=== PATIENT | male | born 1965 | race Caucasian/White ===

== ENCOUNTER 2017-07-03 14:00 | Outpatient (RCR) | payer BC, SELFPAY | END 2017-07-03 14:01 | disposition home or self-care (01) | LOC: OT 14:00 | PROVIDERS: Family Provider Family Medicine; PCP Family Medicine; Visit Provider Family Medicine | DX: M25.512 Pain in left shoulder (principal) | CPT/HCPCS: 97014; 97033; 97110; 97163; 97165; G0283 ==

== ENCOUNTER → 2020-07-09 14:13 | Outpatient (POV) | payer BC, SELFPAY | PROVIDERS: Visit Provider Nurse Practitioner Family | DX: Z00.00 Encounter for general adult medical examination without abnormal findings (principal) ==

== ENCOUNTER → 2020-08-11 12:00 | Outpatient (CLI) | payer BC, SELFPAY ==
[2020-08-11 14:03] LABS: Coronavirus 19 IgG Antibody Negative (Negative); Coronavirus 19 IgM Antibody Negative (Negative)
== END ==
PROVIDERS: Visit Provider Internal Medicine Gastroenterology
DX: Z01.818 Encounter for other preprocedural examination (principal); Z20.822 Contact with and (suspected) exposure to COVID-19; Z12.11 Encounter for screening for malignant neoplasm of colon
CPT/HCPCS: 36415; 86328

== ENCOUNTER 2020-08-13 11:56 | Day surgery (SDC) | payer BC, SELFPAY ==
[2020-08-07 10:08] VITALS: BMI 26.5
[2020-08-13] VITALS (9 sets, daily range): BP systolic 89–162; BP diastolic 64–99; PULSE 66–87; RESP 18; TEMP 36.2–36.8; O2SAT 92–99
--- NOTE | 2020-08-13 12:51 | P.PCN_ITS ---
[facility] Procedure Note Procedure Note:: Colonoscopy Procedure Report: Colonoscopy with cold snare polypectomy Endoscopist: Abundio Starr II, MD Referring physician: Donte Sheets MD Date of Procedure: August 13, 2020 Equipment: Olympus 190 variable stiffness pediatric colonoscope Sedation: MAC sedation Indication: Mr. Hicks is a 55-year-old gentleman who has had bright red rectal bleeding that occurs with every bowel movement. This began a couple of months ago. He also has had the feeling of incomplete bowel evacuation at times. He r eports smaller caliber stools with occasional urgency and small stools. He reports no abdominal pain, weight loss or family history of colon cancer. This is his first colonoscopy which is performed for diagnostic purposes. Procedure: Prior to the procedure, a history and physical exam was performed, and patient's medications and allergies were reviewed. The risks, benefits and alternatives of the sedation and procedure were discussed with the patient. All questions were answered and informed consent was obtained. The patient was brought to the procedure room. Patient identification and proposed procedure were verified by the physician and the nurse. The patient was placed in a left lateral decubitus position and the scope was passed under direct vision. Throughout the procedure, the patient's blood pressure, pulse, and oxygen saturations were monitored continuously. The colonoscopy was accomplished without difficulty. The patient tolerated the procedure well. Findings: On digital rectal examination there was normal rectal tone. There were no external hemorrhoids. There was a palpable mass approximately 7-8 cm from the anal verge that was along the posterior right margin of the rectum/rectosigmoid. The colonoscope was introduced through the anal canal to the rectum and advanced to the cecum. The ileocecal valve and appendiceal orifice were identified. The scope was advanced a short distance into the ileum which appeared grossly normal. The scope was then withdrawn into the colon. The cecum, ascending and transverse colon and mucosa were grossly normal. There were a few scattered diverticuli throughout the descending and sigmoid colon (LEFT colon). Within the rectum was a friable fungating mass lesion that extended from 13-14 cm down to about 8 to 9 cm from the anal verge and was on the posterior right lateral margin of the rectum. This mass did encompass one half to two thirds of the circumference of the rectum. The tissue had poor cohesiveness and larger amount of tissue was obtained by using the snare to remove a couple of small sections via cold snare technique. Upon retroflexion within the rectum there were grade 1 internal hemorrhoids. The preparation was excellent throughout with Teaneck Preparation Score of 9. The cecal time was 14 minutes. Impression: 1. Rectal cancer (1/2-2/3 circumference of rectum) along right posterior latera l wall Plan: This is approximately 4 to 5 cm in length and is approximately 8 cm above the pectinate line. I will follow-up the biopsies and I am going to obtain CT scan of the chest, abdomen and pelvis today. I would also like to obtain CBC, CMP, iron studies and CEA level. I will call [facility] colorectal surgeon (Dr. Stu Barrett) and discuss the findings with patient and family.
--- NOTE | 2020-08-13 13:27 | SUR.PHASEII ---
LAB AT BEDSIDE FOR BLOOD DRAW
--- NOTE | 2020-08-13 13:49 | CT_ITS ---
PROCEDURE: CT ABDOMEN PELVIS W CON CLINICAL INDICATION: Rectal cancer with bright red rectal bleeding COMPARISON: No exams were available for comparison TECHNIQUE: IV Contrast: 75ML Isovue 370 Oral Contrast 10ml Gastroview Axial images obtained with sagittal and coronal reformats. All CT scans at the facility use one or more dose reduction, viz: automated exposure control, ma/kV adjustment per patient size (including targeted exams where dose is matched to indication, i.e. head), or iterative reconstruction technique. FINDINGS: LOWER THORAX: No acute finding ABDOMEN & PELVIS: The liver, spleen, adrenal glands, pancreas, and kidneys have an unremarkable appearance. No renal or ureteral calculi. No liver lesions apparent. Prior cholecystectomy. No biliary dilatation. Incidental note made of 2 splenules the largest measuring 15 mm. Unremarkable appendix. No intestinal obstruction or free air. There is a small umbilical hernia containing fat. There are few small mesenteric lymph nodes. There is eccentric somewhat irregular thickening of the rectum on the right, anteriorly, and posteriorly consistent with patient's known rectal mass. The mass measures at least 4 cm in length and is approximately 7 cm proximal to the anus. There is some minimal haziness of the perirectal fat on the right the. No enlarged pelvic lymph nodes are evident. No evidence of perforation. No abscess apparent No lytic or blastic bony lesions. IMPRESSION: 1. Rectal mass as described above consistent with carcinoma. There is minimal haziness of the perirectal fat on the right. This could be related to partial volume averaging artifact versus serosal involvement. No adenopathy. 2. No evidence of abdominal or pelvic metastasis. Dictated by: Rickie Pepper MD 08/14/2020 05:58 Rickie Pepper MD in [place] 08/14/2020 05:58
--- NOTE | 2020-08-13 13:49 | CT_ITS ---
PROCEDURE: CT CHEST W CON CLINCAL INDICATION: RECAL CANCER Rectal cancer, evaluate for metastasis COMPARISON: No exams were available for comparison TECHNIQUE: IV Contrast: 75ml Isovue 370 Axial images obtained with sagittal and coronal reformats. All CT scans at the facility use one or more dose reduction, viz: automated exposure control, ma/kV adjustment per patient size (including targeted exams where dose is matched to indication, i.e. head), or iterative reconstruction technique. FINDINGS: HEART AND MEDIASTINAL STRUCTURES: No mediastinal or hilar mass. There are few scattered small lymph nodes but no adenopathy apparent. LUNGS AND PLEURAL SPACES: 5 mm noncalcified nodules present in the right minor fissure region. Mild atelectatic or fibrotic changes are present in the left lung base. 4 mm and 2 mm noncalcified nodules present along the left major fissure. No suspicious pulmonary nodules evident. BONY STRUCTURES: No acute bony abnormalities apparent. UPPER ABDOMEN: Unremarkable. ADDITIONAL FINDINGS: No other significant abnormalities. IMPRESSION: There are 3 small fissural nodules which have a benign appearance. Stability may be confirmed with follow-up No convincing evidence of pulmonary metastasis. Dictated by: Rickie Pepper MD 08/14/2020 06:05 Rickie Pepper MD in [place] 08/14/2020 06:05
[2020-08-13 13:50] LABS: Basophils # 0.1 K/mm3 (0-0.2); Basophils % 1.2 % (0.1-2.0); Eosinophils # 0.5 K/mm3 (0.0-0.4); Eosinophils % 9.8 % (0.1-12.0); Hematocrit 48.5 % (42.0-52.0); Hemoglobin 15.9 g/dL (14.1-18.0); Lymphocytes # 1.3 K/mm3 (0.7-4.5); Lymphocytes % 25.3 % (10-50); Mean Corpuscular HGB Conc 32.8 g/dL (31.8-35.4); Mean Corpuscular Hemoglobin 29.2 pg (27.0-31.2); Mean Corpuscular Volume 89.2 fl (80-94); Mean Platelet Volume 8.7 fl (7.4-10.4); Monocytes # 0.4 K/mm3 (0.1-1.0); Monocytes % 6.8 % (1.7-9.3); Platelet Count 213 K/mm3 (142-424); Red Blood Count 5.44 M/mm3 (4.60-6.20); Red Cell Distribution Width 12.9 % (11.5-17.5); White Blood Count 5.3 K/mm3 (4.8-10.8)
--- NOTE | 2020-08-13 13:52 | SUR.PHASEII ---
DR RICHMOND AT BEDSIDE EXPLAINING RESULTS OF COLONOSCOPY- RECTAL CA AND POC. RADIOLOGY DELIVERED CONTRAST TO DRINK.
[2020-08-13 13:53] LABS: Chloride 108 mmol/L (98-107); Sodium 139 mmol/L (136-145)
[2020-08-13 13:54] LABS: Potassium 4.9 mmoL/L (3.5-5.1)
[2020-08-13 13:56] LABS: Alanine Aminotransferase 29 U/L (12-78); Alkaline Phosphatase 71 U/L (38-126); Anion Gap 8.9 mEq/L (5-15); Aspartate Amino Transferase 31 U/L (17-59); Bilirubin,Total 0.9 mg/dl (0.2-1.3); Blood Urea Nitrogen 12 mg/dl (9-20); Carbon Dioxide 27 mmol/L (22.0-30.0); Creatinine Clearance Estimated 83 mL/min (50-200); Estimated Glomerular Filt Rate 63 ml/min (>60); GFR (African American) 76 ML/MIN (>60); Iron 156 ug/dL (49-181)
[2020-08-13 13:57] LABS: Albumin Level 4.1 g/dl (3.5-5.0); Albumin/Globulin Ratio 1.4 (1.1-1.8); Calcium 9.3 mg/dl (8.4-10.2); Globulin 2.9 g/dL (1.3-3.2); Glucose 113 mg/dl (74-100)
[2020-08-13 14:06] LABS: Total Iron Binding Capacity 357 ug/dL (261-462)
[2020-08-13 14:32] LABS: Ferritin 25.2 ng/ml (17.9-464)
--- NOTE | 2020-08-13 15:16 | P.PN_ITS ---
[facility] Anesthesia Checklist - Patient Identification Patient Identification: Arm Band - Structural Data Admitted From: Home Planned Operative Procedure/s: colonoscopy Consent for Planned Operative Procedure(s) Verified: Yes Verified Documents: Surgical Consent, History and Physical - NPO Status Verified Time NPO: 00:00 - Additional verifications Anesthesia Reactions: No - Airway Assessment C-Spine Mobility Assessed: Yes (mp2) TMJ Mobility Assessed: Yes Dentition: Good Dentition - Neurological Assessment Level of Consciousness: Awake, Alert - Anesthesia Plan Anesthesia Risk discussed: Yes Anesthesia Plan: Verified ASA Class: II Anesthesia Type: MAC [facility] History I have reviewed the patient's past medical history: Yes Medical History: Denies:: Cancer, Diabetes Mellitus Type 1, Diabetes Mellitus Type 2, MRSA, Seizures *Have you ever received a pneumonia vaccine?: No *Have you received a flu vaccine this season?: Yes Anesthesia experience/problems:: nac Amputation: No Fractures: No - *Social History Last grade of school completed: High school graduate Alcohol Intake: current Alcohol Intake Frequency:: a few times a week Substance Use Type: denies use *Occupational Status:: employed *Travel in the last 8 weeks: None Family Hx:: No significant family history
[2020-08-15 11:21] LABS: CEA 2.1 ng/mL (0.0-4.7)
== END 2020-08-13 14:30 | disposition home or self-care (01) ==
LOC: OUTP 11:58
PROVIDERS: PCP Family Medicine; Visit Provider Internal Medicine Gastroenterology
PROC: 0DJD8ZZ Inspection of Lower Intestinal Tract, Via Natural or Artificial Opening Endoscopic (ICD-10-PCS; CPT 45378; principal; 2020-08-13 13:00)
DX: C18.7 Malignant neoplasm of sigmoid colon (principal); K57.30 Diverticulosis of large intestine without perforation or abscess without bleeding; K64.0 First degree hemorrhoids
CPT/HCPCS: 45385; 36415; 71260; 74177; 80053; 82378; 82728; 83540; 83550; 85025; Q9967

== ENCOUNTER → 2020-09-17 14:37 | Outpatient (CLI) | payer BC, SELFPAY ==
[2020-09-17 15:13] LABS: Basophils # 0.1 K/mm3 (0-0.2); Eosinophils # 0.4 K/mm3 (0.0-0.4); Eosinophils % 5.6 % (0.1-12.0); Hematocrit 47.9 % (42.0-52.0); Hemoglobin 16.1 g/dL (14.1-18.0); Lymphocytes # 1.7 K/mm3 (0.7-4.5); Lymphocytes % 25.2 % (10-50); Mean Corpuscular HGB Conc 33.5 g/dL (31.8-35.4); Mean Corpuscular Hemoglobin 29.2 pg (27.0-31.2); Mean Corpuscular Volume 87.1 fl (80-94); Mean Platelet Volume 8.5 fl (7.4-10.4); Monocytes # 0.5 K/mm3 (0.1-1.0); Monocytes % 6.7 % (1.7-9.3); Neutrophils # 4.2 K/mm3 (1.8-7.8); Neutrophils % 61.6 % (37.0-80.0); Platelet Count 234 K/mm3 (142-424); Red Cell Distribution Width 12.7 % (11.5-17.5); White Blood Count 6.8 K/mm3 (4.8-10.8)
[2020-09-17 15:32] LABS: Chloride 104 mmol/L (98-107); Potassium 4.6 mmoL/L (3.5-5.1); Sodium 135 mmol/L (136-145)
[2020-09-17 15:35] LABS: Anion Gap 13.6 mEq/L (5-15); Blood Urea Nitrogen 18 mg/dl (9-20); Calcium 9.8 mg/dl (8.4-10.2); Carbon Dioxide 22 mmol/L (22.0-30.0); Estimated Glomerular Filt Rate 69 ml/min (>60); GFR (African American) 84 ML/MIN (>60); Glucose 113 mg/dl (74-100)
[2020-09-17 15:46] LABS: Coronavirus 19 IgG Antibody Positive (Negative); Coronavirus 19 IgM Antibody Negative (Negative)
== END ==
PROVIDERS: Visit Provider Surgery
DX: Z01.812 Encounter for preprocedural laboratory examination (principal); Z20.822 Contact with and (suspected) exposure to COVID-19; C20 Malignant neoplasm of rectum
CPT/HCPCS: 36415; 80048; 85025; 86328

== ENCOUNTER 2020-09-18 08:53 | Day surgery (SDC) | payer BC, SELFPAY ==
[2020-09-17 12:17] VITALS: BMI 30.7
[2020-09-18] VITALS (10 sets, daily range): BP systolic 91–162; BP diastolic 60–100; PULSE 71–82; RESP 14–16; TEMP 36.2–36.7; O2SAT 93–100
--- NOTE | 2020-09-18 09:33 | HMH.ANESCL ---
[facility] Anesthesia Checklist - Patient Identification Patient Identification: Arm Band - Structural Data Admitted From: Home Planned Operative Procedure/s: Port - a - cath placement Consent for Planned Operative Procedure(s) Verified: Yes - NPO Status Verified Time NPO: 00:00 - Additional verifications Anesthesia Reactions: No Hx Blood Transfusions: No Blood Transfusion Reaction: No - Airway Assessment C-Spine Mobility Assessed: Yes TMJ Mobility Assessed: Yes Dentition: Good Dentition - Neurological Assessment Level of Consciousness: Awake Hx Seizures: No Numbness or tingling in extremities: No - Anesthesia Plan Anesthesia Risk discussed: Yes Anesthesia Plan: Verified ASA Class: II Anesthesia Type: General [facility] History I have reviewed the patient's past medical history: Yes Medical History: Reports:: Cancer (Colorectal cancer), Cardiomyopathy Denies:: Diabetes Mellitus Type 1, Diabetes Mellitus Type 2, Internal Pacemaker, MRSA, Seizures *Have you ever received a pneumonia vaccine?: Yes (2009) *Have you received a flu vaccine this season?: Yes Other Medical History: Denies: Blood Transfusion Reaction Anesthesia experience/problems:: None Laterality Cases: Left: Arthroscopy Knee Other Surgeries: Yes: Cholecystectomy, Colonoscopy, Other. No: Pacemaker Amputation: No Fractures: No - *Social History Last grade of school completed: Advanced degree Smoking Status: Never smoker Alcohol Intake: current Alcohol Intake Frequency:: a few times a week Substance Use Type: denies use *Occupational Status:: employed Housing: house Household Members: spouse *Travel in the last 8 weeks: None Family Hx:: No significant family history
--- NOTE | 2020-09-18 11:52 | HMH.OPNOTE ---
Date of procedure: 09/18/20 Pre-op Diagnosis:: Rectal cancer Post-op Diagnosis:: Same Procedure performed:: Placement of single-lumen tunneled venous access port with subcutaneous reservoir (PowerPort) Surgeon:: Gopi Leslie MD FURNITURE SALESPERSON:: Other Anesthesia: GETA Estimated blood loss (mL): 10 Clinical Note:: Patient is a very pleasant 55-year-old male with newly diagnosed rectal cancer. He has been having some rectal bleeding and underwent colonoscopy by Dr. Abundio Starr at which point he was found to have mid rectal cancer approximately 8 cm from the dentate line. He has seen Dr. Butch Barrett and seen Dr. Barahona for oncology. Plan is for neoadjuvant chemoradiation. He has been referred for surgical consultation for port placement. Operative findings:: No unusual anatomy Operative note:: Patient was taken to the operating room. He was positioned in the supine position. General anesthesia was induced via endotracheal tube. Neck and upper chest was prepped and draped in the standard surgical fashion bilaterally. He was positioned in Trendelenburg position. Local anesthetic was infiltrated inferior to the left clavicle near the deltopectoral groove. 18-gauge needle was inserted. Several passes were made of the needle and ultimately the left subclavian vein was cannulated. Guidewire was inserted. Fluoroscopy was used to confirm appropriate position of the guidewire. Small incision was made at the guidewire insertion site. Subcutaneous tissues were dilated with the dilator and breakaway sheath. Guidewire and dilator were removed. Single-lumen open-ended catheter was inserted through the breakaway sheath which was then removed. Fluoroscopy was used to confirm appropriate positioning of the catheter tip near the atriocaval junction. Skin was marked the skin marker for planned subcutaneous tunnel and pocket. Local anesthetic was infiltrated. Incision was made for subcutaneous pocket. Inferior subcutaneous pocket was created using electrocautery. Catheter was tunneled subcutaneously to the pocket. Fluoroscopy was once again used to confirm appropriate position of the catheter and tip. Catheter was cut to the appropriate length. It was secured to the reservoir port. [place] port was secured in the subcutaneous pocket with 2-0 Vicryl sutures. Port aspirated was flushed with saline without difficulty. Subcutaneous tissues were closed with a running 2-0 Vicryl suture. Both incisions were closed with 4-0 Monocryl in a subcuticular fashion. Dressing was applied. At the completion of the procedure the portals once again accessed percutaneously with the Hardy needle infusion tubing. It flushed and aspirated without difficulty with saline. It was then flushed with heparinized saline. Port was left accessed for planned chemotherapy tomorrow. There were no immediate complications. Condition: stable Disposition: PACU Specimens:: None Complications:: None immediately apparent
--- NOTE | 2020-09-18 11:56 | HMH.ANESI ---
[facility] Anesthesia Record Part I Intake, IV Amount: 500 Estimated blood loss (mL): 0 Urine output (mL): 0 Blood Pressure: 108/63 SaO2: 93 Pulse Rate: 79 Respiratory Rate: 14 Temperature: 97.2 F Patient is:: Drowsy Stable to PACU at:: 11:54
--- NOTE | 2020-09-18 12:03 | XR_ITS ---
PROCEDURE: XR CHEST PORTABLE CLINICAL HISTORY: port a cath COMPARISON: CT CT CHEST W CON from 08/13/2020 FINDINGS: Left subclavian Port-A-Cath has been placed. The tip is in the region of the distal SVC/caval atrial region. No evidence of pneumothorax. Bibasilar atelectatic changes with low lung volumes. No acute bony abnormalities. IMPRESSION: Port-A-Cath present from left subclavian approach with the tip in the region of the distal SVC/proximal atrial region without evidence of pneumothorax Dictated by: Rickie Pepper MD 09/18/2020 12:54 Rickie Pepper MD in [place] 09/18/2020 12:54
--- NOTE | 2020-09-18 12:38 | XR_ITS ---
PROCEDURE: XR CHEST AP CLINICAL HISTORY: PORT A CATH COMPARISON: CT CT CHEST W CON from 08/13/2020 CR XR CHEST PORTABLE from 09/18/2020 FINDINGS: Fluoroscopy time: 20 seconds. Single images submitted with C-arm demonstrating Port-A-Cath tip in the region of the distal SVC from the left subclavian approach. IMPRESSION: Status post Port-A-Cath placement with C-arm assistance Dictated by: Rickie Pepper MD 09/18/2020 14:42 Rickie Pepper MD in [place] 09/18/2020 14:42
[2020-09-19 09:25] VITALS: BP 144/94; PULSE 76; TEMP 36.5
--- NOTE | 2020-09-19 09:25 | P.PN_ITS ---
[facility] Anesthesia Record Part II Discharge Time: 12:34 Destination: [facility] PACU nurse assessment reviewed?: Yes Patient Condition:: Good Anesthesia Complications:: None Swallowing reflex intact?: Yes Cyanosis?: No Blood Pressure: 144/94 Pulse Rate: 76 Temperature: 97.7 F Mental Status: Alert & Oriented Pain level:: 0 Nausea and/or vomitting:: None Intake, IV Amount: 500
== END 2020-09-18 13:25 | disposition home or self-care (01) ==
LOC: OR 08:54
PROVIDERS: Visit Provider Surgery
PROC: (CPT 36561; principal; 2020-09-18 10:15)
DX: C20 Malignant neoplasm of rectum (principal); I42.9 Cardiomyopathy, unspecified; Z87.39 Personal history of other diseases of the musculoskeletal system and connective tissue; Z90.49 Acquired absence of other specified parts of digestive tract
CPT/HCPCS: 36561; 71045; 76000; 96374; C1788; J1642

== ENCOUNTER 2020-09-19 08:25 | Outpatient (CLI) | payer BC, SELFPAY ==
[2020-09-19] VITALS (27 sets, daily range): BP systolic 105–166; BP diastolic 58–102; PULSE 58–90; RESP 16–18; TEMP 36.2; O2SAT 95–99
--- NOTE | 2020-09-21 11:50 | DIET.NUTRFU ---
Pt contacted through phone for nutritional consultation for first dose chemotherapy. Pt reported no nutritional issues or side effects at this time and eating normally. Encouraged pt to reach out with any nutritional questions/concerns at any time.
== END 2020-09-19 16:10 | disposition home or self-care (01) ==
LOC: INF 08:33
PROVIDERS: Visit Provider Internal Medicine Medical Oncology
DX: C18.9 Malignant neoplasm of colon, unspecified (principal)
CPT/HCPCS: 96411; 96413; 96415; 96417; J0640; J9190; J9263; Q0166

== ENCOUNTER 2020-10-04 08:00 | Outpatient (CLI) | payer BC, SELFPAY ==
[2020-10-04] VITALS (23 sets, daily range): BP systolic 115–159; BP diastolic 68–94; PULSE 63–94; RESP 16–18; TEMP 35.8–35.9; O2SAT 98; BMI 30.7
[2020-10-04 08:34] LABS: Basophils % 0.8 % (0.1-2.0); Eosinophils # 0.2 K/mm3 (0.0-0.4); Hematocrit 43.8 % (42.0-52.0); Hemoglobin 14.5 g/dL (14.1-18.0); Lymphocytes # 2.3 K/mm3 (0.7-4.5); Lymphocytes % 53.3 % (10-50); Mean Corpuscular HGB Conc 33.1 g/dL (31.8-35.4); Mean Corpuscular Hemoglobin 29.2 pg (27.0-31.2); Mean Corpuscular Volume 88.2 fl (80-94); Mean Platelet Volume 7.8 fl (7.4-10.4); Monocytes # 0.7 K/mm3 (0.1-1.0); Monocytes % 15.7 % (1.7-9.3); Neutrophils # 1.1 K/mm3 (1.8-7.8); Neutrophils % 26.2 % (37.0-80.0); Platelet Count 189 K/mm3 (142-424); Red Blood Count 4.97 M/mm3 (4.60-6.20); Red Cell Distribution Width 13.1 % (11.5-17.5); White Blood Count 4.2 K/mm3 (4.8-10.8)
[2020-10-04 08:45] LABS: MANUAL DIFFERENTIAL MANUAL DIFFERENTIAL (MANUAL DIFF)
[2020-10-04 08:49] LABS: Chloride 102 mmol/L (98-107); Potassium 4.1 mmoL/L (3.5-5.1); Sodium 134 mmol/L (136-145)
[2020-10-04 08:52] LABS: Alanine Aminotransferase 25 U/L (12-78); Albumin/Globulin Ratio 1.4 (1.1-1.8); Alkaline Phosphatase 93 U/L (38-126); Anion Gap 11.1 mEq/L (5-15); Aspartate Amino Transferase 24 U/L (17-59); Bilirubin,Total 0.5 mg/dl (0.2-1.3); Blood Urea Nitrogen 16 mg/dl (9-20); Calcium 9.4 mg/dl (8.4-10.2); Carbon Dioxide 25 mmol/L (22.0-30.0); Creatinine Clearance Estimated 95 mL/min (50-200); Estimated Glomerular Filt Rate 69 ml/min (>60); GFR (African American) 84 ML/MIN (>60); Globulin 2.8 g/dL (1.3-3.2); Glucose 128 mg/dl (74-100); Total Protein,Serum 6.8 g/dl (6.3-8.2)
[2020-10-04 09:52] LABS: Eosinophils % 6 % (0-3); Lymphocytes % 49 % (10-50); Monocytes % 16 % (2-9); Neutrophils % 28 % (42-76); Total Cells Counted 100
[2020-10-04 09:53] LABS: Platelet Estimate Normal; RBC Morphology Normal
--- NOTE | 2020-10-04 16:24 | PC.NURSE ---
[id number] 4800MG CONTINUOUS IV DOSE VERIFIED WITH MAGAN GONZALEZ AND HOOKED UP TO PORT AT THIS TIME FOR 46 HR INFUSION.
== END 2020-10-04 16:15 | disposition home or self-care (01) ==
LOC: INF 08:08
PROVIDERS: Visit Provider Internal Medicine Medical Oncology
DX: Z51.11 Encounter for antineoplastic chemotherapy (principal); C20 Malignant neoplasm of rectum
CPT/HCPCS: 80053; 85007; 85025; 96411; 96413; 96415; 96417; J0640; J8501; J9190; J9263; Q0166

== ENCOUNTER 2020-10-04 20:03 | Emergency (ER) | payer BC, SELFPAY ==
[2020-10-04 20:30] VITALS: BMI 25.8
--- NOTE | 2020-10-04 21:05 | HMH.EDUTC ---
[facility] [place] Referrals: Kya Barahona MD [Primary Care Provider] - [facility] HPI - General Stated complaint: chemo port came loose - Related Data Home Medications Medication Instructions Recorded Confirmed No Known Home Medications 08/07/20 10/04/20 Allergies Allergy/AdvReac Type Severity Reaction Status Date / Time No Known Allergies Allergy Verified 10/04/20 08:41 [facility] [place] History - Hepatitis A Screen Attestation statement:: This patient has been screened for Hepatitis A risk factors. Medical History: Reports:: Cancer, Cardiomyopathy Denies:: Diabetes Mellitus Type 1, Diabetes Mellitus Type 2, Internal Pacemaker, MRSA, Seizures Other Medical History: Reports: Chemotherapy. Denies: Blood Transfusion Reaction Laterality Cases: Left: Arthroscopy Knee Other Surgeries: Yes: Cholecystectomy, Colonoscopy, Other. No: Pacemaker Amputation: No Fractures: No Comment: Lt knee sx - Social History Smoking Status: Never smoker Alcohol Intake: current Alcohol Intake Frequency:: a few times a week Substance Use Type: denies use Occupational Status: employed Housing: house Household Members: spouse Family Hx:: No significant family history
--- NOTE | 2020-10-04 21:45 | PC.NURSE ---
JAMES GORDILLO APRN SPEAKING WITH DR. PULIDO AT THIS TIME D/T STAFF NOT BEING ABLE TO ACCESS POWER PORT. DR. PULIDO STATED FOR STERILE DRESSING TO BE APPLIED TO SITE AND FOR PATIENT TO FOLLOW UP WITH EITHER DR. SANCHEZ OR ROSALIA IN AM.
[2020-10-04 21:48] VITALS: BP 00/00; PULSE 0; RESP 0; TEMP -17.7; TEMP 0
== END 2020-10-04 21:52 | disposition home or self-care (01) ==
PROVIDERS: Emergency Provider Nurse Practitioner Family; PCP Internal Medicine Medical Oncology
DX: Z95.828 Presence of other vascular implants and grafts (principal)

== ENCOUNTER 2020-10-05 11:02 | Outpatient (CLI) | payer BC, SELFPAY | END 2020-10-05 13:00 | disposition home or self-care (01) | LOC: INF 11:39 | PROVIDERS: Visit Provider Internal Medicine Medical Oncology | DX: Z45.2 Encounter for adjustment and management of vascular access device (principal); C20 Malignant neoplasm of rectum | CPT/HCPCS: 96374 ==

== ENCOUNTER 2020-10-06 17:22 | Emergency (ER) | payer BC, SELFPAY ==
--- NOTE | 2020-10-06 17:25 | PC.NURSE ---
Pt alert and oriented x4. Calm and cooperative. Port accessed. No apparent head injuries noted. Pt denies any neck pain or discomfort. Bilateral scapular bruising. Heart sounds w/ RRR. Bilateral lung sounds clear throughout. Abdomen with abrasion noted at midline, also has 2 lacerations on left side of abdominal wall. Bilateral upper extremities with no known injury noted. No injuries noted to spinal area. Pt denies any back pain or discomfort. Right lower extremity with approx 2 deep laceration on back of upper leg. Left lower extremity with no apparent injury.
--- NOTE | 2020-10-06 17:27 | PC.NURSE ---
Trauma alert called to primo
--- NOTE | 2020-10-06 17:29 | XR_ITS ---
PROCEDURE INFORMATION: Exam: XR Pelvis Exam date and time: 10/06/2020 5:29 PM Age: 55 years old Clinical indication: Injury or trauma; Fall; Blunt trauma (contusions or hematomas); Does not apply; Abdomen, lower; Additional info: Trauma alert TECHNIQUE: Imaging protocol: XR pelvis. Views: 1 or 2 view. COMPARISON: CT ABDOMEN PELVIS W CON 08/13/2020 4:27 PM FINDINGS: Bones/joints: Normal anatomic alignment. There is no evidence of acutely displaced fractures. There is no evidence of dislocation. No aggressive osseous lesions. Soft tissues: There is no significant soft tissue swelling. There is no evidence of a radio-opaque foreign body. IMPRESSION: Negative for acute skeletal pathology.
--- NOTE | 2020-10-06 17:29 | XR_ITS ---
PROCEDURE INFORMATION: Exam: XR Chest Exam date and time: 10/06/2020 5:29 PM Age: 55 years old Clinical indication: Injury or trauma; Fall; Blunt trauma (contusions or hematomas); Additional info: Trauma alert TECHNIQUE: Imaging protocol: XR of the chest. Views: 4 or more views. COMPARISON: SD XR CHEST AP 09/18/2020 12:30 PM FINDINGS: Tubes, catheters and devices: A left infusion port is present. Airway: The airways are patent. Lungs: No acute interstitial or airspace disease. Pleural spaces: There are no pleural effusions present. There is no evidence of pneumothorax. Heart/Mediastinum: Heart is of normal size and morphology. Bones/joints: No acute skeletal abnormality or aggressive osseous lesion. IMPRESSION: Negative for acute thoracic pathology.
[2020-10-06 17:33] VITALS: BP 122/72; PULSE 68; RESP 20; TEMP 36.9; O2SAT 100
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
--- NOTE | 2020-10-06 17:33 | XR_ITS ---
PROCEDURE INFORMATION: Exam: XR Right Femur Exam date and time: 10/06/2020 5:33 PM Age: 55 years old Clinical indication: Other: Laceration TECHNIQUE: Imaging protocol: XR Right femur. Views: 2 views. COMPARISON: No relevant prior studies available. FINDINGS: Bones/joints: Normal anatomic alignment. There is no evidence of acutely displaced fractures. There is no evidence of dislocation. No aggressive osseous lesions. Soft tissues: Soft tissue swelling and soft tissue emphysema at the level of the popliteal fossa/knee. There is no evidence of a radio-opaque foreign body. IMPRESSION: 1. Soft tissue swelling and soft tissue emphysema at the level of the popliteal fossa/knee, most in favor with a posttraumatic laceration. 2. Negative for acute skeletal pathology.
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
--- NOTE | 2020-10-06 17:48 | HMH.EDGENADL ---
ED Disposition Clinical Impression: Abdominal trauma Qualifiers: Encounter type: initial encounter Qualified Code(s): S39.91XA - Unspecified injury of abdomen, initial encounter Chest trauma Qualifiers: Encounter type: initial encounter Qualified Code(s): S29.9XXA - Unspecified injury of thorax, initial encounter Disposition: Home, Self-Care Condition on Discharge: Good Referrals: Provider,Referral, MD [Primary Care Provider] - - Critical Care Critical Care Time: No Attestation: On 10/06/20, the high probability of a clinically significant, sudden or life threatening deterioration of the following system(s) required my full and direct attention, intervention and personal management. The time I documented below is in addition to time spent performing reported procedures but includes the following listed in this critical care notation. Medical Decision Making - Medical Records Medical records reviewed: Yes: I reviewed the patient's medical records. - Russell Inquiry Pt receiving controlled substance: No Vital Signs: 10/06/20 17:33 Temperature 98.5 F Temperature Source Oral Pulse Rate [Left Radial] 68 Respiratory Rate 20 Blood Pressure [Right Arm] 122/72 Blood Pressure Mean [Right Arm] 88 Blood Pressure Source [Right Arm] Manual Cuff/ Auscultation Blood Pressure Position [Right Arm] Supine 02 Sat by Pulse Oximetry 100 Oxygen Delivery Method Room Air Orders (Tests/Meds): ED MEDICATIONS Discontinued Medications Generic Name Dose Route Start Last Admin Trade Name Freq PRN Reason Stop Dose Admin Iopamidol 100 ml 10/06/20 18:20 10/06/20 18:21 Iopamidol-370 (76%);100ml Bottle IV 10/06/20 18:21 100 ml ONCE ONE Administration Sodium Chloride 50 ml 10/06/20 18:20 10/06/20 18:21 0.9 % Sodium Chloride 50 Ml Vial IV 10/06/20 18:21 50 ml ONCE ONE Administration Sodium Chloride 10 ml 10/06/20 18:20 10/06/20 18:21 Sodium Chloride 0.9% 10ml Syr (Rad Only) IV 10/06/20 18:21 10 ml ONCE ONE Administration Medical Decision Narrative: In summary this is a 55-year-old male history of colon cancer on chemotherapy with a port, will had chemotherapy today. Patient was attacked by a ball, has trauma to his chest and abdomen, patient made a trauma alert. Vital signs were stable, not tachycardic or hypoxemic. Patient bedside E fast was negative for pneumothorax or fluid collection in abdomen. Bedside chest and pelvis x-ray demonstrated no large pneumothorax radiographically on chest x-ray or pelvic fracture. Patient trauma alert was canceled, was taken to CT scanner for CTA chest and CT abdomen pelvis. It meets [place] head CT criteria Nexus criteria does not require any imaging at this time of head or C-spine. Patient did have laceration of his right lower extremity proximal posterior medial thigh this was repaired with sutures please see note for further details, on further assessment patient CTA chest and CT abdomen pelvis demonstrated no pathology or traumatic injuries, patient was amenable for discharge for follow-up for suture removal in 10 to 14 days. General Adult HPI - General Stated complaint: AO 10/06 1700 attach by bull Time Seen by Provider: 10/06/20 17:25 - History of Present Illness HPI narrative: 55-year-old male history of colorectal cancer on chemotherapy with port in place presenting after trauma. Patient was at work as a [employer] when he had a bowel, in his abdomen. Patient states that the ball caused a laceration of his right lower extremity, patient denies any chest pain or abdominal pain at this time, patient has laceration to his right lower extremity. Not on blood thinners, no other medical problems or surgical history. Patient not hit his head or pass out, patient made a trauma alert on arrival. - Related Data Home Medications Medication Instructions Recorded Confirmed No Known Home Medications 08/07/20 10/04/20 Allergies Allergy/Ad
--- NOTE | 2020-10-06 18:16 | PC.NURSE ---
Pt returned from rad.
--- NOTE | 2020-10-06 18:36 | PC.NURSE ---
at bedside suturing.
[2020-10-06 18:55] VITALS: BMI 30.2
[2020-10-06 19:06] VITALS: BP 122/72; PULSE 68; RESP 20; TEMP 36.9; O2SAT 100
== END 2020-10-06 19:10 | disposition home or self-care (01) ==
PROVIDERS: Emergency Provider Emergency Medicine
DX: S81.811A Laceration without foreign body, right lower leg, initial encounter (principal); S39.91XA Unspecified injury of abdomen, initial encounter; S29.9XXA Unspecified injury of thorax, initial encounter; W55.22XA Struck by cow, initial encounter; Y92.73 Farm field as the place of occurrence of the external cause; C20 Malignant neoplasm of rectum
CPT/HCPCS: 12001; 71045; 71275; 72170; 73552; 74174; 99281; J1642; Q9967

== ENCOUNTER 2020-10-06 20:37 | Emergency (ER) | payer BC, SELFPAY ==
[2020-10-06 21:00] VITALS: BP 114/79; PULSE 65; RESP 18; TEMP 36.9; O2SAT 98; BMI 30.2
[2020-10-06 21:30] VITALS: BP 146/89; PULSE 68; RESP 16; O2SAT 99
[2020-10-06 21:30] LABS: Basophils % 0.7 % (0.1-2.0); Eosinophils # 0.1 K/mm3 (0.0-0.4); Eosinophils % 1.5 % (0.1-12.0); Hematocrit 43.5 % (42.0-52.0); Hemoglobin 13.9 g/dL (14.1-18.0); Lymphocytes # 1.2 K/mm3 (0.7-4.5); Lymphocytes % 34.4 % (10-50); Mean Corpuscular Hemoglobin 28.5 pg (27.0-31.2); Mean Corpuscular Volume 88.8 fl (80-94); Monocytes # 0.2 K/mm3 (0.1-1.0); Monocytes % 5.5 % (1.7-9.3); Neutrophils # 1.9 K/mm3 (1.8-7.8); Neutrophils % 57.9 % (37.0-80.0); Platelet Count 200 K/mm3 (142-424); Red Cell Distribution Width 12.8 % (11.5-17.5); White Blood Count 3.3 K/mm3 (4.8-10.8)
--- NOTE | 2020-10-06 21:37 | HMH.EDRECH ---
ED Disposition Clinical Impression: Rectal cancer Pulmonary emboli Qualifiers: Pulmonary embolism type: multiple subsegmental (without acute cor pulmonale) Qualified Code(s): I26.94 - Multiple subsegmental pulmonary emboli without acute cor pulmonale Disposition: Home, Self-Care Condition on Discharge: Good Instructions: DI for Pulmonary Embolism Additional Instructions: call dr jones and dr armas thursday and take eliquis 10 mg bid Referrals: Provider,MD Leia [Primary Care Provider] - Donte Jones MD [Staff Physician] - Kya Armas MD [Staff Physician] - - Critical Care Critical Care Time: No Attestation: On 10/06/20, the high probability of a clinically significant, sudden or life threatening deterioration of the following system(s) required my full and direct attention, intervention and personal management. The time I documented below is in addition to time spent performing reported procedures but includes the following listed in this critical care notation. Medical Decision Making - Medical Records Medical records reviewed: Yes: I reviewed the patient's medical records. - Russell Inquiry Pt receiving controlled substance: No Vital Signs: 10/06/20 21:00 10/06/20 21:30 Temperature 98.5 F Temperature Source Oral Pulse Rate 68 Pulse Rate [Right] 65 Respiratory Rate 18 16 Blood Pressure 146/89 H Blood Pressure [Right Arm] 114/79 Blood Pressure Mean 109 Blood Pressure Mean [Right Arm] 90 Blood Pressure Source [Right Arm] Automatic Cuff Blood Pressure Position [Right Arm] Supine 02 Sat by Pulse Oximetry 98 99 Oxygen Delivery Method Room Air - Lab Data Lab results reviewed: Yes: I reviewed the patient's lab results. Lab Results 10/06/20 21:15: WBC 3.3 L, RBC 4.90, Hgb 13.9 L, Hct 43.5, MCV 88.8, MCH 28.5, MCHC 32.0, RDW 12.8, Plt Count 200, MPV 8.0, Neut % (Auto) 57.9, Lymph % (Auto) 34.4, [place] % (Auto) 5.5, Eos % (Auto) 1.5, Baso % (Auto) 0.7, Neut # (Auto) 1.9, Lymph # (Auto) 1.2, [place] # (Auto) 0.2, Eos # (Auto) 0.1, Baso # (Auto) 0.0 05/15/21 21:15: ESR 14 10/06/20 21:15: PT 11.5, INR 0.97 10/06/20 21:15: Sodium 134 L, Potassium 3.6, Chloride 102, Carbon Dioxide 25, Anion Gap 10.6, BUN 19, Creatinine 1.00, Estimated Creat Clear 103, Estimated GFR 78, Est GFR ( Amer) 94, Glucose 118 H, Calcium 8.8, Total Bilirubin 1.0, AST 35 D, ALT 34 D, Alkaline Phosphatase 83, C-Reactive Protein 3.3, Total Protein 6.8, Albumin 4.0, Globulin 2.8, Albumin/Globulin Ratio 1.4, Procalcitonin 0.099 Result diagrams: 10/06/20 21:15 10/06/20 21:15 Orders (Tests/Meds): ORDERS Category Date Time Status Covid-19 Nasal PCR ([facility]) Routine Lab 10/06/20 21:37 Received PT/PTT Stat Lab 10/06/20 21:15 Results - Physician Consults Physician Consulted: tomas Reason -: Pt condition Medical Decision Narrative: has bilat pul emboli on ct and no active bleeding and prob related to his cancer - will start eliquis and have pt call hematology thursday - samples given Recheck HPI - General Chief Complaint: Recheck/Abnormal Lab/Rx Stated Complaint: pt return due to bloodwork Time Seen by Provider: 10/06/20 21:15 Mode of Arrival: Ambulatory Source of Information: Patient, Medical Record Limitations: No Limitations Description of Symptoms (Recalled from ER Triage Doc. by RN): Pt was here earlier for bull attack and CT showed PE's, pt was called back for PE workup - History of Present Illness HPI narrative: pt called back to ed as ct chest scan was reviewed and noted to have bilat pul emboli complaint: other (ct chest ) Initial visit (ago): hour(s) Initial visit for: other (trauma) Returns today for: called because of abnormal lab/test Symptoms since prior visit: no new symptoms Associated symptoms: none - Related Data Home Medications Medication Instructions Recorded Confirmed No Known Home Medications 08/07/20 10/06/20 Allergies Allergy/AdvReac Type Severity
[2020-10-06 21:53] LABS: Alanine Aminotransferase 34 U/L (12-78); Albumin/Globulin Ratio 1.4 (1.1-1.8); Alkaline Phosphatase 83 U/L (38-126); Anion Gap 10.6 mEq/L (5-15); Aspartate Amino Transferase 35 U/L (17-59); Blood Urea Nitrogen 19 mg/dl (9-20); Calcium 8.8 mg/dl (8.4-10.2); Carbon Dioxide 25 mmol/L (22.0-30.0); Chloride 102 mmol/L (98-107); Creatinine Clearance Estimated 103 mL/min (50-200); Estimated Glomerular Filt Rate 78 ml/min (>60); GFR (African American) 94 ML/MIN (>60); Globulin 2.8 g/dL (1.3-3.2); Glucose 118 mg/dl (74-100); Potassium 3.6 mmoL/L (3.5-5.1); Sodium 134 mmol/L (136-145); Total Protein,Serum 6.8 g/dl (6.3-8.2)
[2020-10-06 21:58] LABS: C-Reactive Protein 3.3 mg/L (0-4)
[2020-10-06 22:00] VITALS: BP 127/81; PULSE 62; RESP 16; O2SAT 96
[2020-10-06 22:07] LABS: Erythrocyte Sedimentation Rate 14 mm/hr (0-20)
[2020-10-06 22:10] LABS: INR 0.97 (0.9-1.1); Prothrombin Time 11.5 seconds (10.1-12.5)
[2020-10-06 22:11] LABS: Procalcitonin 0.099 ng/mL (0.0-2.0)
[2020-10-06 22:30] VITALS: BP 141/82; PULSE 64; RESP 16; O2SAT 97
--- NOTE | 2020-10-06 22:37 | PC.NURSE ---
talked to Krystian in pharmacy for medication confirmation. they advised that patient should take 10mg of eliquis twice a day for 7 days and then on the 8th day to take 5mg twice a day there after.
[2020-10-06 23:00] VITALS: BP 141/84; PULSE 64; RESP 17; O2SAT 99
--- NOTE | 2020-10-06 23:07 | PC.NURSE ---
Port flushed with 10 ml NS followed by 3ml of 100 unit/ml Heparin and wei needle pulled and band-aide placed.
[2020-10-06 23:09] VITALS: BP 141/84; PULSE 67; RESP 16; TEMP 36.9; O2SAT 100
== END 2020-10-06 23:12 | disposition home or self-care (01) ==
PROVIDERS: Emergency Provider Emergency Medicine
DX: I26.94 Multiple subsegmental thrombotic pulmonary emboli without acute cor pulmonale (principal); S39.91XD Unspecified injury of abdomen, subsequent encounter; S29.9XXD Unspecified injury of thorax, subsequent encounter; C20 Malignant neoplasm of rectum; Z11.52 Encounter for screening for COVID-19
CPT/HCPCS: 80053; 84145; 85025; 85610; 85651; 85730; 86140; 96374; 99282; J1642; U0003

== ENCOUNTER 2020-10-08 14:29 | Inpatient (IN) | payer BC, SELFPAY ==
[2020-10-08] VITALS (10 sets, daily range): BP systolic 127–167; BP diastolic 80–91; PULSE 71–103; RESP 13–25; TEMP 36.8–36.9; O2SAT 98–100; BMI 30.2; BMI 29.2
--- NOTE | 2020-10-08 14:30 | ECG_ITS ---
APPROVED REPORT Exam: Resting ECG HR:69 bpm ECG Measurements Heart Rate 69 AXES GA 142 P 58 QRSd 76 QRS 41 QT 374 T 50 QTc 400 Conclusion Sinus rhythm with occasional premature ventricular complexes Nonspecific T wave abnormality Abnormal ECG Electronically signed by : Donte Jones, 10/08/2020 17:43:17
--- NOTE | 2020-10-08 14:33 | XR_ITS ---
PROCEDURE: XR CHEST PORTABLE CLINICAL HISTORY: hypotension COMPARISON: CR XR CHEST PORTABLE from 09/18/2020 CR XR CHEST AP from 09/18/2020 CR XR CHEST AP from 10/06/[address] ANGIO CHEST from 10/06/2020 FINDINGS: The cardiomediastinal silhouette and pulmonary vascularity are within normal limits. The lungs are clear without infiltrates, suspicious nodules, or pleural effusions. MediPort catheter is present from left subclavian approach with the tip in the region the SVC. IMPRESSION: No change with no acute finding Dictated by: Rickie Pepper MD 10/08/2020 15:15 Rickie Pepper MD in [facility] 10/08/2020 15:15
--- NOTE | 2020-10-08 14:33 | HMH.EDGENADL ---
ED Disposition Clinical Impression: Suspected soft tissue infection Traumatic hematoma of right lower leg with infection Qualifiers: Encounter type: initial encounter Qualified Code(s): S80.11XA - Contusion of right lower leg, initial encounter Disposition: Xfer Critical [facility] Condition on Discharge: Serious Referrals: Donte Jones MD [Primary Care Provider] - Time of Disposition: 20:40 - Critical Care Critical Care Time: No Attestation: On , the high probability of a clinically significant, sudden or life threatening deterioration of the following system(s) required my full and direct attention, intervention and personal management. The time I documented below is in addition to time spent performing reported procedures but includes the following listed in this critical care notation. Medical Decision Making - Medical Records Medical records reviewed: Yes: I reviewed the patient's medical records. - Russell Inquiry Pt receiving controlled substance: No Vital Signs: 10/08/20 14:29 10/08/20 14:30 10/08/20 15:00 Temperature 98.5 F Temperature Source Oral Pulse Rate 71 74 Pulse Rate [Right] 76 Respiratory Rate 16 22 Blood Pressure 129/85 139/80 Blood Pressure [Right Arm] 129/85 Blood Pressure Mean [Right Arm] 99 Blood Pressure Source [Right Arm] Automatic Cuff Blood Pressure Position [Right Arm] Sitting 02 Sat by Pulse Oximetry 100 100 100 Oxygen Delivery Method Room Air 10/08/20 15:15 10/08/20 15:45 10/08/20 16:31 Temperature Temperature Source Pulse Rate 77 84 85 Pulse Rate [Right] Respiratory Rate 21 25 H 13 Blood Pressure 134/86 148/80 H 166/88 H Blood Pressure [Right Arm] Blood Pressure Mean [Right Arm] Blood Pressure Source [Right Arm] Blood Pressure Position [Right Arm] 02 Sat by Pulse Oximetry 99 98 100 Oxygen Delivery Method 10/08/20 17:00 10/08/20 17:30 Temperature Temperature Source Pulse Rate 79 Pulse Rate [Right] Respiratory Rate 16 21 Blood Pressure 166/90 H 162/89 H Blood Pressure [Right Arm] Blood Pressure Mean [Right Arm] Blood Pressure Source [Right Arm] Blood Pressure Position [Right Arm] 02 Sat by Pulse Oximetry 100 Oxygen Delivery Method - Lab Data Lab Results 10/08/20 14:40: WBC 5.0 D, RBC 5.45, Hgb 15.5, Hct 48.2, MCV 88.3, MCH 28.5, MCHC 32.2, RDW 12.4, Plt Count 190, MPV 7.9, Neut % (Auto) 88.7 H, Lymph % (Auto) 8.5 L, Hill % (Auto) 2.5, Eos % (Auto) 0.1, Baso % (Auto) 0.2, Neut # (Auto) 4.4, Lymph # (Auto) 0.4 L, Hill # (Auto) 0.1, Eos # (Auto) 0.0, Baso # (Auto) 0.0, Total Counted 100, Neutrophils % (Manual) 80 H, Band Neutrophils % 4.0, Lymphocytes % (Manual) 5 L, Monocytes % (Manual) 11 H, Platelet Estimate Normal, RBC Morphology Normal 10/08/20 14:40: Sodium 132 L, Potassium 3.9, Chloride 100, Carbon Dioxide 22, Anion Gap 13.9, BUN 18, Creatinine 1.20, Estimated Creat Clear 86, Estimated GFR 63, Est GFR ( Amer) 76, Glucose 174 H, Calcium 9.2, Total Bilirubin 2.4 H, AST 39, ALT 38, Alkaline Phosphatase 95, Troponin I < 0.01, Total Protein 7.7, Albumin 4.3, Globulin 3.4 H, Albumin/Globulin Ratio 1.3, Lipase 50 10/08/20 14:40: NT-Pro-B Natriuret Pep 419 H 10/08/20 14:40: Total Creatine Kinase 126 10/08/20 17:16: Lactate 3.3 H 10/08/20 17:59: Chlamy pneumoniae PCR Not detected, Adenovirus (PCR) Not detected, B. pertussis DNA (PCR) Not detected, Coronavirus OC43 (PCR) Not detected, Coronavirus HKU1 (PCR) Not detected, Coronavirus 229E (PCR) Not detected, SARS-CoV-2 (PCR) Not detected, Coronavirus NL63 (PCR) Not detected, Human Metapneumovir PCR Not detected, Influenza A (H1) PCR Not detected, Influ A (H1N1/09) PCR Not detected, Influenza A (H3) PCR Not detected, Influenza Type A (PCR) Not detected, Influenza Type B (PCR) Not detected, M. pneumoniae (PCR) Not detected, Parainfluenza 1 (PCR) Not detected, Parainfluenza 2 (PCR) Not detected, Parainfluenza 3 (PCR) Not detected, Parainfluenza 4 (PCR) Not
[2020-10-08 15:04] LABS: Basophils % 0.2 % (0.1-2.0); Eosinophils % 0.1 % (0.1-12.0); Hematocrit 48.2 % (42.0-52.0); Hemoglobin 15.5 g/dL (14.1-18.0); Lymphocytes # 0.4 K/mm3 (0.7-4.5); Lymphocytes % 8.5 % (10-50); Mean Corpuscular HGB Conc 32.2 g/dL (31.8-35.4); Mean Corpuscular Hemoglobin 28.5 pg (27.0-31.2); Mean Corpuscular Volume 88.3 fl (80-94); Mean Platelet Volume 7.9 fl (7.4-10.4); Monocytes # 0.1 K/mm3 (0.1-1.0); Monocytes % 2.5 % (1.7-9.3); Neutrophils # 4.4 K/mm3 (1.8-7.8); Neutrophils % 88.7 % (37.0-80.0); Platelet Count 190 K/mm3 (142-424); Red Blood Count 5.45 M/mm3 (4.60-6.20); Red Cell Distribution Width 12.4 % (11.5-17.5)
[2020-10-08 15:06] LABS: Alanine Aminotransferase 38 U/L (12-78); Albumin Level 4.3 g/dl (3.5-5.0); Albumin/Globulin Ratio 1.3 (1.1-1.8); Alkaline Phosphatase 95 U/L (38-126); Anion Gap 13.9 mEq/L (5-15); Aspartate Amino Transferase 39 U/L (17-59); Bilirubin,Total 2.4 mg/dl (0.2-1.3); Blood Urea Nitrogen 18 mg/dl (9-20); Calcium 9.2 mg/dl (8.4-10.2); Carbon Dioxide 22 mmol/L (22.0-30.0); Chloride 100 mmol/L (98-107); Creatinine Clearance Estimated 86 mL/min (50-200); Estimated Glomerular Filt Rate 63 ml/min (>60); GFR (African American) 76 ML/MIN (>60); Globulin 3.4 g/dL (1.3-3.2); Glucose 174 mg/dl (74-100); Lipase 50 U/L (23-300); Potassium 3.9 mmoL/L (3.5-5.1); Sodium 132 mmol/L (136-145); Total Protein,Serum 7.7 g/dl (6.3-8.2)
[2020-10-08 15:09] LABS: MANUAL DIFFERENTIAL MANUAL DIFFERENTIAL (MANUAL DIFF)
[2020-10-08 15:15] LABS: NT Pro Brain Natriuretic Pep. 419 pg/mL (0-125)
[2020-10-08 15:20] LABS: Troponin I < 0.01 ng/ml (0.00-0.034)
--- NOTE | 2020-10-08 15:59 | PC.NURSE ---
Pt resting at this time no needs at this time
[2020-10-08 16:15] LABS: Lymphocytes % 5 % (10-50); Monocytes % 11 % (2-9); Neutrophils % 80 % (42-76); Total Cells Counted 100
[2020-10-08 16:16] LABS: Platelet Estimate Normal; RBC Morphology Normal
--- NOTE | 2020-10-08 16:45 | CT_ITS ---
PROCEDURE INFORMATION: Exam: CT Right Lower Extremity With Contrast; Lower Leg Exam date and time: 10/08/2020 4:45 PM Age: 55 years old Clinical indication: Injury or trauma; Laceration; Patella or knee; Right; Foreign body involvement not specified; Patient HX: Bull attack, hematoma/seroma on posterior knee; Additional info: Hematoma/ seroma on posterior knee TECHNIQUE: Imaging protocol: CT of the Right lower extremity with intravenous contrast was performed. Exam focused on the lower leg. Total images: 393 Radiation optimization: All CT scans at this facility use at least one of these dose optimization techniques: automated exposure control; mA and/or kV adjustment per patient size (includes targeted exams where dose is matched to clinical indication); or iterative reconstruction. Contrast material: ISOVUE; Contrast volume: 120 ml; Contrast route: IV; COMPARISON: CR XR FEMUR RT 2V 10/06/2020 5:37 PM FINDINGS: Bones/joints: No fractures. Normal alignment. No joint effusion. There is no intra-articular air to suggest articular penetration. Soft tissues: Soft tissue laceration in the posteromedial popliteal fossa with local subcutaneous soft tissue air, situated primarily over the distal semimembranosus musculature and semitendinosis tendon, with small amounts of soft tissue air extending or deeply around the semimembranosus musculature. There is a small superficial collection of fluid and air in the posterior midline subcutaneous fat at this level measuring 2.9 x 1.0 by 5.0 cm, measuring 5-10 Hounsfield units on average density, consistent with soft tissue edema/phlegmon, without jean paul hematoma formation. If the injury is not acute, then consider the possibility of abscess development. No foreign bodies are identified. IMPRESSION: 1. Soft tissue laceration and swelling in the posterior knee as detailed above. No hyperdense fluid collections suggestive of hematoma are identified. No vascular injuries or retained foreign bodies. 2. A 5 x 2.9 x 1.0 cm superficial collection of fluid and air in the subcutaneous fat likely represents traumatic seroma and air in the setting of acute injury. Developing abscess could also produce this appearance if the injury is not acute.
[2020-10-08 16:55] LABS: Creatine Kinase 126 U/L (55-170)
--- NOTE | 2020-10-08 18:04 | PC.NURSE ---
Paging dictaphone transcriber surgery
--- NOTE | 2020-10-08 18:05 | PC.NURSE ---
pt returned from CT
--- NOTE | 2020-10-08 18:07 | PC.NURSE ---
Dr Evans speaking with Dr Leslie
[2020-10-08 18:08] LABS: Lactic Acid 3.3 mmol/L (0.7-2.1)
--- NOTE | 2020-10-08 18:11 | PC.NURSE ---
JOY OBRIEN speaking with Dr. Frazier.
[2020-10-08 18:12] LABS: Adenovirus,PCR Not Detected (NotDetected); Coronavirus 229E Not Detected (NotDetected); Coronavirus NL63 Not Detected (NotDetected); Coronavirus OC43 Not Detected (NotDetected); Coronovirus HKU1,PCR Not Detected (NotDetected); Human Metapneumovirus Not Detected (NotDetected); Influenza A, PCR Not Detected (NotDetected); Influenza AH1, 2009 Not Detected (NotDetected); Influenza AH1, PCR Not Detected (NotDetected); Influenza AH3,PCR Not Detected (NotDetected); Influenza B, PCR Not Detected (NotDetected); Rhinovirus/Enterovirus Not Detected (NotDetected)
[2020-10-08 18:13] LABS: Bordetella Pertussis Not Detected (NotDetected); Chlamydophila Pneumoniae, PCR Not Detected (NotDetected); Coronavirus 19, PCR Not Detected (NotDetected); Mycoplasma Pneumoniae, PCR Not Detected (NotDetected); Parainfluenza 1, PCR Not Detected (NotDetected); Parainfluenza 2, PCR Not Detected (NotDetected); Parainfluenza 3, PCR Not Detected (NotDetected); Parainfluenza 4, PCR Not Detected (NotDetected); Respiratory Syncytial Virus Not Detected (NotDetected)
--- NOTE | 2020-10-08 18:21 | CT_ITS ---
PROCEDURE INFORMATION: Exam: CT Right Lower Extremity Without Contrast; Thigh Exam date and time: 10/08/2020 6:21 PM Age: 55 years old Clinical indication: Injury or trauma; Other: Laseration from bull; Bleeding/hemorrhage; Thigh or upper leg; Right; Injury date: 09/06/20 TECHNIQUE: Imaging protocol: CT of the Right lower extremity without contrast was performed. Exam focused on the thigh. Total images: 1247 Radiation optimization: All CT scans at this facility use at least one of these dose optimization techniques: automated exposure control; mA and/or kV adjustment per patient size (includes targeted exams where dose is matched to clinical indication); or iterative reconstruction. COMPARISON: CR XR FEMUR RT 2V 10/06/2020 5:37 PM FINDINGS: Bones/joints: No fractures. The visualized right SI joint is unremarkable. Right hip joint space demonstrates mild osteoarthritic joint space narrowing with minimal subarticular cystic change. No joint effusion. Soft tissues: The superficial 5 x 2.9 x 1.0 cm collection of fluid and air overlying the superior aspect of the popliteal fossa is again noted on series 4, images 177-201. Further discussion with the ordering provider reveals that the provided clinical history that the date of injury was 09/06/2020 is incorrect and the date of injury is actually 10/06/2020. This would tend to favor that the collection of air and fluid relates to soft tissue edema/seroma/phlegmon rather than abscess at this point, although early developing abscess is not excluded. There is moderate subcutaneous soft tissue edema extending proximally in the posterior thigh with additional medial and lateral swelling, greater laterally where it extends up to the proximal thigh. In the acute setting, this is likely traumatic edema/swelling although developing cellulitis is not excluded. There are small foci of air tracking into the deep soft tissue planes around the semimembranosus musculature about 5 cm above the knee as well with local mild soft tissue stranding in the superior popliteal fossa near the popliteal artery/vein. In the acute setting, this is likely local tracking of posttraumatic air. Developing necrotizing fasciitis considered less likely although not excluded. Within the short head of biceps femoris laterally on series 4, images 164-199 there is a moderate amount of intramuscular soft tissue air with surrounding river muscular swelling/edema, involving a segment measuring 2.3 x 1.2 by 4.7 cm. In the acute setting, this is probably traumatic intramuscular air although cannot exclude developing necrotizing myofasciitis. The proximal most extension of soft tissue air is within the lateral aspect of the vastus intermedius musculature on series 4, image 144, about 17 cm above the knee joint line. Bowel: The visualized small bowel loops were unremarkable. The visualized colon/rectum are unremarkable. Appendix: The visualized appendix is normal. Urinary bladder: The urinary bladder is partially distended with contrast but otherwise unremarkable. IMPRESSION: 1. Soft tissue injury at the level of the popliteal fossa with soft tissue swelling and scattered components of soft tissue air as detailed above. In the acute setting, this is most likely related to traumatic edema and traumatic soft tissue air. Correlate clinically for evidence of infection, as developing necrotizing fasciitis cannot be excluded. 2. Posterior subcutaneous collection of fluid and air at the level of the upper popliteal fossa again noted measuring 5 x 2.9 x 1.0 cm, most likely seroma/phlegmon without hyperdense elements to suggest hematoma or active hemo
--- NOTE | 2020-10-08 18:24 | PC.NURSE ---
spoke with Dr. Leslie and ortho who decline pt at this time. Jewel BUENO MD's
[2020-10-08 18:30] LABS: Troponin I < 0.01 ng/ml (0.00-0.034)
--- NOTE | 2020-10-08 18:33 | PC.NURSE ---
Calling Dr Leslie again at this time.
--- NOTE | 2020-10-08 18:36 | PC.NURSE ---
Dr Evans speaking with Dr Leslie.
--- NOTE | 2020-10-08 19:01 | PC.NURSE ---
JOY OBRIEN speaking with Conor
--- NOTE | 2020-10-08 19:09 | PC.NURSE ---
spoke with [facility] at this time for vancomycin consult. Pharmacist stated to do Vancomycin 1500 mg IV q12h
--- NOTE | 2020-10-08 19:20 | PC.NURSE ---
Dr Gould at bedside and removed 2 sutures from the right hamstring area and drained clear foul odor fluid. Pt tolerated well.
--- NOTE | 2020-10-08 19:41 | PC.NURSE ---
calling [facility] back per dr. zhang request. she wants to speak to the ED about transfer.
--- NOTE | 2020-10-08 19:44 | PC.NURSE ---
speaking to [facility] at this time.
--- NOTE | 2020-10-08 19:49 | PC.NURSE ---
calling [facility] at this time/.
--- NOTE | 2020-10-08 19:53 | PC.NURSE ---
awaiting for [facility] surgeon associate professor of communication to call back at this time.
--- NOTE | 2020-10-08 19:55 | PC.NURSE ---
Dr Gould speaking with [facility] Surgery
--- NOTE | 2020-10-08 20:00 | PC.NURSE ---
[facility] called back and denied acceptance due to patient needing trauma services not available at there facility. call out to dr. boyle which is production intern for dr marin.
--- NOTE | 2020-10-08 20:09 | PC.NURSE ---
dr. chavez speaking to dr. boyle at this time.
--- NOTE | 2020-10-08 20:10 | PC.NURSE ---
[facility] called back and patient is placed on a waiting list at this time. they advised even if they get an er bed available they would call us.
--- NOTE | 2020-10-08 20:33 | PC.NURSE ---
Dr Gould packed wound to right hamstring with N.S. gauze and wrapped with Kurlex. Pt tolerated well.
[2020-10-08 20:52] LABS: Reflex Lactic Add Lactic Reflex
[2020-10-08 21:17] LABS: Lactic Acid Follow Up (RFLX 1) 2.8 mmol/L (0.7-2.1)
--- NOTE | 2020-10-08 21:29 | PC.NURSE ---
PT ARRIVED TO FLOOR VIA STRETCHER FROM ED W/STAFF AT [id number]
[2020-10-08 22:55] LABS: Basophils % 0.5 % (0.1-2.0); Eosinophils % 0.3 % (0.1-12.0); Hematocrit 49.7 % (42.0-52.0); Lymphocytes # 0.4 K/mm3 (0.7-4.5); Lymphocytes % 16.7 % (10-50); Mean Corpuscular HGB Conc 34.6 g/dL (31.8-35.4); Mean Corpuscular Hemoglobin 29.2 pg (27.0-31.2); Mean Corpuscular Volume 84.4 fl (80-94); Mean Platelet Volume 8.1 fl (7.4-10.4); Monocytes # 0.1 K/mm3 (0.1-1.0); Monocytes % 3.4 % (1.7-9.3); Neutrophils # 1.9 K/mm3 (1.8-7.8); Neutrophils % 79.1 % (37.0-80.0); Platelet Count 246 K/mm3 (142-424); Red Blood Count 5.89 M/mm3 (4.60-6.20); Red Cell Distribution Width 12.9 % (11.5-17.5); White Blood Count 2.4 K/mm3 (4.8-10.8)
[2020-10-08 23:02] LABS: Hemoglobin 17.3 g/dL (14.1-18.0)
[2020-10-08 23:05] LABS: Chloride 100 mmol/L (98-107); Potassium 4.7 mmoL/L (3.5-5.1); Sodium 127 mmol/L (136-145)
[2020-10-08 23:08] LABS: Alanine Aminotransferase 59 U/L (12-78); Albumin Level 3.5 g/dl (3.5-5.0); Albumin/Globulin Ratio 1.2 (1.1-1.8); Alkaline Phosphatase 89 U/L (38-126); Anion Gap 12.7 mEq/L (5-15); Aspartate Amino Transferase 58 U/L (17-59); Blood Urea Nitrogen 18 mg/dl (9-20); Calcium 8.6 mg/dl (8.4-10.2); Carbon Dioxide 19 mmol/L (22.0-30.0); Creatinine Clearance Estimated 83 mL/min (50-200); Estimated Glomerular Filt Rate 63 ml/min (>60); GFR (African American) 76 ML/MIN (>60); Glucose 161 mg/dl (74-100); Total Protein,Serum 6.5 g/dl (6.3-8.2)
[2020-10-08 23:10] LABS: Lactic Acid 2.2 mmol/L (0.7-2.1)
--- NOTE | 2020-10-09 00:01 | PC.WOUNDNOTE ---
HEMATOMA, ABRASION, AND BRUISING TO POSTERIOR R KNEE. DX CDI.
--- NOTE | 2020-10-09 00:03 | PC.WOUNDNOTE ---
APRX 5 INCH ABRASION TO PT R SIDE
--- NOTE | 2020-10-09 00:04 | PC.WOUNDNOTE ---
MULTIPLE ABRASIONS TO PT ABD/CHEST.
--- NOTE | 2020-10-09 00:05 | PC.WOUNDNOTE ---
ABRASION TO PT L SHOULDER.
--- NOTE | 2020-10-09 00:05 | PC.WOUNDNOTE ---
SMALL ABRASIONS TO TOP OF PT L ARM
[2020-10-09 02:06] LABS: Basophils % 0.6 % (0.1-2.0); Eosinophils % 0.4 % (0.1-12.0); Hematocrit 51.2 % (42.0-52.0); Hemoglobin 17.8 g/dL (14.1-18.0); Lymphocytes # 0.6 K/mm3 (0.7-4.5); Lymphocytes % 16.6 % (10-50); Mean Corpuscular HGB Conc 34.8 g/dL (31.8-35.4); Mean Corpuscular Hemoglobin 29.5 pg (27.0-31.2); Mean Corpuscular Volume 84.5 fl (80-94); Mean Platelet Volume 8.3 fl (7.4-10.4); Monocytes # 0.1 K/mm3 (0.1-1.0); Monocytes % 4.2 % (1.7-9.3); Neutrophils # 2.6 K/mm3 (1.8-7.8); Neutrophils % 78.2 % (37.0-80.0); Platelet Count 241 K/mm3 (142-424); Red Blood Count 6.06 M/mm3 (4.60-6.20); White Blood Count 3.4 K/mm3 (4.8-10.8)
[2020-10-09 02:11] LABS: Chloride 101 mmol/L (98-107); Potassium 5.5 mmoL/L (3.5-5.1); Sodium 127 mmol/L (136-145)
[2020-10-09 02:14] LABS: Alanine Aminotransferase 52 U/L (12-78); Albumin Level 3.3 g/dl (3.5-5.0); Albumin/Globulin Ratio 1.1 (1.1-1.8); Alkaline Phosphatase 84 U/L (38-126); Anion Gap 15.5 mEq/L (5-15); Aspartate Amino Transferase 49 U/L (17-59); Bilirubin,Total 1.7 mg/dl (0.2-1.3); Blood Urea Nitrogen 20 mg/dl (9-20); Calcium 8.3 mg/dl (8.4-10.2); Carbon Dioxide 16 mmol/L (22.0-30.0); Creatinine Clearance Estimated 77 mL/min (50-200); Estimated Glomerular Filt Rate 57 ml/min (>60); GFR (African American) 69 ML/MIN (>60); Globulin 2.9 g/dL (1.3-3.2); Glucose 156 mg/dl (74-100); Lactic Acid 1.8 mmol/L (0.7-2.1); Total Protein,Serum 6.2 g/dl (6.3-8.2)
--- NOTE | 2020-10-09 02:58 | PC.NURSE ---
A&OX4. PT TOLERATING RA WELL. PT ABLE TO STAND FROM STRETCHER TO BED, BUT LIMPS. STANDBY ASSIST. HEMATOMA, ABRASIONS AND BRUISING PRESENT TO R KNEE. DX CDI. PT HAS C/O PAIN X1 THUS FAR. TX WITH PRN IV PAIN MED. ON REASSESSMENT, PT RESTING IN BED. PT ALSO HAS MULTIPLE ABRASIONS PRESENT TO HIS UPPER BODY. PT HAS SLEPT MAJORITY OF SHIFT. PT HAS RECEIVED FLUIDS AND ABX. PT HAS NOT C/O SOA. AWAITING BED AT . VSS WILL CONTINUE TO MONITOR.
[2020-10-09 04:00] VITALS: BP 113/75; PULSE 103; RESP 16; TEMP 36.6; O2SAT 96
[2020-10-09 04:58] VITALS: BMI 29.2
[2020-10-09 07:02] LABS: Basophils % 0.1 % (0.1-2.0); Eosinophils % 0.1 % (0.1-12.0); Hematocrit 52.6 % (42.0-52.0); Lymphocytes # 0.6 K/mm3 (0.7-4.5); Lymphocytes % 17.8 % (10-50); Mean Corpuscular HGB Conc 34.5 g/dL (31.8-35.4); Mean Corpuscular Hemoglobin 29.6 pg (27.0-31.2); Mean Corpuscular Volume 85.7 fl (80-94); Monocytes # 0.2 K/mm3 (0.1-1.0); Monocytes % 5.2 % (1.7-9.3); Neutrophils # 2.8 K/mm3 (1.8-7.8); Neutrophils % 76.8 % (37.0-80.0); Platelet Count 239 K/mm3 (142-424); Red Blood Count 6.14 M/mm3 (4.60-6.20); Red Cell Distribution Width 13.1 % (11.5-17.5); White Blood Count 3.6 K/mm3 (4.8-10.8)
[2020-10-09 07:11] LABS: Alanine Aminotransferase 51 U/L (12-78); Albumin Level 3.2 g/dl (3.5-5.0); Albumin/Globulin Ratio 1.1 (1.1-1.8); Alkaline Phosphatase 75 U/L (38-126); Anion Gap 13.8 mEq/L (5-15); Aspartate Amino Transferase 48 U/L (17-59); Bilirubin,Total 1.3 mg/dl (0.2-1.3); Blood Urea Nitrogen 25 mg/dl (9-20); Calcium 8.4 mg/dl (8.4-10.2); Carbon Dioxide 16 mmol/L (22.0-30.0); Chloride 104 mmol/L (98-107); Creatinine Clearance Estimated 63 mL/min (50-200); Estimated Glomerular Filt Rate 45 ml/min (>60); GFR (African American) 55 ML/MIN (>60); Globulin 2.9 g/dL (1.3-3.2); Glucose 137 mg/dl (74-100); Potassium 5.8 mmoL/L (3.5-5.1); Sodium 128 mmol/L (136-145); Total Protein,Serum 6.1 g/dl (6.3-8.2)
[2020-10-09 07:27] VITALS: BP 119/74; PULSE 114; RESP 18; TEMP 36.5; O2SAT 95
--- NOTE | 2020-10-09 07:32 | HMH.PHAVTE ---
[facility] Pharmacy VTE Monitoring - Patient Demographics Admission date: 10/08/20 Report Date: 10/09/20 Time: 07:32 Allergies/Adverse Reactions: Patient Allergies No Known Allergies Allergy (Verified 10/08/20 14:12) Height: 1.7 m Weight: 84.731 kg Patient Problems: Current Active Problems Suspected soft tissue infection (Acute) Traumatic hematoma of right lower leg with infection (Acute) - VTE Risk Labs: VTE Related Lab Results Hgb 17.8 g/dL (14.1-18.0) 10/09/20 01:55 Hct 52.6 % (42.0-52.0) H 10/09/20 06:42 Plt Count 239 K/mm3 (142-424) 10/09/20 06:42 BUN 25 mg/dl (9-20) H 10/09/20 06:42 Creatinine 1.60 mg/dl (0.66-1.25) H D 10/09/20 06:42 Estimated Creat Clear 63 mL/min (50-200) 10/09/20 06:42 - Prophylaxis VTE Prophylaxis Ordered?: Yes Types of VTE Prophylaxis: TEDS Knee High Location of Applied Device: Left Leg
--- NOTE | 2020-10-09 07:35 | PC.NURSE ---
ASSISTED WITH DRESSING REINFORCEMENT AT THIS TIME. PT TOLERATED WELL. FIRST BANDAGE REMOVED AND RELEASED LARGE AMOUNTS OF SEROSANG FLUID FROM BACK OF R KNEE/THIGH.
--- NOTE | 2020-10-09 07:42 | HMH.HP ---
*Admission Date: 10/08/20 *Chief complaint: Right leg pain *History of present illness: 55-year-old male presented to the emergency department yesterday after developing acute onset of malaise with low blood pressure while he was attending a local physicians appointment for a port the patient has had place for treatment for his rectal cancer. Patient had a known wound of the posterior right medial thigh after being gored by a bull on October 06. Patient had actually been seen in the emergency department on October 06 when the injury occurred. Patient was gored by the bull in addition to being struck in the abdomen and chest. Patient came to the emergency department initially on the and underwent evaluation which also included repair of the wound in the right posterior medial thigh. Patient was called back to the ER later that day when CT scan of the chest was interpreted as having small subsegmental bilateral pulmonary emboli. It was at that point the patient was started on Eliquis with loading dose of 10 mg twice daily. Yesterday patient developed malaise and hypotension and was seen in the emergency department. Patient was noted to have a large seroma that appeared subcutaneous. Concern was raised over developing deep space infection. CT scan of the leg was performed with results as follows: IMPRESSION: 1. Soft tissue injury at the level of the popliteal fossa with soft tissue swelling and scattered components of soft tissue air as detailed above. In the acute setting, this is most likely related to traumatic edema and traumatic soft tissue air. Correlate clinically for evidence of infection, as developing necrotizing fasciitis cannot be excluded. 2. Posterior subcutaneous collection of fluid and air at the level of the upper popliteal fossa again noted measuring 5 x 2.9 x 1.0 cm, most likely seroma/phlegmon without hyperdense elements to suggest hematoma or active hemorrhage. Early developing abscess not excluded. 3. No evidence of osteomyelitis or septic joint. No retained foreign bodies. ER work diligently to transfer the patient to the [facility] as our local surgeons felt like patient would better be served there. However [facility] had no availability of beds. Other hospitals declined transfer. Patient was admitted on IV antibiotics. Surgery has been consulted. This morning patient denies any significant pain. He does believe the right knee is more swollen today than it was yesterday. In the ER yesterday the seroma was drained by removing some sutures. Patient is had recurrence of the seroma which drained at bedside once his dressing is removed. Seroma was subcutaneous. Patient denies numbness and tingling in the right foot and has active range of motion in the foot and ankle [facility] History I have reviewed the patient's past medical history: Yes Medical History: Reports:: Cancer (Rectal cancer), Cardiomyopathy Denies:: Diabetes Mellitus Type 1, Diabetes Mellitus Type 2, Internal Pacemaker, MRSA, Seizures *Have you ever received a pneumonia vaccine?: Yes *Have you received a flu vaccine this season?: Yes Other Medical History: Reports: Chemotherapy. Denies: Blood Transfusion Reaction Laterality Cases: Left: Arthroscopy Knee Other Surgeries: Yes: Cholecystectomy, Colonoscopy, Other. No: Pacemaker Amputation: No Fractures: No - *Social History Smoking Status: Former smoker Tobacco Type: cigarettes Alcohol Intake: never Alcohol Intake Frequency:: a few times a week Substance Use Type: denies use *Occupational Status:: employed Housing: house Household Members: spouse *Travel in the last 8 weeks: None Family Hx:: No significant family history Review of Systems - Constitutional Reports malaise, Denies anorexia, Denies body ache(s), Denies chills, Denies fever(s) - Eyes Denies change in vision - ENT Denies abnormal hearing - *Cardiovascular Denies chest pain, Denies chest pain at
--- NOTE | 2020-10-09 07:54 | CA_ITS ---
APPROVED REPORT Right Lower Extremity Venous Study for DVT. Otolaryngology Teacher: Edie Stovall RVT Indications Lower Extremity Pain: Right Lower Extremity Edema: Right Pulmonary Embolism trauma, puncture wound of right thigh/popliteal fossa on Sat. bull gorged pt,pt has rectal ca receiving chemo,pt has bandage around distal thigh/rt knee unable to assess prox popliteal fossa because of dressing and wound Risk Factors Trauma Malignancy Past History Pulmonary Embolism Medications PT STARTED ON ELIQUS 10/06/20 CHANGED TO LOVENOX THIS ADMISSION Vein Imaging CFV (R): compressive, spontaneous, phasic, augmentation FEM (R): compressive, spontaneous, phasic, augmentation POP (R): compressive, spontaneous, phasic, augmentation PTV (R): Compressible GSV (R): Compressible Peroneals (R):Compressible GAS (R): Compressible Findings Study suggests no evidence of DVT of the right lower extremity. Study suggests no evidence of SVT of the right lower extremity. Conclusion Study suggests no evidence of DVT of the right lower extremity. Study suggests no evidence of SVT of the right lower extremity. Electronically signed by : Rickie Pepper MD 10/09/2020 16:19:04
--- NOTE | 2020-10-09 07:54 | CA_ITS ---
APPROVED REPORT Loom Setter: Edie Stovall RVT Laterality: Right Study Quality: Good Indications: trauma, puncture wound of right thigh/popliteal fossa 10/06/20,pt has edema/pain/drainage from site, distal thigh and popliteal fossa covered with bandage,pt has rectal ca VELOCITY AND DOPPLER WAVEFORM ANALYSIS RIGHT cm/sec Waveform Severity [employer] 87.4/ Biphasic Normal PFA 49.7/ Prox SFA 102.8/ Biphasic Normal Mid SFA 105.4/ Biphasic Normal Dis SFA 84.0/ Biphasic Normal POP 36.0/ Monophasic Normal Post Tibial 66.8/ Biphasic Normal Ant Tib/Dors Ped 55.9/ Biphasic Normal Peroneal 34.7/ Monophasic Normal LEFT cm/sec Waveform Severity Findings Study suggests no evidence of stenosis of the right lower extremity arteries. Conclusion Study suggests no evidence of stenosis of the right lower extremity arteries. Electronically signed by : Rickie Pepper MD 10/09/2020 16:20:12
[2020-10-09 08:00] VITALS: O2SAT 95
--- NOTE | 2020-10-09 08:13 | HMH.PHACONS ---
- Pharmacy Consult Date: 10/09/20 Time: 08:13 Referring provider: DR. ANDRADE Reason for Consult:: VANCOMYCIN DOSING Allergies and ADEs:: Allergies Allergy/AdvReac Type Severity Reaction Status Date / Time No Known Allergies Allergy Verified 10/08/20 14:12 Home Medications:: Home Medications Medication Instructions Recorded Confirmed Type Apixaban [Eliquis 5mg tab] 5 mg PO BID 10/08/20 10/08/20 History Height: 1.7 m Weight: 84.731 kg Laboratory Results:: Laboratory Results - last 24 hr 10/08/20 14:40: WBC 5.0 D, RBC 5.45, Hgb 15.5, Hct 48.2, MCV 88.3, MCH 28.5, MCHC 32.2, RDW 12.4, Plt Count 190, MPV 7.9, Neut % (Auto) 88.7 H, Lymph % (Auto) 8.5 L, [place] % (Auto) 2.5, Eos % (Auto) 0.1, Baso % (Auto) 0.2, Neut # (Auto) 4.4, Lymph # (Auto) 0.4 L, [place] # (Auto) 0.1, Eos # (Auto) 0.0, Baso # (Auto) 0.0, Total Counted 100, Neutrophils % (Manual) 80 H, Band Neutrophils % 4.0, Lymphocytes % (Manual) 5 L, Monocytes % (Manual) 11 H, Platelet Estimate Normal, RBC Morphology Normal 10/08/20 14:40: Sodium 132 L, Potassium 3.9, Chloride 100, Carbon Dioxide 22, Anion Gap 13.9, BUN 18, Creatinine 1.20, Estimated Creat Clear 86, Estimated GFR 63, Est GFR ( Amer) 76, Glucose 174 H, Calcium 9.2, Total Bilirubin 2.4 H, AST 39, ALT 38, Alkaline Phosphatase 95, Troponin I < 0.01, Total Protein 7.7, Albumin 4.3, Globulin 3.4 H, Albumin/Globulin Ratio 1.3, Lipase 50 10/08/20 14:40: NT-Pro-B Natriuret Pep 419 H 10/08/20 14:40: Total Creatine Kinase 126 10/08/20 17:16: Lactate 3.3 H 10/08/20 17:59: Chlamy pneumoniae PCR Not detected, Adenovirus (PCR) Not detected, B. pertussis DNA (PCR) Not detected, Coronavirus OC43 (PCR) Not detected, Coronavirus HKU1 (PCR) Not detected, Coronavirus 229E (PCR) Not detected, SARS-CoV-2 (PCR) Not detected, Coronavirus NL63 (PCR) Not detected, Human Metapneumovir PCR Not detected, Influenza A (H1) PCR Not detected, Influ A (H1N1/09) PCR Not detected, Influenza A (H3) PCR Not detected, Influenza Type A (PCR) Not detected, Influenza Type B (PCR) Not detected, M. pneumoniae (PCR) Not detected, Parainfluenza 1 (PCR) Not detected, Parainfluenza 2 (PCR) Not detected, Parainfluenza 3 (PCR) Not detected, Parainfluenza 4 (PCR) Not detected, RSV (PCR) Not detected, Entero/Rhino (PCR) Not detected 10/08/20 18:02: Troponin I < 0.01 10/08/20 21:01: Lactate 2.8 H 10/08/20 22:40: Lactate 2.2 H 10/08/20 22:40: WBC 2.4 L D, RBC 5.89, Hgb 17.3 D, Hct 49.7, MCV 84.4, MCH 29.2, MCHC 34.6, RDW 12.9, Plt Count 246 D, MPV 8.1, Neut % (Auto) 79.1, Lymph % (Auto) 16.7, [place] % (Auto) 3.4, Eos % (Auto) 0.3, Baso % (Auto) 0.5, Neut # (Auto) 1.9, Lymph # (Auto) 0.4 L, [place] # (Auto) 0.1, Eos # (Auto) 0.0, Baso # (Auto) 0.0 10/08/20 22:40: Sodium 127 L, Potassium 4.7 D, Chloride 100, Carbon Dioxide 19 L, Anion Gap 12.7, BUN 18, Creatinine 1.20, Estimated Creat Clear 83, Estimated GFR 63, Est GFR ( Amer) 76, Glucose 161 H, Calcium 8.6, Total Bilirubin 2.0 H, AST 58 D, ALT 59 D, Alkaline Phosphatase 89, Total Protein 6.5, Albumin 3.5 D, Globulin 3.0, Albumin/Globulin Ratio 1.2 10/09/20 01:55: WBC 3.4 L D, RBC 6.06, Hgb 17.8, Hct 51.2, MCV 84.5, MCH 29.5, MCHC 34.8, RDW 13.0, Plt Count 241, MPV 8.3, Neut % (Auto) 78.2, Lymph % (Auto) 16.6, [place] % (Auto) 4.2, Eos % (Auto) 0.4, Baso % (Auto) 0.6, Neut # (Auto) 2.6, Lymph # (Auto) 0.6 L, [place] # (Auto) 0.1, Eos # (Auto) 0.0, Baso # (Auto) 0.0 10/09/20 01:55: Sodium 127 L, Potassium 5.5 H, Chloride 101, Carbon Dioxide 16 L, Anion Gap 15.5 H, BUN 20, Creatinine 1.30 H, Estimated Creat Clear 77, Estimated GFR 57 L, Est GFR ( Amer) 69, Glucose 156 H, Calcium 8.3 L, Total Bilirubin 1.7 H, AST 49, ALT 52, Alkaline Phosphatase 84, Total Protein 6.2 L, Albumin 3.3 L, Globulin 2.9, Albumin/Globulin Ratio 1.1 10/09/20 01:55: Lactate 1.8 10/09/20 06:42: WBC 3.6 L, RBC 6.14, Hct 52.6 H, MCV 85.7, MCH 29.6, MCHC 34.5, RDW 13.1, Plt Count 239, MPV 9.0, Neut % (Auto) 76.8, Lymph % (Auto) 17.8, [place] % (Auto) 5.2,
--- NOTE | 2020-10-09 08:26 | PC.NURSE ---
Dr. Gill and Dr. Leslie both notified of consults.
[2020-10-09 08:39] LABS: C-Reactive Protein 341.8 mg/L (0-4)
--- NOTE | 2020-10-09 09:33 | HMH.PHAINT ---
MEDICATION RECONCILIATION COMPLETED ON PATIENT USING EXTERNAL FILL HISTORY FROM PHARMACY AND DISCHARGE MEDICATIONS FROM ER VISIT ON 10/06/20. -[facility]YS [facility]
--- NOTE | 2020-10-09 09:44 | HMH.GSCON ---
*Admission Date: 10/08/20 *Reason for consult:: Lower extremity trauma *History of present illness: 55-year-old male. Patient was being seen in the office for surgical follow-up after PowerPort placement for his rectal cancer. Patient had reportedly sustained injury from a bull on 10/06/2020 where he was struck multiple sites on the body but most notable had a puncture wound where he was gored in the right popliteal region. He underwent thorough evaluation and imaging. Patient was called back to the ER later that day when CT scan of the chest was interpreted as having small subsegmental bilateral pulmonary emboli. It was at that point the patient was started on Eliquis with loading dose of 10 mg twice daily. When he presented to the office for his port follow-up he was noted to have some hypotension and significant malaise with some diaphoresis. He therefore was taken to the emergency department for evaluation. He was seen and evaluated. Concern was raised over developing deep space infection. CT scan of the leg was performed with results as follows: IMPRESSION: 1. Soft tissue injury at the level of the popliteal fossa with soft tissue swelling and scattered components of soft tissue air as detailed above. In the acute setting, this is most likely related to traumatic edema and traumatic soft tissue air. Correlate clinically for evidence of infection, as developing necrotizing fasciitis cannot be excluded. 2. Posterior subcutaneous collection of fluid and air at the level of the upper popliteal fossa again noted measuring 5 x 2.9 x 1.0 cm, most likely seroma/phlegmon without hyperdense elements to suggest hematoma or active hemorrhage. Early developing abscess not excluded. 3. No evidence of osteomyelitis or septic joint. No retained foreign bodies. Initially in the emergency department surgery was consulted by telephone. Given the nature of his injury it was felt that the patient may require transfer to tertiary facility. It was recommended the case be discussed with orthopedic surgery on-call as well given this was an extremity trauma. Orthopedic surgery advocated transfer as well. However [facility] had no availability of beds. Other hospitals declined transfer. Patient was admitted on IV antibiotics. Surgery has been consulted. This morning patient denies any significant pain. He does believe the right knee is more swollen today than it was yesterday. In the ER yesterday the seroma was drained by removing some sutures. Patient is had recurrence of the seroma which drained at bedside once his dressing is removed. Seroma was subcutaneous. Patient denies numbness and tingling in the right foot and has active range of motion in the foot and ankle Review of Systems - *Neurologic Denies abnormal walking, Denies abnormal hearing, Denies headache(s), Denies loss of vision, Denies numbness, Denies tingling, Denies dizziness [facility] History Medical History: Reports:: Cancer (Rectal cancer), Cardiomyopathy Denies:: Diabetes Mellitus Type 1, Diabetes Mellitus Type 2, Internal Pacemaker, MRSA, Seizures *Have you ever received a pneumonia vaccine?: Yes *Have you received a flu vaccine this season?: Yes Other Medical History: Reports: Chemotherapy. Denies: Blood Transfusion Reaction Laterality Cases: Left: Arthroscopy Knee Other Surgeries: Yes: Cholecystectomy, Colonoscopy, Other. No: Pacemaker Amputation: No Fractures: No - *Social History Smoking Status: Former smoker Tobacco Type: cigarettes Alcohol Intake: never Alcohol Intake Frequency:: a few times a week Substance Use Type: denies use *Occupational Status:: employed Housing: house Household Members: spouse *Travel in the last 8 weeks: None Family Hx:: No significant family history Meds Home Medications Medication Instructions Recorded Confirmed Type Apixaban [Eliquis 5mg tab] 10 mg PO BID 10/08/20 10/09/20 History Acetaminophen with Codei
--- NOTE | 2020-10-09 10:41 | HMH.ORTHOCON ---
*Admission Date: 10/08/20 *Reason for consult:: R thigh laceration/hematoma *History of present illness: 55yo M admitted overnight through the ED for a wound over posterior/distal R thigh just above popliteal fossa, with large posterior thigh hemoatoma. He sustained an injury from a bull on 10/06/20, where the bull punctured the back of his thigh/knee with its horns. This was irrigated and sutured in the ED. Additionally, it was discovered on CT chest that bilateral pulmonary emboli were present. He was started on Eliquis at that time. Recent PowerPort placement for rectal cancer; undergoing biweekly chemotherapy infusions with plan for later radiation and surgery. The patient was following-up with his surgeon after port placement and malaise/diaphoresis noted; taken to ED for evaluation, concern arose for deep space infection in thigh. CT scan in the ED revealed posterior subcutaneous collection of fluid and air in upper popliteal fossa, no foreign bodies, with soft tissue injury at level of popliteal fossa. Both surgery and myself were consulted in the ED via telephone, and given the nature of the injury he may require transfer to tertiary center, but no beds were available at the [facility]; other hospitals declined transfer. He was admitted and started on IV antibiotics. This morning he does not report significant pain. Some of the previously placed sutures were removed in the ED to allow drainage, which appears to have helped; serous fluid has drained onto dressings. Patient denies numbness and tingling in the right foot and has active range of motion in the knee, foot and ankle. No fevers or chills. [facility] History I have reviewed the patient's past medical history: Yes Medical History: Reports:: Cancer (Rectal cancer), Cardiomyopathy Denies:: Diabetes Mellitus Type 1, Diabetes Mellitus Type 2, Internal Pacemaker, MRSA, Seizures *Have you ever received a pneumonia vaccine?: Yes *Have you received a flu vaccine this season?: Yes Other Medical History: Reports: Chemotherapy. Denies: Blood Transfusion Reaction Laterality Cases: Left: Arthroscopy Knee Other Surgeries: Yes: Cholecystectomy, Colonoscopy, Other. No: Pacemaker Amputation: No Fractures: No - *Social History Smoking Status: Former smoker Tobacco Type: cigarettes Alcohol Intake: never Alcohol Intake Frequency:: a few times a week Substance Use Type: denies use *Occupational Status:: employed Housing: house Household Members: spouse *Travel in the last 8 weeks: None Family Hx:: No significant family history Review of Systems - Review of Systems Review of systems:: pertinent systems reviewed and negative unless documented below - *Neurologic Denies abnormal walking, Denies abnormal hearing, Denies headache(s), Denies loss of vision, Denies numbness, Denies tingling, Denies dizziness Meds Home Medications Medication Instructions Recorded Confirmed Type Apixaban [Eliquis 5mg tab] 10 mg PO BID 10/08/20 10/09/20 History Acetaminophen with Codeine 1 tab PO TIDP PRN 10/09/20 10/09/20 History [Acetaminophen w/Codeine #3 Tablet] Allergies Allergy/AdvReac Type Severity Reaction Status Date / Time No Known Allergies Allergy Verified 10/08/20 14:12 Exam Vital signs and Labs for Last 24 Hours: Temp Pulse Resp BP Pulse Ox 97.7 F 114 H 18 119/74 95 10/09/20 07:27 10/09/20 07:27 10/09/20 07:27 10/09/20 07:27 10/09/20 08:00 Laboratory Results - last 24 hr 10/08/20 14:40: WBC 5.0 D, RBC 5.45, Hgb 15.5, Hct 48.2, MCV 88.3, MCH 28.5, MCHC 32.2, RDW 12.4, Plt Count 190, MPV 7.9, Neut % (Auto) 88.7 H, Lymph % (Auto) 8.5 L, [place] % (Auto) 2.5, Eos % (Auto) 0.1, Baso % (Auto) 0.2, Neut # (Auto) 4.4, Lymph # (Auto) 0.4 L, [place] # (Auto) 0.1, Eos # (Auto) 0.0, Baso # (Auto) 0.0, Total Counted 100, Neutrophils % (Manual) 80 H, Band Neutrophils % 4.0, Lymphocytes % (Manual) 5 L, Monocytes % (Manual) 11 H, Platelet Estimate Normal, RBC Morphology Normal 10/08
[2020-10-09 11:34] LABS: Hemoglobin 18.2 g/dL (14.1-18.0)
--- NOTE | 2020-10-09 12:02 | HMH.PTWOUND ---
Rehab Inpt Wound Evaluation Rehab IP Wound Evaluation Start: 10/09/20 10:40 Freq: ONCE Status: Active Protocol: Document 10/09/20 11:52 SOCORROAMBER (Rec: 10/09/20 12:01 PWAMBER [id number]) Rehab PT Wound Assessment Patient Status Premedicated Prior to Dressing Change No Subjective Subjective Pt rpeorts he was gored by bull - pt does report c/o pain w/ movement Wound Right Posterior Knee Wound Type Puncture Wound Length (cm) 4 Wound Width (cm) 1 Wound Depth (cm) 2 Number of Sutures 4 Wound Bed Appearance Dusky Red Percentage Granulated (%) 100 Wound Margins Description Well Defined Undermining Position 1-4 Undermining Length (cm) 2 Undermining Depth (cm) 2 Surrounding Tissue Appearance Dark Red,Purple Surrounding Tissue Temperature Warm Wound Drainage Description Serous Drainage Amount Large Drainage Odor No Odor Dressing Status Soiled Packing Type Gauze Packing Strips Comment iodophore Primary Dressing Absorbant Pad Comment ABD pads Wound Secondary Dressing Type Gauze Roll/Wrap Dressing Change Patient Tolerance Tolerated Well Plan/Recommendation Comment Pt rhett rx well - PT will continue to follow for wound care w/ dressing change PRN for drainage and daily from PT Eval Complexity Eval Charge Codes 43486 - Low Complexity PHYSICIAN CERTIFICATION: I certify the specified therapy services for Bradyen Hicks are required, authorized, and reviewed every 30 days.
[2020-10-09 13:37] LABS: POC Glucose,Bedside 115 (70-110)
[2020-10-09 16:00] VITALS: BP 141/86; PULSE 113; RESP 20; TEMP 36.7; O2SAT 97
--- NOTE | 2020-10-09 16:27 | PC.NURSE ---
Pt has rested majority of this shift. Pt has ambulated w/ a walker this shift to and from bathroom to help w/ unsteady balance d/t RLE wounds. Dressing change performed by PT this shift. Current dressing: iodine soaked packing stips, 4x4's and wrapped in kerlix. Pt has c/o pain in RLE x1 this shift, pt medicated per JUL w/ favorable results. Pt has been tachy this shift. Other VSS. No other acute changes or complaints at this time.
[2020-10-09 20:00] VITALS: BP 124/86; PULSE 118; RESP 20; TEMP 36.8; O2SAT 97
--- NOTE | 2020-10-10 03:28 | PC.NURSE ---
Pt currently resting in bed. Has c/o nausea this shift that did not improve with zofran. 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 Phenergan 25 mg IV ordered and administered. DSG changed this shift. Serosanguineous drainage noted. Pt tolerated well. Has ambulated to BR with assist x1 and walker. VSS. Pt remains on RA. BS active. Last BM was this AM. No other concerns at this time. Will continue to monitor.
[2020-10-10 04:00] VITALS: BP 158/91; PULSE 91; RESP 26; TEMP 36.8; O2SAT 97
--- NOTE | 2020-10-10 06:05 | PC.NURSE ---
DSG to RLE changed this AM due to drainage.
[2020-10-10 06:44] VITALS: BMI 31.2
[2020-10-10 06:57] LABS: Basophils % 0.2 % (0.1-2.0); Eosinophils % 0.1 % (0.1-12.0); Hematocrit 46.7 % (42.0-52.0); Lymphocytes # 0.9 K/mm3 (0.7-4.5); Lymphocytes % 15.6 % (10-50); Mean Corpuscular HGB Conc 34.2 g/dL (31.8-35.4); Mean Corpuscular Hemoglobin 29.6 pg (27.0-31.2); Mean Corpuscular Volume 86.5 fl (80-94); Mean Platelet Volume 9.8 fl (7.4-10.4); Monocytes # 0.3 K/mm3 (0.1-1.0); Monocytes % 5.1 % (1.7-9.3); Neutrophils # 4.7 K/mm3 (1.8-7.8); Neutrophils % 78.9 % (37.0-80.0); Platelet Count 198 K/mm3 (142-424); Red Cell Distribution Width 13.2 % (11.5-17.5)
[2020-10-10 07:12] LABS: Anion Gap 15.9 mEq/L (5-15); Blood Urea Nitrogen 27 mg/dl (9-20); Calcium 8.2 mg/dl (8.4-10.2); Carbon Dioxide 21 mmol/L (22.0-30.0); Chloride 95 mmol/L (98-107); Creatinine Clearance Estimated 67 mL/min (50-200); Estimated Glomerular Filt Rate 45 ml/min (>60); GFR (African American) 55 ML/MIN (>60); Glucose 128 mg/dl (74-100); Potassium 3.9 mmoL/L (3.5-5.1); Sodium 128 mmol/L (136-145)
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
[2020-10-10 07:34] LABS: C-Reactive Protein 453.6 mg/L (0-4); Hemoglobin 16.1 g/dL (14.1-18.0)
[2020-10-10 07:42] VITALS: BP 138/79; PULSE 110; RESP 18; TEMP 37.2; O2SAT 98
[2020-10-10 08:00] VITALS: PULSE 110; O2SAT 98
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
--- NOTE | 2020-10-10 11:47 | HMH.PHACONS ---
- Pharmacy Consult Date: 10/10/20 Time: 11:47 Referring provider: DR. ANDRADE Reason for Consult:: VANCOMYCIN TROUGH LEVEL Allergies and ADEs:: Allergies Allergy/AdvReac Type Severity Reaction Status Date / Time No Known Allergies Allergy Verified 10/08/20 14:12 Home Medications:: Home Medications Medication Instructions Recorded Confirmed Type Apixaban [Eliquis 5mg tab] 10 mg PO BID 10/08/20 10/09/20 History Acetaminophen with Codeine 1 tab PO TIDP PRN 10/09/20 10/09/20 History [Acetaminophen w/Codeine #3 Tablet] Height: 1.7 m Weight: 90.407 kg Laboratory Results:: Laboratory Results - last 24 hr 10/09/20 11:07: POC Glucose 115 H 10/10/20 06:05: C-Reactive Protein 453.6 H 10/10/20 06:05: WBC 6.0 D, RBC 5.40, Hgb 16.1 D, Hct 46.7, MCV 86.5, MCH 29.6, MCHC 34.2, RDW 13.2, Plt Count 198, MPV 9.8, Neut % (Auto) 78.9, Lymph % (Auto) 15.6, [place] % (Auto) 5.1, Eos % (Auto) 0.1, Baso % (Auto) 0.2, Neut # (Auto) 4.7, Lymph # (Auto) 0.9, [place] # (Auto) 0.3, Eos # (Auto) 0.0, Baso # (Auto) 0.0 10/10/20 06:05: Sodium 128 L, Potassium 3.9 D, Chloride 95 L, Carbon Dioxide 21 L D, Anion Gap 15.9 H, BUN 27 H, Creatinine 1.60 H, Estimated Creat Clear 67, Estimated GFR 45 L, Est GFR ( Amer) 55 L, Glucose 128 H, Calcium 8.2 L 10/10/20 08:34: Vancomycin Trough 8.0 Medical History: Reports:: Cancer (Rectal cancer), Cardiomyopathy Denies:: Diabetes Mellitus Type 1, Diabetes Mellitus Type 2, Internal Pacemaker, MRSA, Seizures Assessment and Plan (1) Puncture wound of right thigh with complication Status: Acute Category: Medical Code(s): S71.131A - Puncture wound without foreign body, right thigh, initial encounter (2) Cellulitis of right thigh Status: Acute Category: Medical Code(s): L03.115 - Cellulitis of right lower limb (3) Effusion, right knee Status: Acute Category: Medical Code(s): M25.461 - Effusion, right knee (4) Suspected soft tissue infection Status: Acute Category: Medical Code(s): R68.89 - Other general symptoms and signs (5) Traumatic hematoma of right lower leg with infection Status: Acute Qualifiers: Encounter type: initial encounter Qualified Code(s): S80.11XA - Contusion of right lower leg, initial encounter; L08.9 - Local infection of the skin and subcutaneous tissue, unspecified Category: Medical Code(s): S80.11XA - Contusion of right lower leg, initial encounter; L08.9 - Local infection of the skin and subcutaneous tissue, unspecified (6) Pulmonary emboli Status: Acute Qualifiers: Pulmonary embolism type: multiple subsegmental (without acute cor pulmonale) Qualified Code(s): I26.94 - Multiple subsegmental pulmonary emboli without acute cor pulmonale Category: Medical Code(s): I26.99 - Other pulmonary embolism without acute cor pulmonale (7) Rectal cancer Status: Acute Category: Medical Code(s): C20 - Malignant neoplasm of rectum (8) Acute kidney injury Status: Acute Category: Medical Code(s): N17.9 - Acute kidney failure, unspecified (9) Hyperkalemia Status: Acute Category: Medical Code(s): E87.5 - Hyperkalemia (10) Hyponatremia Status: Acute Category: Medical Code(s): E87.1 - Hypo-osmolality and hyponatremia - Assessment and plan all Dx Assessment and Plan for all problems:: BASED ON PATIENT FACTORS AND VANCOMYCIN TROUGH LEVEL, RECOMMEND CHANGING DOSE AND INTERVAL TO VANCOMYCIN 1250 MG IV Q12H. PHARMACY WILL CONTINUE TO MONITOR DAILY AND ADJUST APPROPRIATE.
[2020-10-10 15:11] VITALS: BP 124/77; PULSE 94; RESP 16; TEMP 36.9; O2SAT 98
--- NOTE | 2020-10-10 15:53 | PC.WOUNDNOTE ---
RLE wound on 10/09/20- dressing change provided after by JESSICA Courtney
--- NOTE | 2020-10-10 16:08 | PC.WOUNDNOTE ---
ISHA on 10/10/20- Dressing placed after by JESSICA Courtney
--- NOTE | 2020-10-10 18:27 | PC.NURSE ---
Pt has been pleasant this shift. Pt has had no c/o N/V or pain this shift. Pitting edema continues on RLE. Pt has been ambulating to the bathroom w/ walker this shift. Pt continues to be able to wiggle toes, rotate ankle on RLE. Cap refill <3 on RLE. Pt continues on RA, lung sounds CTA. Bowel sounds active in all 4 quads, pt has reported x1 XL BM this shift. No other acute changes or complaints at this time.
[2020-10-10 20:00] VITALS: BP 141/81; PULSE 94; RESP 15; TEMP 37.5; O2SAT 96
--- NOTE | 2020-10-11 03:27 | PC.NURSE ---
No acute changes. Pt has rested better tonight. Pt has had decreased nausea, but continues to have some discomfort. Pt states that it feels like his food is stuck in his chest. Pt also noted to belch frequently. Pt was asked if he has gerd. He stated no. DSG was changed this AM. Serosanguineous drainage noted. Pt tolerated well. VSS. Lungs are CTA. BS active. Pt states he has had more frequent stools. No other concerns. Will continue to monitor.
[2020-10-11 04:00] VITALS: BP 124/73; PULSE 88; RESP 17; TEMP 36.7; O2SAT 94
[2020-10-11 05:01] VITALS: BMI 31.1
[2020-10-11 06:26] LABS: Basophils % 0.1 % (0.1-2.0); Eosinophils % 0.3 % (0.1-12.0); Hematocrit 32.6 % (42.0-52.0); Hemoglobin 11.5 g/dL (14.1-18.0); Lymphocytes # 0.9 K/mm3 (0.7-4.5); Lymphocytes % 18.5 % (10-50); Mean Corpuscular HGB Conc 35.3 g/dL (31.8-35.4); Mean Corpuscular Hemoglobin 29.6 pg (27.0-31.2); Mean Platelet Volume 9.9 fl (7.4-10.4); Monocytes # 0.5 K/mm3 (0.1-1.0); Monocytes % 10.4 % (1.7-9.3); Neutrophils # 3.3 K/mm3 (1.8-7.8); Neutrophils % 70.7 % (37.0-80.0); Platelet Count 114 K/mm3 (142-424); Red Blood Count 3.88 M/mm3 (4.60-6.20); Red Cell Distribution Width 13.1 % (11.5-17.5); White Blood Count 4.7 K/mm3 (4.8-10.8)
[2020-10-11 06:28] LABS: Anion Gap 5.4 mEq/L (5-15); Blood Urea Nitrogen 22 mg/dl (9-20); Calcium 7.4 mg/dl (8.4-10.2); Carbon Dioxide 26 mmol/L (22.0-30.0); Chloride 100 mmol/L (98-107); Creatinine Clearance Estimated 82 mL/min (50-200); Estimated Glomerular Filt Rate 57 ml/min (>60); GFR (African American) 69 ML/MIN (>60); Glucose 102 mg/dl (74-100); Potassium 3.4 mmoL/L (3.5-5.1); Sodium 128 mmol/L (136-145)
--- NOTE | 2020-10-11 06:56 | HMH.GSPN ---
Subjective Patient reports: no new complaints Narrative: The dressing was changed this morning around 230 . Per nursing staff, the wound looks about the same . The patient states that his swelling below the knee is a bit better today . Progress Note: A&P (1) Puncture wound of right thigh with complication Status: Acute Assessment and plan: Continue antibiotics and wound management. More thorough reevaluation of wound and surrounding area with next dressing change. (2) Cellulitis of right thigh Status: Acute (3) Effusion, right knee Status: Acute (4) Suspected soft tissue infection Status: Acute (5) Traumatic hematoma of right lower leg with infection Status: Acute (6) Pulmonary emboli Status: Acute (7) Rectal cancer Status: Acute (8) Acute kidney injury Status: Acute (9) Hyperkalemia Status: Acute (10) Hyponatremia Status: Acute Exam Vital signs and Labs for Last 24 Hours: Temp Pulse Resp BP Pulse Ox 98.0 F 88 17 124/73 94 L 10/11/20 04:00 10/11/20 04:00 10/11/20 04:00 10/11/20 04:00 10/11/20 04:00 Laboratory Results - last 24 hr 10/10/20 06:05: C-Reactive Protein 453.6 H 10/10/20 06:05: WBC 6.0 D, RBC 5.40, Hgb 16.1 D, Hct 46.7, MCV 86.5, MCH 29.6, MCHC 34.2, RDW 13.2, Plt Count 198, MPV 9.8, Neut % (Auto) 78.9, Lymph % (Auto) 15.6, [place] % (Auto) 5.1, Eos % (Auto) 0.1, Baso % (Auto) 0.2, Neut # (Auto) 4.7, Lymph # (Auto) 0.9, [place] # (Auto) 0.3, Eos # (Auto) 0.0, Baso # (Auto) 0.0 10/10/20 06:05: Sodium 128 L, Potassium 3.9 D, Chloride 95 L, Carbon Dioxide 21 L D, Anion Gap 15.9 H, BUN 27 H, Creatinine 1.60 H, Estimated Creat Clear 67, Estimated GFR 45 L, Est GFR ( Amer) 55 L, Glucose 128 H, Calcium 8.2 L 10/10/20 08:34: Vancomycin Trough 8.0 10/11/20 06:09: WBC 4.7 L, RBC 3.88 L D, Hgb 11.5 L, Hct 32.6 L, MCV 84.0, MCH 29.6, MCHC 35.3, RDW 13.1, Plt Count 114 L D, MPV 9.9, Neut % (Auto) 70.7, Lymph % (Auto) 18.5, [place] % (Auto) 10.4 H, Eos % (Auto) 0.3, Baso % (Auto) 0.1, Neut # (Auto) 3.3, Lymph # (Auto) 0.9, [place] # (Auto) 0.5, Eos # (Auto) 0.0, Baso # (Auto) 0.0 10/11/20 06:09: Sodium 128 L, Potassium 3.4 L, Chloride 100, Carbon Dioxide 26 D, Anion Gap 5.4, BUN 22 H, Creatinine 1.30 H, Estimated Creat Clear 82, Estimated GFR 57 L, Est GFR ( Amer) 69 D, Glucose 102 H, Calcium 7.4 L I & O for Last 24 hours: Intake & Output 10/08/20 10/09/20 10/10/20 10/11/20 11:59 11:59 11:59 11:59 Intake Total 2538 / 2538 4058 / 4058 2770 / 2770 Output Total 0 / 0 0 / 0 1999 Balance 2538 / 2538 4058 / 4058 770 / 770 Weight 186 lb 12.798 oz 199 lb 5 oz 198 lb 4 oz Microbiology Reports for the Last 24 Hours: Microbiology 10/08/20 17:16 Blood Blood Culture - Preliminary NO GROWTH AFTER 48 HOURS 10/08/20 17:16 Blood Blood Culture - Preliminary NO GROWTH AFTER 48 HOURS - Constitutional no acute distress - *Routine Respiratory Exam Absent: respiratory distress - *Routine Cardiovascular Exam Present: RRR - *Routine Extremities Exam Comments: Dressing in place. No spreading cellulitis proximally or distally. Some pitting edema that the patient states is better a little bit .
--- NOTE | 2020-10-11 07:24 | HMH.ACPN2 ---
Internal Medicine - PN: Subj *Date: 10/11/20 *Time: 07:24 Interval history: No acute events. Patient reports the right leg feels better and he feels like he is able to move it easier. Pain is about the same. Patient did have some indigestion yesterday. Exam Vital signs and Labs for Last 24 Hours: Temp Pulse Resp BP Pulse Ox 98.0 F 88 17 124/73 94 L 10/11/20 04:00 10/11/20 04:00 10/11/20 04:00 10/11/20 04:00 10/11/20 04:00 Laboratory Results - last 24 hr 10/10/20 06:05: C-Reactive Protein 453.6 H 10/10/20 06:05: Hgb 16.1 D 10/10/20 08:34: Vancomycin Trough 8.0 10/11/20 06:09: WBC 4.7 L, RBC 3.88 L D, Hgb 11.5 L, Hct 32.6 L, MCV 84.0, MCH 29.6, MCHC 35.3, RDW 13.1, Plt Count 114 L D, MPV 9.9, Neut % (Auto) 70.7, Lymph % (Auto) 18.5, [place] % (Auto) 10.4 H, Eos % (Auto) 0.3, Baso % (Auto) 0.1, Neut # (Auto) 3.3, Lymph # (Auto) 0.9, [place] # (Auto) 0.5, Eos # (Auto) 0.0, Baso # (Auto) 0.0 10/11/20 06:09: Sodium 128 L, Potassium 3.4 L, Chloride 100, Carbon Dioxide 26 D, Anion Gap 5.4, BUN 22 H, Creatinine 1.30 H, Estimated Creat Clear 82, Estimated GFR 57 L, Est GFR ( Amer) 69 D, Glucose 102 H, Calcium 7.4 L I & O for Last 24 hours: Intake & Output 10/08/20 10/09/20 10/10/20 10/11/20 11:59 11:59 11:59 11:59 Intake Total 2538 / 2538 4058 / 4058 2770 / 2770 Output Total 0 / 0 0 / 0 1999 Balance 2538 / 2538 4058 / 4058 770 / 770 Weight 186 lb 12.798 oz 199 lb 5 oz 198 lb 4 oz Microbiology Reports for the Last 24 Hours: Microbiology 10/08/20 17:16 Blood Blood Culture - Preliminary NO GROWTH AFTER 48 HOURS 10/08/20 17:16 Blood Blood Culture - Preliminary NO GROWTH AFTER 48 HOURS Narrative: Patient looks comfortable sitting up in bed. Lungs remain clear. Heart has a regular rate and rhythm. Abdomen is soft without epigastric tenderness. Right lower extremity is examined. Dressing was left intact. Edema both in the thigh and calf seems to be improving. Movement of the right lower leg at both the hip and knee seems easier to the patient. Erythema is improving Assessment and Plan (1) Puncture wound of right thigh with complication Status: Acute Category: Medical Code(s): S71.131A - Puncture wound without foreign body, right thigh, initial encounter (2) Cellulitis of right thigh Status: Acute Category: Medical Code(s): L03.115 - Cellulitis of right lower limb (3) Suspected soft tissue infection Status: Acute Category: Medical Code(s): R68.89 - Other general symptoms and signs (4) Traumatic hematoma of right lower leg with infection Status: Acute Qualifiers: Encounter type: initial encounter Qualified Code(s): S80.11XA - Contusion of right lower leg, initial encounter; L08.9 - Local infection of the skin and subcutaneous tissue, unspecified Category: Medical Code(s): S80.11XA - Contusion of right lower leg, initial encounter; L08.9 - Local infection of the skin and subcutaneous tissue, unspecified (5) Pulmonary emboli Status: Acute Qualifiers: Pulmonary embolism type: multiple subsegmental (without acute cor pulmonale) Qualified Code(s): I26.94 - Multiple subsegmental pulmonary emboli without acute cor pulmonale Category: Medical Code(s): I26.99 - Other pulmonary embolism without acute cor pulmonale (6) Rectal cancer Status: Acute Category: Medical Code(s): C20 - Malignant neoplasm of rectum (7) Acute kidney injury Status: Acute Category: Medical Code(s): N17.9 - Acute kidney failure, unspecified (8) Hyperkalemia Status: Resolved Category: Medical Code(s): E87.5 - Hyperkalemia (9) Hyponatremia Status: Chronic Category: Medical Code(s): E87.1 - Hypo-osmolality and hyponatremia (10) Effusion, right knee Status: Resolved Category: Medical Code(s): M25.461 - Effusion, right knee - Assessment and plan all Dx Assessment and
[2020-10-11 07:39] VITALS: BP 143/80; PULSE 101; RESP 17; TEMP 36.8; O2SAT 99
--- NOTE | 2020-10-11 07:45 | SW/DCPLANNER ---
MADE ROUNDS WITH DR ANDRADE THIS MORNING, HE STATED HE IS STARTING THE PROCESS OF GETTING PATIENT READY TO GO HOME POSSIBLY [facility] OR OVER THE WEEKEND... WE DISCUSSED HOME HEALTH WITH THEM PROVING SUPPLIES AND DOING THE DSG CHANGES.. STAFF PROVING EDUCATION ON HOW TO DO IT.. PATIENT STATED HE DOES FEEL BETTER AND DR ANDRADE STATED HE IS TO GET UP AND MOVE AROUND IN THE ROOM.. WILL FOLLOW UP WITH WHO HE WISHES TO USE AND SET UP PRIOR TO HIM DISCHARGING HOME...
[2020-10-11 08:00] VITALS: PULSE 101; O2SAT 99
--- NOTE | 2020-10-11 08:29 | HMH.ORTHPN ---
Subjective Date: 10/11/20 Time: 08:30 Principal diagnosis: R thigh puncture, hematoma, cellulitis Interval history: The patient is doing well this morning. Still having some drainage from the thigh but swelling and erythema appear improved. No complaints. PN: Obj Ex Vital signs: Temp Pulse Resp BP Pulse Ox 98.3 F 101 H 17 143/80 H 99 10/11/20 07:39 10/11/20 07:39 10/11/20 07:39 10/11/20 07:39 10/11/20 07:39 - Constitutional no acute distress - Routine HEENT Exam Head: Present: normocephalic Eye: Present: EOMI ENT: Present: mucous membranes moist - Routine Neck Exam Present: trachea midline - Routine Respiratory Exam Absent: respiratory distress, wheezes - Routine Cardiovascular Exam Present: RRR - Routine Abdominal Exam Present: soft. Absent: distended - Routine Extremities Exam Comments: R posterior thigh with extensive ecchymosis extending from mid-thigh to popliteal fossa mild-moderate erythema from proximal/lateral/posterior thigh to popliteal region, extending into proximal calf mild soft tissue swelling R knee, no effusion; no warmth/redness to knee. FROM present w/o pain. laceration posterior knee in superior popliteal fossa, partially closed with nylon suture; opened medially ~1cm with packing no active bleeding or drainage from wound R thigh soft, compressible, non-tender hemorrhagic blistering posterior/laterally R thigh SILT distally RLE in all distributions palpable pedal pulses RLE, foot pink/warm with BCR\ +DF/PF/EHL RLE R calf soft, compressible; negative homans erythema and swelling improved today - Routine Skin Exam Present: warm - Routine Neurological Exam Present: alert, oriented X3, moving all extremities, normal tone, vision grossly intact, hearing grossly intact, normal speech. Absent: sensory deficit, motor deficit, altered mental status - Routine Psychiatric Exam Present: normal affect Progress Note: A&P (1) Puncture wound of right thigh with complication Status: Acute (2) Cellulitis of right thigh Status: Acute (3) Suspected soft tissue infection Status: Acute (4) Traumatic hematoma of right lower leg with infection Status: Acute (5) Pulmonary emboli Status: Acute (6) Rectal cancer Status: Acute (7) Acute kidney injury Status: Acute (8) Hyperkalemia Status: Resolved (9) Hyponatremia Status: Chronic (10) Effusion, right knee Status: Resolved Assessment and Plan for All Diagnoses:: 55yo M with puncture R posterior thigh/popliteal fossa 10/06/20 by juan umaña, irrigated and closed in ED but subsequently developed large hematoma/swelling of thigh with blistering and drainage -- continue local wound care; will continue in outpatient wound care center after discharge, has an appointment schedule Thursday10/15/20 -- continue WBAT RLE, up ad melony; elevate RLE when in bed -- ice R thigh as needed -- continue IV antibiotics -- dispo per Dr. Sheets; will continue to follow while in house. Do not recommend surgical intervention at this time, recommend continued wound care. Follow-up with me in the office Thursday10/15/20 at 1:30 pm.
[2020-10-11 12:36] LABS: Vancomycin,Trough 10.9 ug/mL (5.0-10.0)
--- NOTE | 2020-10-11 12:49 | HMH.PHACONS ---
- Pharmacy Consult Date: 10/11/20 Time: 12:49 Referring provider: DR. ANDRADE Reason for Consult:: VANCOMYCIN TROUGH LEVEL AND DOSE CHANGE Allergies and ADEs:: Allergies Allergy/AdvReac Type Severity Reaction Status Date / Time No Known Allergies Allergy Verified 10/08/20 14:12 Home Medications:: Home Medications Medication Instructions Recorded Confirmed Type Apixaban [Eliquis 5mg tab] 10 mg PO BID 10/08/20 10/09/20 History Acetaminophen with Codeine 1 tab PO TIDP PRN 10/09/20 10/09/20 History [Acetaminophen w/Codeine #3 Tablet] Height: 1.7 m Weight: 89.925 kg Laboratory Results:: Laboratory Results - last 24 hr 10/11/20 06:09: WBC 4.7 L, RBC 3.88 L D, Hgb 11.5 L, Hct 32.6 L, MCV 84.0, MCH 29.6, MCHC 35.3, RDW 13.1, Plt Count 114 L D, MPV 9.9, Neut % (Auto) 70.7, Lymph % (Auto) 18.5, [place] % (Auto) 10.4 H, Eos % (Auto) 0.3, Baso % (Auto) 0.1, Neut # (Auto) 3.3, Lymph # (Auto) 0.9, [place] # (Auto) 0.5, Eos # (Auto) 0.0, Baso # (Auto) 0.0 10/11/20 06:09: Sodium 128 L, Potassium 3.4 L, Chloride 100, Carbon Dioxide 26 D, Anion Gap 5.4, BUN 22 H, Creatinine 1.30 H, Estimated Creat Clear 82, Estimated GFR 57 L, Est GFR ( Amer) 69 D, Glucose 102 H, Calcium 7.4 L 10/11/20 11:22: Vancomycin Trough 10.9 H Medical History: Reports:: Cancer (Rectal cancer), Cardiomyopathy Denies:: Diabetes Mellitus Type 1, Diabetes Mellitus Type 2, Internal Pacemaker, MRSA, Seizures Assessment and Plan (1) Puncture wound of right thigh with complication Status: Acute Category: Medical Code(s): S71.131A - Puncture wound without foreign body, right thigh, initial encounter (2) Cellulitis of right thigh Status: Acute Category: Medical Code(s): L03.115 - Cellulitis of right lower limb (3) Suspected soft tissue infection Status: Acute Category: Medical Code(s): R68.89 - Other general symptoms and signs (4) Traumatic hematoma of right lower leg with infection Status: Acute Qualifiers: Encounter type: initial encounter Qualified Code(s): S80.11XA - Contusion of right lower leg, initial encounter; L08.9 - Local infection of the skin and subcutaneous tissue, unspecified Category: Medical Code(s): S80.11XA - Contusion of right lower leg, initial encounter; L08.9 - Local infection of the skin and subcutaneous tissue, unspecified (5) Pulmonary emboli Status: Acute Qualifiers: Pulmonary embolism type: multiple subsegmental (without acute cor pulmonale) Qualified Code(s): I26.94 - Multiple subsegmental pulmonary emboli without acute cor pulmonale Category: Medical Code(s): I26.99 - Other pulmonary embolism without acute cor pulmonale (6) Rectal cancer Status: Acute Category: Medical Code(s): C20 - Malignant neoplasm of rectum (7) Acute kidney injury Status: Acute Category: Medical Code(s): N17.9 - Acute kidney failure, unspecified (8) Hyperkalemia Status: Resolved Category: Medical Code(s): E87.5 - Hyperkalemia (9) Hyponatremia Status: Chronic Category: Medical Code(s): E87.1 - Hypo-osmolality and hyponatremia (10) Effusion, right knee Status: Resolved Category: Medical Code(s): M25.461 - Effusion, right knee - Assessment and plan all Dx Assessment and Plan for all problems:: BASED ON VANCOMYCIN TROUGH LEVEL OF 10.9 AND PATIENT FACTORS, WILL SLIGHTLY INCREASE DOSE OF VANCOMYCIN TO 1,500MG EVERY 12 HOURS. WILL OBTAIN TROUGH LEVEL PRIOR TO FOURTH DOSE AND ADJUST DOSE APPROPRIATE AT THAT POINT. -RHYS RIVERAD
[2020-10-11 14:38] VITALS: BP 136/77; PULSE 93; RESP 18; TEMP 36.9; O2SAT 100
--- NOTE | 2020-10-11 15:00 | PC.NURSE ---
dressing changed by Dr Gill and halle at this time.
--- NOTE | 2020-10-11 18:54 | PC.NURSE ---
pt has rested well this shift, he has been in bed most of the shift. he did get up and do laps in the room . denies any pain. pt is to have dressing changes with PT. first appt is already made. lungs are clear, bowels are active. nad noted.
[2020-10-11 20:00] VITALS: BP 146/77; PULSE 84; RESP 17; TEMP 37.1; O2SAT 97
[2020-10-12 04:00] VITALS: BP 131/76; PULSE 70; RESP 16; TEMP 37.1; O2SAT 98; BMI 32.3
--- NOTE | 2020-10-12 04:37 | PC.NURSE ---
shift summary pt has clear lung sounds, and has rested well in bed most of the shift. he did get up and walk around the room in the room . denies any pain. pt is to have dressing changes with PT. pts bowels are active. pt is alert and orientd X4. dressing is cdi at this time.
[2020-10-12 06:48] LABS: Basophils % 0.1 % (0.1-2.0); Eosinophils % 0.4 % (0.1-12.0); Hematocrit 30.3 % (42.0-52.0); Hemoglobin 10.5 g/dL (14.1-18.0); Lymphocytes # 0.9 K/mm3 (0.7-4.5); Lymphocytes % 23.8 % (10-50); Mean Corpuscular HGB Conc 34.7 g/dL (31.8-35.4); Mean Corpuscular Hemoglobin 29.3 pg (27.0-31.2); Mean Corpuscular Volume 84.4 fl (80-94); Mean Platelet Volume 9.7 fl (7.4-10.4); Monocytes # 0.4 K/mm3 (0.1-1.0); Monocytes % 9.5 % (1.7-9.3); Neutrophils # 2.5 K/mm3 (1.8-7.8); Neutrophils % 66.1 % (37.0-80.0); Platelet Count 114 K/mm3 (142-424); Red Blood Count 3.59 M/mm3 (4.60-6.20); Red Cell Distribution Width 13.3 % (11.5-17.5); White Blood Count 3.8 K/mm3 (4.8-10.8)
[2020-10-12 06:57] LABS: Anion Gap 3.9 mEq/L (5-15); Blood Urea Nitrogen 18 mg/dl (9-20); Calcium 7.1 mg/dl (8.4-10.2); Carbon Dioxide 25 mmol/L (22.0-30.0); Chloride 102 mmol/L (98-107); Creatinine Clearance Estimated 100 mL/min (50-200); Estimated Glomerular Filt Rate 69 ml/min (>60); GFR (African American) 84 ML/MIN (>60); Glucose 86 mg/dl (74-100); Sodium 128 mmol/L (136-145)
--- NOTE | 2020-10-12 07:11 | HMH.ACPN2 ---
Internal Medicine - PN: Subj *Date: 10/12/20 *Time: 07:11 Interval history: Patient with no complaints this morning. He has less pain today than yesterday. Patient's dressing was changed yesterday and plan will be for the patient to have repeat dressing change on Thursday through outpatient wound care. Exam Vital signs and Labs for Last 24 Hours: Temp Pulse Resp BP Pulse Ox 98.7 F 70 16 131/76 98 10/12/20 04:00 10/12/20 04:00 10/12/20 04:00 10/12/20 04:00 10/12/20 04:00 Laboratory Results - last 24 hr 10/11/20 11:22: Vancomycin Trough 10.9 H 10/12/20 06:24: WBC 3.8 L, RBC 3.59 L, Hgb 10.5 L, Hct 30.3 L, MCV 84.4, MCH 29.3, MCHC 34.7, RDW 13.3, Plt Count 114 L, MPV 9.7, Neut % (Auto) 66.1, Lymph % (Auto) 23.8, [place] % (Auto) 9.5 H, Eos % (Auto) 0.4, Baso % (Auto) 0.1, Neut # (Auto) 2.5, Lymph # (Auto) 0.9, [place] # (Auto) 0.4, Eos # (Auto) 0.0, Baso # (Auto) 0.0 I & O for Last 24 hours: Intake & Output 10/09/20 10/10/20 10/11/20 10/12/20 11:59 11:59 11:59 11:59 Intake Total 2538 / 2538 4058 / 4058 5193 / 5193 840 / 840 Output Total 0 / 0 0 / 0 1999 2150 / 2150 Balance 2538 / 2538 4058 / 4058 3193 / 3193 -1310 / -1310 Weight 186 lb 12.798 oz 199 lb 5 oz 198 lb 4 oz 205 lb 12.8 oz Narrative: Patient looks comfortable. Right leg is heavily bandaged and bandages not removed this morning. Patient still has subcutaneous edema next most concentrated around the hip but present down to the level of the lower calf. Assessment and Plan (1) Puncture wound of right thigh with complication Status: Acute Category: Medical Code(s): S71.131A - Puncture wound without foreign body, right thigh, initial encounter (2) Cellulitis of right thigh Status: Acute Category: Medical Code(s): L03.115 - Cellulitis of right lower limb (3) Traumatic hematoma of right lower leg with infection Status: Acute Qualifiers: Encounter type: initial encounter Qualified Code(s): S80.11XA - Contusion of right lower leg, initial encounter; L08.9 - Local infection of the skin and subcutaneous tissue, unspecified Category: Medical Code(s): S80.11XA - Contusion of right lower leg, initial encounter; L08.9 - Local infection of the skin and subcutaneous tissue, unspecified (4) Pulmonary emboli Status: Acute Qualifiers: Pulmonary embolism type: multiple subsegmental (without acute cor pulmonale) Qualified Code(s): I26.94 - Multiple subsegmental pulmonary emboli without acute cor pulmonale Category: Medical Code(s): I26.99 - Other pulmonary embolism without acute cor pulmonale (5) Rectal cancer Status: Acute Category: Medical Code(s): C20 - Malignant neoplasm of rectum (6) Acute kidney injury Status: Acute Category: Medical Code(s): N17.9 - Acute kidney failure, unspecified (7) Hyperkalemia Status: Resolved Category: Medical Code(s): E87.5 - Hyperkalemia (8) Hyponatremia Status: Chronic Category: Medical Code(s): E87.1 - Hypo-osmolality and hyponatremia (9) Effusion, right knee Status: Resolved Category: Medical Code(s): M25.461 - Effusion, right knee - Assessment and plan all Dx Assessment and Plan for all problems:: 1. Patient will be discharged home this afternoon. Return for outpatient wound care on Thursday. 2. Patient will be discharged home on Augmentin 3. Patient will restart Eliquis with his first dose being given here in the hospital this morning. Patient will follow up with me on Thursday afternoon as well
--- NOTE | 2020-10-12 07:13 | SW/DCPLANNER ---
PATIENT IS DISCHARGING HOME TODAY AND IS COMING BACK TO OUR WOUND CARE CLINIC FOR DSG CHANGES... HE IS TO FOLLOW UP WITH DR ANDRADE ON THURSDAY AT 3:30 IN HIS OFFICE... WILL BE HERE LATER TODAY TO PICK HIM UP.. NO ADDITIONAL DISCHARGE PLANNING NEEDED AT THIS TIME...
--- NOTE | 2020-10-12 07:13 | HMH.DCSUM ---
General - General Admission date:: 10/08/20 Discharge date: 10/12/20 HPI HPI: 55-year-old male presented to the emergency department yesterday after developing acute onset of malaise with low blood pressure while he was attending a local physicians appointment for a port the patient has had place for treatment for his rectal cancer. Patient had a known wound of the posterior right medial thigh after being gored by a bull on October 06. Patient had actually been seen in the emergency department on October 06 when the injury occurred. Patient was gored by the bull in addition to being struck in the abdomen and chest. Patient came to the emergency department initially on the and underwent evaluation which also included repair of the wound in the right posterior medial thigh. Patient was called back to the ER later that day when CT scan of the chest was interpreted as having small subsegmental bilateral pulmonary emboli. It was at that point the patient was started on Eliquis with loading dose of 10 mg twice daily. Yesterday patient developed malaise and hypotension and was seen in the emergency department. Patient was noted to have a large seroma that appeared subcutaneous. Concern was raised over developing deep space infection. CT scan of the leg was performed with results as follows: IMPRESSION: 1. Soft tissue injury at the level of the popliteal fossa with soft tissue swelling and scattered components of soft tissue air as detailed above. In the acute setting, this is most likely related to traumatic edema and traumatic soft tissue air. Correlate clinically for evidence of infection, as developing necrotizing fasciitis cannot be excluded. 2. Posterior subcutaneous collection of fluid and air at the level of the upper popliteal fossa again noted measuring 5 x 2.9 x 1.0 cm, most likely seroma/phlegmon without hyperdense elements to suggest hematoma or active hemorrhage. Early developing abscess not excluded. 3. No evidence of osteomyelitis or septic joint. No retained foreign bodies. ER work diligently to transfer the patient to the [facility] as our local surgeons felt like patient would better be served there. However [facility] had no availability of beds. Other hospitals declined transfer. Patient was admitted on IV antibiotics. Surgery has been consulted. This morning patient denies any significant pain. He does believe the right knee is more swollen today than it was yesterday. In the ER yesterday the seroma was drained by removing some sutures. Patient is had recurrence of the seroma which drained at bedside once his dressing is removed. Seroma was subcutaneous. Patient denies numbness and tingling in the right foot and has active range of motion in the foot and ankle Hospital Course Hospital Course: Patient was admitted and placed on broad-spectrum antibiotics with Zosyn and vancomycin as antibiotics of choice. Both general surgical service (Dr. Leslie) and orthopedic service (Dr. Gill) were consulted as the ER physician had spoken with them prior to admission and they had reviewed pictures of the wound. Cellulitis gradually improved during hospitalization with improvement in pain and swelling in the right leg. The puncture wound was inspected daily and wound care service was also consulted and worked in tandem with Dr. Gill. Puncture wound showed signs of healing with no signs of necrotizing fasciitis. On October 12 patient was discharged home. Patient will follow up with Dr. Gill in wound clinic next week. Patient was diagnosed as having pulmonary embolisms on the ER visit prior to his admission. He was started on Eliquis as an outpatient but during hospitalization was transitioned to Lovenox in the event he may need surgery. At discharge patient was transitioned back to Eliquis. Patient has rectal cancer and will follow up with his oncologist. Patient was hypot
[2020-10-12 07:29] LABS: Potassium 2.9 mmoL/L (3.5-5.1)
[2020-10-12 07:55] VITALS: BP 140/76; PULSE 91; RESP 18; TEMP 36.8; O2SAT 100
== END 2020-10-12 14:59 | disposition home or self-care (01) | DRG 604 ==
LOC: ER 18:29 → 2ND 20:40
PROVIDERS: Admitting Provider Family Medicine; Emergency Provider Emergency Medicine; PCP Internal Medicine Adolescent Medicine; Visit Provider Family Medicine
DX: S80.01XA Contusion of right knee, initial encounter (principal); I26.99 Other pulmonary embolism without acute cor pulmonale; C20 Malignant neoplasm of rectum; I42.9 Cardiomyopathy, unspecified; N17.9 Acute kidney failure, unspecified; L03.115 Cellulitis of right lower limb; E87.1 Hypo-osmolality and hyponatremia; S71.131A Puncture wound without foreign body, right thigh, initial encounter; M25.461 Effusion, right knee; W55.22XA Struck by cow, initial encounter; Y92.73 Farm field as the place of occurrence of the external cause; Z87.891 Personal history of nicotine dependence; Z20.822 Contact with and (suspected) exposure to COVID-19; E87.5 Hyperkalemia; Z79.01 Long term (current) use of anticoagulants; R11.0 Nausea; I95.9 Hypotension, unspecified
CPT/HCPCS: 27310; 36415; 71045; 73700; 73701; 80048; 80053; 80202; 82550; 82962; 83605; 83690; 83880; 84484; 85007; 85025; 86140; 87040; 87581; 87633; 87798; 93005; 93926; 93971; 96365; 96366; 96367; 96375; 99284; J2405; J2543; J3370; Q9967

== ENCOUNTER 2020-10-14 13:27 | Emergency (ER) | payer BC, SELFPAY ==
--- NOTE | 2020-10-14 13:57 | CT_ITS ---
PROCEDURE INFORMATION: Exam: CT Right Lower Extremity With Contrast; Lower Leg Exam date and time: 10/14/2020 1:57 PM Age: 55 years old Clinical indication: Swelling, leg or foot; Additional info: Redness and swelling, abscess vs dvt TECHNIQUE: Imaging protocol: CT of the Right lower extremity with intravenous contrast was performed. Exam focused on the lower leg. Radiation optimization: All CT scans at this facility use at least one of these dose optimization techniques: automated exposure control; mA and/or kV adjustment per patient size (includes targeted exams where dose is matched to clinical indication); or iterative reconstruction. Contrast material: ISOVUE; Contrast volume: 120 ml; Contrast route: IV; COMPARISON: CT LOWER LEG RT W CON 10/08/2020 5:40 PM FINDINGS: Bones/joints: Unremarkable. No fractures or dislocations. Soft tissues: Extensive swelling and stranding in the subcutaneous tissues. This finding extends from the level of the knee to around the ankle. There is gas in the soft tissues of the lateral distal thigh. The full extent of this finding is not included in the field of view. Similar findings were present on the previous study. No focal collections. Vasculature: Subcutaneous venous varicosities. IMPRESSION: Swelling and stranding in the subcutaneous tissues may represent simple edema or cellulitis. No focal collections. Gas in the subcutaneous tissues is consistent with infection.
[2020-10-14 14:30] VITALS: BP 143/77; PULSE 84; RESP 18; O2SAT 100
[2020-10-14 14:32] VITALS: BP 135/83; PULSE 92; RESP 16; TEMP 36.7; O2SAT 99; BMI 31.0
--- NOTE | 2020-10-14 14:44 | HMH.EDGENADL ---
ED Disposition Clinical Impression: Hypokalemia Cellulitis Qualifiers: Site of cellulitis: extremity Site of cellulitis of extremity: lower extremity Laterality: right Qualified Code(s): L03.115 - Cellulitis of right lower limb Disposition: Home, Self-Care Condition on Discharge: Good Instructions: Cellulitis, DI for Skin Abscess Additional Instructions: Please follow-up with your PCP, PT, wound care clinic tomorrow as previously scheduled Referrals: Donte Sheets MD [Primary Care Provider] - - Critical Care Critical Care Time: No Attestation: On 10/14/20, the high probability of a clinically significant, sudden or life threatening deterioration of the following system(s) required my full and direct attention, intervention and personal management. The time I documented below is in addition to time spent performing reported procedures but includes the following listed in this critical care notation. Medical Decision Making - Medical Records Medical records reviewed: Yes: I reviewed the patient's medical records. - Russell Inquiry Pt receiving controlled substance: No Vital Signs: 10/14/20 14:30 10/14/20 14:32 10/14/20 16:55 Temperature 98.0 F Temperature Source Oral Pulse Rate 84 81 Pulse Rate [Right] 92 H Respiratory Rate 18 16 18 Blood Pressure 143/77 H 148/89 H Blood Pressure [Left Arm] 135/83 Blood Pressure Mean [Left Arm] 100 Blood Pressure Source [Left Arm] Automatic Cuff Blood Pressure Position [Left Arm] Sitting 02 Sat by Pulse Oximetry 100 99 100 Oxygen Delivery Method Room Air 10/14/20 17:52 Temperature Temperature Source Pulse Rate 80 Pulse Rate [Right] Respiratory Rate 18 Blood Pressure 151/84 H Blood Pressure [Left Arm] Blood Pressure Mean [Left Arm] Blood Pressure Source [Left Arm] Blood Pressure Position [Left Arm] 02 Sat by Pulse Oximetry 100 Oxygen Delivery Method - Lab Data Lab Results 10/14/20 15:00: WBC 6.1 D, RBC 4.25 L, Hgb 12.2 L, Hct 35.8 L, MCV 84.2, MCH 28.8, MCHC 34.2, RDW 13.8, Plt Count 192 D, MPV 8.7, Neut % (Auto) 60.8, Lymph % (Auto) 27.9, [place] % (Auto) 9.7 H, Eos % (Auto) 0.7, Baso % (Auto) 0.9, Neut # (Auto) 3.7, Lymph # (Auto) 1.7, [place] # (Auto) 0.6, Eos # (Auto) 0.0, Baso # (Auto) 0.1, ESR 105 H 10/14/20 15:00: Sodium 133 L, Potassium 2.7 L*, Chloride 100, Carbon Dioxide 29, Anion Gap 6.7, BUN 13 D, Creatinine 1.10, Estimated Creat Clear 96, Estimated GFR 69, Est GFR ( Amer) 84, Glucose 103 H, Calcium 7.6 L, Total Bilirubin 0.8, AST 77 H, ALT 50, Alkaline Phosphatase 94, C-Reactive Protein 94.8 H, Total Protein 5.7 L, Albumin 2.8 L, Globulin 2.9, Albumin/Globulin Ratio 1.0 L Result diagrams: 10/14/20 15:00 10/14/20 15:00 Orders (Tests/Meds): ED MEDICATIONS Generic Name Dose Route Start Last Admin Trade Name Freq PRN Reason Stop Dose Admin Potassium Chloride/Water 100 mls @ 100 mls/hr 10/14/20 15:45 Potassium Chloride 10meq/100ml Ivpb IV 10/14/20 18:44 Q1H LEONOR Potassium Chloride/Water 100 mls @ 50 mls/hr 10/14/20 15:42 10/14/20 17:35 Potassium Chloride 20meq/100ml Ivpb IV 10/14/20 19:41 50 mls/hr Q2H LEONOR Administration Discontinued Medications Generic Name Dose Route Start Last Admin Trade Name Freq PRN Reason Stop Dose Admin Sodium Chloride 1,000 mls @ 999 mls/hr 10/14/20 14:00 10/14/20 15:06 Sod Chlor 0.9% 1000ml Bag IV 10/14/20 15:00 999 mls/hr .Q1H1M LEONOR Administration Iopamidol 120 ml 10/14/20 15:39 10/14/20 15:39 Iopamidol-370 (76%);100ml Bottle IV 10/14/20 15:40 120 ml ONCE ONE Administration Potassium Chloride 10 meq 10/14/20 15:44 Potassium Chloride 10meq Tablet.Er PO 10/14/20 15:45 ONCE ONE Potassium Chloride 10 meq 10/14/20 15:48 10/14/20 15:49 Potassium Chloride 10meq Capsule.Er PO 10/14/20 15:49 10 meq ONCE ONE Administration Sodium Chloride 10 ml 10/14/20 15:39 10/14/20 15:39 Sodium Chloride 0.9% 10ml Syr (Rad O
--- NOTE | 2020-10-14 15:02 | PC.NURSE ---
pt to CT
[2020-10-14 15:13] LABS: Basophils # 0.1 K/mm3 (0-0.2); Basophils % 0.9 % (0.1-2.0); Eosinophils % 0.7 % (0.1-12.0); Hematocrit 35.8 % (42.0-52.0); Hemoglobin 12.2 g/dL (14.1-18.0); Lymphocytes # 1.7 K/mm3 (0.7-4.5); Lymphocytes % 27.9 % (10-50); Mean Corpuscular HGB Conc 34.2 g/dL (31.8-35.4); Mean Corpuscular Hemoglobin 28.8 pg (27.0-31.2); Mean Corpuscular Volume 84.2 fl (80-94); Mean Platelet Volume 8.7 fl (7.4-10.4); Monocytes # 0.6 K/mm3 (0.1-1.0); Monocytes % 9.7 % (1.7-9.3); Neutrophils # 3.7 K/mm3 (1.8-7.8); Neutrophils % 60.8 % (37.0-80.0); Platelet Count 192 K/mm3 (142-424); Red Blood Count 4.25 M/mm3 (4.60-6.20); Red Cell Distribution Width 13.8 % (11.5-17.5); White Blood Count 6.1 K/mm3 (4.8-10.8)
[2020-10-14 15:17] LABS: Chloride 100 mmol/L (98-107); Sodium 133 mmol/L (136-145)
[2020-10-14 15:19] LABS: Alanine Aminotransferase 50 U/L (12-78); Aspartate Amino Transferase 77 U/L (17-59); Blood Urea Nitrogen 13 mg/dl (9-20); Creatinine Clearance Estimated 96 mL/min (50-200); Estimated Glomerular Filt Rate 69 ml/min (>60); GFR (African American) 84 ML/MIN (>60)
[2020-10-14 15:20] LABS: Albumin Level 2.8 g/dl (3.5-5.0); Alkaline Phosphatase 94 U/L (38-126); Anion Gap 6.7 mEq/L (5-15); Bilirubin,Total 0.8 mg/dl (0.2-1.3); Calcium 7.6 mg/dl (8.4-10.2); Carbon Dioxide 29 mmol/L (22.0-30.0); Globulin 2.9 g/dL (1.3-3.2); Glucose 103 mg/dl (74-100); Total Protein,Serum 5.7 g/dl (6.3-8.2)
[2020-10-14 15:23] LABS: Potassium 2.7 mmoL/L (3.5-5.1)
--- NOTE | 2020-10-14 15:23 | PC.NURSE ---
critical potassium of 2.7 called from lab aware
[2020-10-14 15:26] LABS: C-Reactive Protein 94.8 mg/L (0-4)
[2020-10-14 15:37] LABS: Erythrocyte Sedimentation Rate 105 mm/hr (0-20)
[2020-10-14 16:55] VITALS: BP 148/89; PULSE 81; RESP 18; O2SAT 100
[2020-10-14 17:52] VITALS: BP 151/84; PULSE 80; RESP 18; O2SAT 100
[2020-10-14 18:45] VITALS: BP 138/80; PULSE 85; RESP 14; TEMP 37.1; O2SAT 100
== END 2020-10-14 19:06 | disposition home or self-care (01) ==
PROVIDERS: Emergency Provider Emergency Medicine; PCP Family Medicine
DX: E87.6 Hypokalemia (principal); L03.115 Cellulitis of right lower limb; C20 Malignant neoplasm of rectum; I42.8 Other cardiomyopathies; Z87.891 Personal history of nicotine dependence; Z79.899 Other long term (current) drug therapy
CPT/HCPCS: 73701; 80053; 85025; 85651; 86140; 96365; 96367; 99282; Q9967; U0003

== ENCOUNTER 2020-10-26 13:00 | Outpatient (RCR) | payer BC, SELFPAY ==
--- NOTE | 2020-10-15 15:34 | HMH.PTOPWND ---
Rehab Outpt Wound Evaluation Rehab OP Wound Evaluation Start: 10/15/20 14:32 Freq: Status: Active Protocol: Document 10/15/20 14:32 [email or web address] (Rec: 10/15/20 15:34 [email or web address] [id number]) Electronically Signed By Alejandro Marrero, JESSICA 10/15/20 14:32 Subjective/History History History This is the initial Physical THerapy wound clinic evaluation for Brayden Hicks. Pt is a 55 y/o male referred to PT wound clinic for wound on post R leg. Pt rpeorts the original wound was from being gored by a bull on 10/06/20. Pt went to ER and was admitted to [facility] for post surgical debridement care. Pt reports he went to ER over weekend due to redness and swelling Subjective Subjective Pt reports his will be changing dressing daily Wound Eval Wound Right Lower Posterior Medial Thigh Wound Type Puncture Wound Length (cm) 2.0 Wound Width (cm) 3.0 Wound Depth (cm) 1.5 Wound Bed Appearance Dusky Red Percentage Granulated (%) 80 Percentage of Slough (%) 20 Percentage of Eschar (Yellow) (%) 20 Wound Margins Description Well Defined Undermining Position 12-4 Undermining Width (cm) 2.0 Surrounding Tissue Appearance Dark Red,Purple Drainage Description Serosanguineous Drainage Amount Large Drainage Odor No Odor Dressing Status Soiled Wound Topical Solution/Irrigant Antibiotic Irrigant Packing Type Impregnated Gauze Pads Comment betadyne gauze Primary Dressing Medicated Gauze Pad Comment vaseline gauze Wound Secondary Dressing Type Absorbant Pad Comment optilock Wound Debridement Method Sharps,Forceps Wound Debridement Amount of Tissue Minimal Removed Wound Debridement Result Yellow Sloughing Remains Dressing Change Date 10/15/20 Wound Problems/Impairments Impairments Problems/Impairmments Wound Care Needs Prognosis Rehab Potential Fair Clinical Impression Consistent with Diagnosis Yes Short Term Goals Number of Weeks 4 Decrease Wound Area Yes: 25% Increase Red Granulation Tissue % Yes: 100 Decrease Drainage Yes: mod Patient to be
== END 2020-10-26 13:05 | disposition home or self-care (01) ==
LOC: PT 13:00
PROVIDERS: PCP Internal Medicine Adolescent Medicine; Visit Provider Orthopaedic Surgery
DX: L03.115 Cellulitis of right lower limb (principal)
CPT/HCPCS: 97161; 97597; 97598

== ENCOUNTER 2021-03-07 09:17 | Outpatient (CLI) | payer BC, SELFPAY ==
--- NOTE | 2021-03-07 09:20 | CA_ITS ---
APPROVED REPORT EXAM: Comprehensive 2D, Doppler, and color-flow Echocardiogram [employer] Technical Director: Tashia Wells RCS, RVS Ht: 5 ft 7 in Wt: 194lbs BSA: 2.00 BP: 142/87 mmHg Rhythm: PVC's Indications: Presyncope, fatigue, ex-smoker, Colorectal CA with past chemotherapy, 2D Dimensions IVSd 0.76 cm LVEF (Visual) 66.60 % PWd 0.71 cm LA Volume 54.20 mL LVDd 4.70 cm LA Volume Index 27.10 mL/m2 (M/F) 16-34 LVDs 2.97 cm Aortic Root 3.05 cm Left Atrium 3.61 cm LVOT 1.70 cm (M/F) 1.5-2.5 M-Mode Dimensions RVDd 3.70 cm (0.9-2.6) LA Diam 3.37 cm (1.9-4.0) LVDd 4.70 cm (3.5-5.7) Ao Diam 3.37 cm (2.0-3.7) LVDs 3.00 cm (3.5-5.7) IVSd 0.70 cm (0.6-1.1) PWd 0.70 cm (0.6-1.1) EF (Teich) 66.00% EPSs 0.25 cm FS 37.00% TAPSE 2.10 (<1.7) LV Diastology E Decel Time 207.00 (160-240 msec) E/A Ratio 1.05 MED E' 7.00 (< 7 cm/sec) MED A' 10.50 cm/s E'/MED E' Ratio 12.39 (>14) LAT E' 11.50 (<10 cm/sec) LAT A' 13.20 cm/s E/LAT E' Ratio 7.54 (>14) Pulm Vein s 38.00 cm/sec Pulm Vein d 34.00 cm/sec Ar-A Duration 103.00 msec Aortic Valve LVOT Max 122.00 (70-110 cm/s) LVOT VTI 24.64 cm AoV Peak Emigdio. 153.00 (50-130 cm/s) AO Peak GR. 9.30 mmHg AO Mean GR. 4.70 (<5 mmHg) AO VTI 28.09 (18-25 cm) MARISOL (VTI) 1.99 (2.5-4.5 cm2) Mitral Valve MV A Velocity 82.00 (40-130 cm/s) E/A Ratio 1.05 MV Decel. Time 207.00 (160-240 ms) MV Mean Gr. 3.00 (<2mmHg) Pulmonary Valve PV Peak Velocity 84.00 (50-150 cm/s) ID End VMAX 192.00 cm/s Tricuspid Valve TR P. Velocity 251.00 cm/s RAP Estimate 10.00 mmHg RVSP 35.20 mmHg Left Ventricle Left atrium is qualitatively mildly enlarged, left ventricle is normal size, left ventricle wall thickness is upper limit of the normal, there is preserved left ventricular systolic function, visually estimated ejection fraction 55% with no regional wall motion abnormality, diastolic parameters are inconclusive in the study. Right Ventricle Right atrium and right ventricle are mildly enlarged with normal contractility. Aortic Valve Aortic valve is minimally thickened and fibrosed, there is no aortic stenosis or aortic insufficiency. Mitral Valve Mitral valve is grossly normal, there is trace mitral regurgitation. Tricuspid Valve Tricuspid valve grossly normal, there is trace tricuspid regurgitation, tricuspid regurgitation jet velocity is inadequate for calculation of the right ventricular systolic pressure. Pulmonic Valve Pulmonic valve is poorly visualized. Great Vessels Aortic root is normal size. Inferior vena cava is normal size with normal inspiratory collapse. Pericardium No significant pericardial effusion noted. Conclusion 1. Mild biatrial enlargement, normal left ventricular size, visually estimated ejection fraction 55% with no regional wall motion abnormality, diastolic parameters are inconclusive in the study. 2. Mildly enlarged right ventricle with normal contractility. 3. Trace mitral and tricuspid regurgitation. 4. No significant pericardial effusion noted 5. Inferior vena cava is normal size with normal inspiratory collapse. Electronically signed by : Amadou Cleveland MD 03/07/2021 13:51:19
[2021-03-07 14:41] VITALS: BMI 27.3
[2021-03-07 15:13] LABS: Basophils % 0.6 % (0.1-2.0); Eosinophils # 0.3 K/mm3 (0.0-0.4); Eosinophils % 3.6 % (0.1-12.0); Hematocrit 30.6 % (42.0-52.0); Lymphocytes # 1.9 K/mm3 (0.7-4.5); Lymphocytes % 27.1 % (10-50); Mean Corpuscular HGB Conc 29.5 g/dL (31.8-35.4); Mean Corpuscular Hemoglobin 21.7 pg (27.0-31.2); Mean Corpuscular Volume 73.4 fl (80-94); Mean Platelet Volume 8.2 fl (7.4-10.4); Monocytes # 0.6 K/mm3 (0.1-1.0); Monocytes % 8.7 % (1.7-9.3); Neutrophils # 4.2 K/mm3 (1.8-7.8); Platelet Count 343 K/mm3 (142-424); Red Blood Count 4.17 M/mm3 (4.60-6.20); Red Cell Distribution Width 15.6 % (11.5-17.5)
[2021-03-07 15:24] LABS: Chloride 106 mmol/L (98-107); Potassium 4.1 mmoL/L (3.5-5.1); Sodium 137 mmol/L (136-145)
[2021-03-07 15:26] LABS: Alanine Aminotransferase 16 U/L (12-78); Aspartate Amino Transferase 20 U/L (17-59); Blood Urea Nitrogen 15 mg/dl (9-20); Creatinine Clearance Estimated 93 mL/min (50-200); Estimated Glomerular Filt Rate 77 ml/min (>60); GFR (African American) 94 ML/MIN (>60)
[2021-03-07 15:27] LABS: Albumin Level 3.8 g/dl (3.5-5.0); Albumin/Globulin Ratio 1.3 (1.1-1.8); Alkaline Phosphatase 84 U/L (38-126); Anion Gap 14.1 mEq/L (5-15); Bilirubin,Total 0.3 mg/dl (0.2-1.3); Carbon Dioxide 21 mmol/L (22.0-30.0); Globulin 2.9 g/dL (1.3-3.2); Glucose 132 mg/dl (74-100); Iron 19 ug/dL (49-181); Total Protein,Serum 6.7 g/dl (6.3-8.2)
[2021-03-07 15:36] LABS: Total Iron Binding Capacity 433 ug/dL (261-462)
[2021-03-07 16:09] LABS: Ferritin 9.67 ng/ml (17.9-464)
== END 2021-03-07 15:10 | disposition home or self-care (01) ==
LOC: RT 14:30 → LAB 14:41
PROVIDERS: Internal Medicine Medical Oncology; PCP Family Medicine; Visit Provider Family Medicine
DX: R55 Syncope and collapse (principal); I26.99 Other pulmonary embolism without acute cor pulmonale; I51.7 Cardiomegaly; C18.9 Malignant neoplasm of colon, unspecified
CPT/HCPCS: 80053; 82378; 82728; 83540; 83550; 85025; 93306; J1642

== ENCOUNTER 2021-03-12 10:37 | Outpatient (CLI) | payer BC, SELFPAY ==
--- NOTE | 2021-03-12 10:43 | CT_ITS ---
PROCEDURE: CT ABDOMEN PELVIS WO/W CON CLINICAL INDICATION: COLON CA: COMPARISON: CT CT ANGIO ABDOMEN PELVIS from 10/06/2020 TECHNIQUE: IV Contrast: 75ML Isovue 370 Oral Contrast 450ml Redicat Axial images obtained with sagittal and coronal reformats. All CT scans at the facility use one or more dose reduction, viz: automated exposure control, ma/kV adjustment per patient size (including targeted exams where dose is matched to indication, i.e. head), or iterative reconstruction technique. FINDINGS: The liver, spleen, pancreas, and adrenal glands have an unremarkable appearance. There has been a prior cholecystectomy. No renal or ureteral calculi. No renal mass or hydronephrosis. There are a few retroperitoneal lymph nodes which are small. These do not appear significantly changed. Unremarkable appendix. There is a moderate amount of retained colonic feces. Concentric thickening is present involving the rectum beginning at the rectosigmoid region nearly 14 cm proximal to the anal verge. There is some minimal haziness of the perirectal fat and a few small perirectal lymph nodes. Cannot exclude adventitial spread. The mass begins at the rectosigmoid junction and extends distally by approximately 6.6 cm. The anus does not appear involved. The mass does appear to end just above the levator ani muscle. No fluid collections are evident. No mesenteric adenopathy or masses. No acute bony anomalies. Subcortical cyst is present involving the left femoral head. IMPRESSION: Rectal mass as described above consistent with neoplasm. There is some minimal haziness of the perirectal fat which may indicate adventitial spread and a few small perirectal lymph nodes. These nodes are less than 1 cm in short axis. No convincing evidence of metastatic disease. Dictated by: Rickie Pepper MD 03/13/2021 14:12 Rickie Pepper MD in [facility] 03/13/2021 14:12
--- NOTE | 2021-03-12 10:43 | CT_ITS ---
PROCEDURE: CT CHEST WO/W CON CLINCAL INDICATION: COLON CA COMPARISON: CT CT ANGIO CHEST from 10/06/2020 TECHNIQUE: IV Contrast: 75ml Isovue 370 Axial images obtained with sagittal and coronal reformats. All CT scans at the facility use one or more dose reduction, viz: automated exposure control, ma/kV adjustment per patient size (including targeted exams where dose is matched to indication, i.e. head), or iterative reconstruction technique. FINDINGS: HEART AND MEDIASTINAL STRUCTURES: There are few scattered small mediastinal lymph nodes and small hilar nodes not significantly changed. Coronary artery calcifications. MediPort catheter is present from the left subclavian approach with the tip in the SVC. No mediastinal or hilar mass. No evidence of central pulmonary embolus. LUNGS AND PLEURAL SPACES: No suspicious pulmonary nodules. There are small fissural nodules bilaterally which are unchanged. No effusions or infiltrates. BONY STRUCTURES: No acute bony abnormalities apparent. UPPER ABDOMEN: See abdomen report ADDITIONAL FINDINGS: There are small axillary nodes unchanged. Mild gynecomastia. IMPRESSION: Stable CT appearance of the chest. No convincing evidence of pulmonary metastasis. Dictated by: Rickie Pepper MD 03/13/2021 12:30 Rickie Pepper MD in [facility] 03/13/2021 12:30
== END 2021-03-12 11:33 | disposition home or self-care (01) ==
PROVIDERS: PCP Family Medicine; Visit Provider Internal Medicine Medical Oncology
DX: C20 Malignant neoplasm of rectum (principal)
CPT/HCPCS: 71270; 74178; 96523; J1642; Q9967

== ENCOUNTER 2021-03-18 14:42 | Outpatient (CLI) | payer BC, SELFPAY ==
[2021-03-18 15:06] VITALS: BP 124/72; PULSE 91; RESP 16; TEMP 36.6; O2SAT 99
[2021-03-18 15:52] VITALS: BP 126/69; PULSE 88; RESP 18; TEMP 36.6; O2SAT 100
== END 2021-03-18 16:00 | disposition home or self-care (01) ==
LOC: INF 14:43
PROVIDERS: PCP Family Medicine; Visit Provider Internal Medicine Medical Oncology
DX: C20 Malignant neoplasm of rectum (principal); D50.9 Iron deficiency anemia, unspecified
CPT/HCPCS: 96365; J1439; J1642

== ENCOUNTER 2021-03-21 08:26 | Outpatient (CLI) | payer BC, SELFPAY ==
[2021-03-21] VITALS (22 sets, daily range): BP systolic 109–154; BP diastolic 68–92; PULSE 78–103; RESP 18; O2SAT 99
== END 2021-03-21 15:35 | disposition home or self-care (01) ==
LOC: INF 08:26
PROVIDERS: PCP Family Medicine; Visit Provider Internal Medicine Medical Oncology
DX: Z51.11 Encounter for antineoplastic chemotherapy (principal); C18.9 Malignant neoplasm of colon, unspecified
CPT/HCPCS: 96411; 96413; 96415; 96417; J0640; J2469; J9190; J9263; Q0166

== ENCOUNTER 2021-03-25 14:37 | Outpatient (CLI) | payer BC, SELFPAY ==
[2021-03-25 15:02] VITALS: BP 136/80; PULSE 73; RESP 18; TEMP 36.3; O2SAT 100
[2021-03-25 15:45] VITALS: BP 127/81; PULSE 72; RESP 18; O2SAT 99
== END 2021-03-25 15:45 | disposition home or self-care (01) ==
LOC: INF 14:38
PROVIDERS: PCP Family Medicine; Visit Provider Internal Medicine Medical Oncology
DX: C18.9 Malignant neoplasm of colon, unspecified (principal); D50.9 Iron deficiency anemia, unspecified
CPT/HCPCS: 96365; J1439; J1642

== ENCOUNTER → 2021-04-04 08:16 | Outpatient (CLI) | payer BC, SELFPAY ==
[2021-04-04] VITALS (16 sets, daily range): BP systolic 126–174; BP diastolic 72–94; PULSE 81–98; RESP 18; TEMP 36.6; O2SAT 100; BMI 27.3
[2021-04-04 08:42] LABS: Eosinophils # 0.2 K/mm3 (0.0-0.4); Eosinophils % 4.9 % (0.1-12.0); Hematocrit 34.4 % (42.0-52.0); Hemoglobin 10.5 g/dL (14.1-18.0); Lymphocytes # 1.5 K/mm3 (0.7-4.5); Lymphocytes % 43.9 % (10-50); Mean Corpuscular HGB Conc 30.6 g/dL (31.8-35.4); Mean Corpuscular Hemoglobin 25.2 pg (27.0-31.2); Mean Corpuscular Volume 82.4 fl (80-94); Mean Platelet Volume 7.8 fl (7.4-10.4); Monocytes # 0.6 K/mm3 (0.1-1.0); Monocytes % 16.5 % (1.7-9.3); Neutrophils # 1.2 K/mm3 (1.8-7.8); Neutrophils % 33.7 % (37.0-80.0); Platelet Count 265 K/mm3 (142-424); Red Blood Count 4.18 M/mm3 (4.60-6.20); White Blood Count 3.5 K/mm3 (4.8-10.8)
[2021-04-04 08:48] LABS: Red Cell Distribution Width 29.2 % (11.5-17.5)
[2021-04-04 08:49] LABS: Alanine Aminotransferase 18 U/L (12-78); Albumin Level 3.8 g/dl (3.5-5.0); Albumin/Globulin Ratio 1.4 (1.1-1.8); Alkaline Phosphatase 88 U/L (38-126); Anion Gap 12.2 mEq/L (5-15); Aspartate Amino Transferase 24 U/L (17-59); Bilirubin,Total 0.3 mg/dl (0.2-1.3); Blood Urea Nitrogen 14 mg/dl (9-20); Calcium 8.7 mg/dl (8.4-10.2); Carbon Dioxide 23 mmol/L (22.0-30.0); Chloride 108 mmol/L (98-107); Creatinine Clearance Estimated 92 mL/min (50-200); Estimated Glomerular Filt Rate 77 ml/min (>60); GFR (African American) 94 ML/MIN (>60); Globulin 2.7 g/dL (1.3-3.2); Glucose 103 mg/dl (74-100); Potassium 4.2 mmoL/L (3.5-5.1); Sodium 139 mmol/L (136-145); Total Protein,Serum 6.5 g/dl (6.3-8.2)
== END ==
PROVIDERS: PCP Family Medicine; Visit Provider Internal Medicine Medical Oncology
DX: Z51.11 Encounter for antineoplastic chemotherapy (principal); C18.9 Malignant neoplasm of colon, unspecified
CPT/HCPCS: 80053; 85025; 96411; 96413; 96415; 96417; J0640; J2469; J9190; J9263; Q0166

== ENCOUNTER 2021-04-08 13:11 | Outpatient (CLI) | payer BC, SELFPAY ==
[2021-04-08 13:30] VITALS: BP 148/82; PULSE 68; RESP 20; TEMP 36.9; O2SAT 95
== END 2021-04-08 13:40 | disposition home or self-care (01) ==
LOC: INF 13:11
PROVIDERS: PCP Family Medicine; Visit Provider Internal Medicine Medical Oncology
DX: Z51.11 Encounter for antineoplastic chemotherapy (principal); C18.9 Malignant neoplasm of colon, unspecified
CPT/HCPCS: 96372; J2505

== ENCOUNTER 2021-04-15 10:05 | Outpatient (CLI) | payer BC, SELFPAY ==
[2021-04-15] VITALS (9 sets, daily range): BP systolic 123–150; BP diastolic 59–89; PULSE 74–82; RESP 18; TEMP 36.6; O2SAT 99–100; BMI 28.0
[2021-04-15 10:30] LABS: Basophils # 0.1 K/mm3 (0-0.2); Basophils % 1.3 % (0.1-2.0); Eosinophils # 0.2 K/mm3 (0.0-0.4); Hematocrit 38.7 % (42.0-52.0); Lymphocytes % 21.7 % (10-50); Mean Corpuscular HGB Conc 31.1 g/dL (31.8-35.4); Mean Corpuscular Hemoglobin 26.6 pg (27.0-31.2); Mean Corpuscular Volume 85.6 fl (80-94); Mean Platelet Volume 9.4 fl (7.4-10.4); Monocytes # 0.8 K/mm3 (0.1-1.0); Monocytes % 8.5 % (1.7-9.3); Neutrophils # 6.2 K/mm3 (1.8-7.8); Neutrophils % 66.4 % (37.0-80.0); Platelet Count 220 K/mm3 (142-424); Red Blood Count 4.52 M/mm3 (4.60-6.20); White Blood Count 9.4 K/mm3 (4.8-10.8)
[2021-04-15 10:31] LABS: Red Cell Distribution Width 30.1 % (11.5-17.5)
[2021-04-15 10:36] LABS: Chloride 107 mmol/L (98-107)
[2021-04-15 10:37] LABS: Potassium 4.1 mmoL/L (3.5-5.1); Sodium 137 mmol/L (136-145)
[2021-04-15 10:39] LABS: Alanine Aminotransferase 14 U/L (12-78); Albumin Level 3.9 g/dl (3.5-5.0); Albumin/Globulin Ratio 1.4 (1.1-1.8); Alkaline Phosphatase 113 U/L (38-126); Anion Gap 12.1 mEq/L (5-15); Aspartate Amino Transferase 28 U/L (17-59); Blood Urea Nitrogen 16 mg/dl (9-20); Carbon Dioxide 22 mmol/L (22.0-30.0); Creatinine Clearance Estimated 79 mL/min (50-200); Estimated Glomerular Filt Rate 63 ml/min (>60); GFR (African American) 76 ML/MIN (>60); Globulin 2.7 g/dL (1.3-3.2); Glucose 118 mg/dl (74-100); Total Protein,Serum 6.6 g/dl (6.3-8.2)
[2021-04-15 10:40] LABS: Calcium 9.2 mg/dl (8.4-10.2)
[2021-04-15 10:42] LABS: Bilirubin,Total 0.1 mg/dl (0.2-1.3)
== END 2021-04-15 15:25 | disposition home or self-care (01) ==
LOC: INF 10:05
PROVIDERS: PCP Family Medicine; Visit Provider Internal Medicine Medical Oncology
DX: Z51.11 Encounter for antineoplastic chemotherapy (principal); C18.9 Malignant neoplasm of colon, unspecified
CPT/HCPCS: 80053; 85025; 96411; 96413; 96415; 96417; J0640; J2469; J9190; J9263; Q0166

== ENCOUNTER 2021-04-19 09:45 | Outpatient (CLI) | payer BC, SELFPAY ==
[2021-04-19 10:06] VITALS: BP 148/94; PULSE 88; RESP 17; TEMP 36.7; O2SAT 100
== END 2021-04-19 10:07 | disposition home or self-care (01) ==
LOC: INF 09:45
PROVIDERS: PCP Family Medicine; Visit Provider Internal Medicine Medical Oncology
DX: Z51.11 Encounter for antineoplastic chemotherapy (principal); C18.9 Malignant neoplasm of colon, unspecified
CPT/HCPCS: 96372; J2505

== ENCOUNTER 2021-05-02 08:08 | Outpatient (CLI) | payer BC, SELFPAY ==
[2021-05-02] VITALS (11 sets, daily range): BP systolic 129–150; BP diastolic 72–92; PULSE 80–86; RESP 18; TEMP 35.6; O2SAT 100; BMI 28.1
[2021-05-02 08:30] LABS: Basophils # 0.2 K/mm3 (0-0.2); Basophils % 1.4 % (0.1-2.0); Eosinophils # 0.3 K/mm3 (0.0-0.4); Eosinophils % 2.6 % (0.1-12.0); Hematocrit 41.3 % (42.0-52.0); Hemoglobin 13.5 g/dL (14.1-18.0); Lymphocytes # 2.5 K/mm3 (0.7-4.5); Lymphocytes % 22.7 % (10-50); Mean Corpuscular HGB Conc 32.8 g/dL (31.8-35.4); Mean Corpuscular Hemoglobin 28.5 pg (27.0-31.2); Mean Corpuscular Volume 86.9 fl (80-94); Mean Platelet Volume 8.7 fl (7.4-10.4); Monocytes # 0.8 K/mm3 (0.1-1.0); Monocytes % 7.1 % (1.7-9.3); Neutrophils # 7.3 K/mm3 (1.8-7.8); Neutrophils % 66.2 % (37.0-80.0); Platelet Count 242 K/mm3 (142-424); Red Blood Count 4.75 M/mm3 (4.60-6.20); White Blood Count 11.1 K/mm3 (4.8-10.8)
[2021-05-02 08:31] LABS: Red Cell Distribution Width 28.3 % (11.5-17.5)
[2021-05-02 08:42] LABS: Alanine Aminotransferase 37 U/L (12-78); Albumin/Globulin Ratio 1.3 (1.1-1.8); Alkaline Phosphatase 137 U/L (38-126); Anion Gap 9.5 mEq/L (5-15); Aspartate Amino Transferase 42 U/L (17-59); Bilirubin,Total 0.3 mg/dl (0.2-1.3); Blood Urea Nitrogen 17 mg/dl (9-20); Calcium 9.5 mg/dl (8.4-10.2); Carbon Dioxide 26 mmol/L (22.0-30.0); Chloride 105 mmol/L (98-107); Creatinine Clearance Estimated 79 mL/min (50-200); Estimated Glomerular Filt Rate 63 ml/min (>60); GFR (African American) 76 ML/MIN (>60); Globulin 3.2 g/dL (1.3-3.2); Glucose 112 mg/dl (74-100); Potassium 4.5 mmoL/L (3.5-5.1); Sodium 136 mmol/L (136-145); Total Protein,Serum 7.2 g/dl (6.3-8.2)
== END 2021-05-02 13:40 | disposition home or self-care (01) ==
LOC: INF 08:09
PROVIDERS: PCP Family Medicine; Visit Provider Internal Medicine Medical Oncology
DX: Z51.11 Encounter for antineoplastic chemotherapy (principal); C18.9 Malignant neoplasm of colon, unspecified
CPT/HCPCS: 80053; 85025; 96411; 96413; 96415; 96417; J0640; J2469; J9190; J9263; Q0166

== ENCOUNTER 2021-05-06 12:50 | Outpatient (CLI) | payer BC, SELFPAY ==
[2021-05-06 13:03] VITALS: BP 144/95; PULSE 92; RESP 18; TEMP 36.2; O2SAT 98
== END 2021-05-06 13:16 | disposition home or self-care (01) ==
LOC: INF 12:50
PROVIDERS: PCP Family Medicine; Visit Provider Internal Medicine Medical Oncology
DX: Z51.11 Encounter for antineoplastic chemotherapy (principal); C18.9 Malignant neoplasm of colon, unspecified
CPT/HCPCS: 96372; J2505

== ENCOUNTER → 2021-05-16 13:52 | Outpatient (CLI) | payer BC, SELFPAY | PROVIDERS: Visit Provider Surgery | DX: Z01.812 Encounter for preprocedural laboratory examination (principal); Z11.52 Encounter for screening for COVID-19; C19 Malignant neoplasm of rectosigmoid junction | CPT/HCPCS: C9803; U0003; U0005 ==

== ENCOUNTER 2021-06-17 09:20 | Outpatient (CLI) | payer BC, SELFPAY ==
[2021-06-17 09:26] VITALS: BMI 28.6
[2021-06-17 09:43] LABS: Basophils # 0.1 K/mm3 (0-0.2); Basophils % 0.9 % (0.1-2.0); Eosinophils # 0.3 K/mm3 (0.0-0.4); Eosinophils % 4.6 % (0.1-12.0); Hematocrit 41.2 % (42.0-52.0); Hemoglobin 13.4 g/dL (14.1-18.0); Lymphocytes # 1.2 K/mm3 (0.7-4.5); Lymphocytes % 22.5 % (10-50); Mean Corpuscular HGB Conc 32.4 g/dL (31.8-35.4); Mean Corpuscular Hemoglobin 31.2 pg (27.0-31.2); Mean Corpuscular Volume 96.1 fl (80-94); Mean Platelet Volume 9.4 fl (7.4-10.4); Monocytes # 0.4 K/mm3 (0.1-1.0); Monocytes % 6.5 % (1.7-9.3); Neutrophils # 3.6 K/mm3 (1.8-7.8); Neutrophils % 65.5 % (37.0-80.0); Platelet Count 226 K/mm3 (142-424); Red Blood Count 4.29 M/mm3 (4.60-6.20); Red Cell Distribution Width 20.1 % (11.5-17.5); White Blood Count 5.5 K/mm3 (4.8-10.8)
[2021-06-17 09:51] LABS: Alanine Aminotransferase 23 U/L (12-78); Albumin Level 4.1 g/dl (3.5-5.0); Albumin/Globulin Ratio 1.5 (1.1-1.8); Alkaline Phosphatase 63 U/L (38-126); Anion Gap 11.9 mEq/L (5-15); Aspartate Amino Transferase 32 U/L (17-59); Bilirubin,Total 0.4 mg/dl (0.2-1.3); Blood Urea Nitrogen 12 mg/dl (9-20); Calcium 9.1 mg/dl (8.4-10.2); Carbon Dioxide 24 mmol/L (22.0-30.0); Chloride 104 mmol/L (98-107); Creatinine Clearance Estimated 108 mL/min (50-200); Estimated Glomerular Filt Rate 87 ml/min (>60); GFR (African American) 106 ML/MIN (>60); Globulin 2.8 g/dL (1.3-3.2); Glucose 123 mg/dl (74-100); Potassium 3.9 mmoL/L (3.5-5.1); Sodium 136 mmol/L (136-145); Total Protein,Serum 6.9 g/dl (6.3-8.2)
== END 2021-06-17 09:35 | disposition home or self-care (01) ==
LOC: INF 09:21
PROVIDERS: PCP Family Medicine; Visit Provider Internal Medicine Medical Oncology
DX: C18.9 Malignant neoplasm of colon, unspecified (principal); Z45.2 Encounter for adjustment and management of vascular access device
CPT/HCPCS: 80053; 85025; J1642

== ENCOUNTER → 2021-06-27 09:24 | Outpatient (CLI) | payer BC, SELFPAY ==
[2021-06-27 09:29] VITALS: BMI 30.4
[2021-06-27 09:48] LABS: Eosinophils # 0.3 K/mm3 (0.0-0.4); Eosinophils % 8.8 % (0.1-12.0); Hematocrit 42.4 % (42.0-52.0); Hemoglobin 13.8 g/dL (14.1-18.0); Lymphocytes # 0.8 K/mm3 (0.7-4.5); Lymphocytes % 23.3 % (10-50); Mean Corpuscular HGB Conc 32.4 g/dL (31.8-35.4); Mean Corpuscular Hemoglobin 31.6 pg (27.0-31.2); Mean Corpuscular Volume 97.5 fl (80-94); Mean Platelet Volume 8.5 fl (7.4-10.4); Monocytes # 0.6 K/mm3 (0.1-1.0); Monocytes % 15.9 % (1.7-9.3); Neutrophils # 1.8 K/mm3 (1.8-7.8); Platelet Count 168 K/mm3 (142-424); Red Blood Count 4.35 M/mm3 (4.60-6.20); Red Cell Distribution Width 19.4 % (11.5-17.5); White Blood Count 3.6 K/mm3 (4.8-10.8)
[2021-06-27 09:53] LABS: Chloride 104 mmol/L (98-107); Sodium 133 mmol/L (136-145)
[2021-06-27 09:56] LABS: Alanine Aminotransferase 25 U/L (12-78); Albumin Level 4.3 g/dl (3.5-5.0); Albumin/Globulin Ratio 1.4 (1.1-1.8); Alkaline Phosphatase 79 U/L (38-126); Aspartate Amino Transferase 35 U/L (17-59); Bilirubin,Total 0.6 mg/dl (0.2-1.3); Blood Urea Nitrogen 11 mg/dl (9-20); Carbon Dioxide 24 mmol/L (22.0-30.0); Creatinine Clearance Estimated 103 mL/min (50-200); Estimated Glomerular Filt Rate 77 ml/min (>60); GFR (African American) 94 ML/MIN (>60); Total Protein,Serum 7.3 g/dl (6.3-8.2)
[2021-06-27 09:57] LABS: Calcium 9.1 mg/dl (8.4-10.2); Glucose 120 mg/dl (74-100)
== END ==
PROVIDERS: PCP Family Medicine; Visit Provider Internal Medicine Medical Oncology
DX: C18.9 Malignant neoplasm of colon, unspecified (principal)
CPT/HCPCS: 80053; 85025; J1642

== ENCOUNTER 2021-07-12 09:41 | Outpatient (CLI) | payer BC, SELFPAY ==
[2021-07-12 09:44] VITALS: BMI 30.4
[2021-07-12 10:03] LABS: Basophils % 0.7 % (0.1-2.0); Eosinophils # 0.2 K/mm3 (0.0-0.4); Eosinophils % 4.7 % (0.1-12.0); Hematocrit 41.6 % (42.0-52.0); Hemoglobin 13.9 g/dL (14.1-18.0); Lymphocytes # 0.7 K/mm3 (0.7-4.5); Lymphocytes % 16.8 % (10-50); Mean Corpuscular HGB Conc 33.5 g/dL (31.8-35.4); Mean Corpuscular Hemoglobin 32.2 pg (27.0-31.2); Mean Corpuscular Volume 96.4 fl (80-94); Mean Platelet Volume 7.6 fl (7.4-10.4); Monocytes # 0.4 K/mm3 (0.1-1.0); Monocytes % 9.3 % (1.7-9.3); Neutrophils # 2.9 K/mm3 (1.8-7.8); Neutrophils % 68.5 % (37.0-80.0); Platelet Count 207 K/mm3 (142-424); Red Blood Count 4.32 M/mm3 (4.60-6.20); Red Cell Distribution Width 18.8 % (11.5-17.5); White Blood Count 4.2 K/mm3 (4.8-10.8)
[2021-07-12 10:06] LABS: Chloride 103 mmol/L (98-107); Sodium 133 mmol/L (136-145)
[2021-07-12 10:07] LABS: Potassium 3.9 mmoL/L (3.5-5.1)
[2021-07-12 10:09] LABS: Alanine Aminotransferase 24 U/L (12-78); Albumin Level 4.3 g/dl (3.5-5.0); Albumin/Globulin Ratio 1.4 (1.1-1.8); Alkaline Phosphatase 85 U/L (38-126); Anion Gap 8.9 mEq/L (5-15); Aspartate Amino Transferase 33 U/L (17-59); Bilirubin,Total 1.1 mg/dl (0.2-1.3); Blood Urea Nitrogen 12 mg/dl (9-20); Carbon Dioxide 25 mmol/L (22.0-30.0); Creatinine Clearance Estimated 103 mL/min (50-200); Estimated Glomerular Filt Rate 77 ml/min (>60); GFR (African American) 94 ML/MIN (>60); Globulin 3.1 g/dL (1.3-3.2); Total Protein,Serum 7.4 g/dl (6.3-8.2)
[2021-07-12 10:10] LABS: Calcium 8.6 mg/dl (8.4-10.2); Glucose 88 mg/dl (74-100)
== END 2021-07-12 09:55 | disposition home or self-care (01) ==
LOC: INF 09:42
PROVIDERS: PCP Family Medicine; Visit Provider Internal Medicine Medical Oncology
DX: C18.9 Malignant neoplasm of colon, unspecified (principal); Z45.2 Encounter for adjustment and management of vascular access device
CPT/HCPCS: 80053; 85025; J1642

== ENCOUNTER → 2021-09-11 13:11 | Outpatient (CLI) | payer BC, SELFPAY | PROVIDERS: PCP Nurse Practitioner Family; Visit Provider Surgery | DX: Z01.812 Encounter for preprocedural laboratory examination (principal); Z11.52 Encounter for screening for COVID-19; C19 Malignant neoplasm of rectosigmoid junction | CPT/HCPCS: C9803; U0003; U0005 ==

== ENCOUNTER 2021-11-14 12:06 | Outpatient (CLI) | payer BC, SELFPAY ==
[2021-11-14 12:11] VITALS: BMI 26.4
[2021-11-14 12:35] LABS: Basophils % 0.5 % (0.1-2.0); Chloride 107 mmol/L (98-107); Eosinophils # 0.3 K/mm3 (0.0-0.4); Hematocrit 43.3 % (42.0-52.0); Hemoglobin 15.4 g/dL (14.1-18.0); Lymphocytes # 0.9 K/mm3 (0.7-4.5); Lymphocytes % 13.5 % (10-50); Mean Corpuscular HGB Conc 35.5 g/dL (31.8-35.4); Mean Corpuscular Hemoglobin 29.7 pg (27.0-31.2); Mean Corpuscular Volume 83.9 fl (80-94); Mean Platelet Volume 7.8 fl (7.4-10.4); Monocytes # 0.5 K/mm3 (0.1-1.0); Monocytes % 7.1 % (1.7-9.3); Neutrophils # 4.9 K/mm3 (1.8-7.8); Neutrophils % 74.8 % (37.0-80.0); Platelet Count 257 K/mm3 (142-424); Red Blood Count 5.16 M/mm3 (4.60-6.20); Red Cell Distribution Width 13.6 % (11.5-17.5); Sodium 135 mmol/L (136-145); White Blood Count 6.5 K/mm3 (4.8-10.8)
[2021-11-14 12:36] LABS: Potassium 4.3 mmoL/L (3.5-5.1)
[2021-11-14 12:38] LABS: Alanine Aminotransferase 57 U/L (12-78); Albumin Level 4.2 g/dl (3.5-5.0); Albumin/Globulin Ratio 1.2 (1.1-1.8); Alkaline Phosphatase 145 U/L (38-126); Anion Gap 12.3 mEq/L (5-15); Aspartate Amino Transferase 46 U/L (17-59); Bilirubin,Total 0.5 mg/dl (0.2-1.3); Blood Urea Nitrogen 12 mg/dl (9-20); Carbon Dioxide 20 mmol/L (22.0-30.0); Creatinine Clearance Estimated 81 mL/min (50-200); Estimated Glomerular Filt Rate 69 ml/min (>60); GFR (African American) 84 ML/MIN (>60); Globulin 3.6 g/dL (1.3-3.2); Total Protein,Serum 7.8 g/dl (6.3-8.2)
[2021-11-14 12:39] LABS: Calcium 10.1 mg/dl (8.4-10.2); Glucose 121 mg/dl (74-100)
[2021-11-15 09:34] LABS: CEA 0.7 ng/mL (0.0-4.7)
== END 2021-11-14 12:27 | disposition home or self-care (01) ==
LOC: INF 12:07
PROVIDERS: Visit Provider Internal Medicine Medical Oncology
DX: C18.9 Malignant neoplasm of colon, unspecified (principal); Z45.2 Encounter for adjustment and management of vascular access device
CPT/HCPCS: 36591; 80053; 82378; 85025; J1642

== ENCOUNTER → 2021-12-31 12:01 | Outpatient (CLI) | payer BC, SELFPAY | PROVIDERS: Visit Provider Surgery | DX: Z01.812 Encounter for preprocedural laboratory examination (principal); Z20.822 Contact with and (suspected) exposure to COVID-19 | CPT/HCPCS: C9803; U0003; U0005 ==

== ENCOUNTER 2022-01-31 14:06 | Outpatient (CLI) | payer BC, SELFPAY | END 2022-01-31 14:15 | disposition home or self-care (01) | LOC: INF 14:07 | PROVIDERS: PCP Nurse Practitioner Family; Visit Provider Internal Medicine Medical Oncology | DX: Z45.2 Encounter for adjustment and management of vascular access device (principal) | CPT/HCPCS: 96523; J1642 ==

== ENCOUNTER 2022-03-28 14:20 | Outpatient (CLI) | payer BC, SELFPAY | END 2022-03-28 14:52 | disposition home or self-care (01) | LOC: INF 14:21 | PROVIDERS: PCP Nurse Practitioner Family; Visit Provider Internal Medicine Medical Oncology | DX: Z45.2 Encounter for adjustment and management of vascular access device (principal) | CPT/HCPCS: 96523; J1642 ==

== ENCOUNTER 2022-05-22 11:12 | Outpatient (CLI) | payer BC, SELFPAY ==
[2022-05-22 11:19] VITALS: BMI 26.4
[2022-05-22 11:54] LABS: Basophils # 0.1 K/mm3 (0-0.2); Basophils % 0.9 % (0.1-2.0); Eosinophils # 0.3 K/mm3 (0.0-0.4); Eosinophils % 4.9 % (0.1-12.0); Hematocrit 47.3 % (42.0-52.0); Hemoglobin 15.5 g/dL (14.1-18.0); Lymphocytes # 1.2 K/mm3 (0.7-4.5); Lymphocytes % 21.2 % (10-50); Mean Corpuscular HGB Conc 32.7 g/dL (31.8-35.4); Mean Corpuscular Volume 91.7 fl (80-94); Mean Platelet Volume 8.6 fl (7.4-10.4); Monocytes # 0.5 K/mm3 (0.1-1.0); Monocytes % 8.8 % (1.7-9.3); Neutrophils # 3.6 K/mm3 (1.8-7.8); Neutrophils % 64.1 % (37.0-80.0); Platelet Count 263 K/mm3 (142-424); Red Blood Count 5.16 M/mm3 (4.60-6.20); Red Cell Distribution Width 13.7 % (11.5-17.5); White Blood Count 5.6 K/mm3 (4.8-10.8)
[2022-05-22 12:01] LABS: Chloride 105 mmol/L (98-107); Potassium 4.3 mmoL/L (3.5-5.1); Sodium 139 mmol/L (136-145)
[2022-05-22 12:03] LABS: Alanine Aminotransferase 25 U/L (12-78); Aspartate Amino Transferase 26 U/L (17-59); Blood Urea Nitrogen 20 mg/dl (9-20); Creatinine Clearance Estimated 59 mL/min (50-200); Estimated Glomerular Filt Rate 48 ml/min (>60); GFR (African American) 58 ML/MIN (>60)
[2022-05-22 12:04] LABS: Albumin Level 4.3 g/dl (3.5-5.0); Albumin/Globulin Ratio 1.4 (1.1-1.8); Alkaline Phosphatase 79 U/L (38-126); Anion Gap 12.3 mEq/L (5-15); Bilirubin,Total 0.7 mg/dl (0.2-1.3); Carbon Dioxide 26 mmol/L (22.0-30.0); Glucose 116 mg/dl (74-100); Total Protein,Serum 7.3 g/dl (6.3-8.2)
[2022-05-23 08:13] LABS: CEA <0.6 ng/mL (0.0-4.7)
== END 2022-05-22 11:33 | disposition home or self-care (01) ==
LOC: INF 11:14
PROVIDERS: PCP Family Medicine; Visit Provider Internal Medicine Medical Oncology
DX: C18.9 Malignant neoplasm of colon, unspecified (principal)
CPT/HCPCS: 36591; 80053; 82378; 85025; J1642

== ENCOUNTER → 2022-06-06 09:32 | Outpatient (CLI) | payer BC, SELFPAY ==
--- NOTE | 2022-06-06 09:39 | CT_ITS ---
FINAL REPORT CLINICAL HISTORY: COLON CANCER COMPARISON: 10/06/2020 FINDINGS: CT CHEST WITH AND WITHOUT CONTRAST TECHNIQUE: After the administration of intravenous contrast, axial images through the chest were performed by computed tomography. Precontrast imaging was also obtained. This study was performed with techniques to keep radiation doses as low as reasonably achievable, (ALARA). Individualized dose reduction techniques using automated exposure control or adjustment of mA and/or kV according to the patient's size were employed. FINDINGS: There is a left subclavian port in place. There is no axillary adenopathy. There is no hilar or mediastinal adenopathy. The heart size is normal. There is no pericardial or pleural effusion. There is mild bibasilar atelectasis. No suspicious mass or nodule is seen. There is no acute osseous abnormality. IMPRESSION: No acute process. Reviewed, Interpreted and Dictated by Gopi Hensley III, MD Transcribed by Pilar Bronson Authenticated and [facility]
--- NOTE | 2022-06-06 09:39 | CT_ITS ---
FINAL REPORT TECHNIQUE: Axial CT images of the abdomen and pelvis were obtained before and after the administration of IV contrast. Oral contrast was administered.This study was performed with techniques to keep radiation doses as low as reasonably achievable (ALARA). Individualized dose reduction techniques using automated exposure control or adjustment of mA and/or kV according to the patient''s size were employed. CLINICAL HISTORY: COLON CANCER COMPARISON: 03/12/2021 FINDINGS: Abdomen: The heart is normal in size. The liver has an unremarkable appearance, without evidence of mass or biliary duct dilatation. No hepatic mass is seen.. The spleen is unremarkable. No adrenal masses present. The pancreas has an unremarkable appearance. The kidneys enhance normally. The aorta is normal in caliber. There is no free fluid or adenopathy. No mass or abnormal fluid collection is seen. There is no evidence of bowel obstruction. Precontrast images demonstrate no evidence of nephrolithiasis. Pelvis: The appendix is enlarged up to 7 mm without adjacent inflammatory change or convincing evidence of appendicitis. There is a small umbilical hernia containing fat. There are postoperative changes of resection. Presacral soft tissue stranding is seen likely related to postoperative change. Wall thickening of the urinary bladder is likely inflammatory. There is no evidence of mass or adenopathy. There is no evidence of bowel obstruction. IMPRESSION: Wall thickening of the urinary bladder, likely inflammatory. Otherwise, no acute process. Reviewed, Interpreted and Dictated by Gopi Hensley III, MD Transcribed by Pilar Bronson Authenticated and [facility]
== END ==
PROVIDERS: PCP Family Medicine; Visit Provider Internal Medicine Medical Oncology
DX: C18.9 Malignant neoplasm of colon, unspecified (principal)
CPT/HCPCS: 71270; 74178; Q9967

== ENCOUNTER 2022-07-14 13:15 | Outpatient (CLI) | payer BC, SELFPAY | END 2022-07-14 13:27 | disposition home or self-care (01) | LOC: INF 13:16 | PROVIDERS: PCP Family Medicine; Visit Provider Internal Medicine Medical Oncology | DX: Z45.2 Encounter for adjustment and management of vascular access device (principal); E87.1 Hypo-osmolality and hyponatremia | CPT/HCPCS: 96523; J1642 ==

== ENCOUNTER 2022-08-25 15:09 | Outpatient (CLI) | payer BC, SELFPAY | END 2022-08-25 15:35 | disposition home or self-care (01) | LOC: INF 15:09 | PROVIDERS: PCP Family Medicine; Visit Provider Internal Medicine Medical Oncology | DX: Z45.2 Encounter for adjustment and management of vascular access device (principal); C18.9 Malignant neoplasm of colon, unspecified | CPT/HCPCS: 96523; J1642 ==

== ENCOUNTER 2022-09-26 09:24 | Day surgery (SDC) | payer BC, SELFPAY ==
[2022-08-06 09:37] VITALS: BMI 29.7
[2022-09-24 10:44] VITALS: BMI 29.7
[2022-09-26] VITALS (7 sets, daily range): BP systolic 79–156; BP diastolic 53–91; PULSE 76–99; RESP 14–22; TEMP 36.1–36.6; O2SAT 95–100
--- NOTE | 2022-09-26 09:32 | EXP.ANES.CKL ---
[facility] Disclaimer: The information contained in this section may have been updated after the patient was seen, as this information can be updated by other users. Medical History Cardiomyopathy Cholecystectomy planned Colon cancer History of COVID-19 Surgical History History of arthroplasty of left knee History of colon resection History of colon surgery History of colonoscopy History of surgery History of surgery Family History Mother Breast cancer Pancreatic cancer Social History Smoking Status: Former smoker years smoked: 20 how long ago did patient quit smokin alcohol intake: current substance use type: denies use current occupational status: employed Travel in the last 8 weeks: None household members: spouse housing: house current occupation: [employer] current occupational exposures/hazards: No caffeine: Yes [facility] Anesthesia Checklist Patient Identification Patient Identification: Arm Band and Verbal (Name & ) Structural Data Admitted From: Home Planned Operative Procedure/s: Colonoscopy Consent for Planned Operative Procedure(s) Verified: Yes NPO Status Verified Time NPO: 00:00 Additional verifications Anesthesia Reactions: No Hx Blood Transfusions: No Blood Transfusion Reaction: No Airway Assessment C-Spine Mobility Assessed: Yes TMJ Mobility Assessed: Yes Dentition: Good Dentition Neurological Assessment Level of Consciousness: Awake Hx Seizures: No Numbness or tingling in extremities: No Anesthesia Plan Anesthesia Risk discussed: Yes Anesthesia Plan: Verified ASA Class: II Anesthesia Type: MAC
--- NOTE | 2022-09-26 10:32 | HMH.SCOPE ---
Procedure: Date: 09/26/22 Patient Date of :: 1965 Procedure Performed:: Total colonoscopy to terminal ileum Indications:: Patient is a 57-year-old male with history of mid rectal cancer diagnosed 08/13/[address] Abundio Starr. He underwent neoadjuvant therapy and ultimately a low anterior resection. He had his ostomy reversed December 2021. He has been undergoing chemotherapy. He was referred for colonoscopy. 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 Performing Provider:: Gopi Leslie MD Referring Provider:: Kya Barahona Sedation:: MAC sedation Procedure:: Patient history was obtained and appropriate physical examination was performed. Patient's medications and allergies were reviewed. Informed consent was obtained after explaining the benefits, alternatives, and risks of the procedure including, but not limited to, bleeding, perforation, missed lesions, and adverse reaction to anesthesia medications. Patient was transported to endoscopy procedure room. Patient was connected to monitoring devices. Throughout the procedure the patient's blood pressure, pulse, and oxygen saturations were monitored continuously. Patient identification and planned procedure were verified by the staff. Patient was positioned in lateral decubitus position. Digital anorectal exam was performed. Variable stiffness Olympus colonoscope was inserted and advanced under direct visualization to the cecum. Adequacy of the colonic preparation was noted. The colonoscope was advanced a short distance into the terminal ileum. The colonoscope was then slowly withdrawn while carefully examining the color, texture, anatomy, and integrity of the mucosoa circumferentially. Within the rectum retroflexion was performed. Colonoscope was then withdrawn. Findings:: He had a suboptimal prep with particulate opaque stool throughout the colon. High-volume irrigation and suctioning were performed which allowed for decent visualization. Anastomosis was identified several centimeters from the anal verge. There are no findings of minimal anorectal proctitis but otherwise unremarkable Recommendations:: Given suboptimal prep and history of Harris syndrome repeat colonoscopy 1 year with maximum prep Complications:: None immediate Estimated blood obtained (mL): 0
--- NOTE | 2022-09-26 10:44 | SUR.PHASEII ---
Kendell dai CRNA at bedside. aware of VS.
== END 2022-09-26 11:30 | disposition home or self-care (01) ==
PROVIDERS: PCP Family Medicine; Visit Provider Surgery
PROC: 0DJD8ZZ Inspection of Lower Intestinal Tract, Via Natural or Artificial Opening Endoscopic (ICD-10-PCS; CPT 45378; principal; 2022-09-26 10:30)
DX: Z12.11 Encounter for screening for malignant neoplasm of colon (principal); Z85.048 Personal history of other malignant neoplasm of rectum, rectosigmoid junction, and anus
CPT/HCPCS: 45378; J1642; J2704

== ENCOUNTER 2022-11-13 13:47 | Outpatient (CLI) | payer BC, SELFPAY | END 2022-11-13 14:15 | disposition home or self-care (01) | LOC: INF 13:50 | PROVIDERS: PCP Family Medicine; Visit Provider Internal Medicine Medical Oncology | DX: C18.9 Malignant neoplasm of colon, unspecified (principal); Z45.2 Encounter for adjustment and management of vascular access device | CPT/HCPCS: 96523; J1642 ==

== ENCOUNTER 2022-12-12 11:38 | Outpatient (CLI) | payer BC, SELFPAY ==
[2022-12-12 11:48] VITALS: BMI 30.4
[2022-12-12 12:13] LABS: Chloride 105 mmol/L (98-107)
[2022-12-12 12:14] LABS: Potassium 4.2 mmoL/L (3.5-5.1); Sodium 138 mmol/L (136-145)
[2022-12-12 12:16] LABS: Alanine Aminotransferase 30 U/L (12-78); Albumin Level 4.3 g/dl (3.5-5.0); Albumin/Globulin Ratio 1.3 (1.1-1.8); Alkaline Phosphatase 89 U/L (38-126); Anion Gap 12.2 mEq/L (5-15); Aspartate Amino Transferase 30 U/L (17-59); Bilirubin,Total 0.6 mg/dl (0.2-1.3); Blood Urea Nitrogen 17 mg/dl (9-20); Calcium 9.7 mg/dl (8.4-10.2); Carbon Dioxide 25 mmol/L (22.0-30.0); Creatinine Clearance Estimated 78 mL/min (50-200); Estimated Glomerular Filt Rate 57 ml/min (>60); GFR (African American) 69 ML/MIN (>60); Globulin 3.3 g/dL (1.3-3.2); Glucose 118 mg/dl (74-100); Total Protein,Serum 7.6 g/dl (6.3-8.2)
[2022-12-12 14:01] LABS: Hematocrit 44.7 % (42.0-52.0); Hemoglobin 15.6 g/dL (14.1-18.0); Mean Corpuscular HGB Conc 34.9 g/dL (31.8-35.4); Mean Corpuscular Volume 88.7 fl (80-94); Mean Platelet Volume 11.9 fl (7.4-10.4); Platelet Count 185 K/mm3 (142-424); Red Blood Count 5.04 M/mm3 (4.60-6.20); Red Cell Distribution Width 12.6 % (11.5-17.5); White Blood Count 5.3 K/mm3 (4.8-10.8)
[2022-12-12 14:03] LABS: Basophils % 0.6 % (0.1-2.0); Eosinophils # 0.2 K/mm3 (0.0-0.4); Eosinophils % 2.8 % (0.1-12.0); Lymphocytes # 1.1 K/mm3 (0.7-4.5); Lymphocytes % 20.2 % (10-50); Monocytes # 0.5 K/mm3 (0.1-1.0); Monocytes % 9.6 % (1.7-9.3); Neutrophils # 3.5 K/mm3 (1.8-7.8); Neutrophils % 66.6 % (37.0-80.0)
[2022-12-13 09:14] LABS: CEA <0.6 ng/mL (0.0-4.7)
== END 2022-12-12 12:00 | disposition home or self-care (01) ==
LOC: INF 11:39
PROVIDERS: PCP Family Medicine; Visit Provider Internal Medicine Medical Oncology
DX: C18.9 Malignant neoplasm of colon, unspecified (principal)
CPT/HCPCS: 36591; 80053; 82378; 85025; J1642

== ENCOUNTER 2022-12-22 09:47 | Outpatient (CLI) | payer BC, SELFPAY ==
--- NOTE | 2022-12-22 09:54 | CT_ITS ---
FINAL REPORT TECHNIQUE: Axial CT images of the abdomen and pelvis were obtained before and after the administration of IV contrast. Oral contrast was administered.This study was performed with techniques to keep radiation doses as low as reasonably achievable (ALARA). Individualized dose reduction techniques using automated exposure control or adjustment of mA and/or kV according to the patient''s size were employed. CLINICAL HISTORY: COLON CANCER COMPARISON: 06/06/2022 FINDINGS: Abdomen: The lung bases are clear. The heart is normal in size. The liver has an unremarkable appearance, without evidence of mass or biliary duct dilatation. The patient is status postcholecystectomy.. The spleen is unremarkable. No adrenal masses present. The pancreas has an unremarkable appearance. The kidneys enhance normally. The aorta is normal in caliber. There is no free fluid or adenopathy. No mass or abnormal fluid collection is seen. Precontrast images demonstrate no evidence of nephrolithiasis. Pelvis: The appendix is normal in appearance. There is bladder wall thickening, likely inflammatory, not significantly changed since the prior CT. There is presacral soft tissue thickening once again noted compatible with postoperative change. No inflammatory process is seen. There is no evidence of mass or adenopathy. There is no evidence of bowel obstruction. There is a right anterior wall abdominal hernia which contains some small bowel loops, slightly more prominent than noted on the prior CT of May 2022. IMPRESSION: No acute intra-abdominal process seen. Right anterior wall abdominal hernia slightly more prominent than noted on the prior CT of May. Reviewed, Interpreted and Dictated by Gopi Hensley III, MD Transcribed by Evelyn Gupta Authenticated and [facility]
--- NOTE | 2022-12-22 09:54 | CT_ITS ---
FINAL REPORT TECHNIQUE: Low-dose CT used to optimize technique while minimizing radiation exposure. CLINICAL HISTORY: COLON CANCER COMPARISON: 06/06/2022 FINDINGS: CT chest with and without contrast: A left subclavian port is once again noted. Mild bibasilar atelectasis is present. There is no significant hilar or mediastinal adenopathy, and there are several borderline in size axillary nodes seen bilaterally that are stable since the prior CT. No new infiltrates or effusions are identified. IMPRESSION: Mild bibasilar atelectasis. Several borderline in size axillary nodes are present bilaterally. No significant change is noted since the prior CT of May 2022. Reviewed, Interpreted and Dictated by Gopi Hensley III, MD Transcribed by Evelyn Gupta Authenticated and [facility]
== END 2022-12-22 10:15 | disposition home or self-care (01) ==
PROVIDERS: PCP Family Medicine; Visit Provider Internal Medicine Medical Oncology
DX: C18.9 Malignant neoplasm of colon, unspecified (principal)
CPT/HCPCS: 71270; 74178; J1642; Q9967

== ENCOUNTER 2023-02-24 16:29 | Outpatient (CLI) | payer BC, SELFPAY | END 2023-02-24 16:44 | disposition home or self-care (01) | LOC: INF 16:29 | PROVIDERS: PCP Family Medicine; Visit Provider Internal Medicine Medical Oncology | DX: C18.9 Malignant neoplasm of colon, unspecified (principal); Z45.2 Encounter for adjustment and management of vascular access device | CPT/HCPCS: 96523; J1642 ==

== ENCOUNTER 2023-05-04 13:23 | Outpatient (CLI) | payer MEDICARE, SELFPAY | END 2023-05-04 13:40 | disposition home or self-care (01) | LOC: INF 13:28 | PROVIDERS: Visit Provider Internal Medicine Medical Oncology | DX: Z45.2 Encounter for adjustment and management of vascular access device (principal); C18.9 Malignant neoplasm of colon, unspecified | CPT/HCPCS: 96523; J1642 ==

== ENCOUNTER 2023-06-11 10:23 | Outpatient (CLI) | payer MEDICARE, SELFPAY ==
[2023-06-11 10:25] VITALS: BMI 30.5
[2023-06-11] MEDS: SODIUM CHLORIDE 0.9% 10ML FLUSH SYRINGE 10 ML IV (10:40)
[2023-06-11 11:07] LABS: Alanine Aminotransferase 29 U/L (12-78); Albumin Level 4.1 g/dl (3.5-5.0); Albumin/Globulin Ratio 1.2 (1.1-1.8); Alkaline Phosphatase 72 U/L (38-126); Anion Gap 10.3 mEq/L (5-15); Aspartate Amino Transferase 26 U/L (17-59); Bilirubin,Total 0.7 mg/dl (0.2-1.3); Blood Urea Nitrogen 15 mg/dl (9-20); Calcium 8.6 mg/dl (8.4-10.2); Carbon Dioxide 27 mmol/L (22.0-30.0); Chloride 105 mmol/L (98-107); Creatinine Clearance Estimated 84 mL/min (50-200); Estimated Glomerular Filt Rate 62 ml/min (>60); GFR (African American) 75 ML/MIN (>60); Globulin 3.3 g/dL (1.3-3.2); Glucose 111 mg/dl (74-100); Potassium 4.3 mmoL/L (3.5-5.1); Sodium 138 mmol/L (136-145); Total Protein,Serum 7.4 g/dl (6.3-8.2)
[2023-06-12 08:38] LABS: CEA 0.7 ng/mL (0.0-4.7)
== END 2023-06-11 10:45 | disposition home or self-care (01) ==
PROVIDERS: Visit Provider Internal Medicine Medical Oncology
DX: C18.9 Malignant neoplasm of colon, unspecified (principal); Z45.2 Encounter for adjustment and management of vascular access device
CPT/HCPCS: 36591; 80053; 82378; J1642

== ENCOUNTER 2023-06-18 10:38 | Outpatient (CLI) | payer MEDICARE, SELFPAY ==
[2023-06-18] MEDS: SODIUM CHLORIDE 0.9% 10ML FLUSH SYRINGE 10 ML IV (10:48)
[2023-06-18 11:02] LABS: Basophils # 0.1 K/mm3 (0-0.2); Eosinophils # 0.3 K/mm3 (0.0-0.4); Eosinophils % 4.1 % (0.1-12.0); Hemoglobin 15.8 g/dL (14.1-18.0); Lymphocytes # 1.8 K/mm3 (0.7-4.5); Lymphocytes % 29.3 % (10-50); Mean Corpuscular HGB Conc 34.4 g/dL (31.8-35.4); Mean Corpuscular Hemoglobin 30.9 pg (27.0-31.2); Mean Corpuscular Volume 89.9 fl (80-94); Mean Platelet Volume 8.3 fl (7.4-10.4); Monocytes # 0.5 K/mm3 (0.1-1.0); Monocytes % 7.4 % (1.7-9.3); Neutrophils # 3.6 K/mm3 (1.8-7.8); Neutrophils % 58.2 % (37.0-80.0); Platelet Count 233 K/mm3 (142-424); Red Blood Count 5.12 M/mm3 (4.60-6.20); White Blood Count 6.1 K/mm3 (4.8-10.8)
[2023-06-18 11:08] LABS: Anion Gap 12.2 mEq/L (5-15); Blood Urea Nitrogen 16 mg/dl (9-20); Calcium 8.4 mg/dl (8.4-10.2); Carbon Dioxide 26 mmol/L (22.0-30.0); Chloride 105 mmol/L (98-107); Estimated Glomerular Filt Rate 62 ml/min (>60); GFR (African American) 75 ML/MIN (>60); Glucose 116 mg/dl (74-100); Potassium 4.2 mmoL/L (3.5-5.1); Sodium 139 mmol/L (136-145)
== END 2023-06-18 10:50 | disposition home or self-care (01) ==
LOC: INF 10:39
PROVIDERS: Surgery; Visit Provider Internal Medicine Medical Oncology
DX: C18.9 Malignant neoplasm of colon, unspecified (principal); C20 Malignant neoplasm of rectum; Z45.2 Encounter for adjustment and management of vascular access device
CPT/HCPCS: 36591; 80048; 85025; J1642

== ENCOUNTER 2023-07-13 09:11 | Day surgery (SDC) | payer MEDICARE, SELFPAY ==
[2023-07-09 14:19] VITALS: BMI 29.7
[2023-07-13] VITALS (8 sets, daily range): BP systolic 126–149; BP diastolic 75–92; PULSE 63–80; RESP 14–18; TEMP 36.2–36.6; O2SAT 95–99
[2023-07-13] MEDS: LACTATED RINGERS 1000ML 1,000 ML 25 ML IV (09:23)
--- NOTE | 2023-07-13 10:18 | EXP.ANES.CKL ---
[facility] Disclaimer: The information contained in this section may have been updated after the patient was seen, as this information can be updated by other users. Medical History Cardiomyopathy Cholecystectomy planned Colon cancer History of COVID-19 Surgical History History of arthroplasty of left knee History of colon resection History of colon surgery History of colonoscopy History of surgery RIGHT LEG History of surgery PORT Family History Mother Breast cancer Pancreatic cancer Social History Smoking Status: Former smoker tobacco type: cigarettes years smoked: 20 how long ago did patient quit smokin alcohol intake: current substance use type: denies use current occupational status: retired Travel in the last 8 weeks: None household members: spouse housing: house current occupation: [employer] current occupational exposures/hazards: No caffeine: Yes [facility] Anesthesia Checklist Patient Identification Patient Identification: Arm Band Structural Data Admitted From: Home Planned Operative Procedure/s: Removal of Venous Access Port Consent for Planned Operative Procedure(s) Verified: Yes Verified Documents: Surgical Consent and History and Physical NPO Status Verified Time NPO: 00:00 Additional verifications Anesthesia Reactions: No Hx Blood Transfusions: No Blood Transfusion Reaction: No Airway Assessment Mallampati Score:: Class II C-Spine Mobility Assessed: Yes TMJ Mobility Assessed: Yes Dentition: Good Dentition Neurological Assessment Level of Consciousness: Awake and Alert Anesthesia Plan Anesthesia Risk discussed: Yes Anesthesia Plan: Verified ASA Class: II Anesthesia Type: MAC
[2023-07-13] MEDS: CEFAZOLIN SODIUM 1 GM in 0.9 % SODIUM CHLORIDE 50 ML IV (11:15)
[2023-07-13] MEDS: LIDOCAINE 1% 20ML MDV 20 ML (11:21)
[2023-07-13] MEDS: ROPIVACAINE 0.5% 30ML VIAL 150 MG (11:21)
--- NOTE | 2023-07-13 11:45 | EXP.OP.NOTE ---
Date of procedure: 07/13/23 Pre-op Diagnosis:: Obsolete venous access port Post-op Diagnosis:: Same Procedure performed:: Removal of venous access port from left subclavian Surgeon:: Gopi Leslie MD Anesthesia: LMA Estimated blood loss (mL): 5 Clinical Note:: Patient is a 58-year-old male with history of rectal cancer in the setting of Harris syndrome whom I had placed a left subclavian PowerPort on 09/18/2020. He underwent neoadjuvant therapy and ultimately underwent low anterior resection with diverting loop ileostomy on 10/03/2021. His last colonoscopy was on 09/26/2022. He had some suboptimal prep. Given his suboptimal prep and history of Harris syndrome plan was for repeat colonoscopy 1 year with maximum prep. He is followed by Dr. Carlos Hidalgo. He was referred for removal of the Port-A-Cath. Operative findings:: He had a very well encapsulated venous access port. Operative note:: Patient was taken to the operating room. He was given preoperative intravenous antibiotic. In the operating room he was placed in a supine position. Anesthesia was induced via LMA. Left upper neck and chest were prepped and draped in the standard surgical fashion. Local anesthetic was infiltrated in his previous scar. A limited incision was made in previous scar. Careful dissection was carried down to the port. It was very well encapsulated and scarred in to the subcutaneous tissues. Prolonged dissection was carried out ultimately incising the capsule surrounding the port. The port was then able to be removed with the attached venous access tubing in its entirety. The cuff had remained adherent to the subcutaneous tissue. Cuff was then dissected free from subcutaneous tissue with Metzenbaum dissection and removed in its entirety. The fibrous capsule was then excised from the subcutaneous tissues using electrocautery. Hemostasis was achieved with electrocautery. Wound was irrigated. Subdermal tissues were closed with interrupted 3-0 Vicryl. Skin was closed with 4-0 Monocryl in a running subcuticular fashion. Clean dry sterile dressing was applied. Condition: stable Disposition: PACU Complications:: None immediately apparent
--- NOTE | 2023-07-13 11:55 | P.PNANES_ITS ---
[facility] Anesthesia Record Part I Anesthesia Record I Intake, IV Amount: 200 Hydration: Adequate Estimated blood loss (mL): 3 Urine output (mL): 0 Blood Products used (#): none Blood Pressure: 138/89 SaO2: 95 Pulse Rate: 80 Airway Patency: Patent Respiratory Rate: 18 Temperature: 97.2 F Patient is:: Stable Stable to PACU at:: 11:50
--- NOTE | 2023-07-14 07:12 | P.PNANES_ITS ---
[facility] Anesthesia Record Part II Anesthesia Record Part II Discharge Time: 12:20 Destination: Surgical Day Care (OP Surgery) PACU nurse assessment reviewed?: Yes Patient Condition:: Good Anesthesia Complications:: None Swallowing reflex intact?: Yes Airway Patency: Patent Cyanosis?: No Blood Pressure: 132/78 SaO2: 97 Respiratory Rate: 16 Pulse Rate: 63 Temperature: 97.8 F Mental Status: Alert & Oriented Pain level:: 0 Nausea and/or vomitting:: None Intake, IV Amount: 0 Hydration: Adequate
[2023-07-14 07:14] VITALS: BP 132/78; PULSE 63; RESP 16; TEMP 36.6; O2SAT 97
== END 2023-07-13 12:31 | disposition home or self-care (01) ==
PROVIDERS: Visit Provider Surgery
PROC: (CPT 36590; principal; 2023-07-13 10:45)
DX: Z45.2 Encounter for adjustment and management of vascular access device (principal)
CPT/HCPCS: 36590; 96374; J2405

== ENCOUNTER 2023-12-03 08:11 | Outpatient (CLI) | payer MEDICARE, SELFPAY ==
--- NOTE | 2023-12-03 08:18 | CT_ITS ---
FINAL REPORT CLINICAL HISTORY: COLON CA COMPARISON: 12/22/2022 FINDINGS: Axial CT images of the chest were obtained with contrast. Coronal and sagittal reformatted images were also obtained. This study was performed with techniques to keep radiation doses as low as reasonably achievable, (ALARA). Individualized dose reduction techniques using automated exposure control or adjustment of mA and/or KV according to the patient's size were employed. Small mediastinal nodes are identified, which are visually stable when compared to the prior CT of November 2022. No mediastinal mass is identified. There is a 13 mm left axillary lymph node, stable since the prior exam. There is also a 12 mm right axillary lymph node, also stable, favor reactive for both lymph nodes. On lung window images, no pulmonary mass or dominant pulmonary nodule is identified. No localized pulmonary inflammatory process is identified. Mild atelectasis versus scarring is present in the lung bases. Limited images of the upper abdomen reveal no mass or localized inflammatory process. IMPRESSION: Small mediastinal and axillary nodes as described above. No new masses, nodules, or adenopathy are present when compared to the prior CT of November 2022. Reviewed, Interpreted and Dictated by Gopi Hensley III, MD Transcribed by Evelyn Gupta Authenticated and [facility]
--- NOTE | 2023-12-03 08:19 | CT_ITS ---
FINAL REPORT CLINICAL HISTORY: COLON CA COMPARISON: 12/22/2022 FINDINGS: CT OF THE ABDOMEN AND PELVIS WITH CONTRAST Axial CT images of the abdomen and pelvis were obtained after the administration of oral and iv contrast. Coronal and sagittal reformatted images were also obtained and reviewed.This study was performed with techniques to keep radiation doses as low as reasonably achievable (ALARA). Individualized dose reduction techniques using automated exposure control or adjustment of mA and/or kV according to the patient's size were employed. Abdomen: Mild scarring versus atelectasis is present in the lung bases.. The heart is normal in size. The liver has an unremarkable appearance, without evidence of mass or biliary ductal dilatation. The gallbladder has been surgically resected. The spleen is unremarkable. No adrenal mass is present. The pancreas has an unremarkable appearance. The kidneys are normal, without evidence of mass or hydronephrosis. The aorta is normal in caliber. There is no free fluid or adenopathy. No mass or abnormal fluid collection is seen. Pelvis: The appendix is normal in appearance. The urinary bladder is remarkable for mild bladder wall thickening, likely inflammatory, stable since the prior CT. The right anterior pelvic wall hernia containing nonobstructed loops of bowel remains unchanged in appearance since the prior exam. Postoperative changes are once again seen in the rectum, with slight thickening of the presacral soft tissues likely consistent with posttreatment change, stable since the prior exam. No inflammatory process is seen. There is no evidence of mass or adenopathy. There is no evidence of bowel obstruction. IMPRESSION: No evidence of acute intra-abdominal process, and no significant change since the prior CT of November 2022. Reviewed, Interpreted and Dictated by Gopi Hensley III, MD Transcribed by Evelyn Gupta Authenticated and [facility]
[2023-12-03 08:40] LABS: Blood Urea Nitrogen 19 mg/dl (9-20); Estimated Glomerular Filt Rate 57 ml/min (>60); GFR (African American) 69 ML/MIN (>60)
== END 2023-12-03 23:59 | disposition home or self-care (01) ==
LOC: RAD 08:12
PROVIDERS: PCP Internal Medicine Medical Oncology; Visit Provider Internal Medicine Medical Oncology
DX: C18.9 Malignant neoplasm of colon, unspecified (principal)
CPT/HCPCS: 36415; 71260; 74177; 82565; 84520; Q9967

== ENCOUNTER 2023-12-10 10:15 | Outpatient (CLI) | payer MEDICARE, SELFPAY ==
[2023-12-10 10:22] VITALS: BMI 30.7
[2023-12-10 10:46] LABS: Basophils # 0.1 K/mm3 (0-0.2); Eosinophils # 0.2 K/mm3 (0.0-0.4); Hematocrit 48.1 % (42.0-52.0); Hemoglobin 16.4 g/dL (14.1-18.0); Lymphocytes # 1.6 K/mm3 (0.7-4.5); Lymphocytes % 28.2 % (10-50); Mean Corpuscular HGB Conc 34.2 g/dL (31.8-35.4); Mean Corpuscular Hemoglobin 31.4 pg (27.0-31.2); Mean Platelet Volume 8.4 fl (7.4-10.4); Monocytes # 0.4 K/mm3 (0.1-1.0); Monocytes % 7.4 % (1.7-9.3); Neutrophils # 3.4 K/mm3 (1.8-7.8); Neutrophils % 59.4 % (37.0-80.0); Platelet Count 194 K/mm3 (142-424); Red Blood Count 5.23 M/mm3 (4.60-6.20); Red Cell Distribution Width 14.3 % (11.5-17.5); White Blood Count 5.7 K/mm3 (4.8-10.8)
[2023-12-10 10:56] LABS: Chloride 108 mmol/L (98-107); Potassium 3.9 mmoL/L (3.5-5.1); Sodium 138 mmol/L (136-145)
[2023-12-10 10:59] LABS: Alanine Aminotransferase 29 U/L (12-78); Albumin Level 4.4 g/dl (3.5-5.0); Albumin/Globulin Ratio 1.3 (1.1-1.8); Alkaline Phosphatase 80 U/L (38-126); Anion Gap 9.9 mEq/L (5-15); Aspartate Amino Transferase 31 U/L (17-59); Bilirubin,Total 0.5 mg/dl (0.2-1.3); Blood Urea Nitrogen 20 mg/dl (9-20); Carbon Dioxide 24 mmol/L (22.0-30.0); Creatinine Clearance Estimated 68 mL/min (50-200); Estimated Glomerular Filt Rate 48 ml/min (>60); GFR (African American) 58 ML/MIN (>60); Globulin 3.3 g/dL (1.3-3.2); Total Protein,Serum 7.7 g/dl (6.3-8.2)
[2023-12-10 11:00] LABS: Calcium 9.4 mg/dl (8.4-10.2); Glucose 98 mg/dl (74-100)
--- NOTE | 2023-12-10 11:03 | PC.NURSE ---
1035-BLOOD DRAWN FROM LEFT AC AT THIS TIME FOR LABS ORDERED PER DR MARCUS.
[2023-12-11 12:53] LABS: CEA <0.6 ng/mL (0.0-4.7)
== END 2023-12-10 10:45 | disposition home or self-care (01) ==
LOC: INF 10:17
PROVIDERS: PCP Family Medicine; Visit Provider Internal Medicine Medical Oncology
DX: C18.9 Malignant neoplasm of colon, unspecified (principal)
CPT/HCPCS: 36415; 80053; 82378; 85025

== ENCOUNTER 2024-02-12 12:19 | Day surgery (SDC) | payer MEDICARE, SELFPAY ==
[2023-12-29 14:33] VITALS: BMI 30.5
[2024-02-10 13:53] VITALS: BMI 30.6
--- NOTE | 2024-02-12 12:36 | P.PCN_ITS ---
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 In July 2020 colonoscopy revealed a rectal mass. He underwent neoadjuvant therapy. He ultimately underwent low anterior resection with diverting loop ileostomy at [facility] on 10/03/2021. Last colonoscopy was performed on 09/26/2022 which revealed suboptimal prep but no polyps. . Performing Provider:: Gopi Leslie MD Referring Provider:: MD Carlos Tate MD . Sedation:: MAC sedation Procedure:: Patient history was obtained and appropriate physical examination was performed. Patient's medications and allergies were reviewed. Informed consent was obtained after explaining the benefits, alternatives, and risks of the procedure including, but not limited to, bleeding, perforation, missed lesions, and adverse reaction to anesthesia medications. Patient was transported to endoscopy procedure room. Patient was connected to monitoring devices. Throughout the procedure the patient's blood pressure, pulse, and oxygen saturations were monitored continuously. Patient identification and planned procedure were verified by the staff. Patient was positioned in lateral decubitus position. Digital anorectal exam was performed. Variable stiffness Olympus colonoscope was inserted and advanced under direct visualization to the cecum. Adequacy of the colonic preparation was noted. The colonoscope was advanced a short distance into the terminal ileum. The colonoscope was then slowly withdrawn while carefully examining the color, texture, anatomy, and integrity of the mucosoa circumferentially. Within the rectum retroflexion was performed. Colonoscope was then withdrawn. Impression: Colonoscope was advanced to the cecum. There was a large amount of opaque liquid stool throughout the colon. There was also some undigested vegetable matter. Very high volume trans colonoscopic irrigation and suctioning was performed to allow for decent visualization. There was some pasty stool coating the sesay of the colon which was able to be mostly cleared. There were no obvious notable polyps or masses. Anastomotic staple line scar was encountered at about 10 to 12 cm from the anal verge. 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 . Findings:: Suboptimal fair preparation Anastomosis at approximately 10 to 12 cm . Recommendations:: Given history of Harris syndrome repeat colonoscopy likely 1 or 2 years with multi day maximum prep and at least 5 days of low residue diet preceding procedure. Patient is to discuss with his oncologist potential need for surveillance upper endoscopy. Complications:: None immediately apparent Estimated blood obtained (mL): 1 Colonoscopy Component Colonoscopy Component Was a colonoscopy performed during today's procedure?: Yes Recommended follow up colonoscopy of at least 10 years?: No If no, follow up colonoscopy recommended in ___ years?: 1-2 Reason for not recommending >/= 10 yr follow-up interval?: See above
[2024-02-12 12:53] VITALS: BP 164/94; PULSE 84; RESP 18; TEMP 36.6; O2SAT 98
--- NOTE | 2024-02-12 12:55 | P.PNANES_ITS ---
[facility] Disclaimer: The information contained in this section may have been updated after the patient was seen, as this information can be updated by other users. Medical History Cholecystectomy planned History of COVID-19 Colon cancer Cardiomyopathy Surgical History History of surgery PORT History of colonoscopy History of surgery RIGHT LEG History of colon resection History of colon surgery History of arthroplasty of left knee Family History Mother Breast cancer Pancreatic cancer Social History Smoking Status: Former smoker tobacco type: cigarettes years smoked: 20 how long ago did patient quit smokin alcohol intake: current alcohol intake frequency: a few times a week substance use type: denies use current occupational status: retired Travel in the last 8 weeks: None household members: spouse housing: house current occupation: [employer] current occupational exposures/hazards: No caffeine: Yes [facility] Anesthesia Checklist Patient Identification Patient Identification: Arm Band and Verbal (Name & ) Structural Data Admitted From: Home Planned Operative Procedure/s: Colonoscopy Consent for Planned Operative Procedure(s) Verified: Yes Verified Documents: Surgical Consent and History and Physical NPO Status Verified Time NPO: 08:00 (Water) Chart Verification Results Verified: CBC, BMP, ECG and Chest Xray Additional verifications Patient : No Anesthesia Reactions: No Hx Blood Transfusions: No Blood Transfusion Reaction: No Previous Colonoscopy: Yes Cardiovascular Assessment Heart Sounds: S1 & S2 Pulse Rhythm: Irregular Peripheral Edema: No Airway Assessment Mallampati Score:: Class II C-Spine Mobility Assessed: Yes (FROM demonstrated) TMJ Mobility Assessed: Yes Dentition: Good Dentition (Nothing loose per pt.) Neurological Assessment Level of Consciousness: Awake, Alert, Appropriate and Follows Commands Hx Seizures: No Numbness or tingling in extremities: No Anesthesia Plan Anesthesia Risk discussed: Yes Anesthesia Plan: Verified ASA Class: III Anesthesia Type: MAC
[2024-02-12 13:01] VITALS: O2SAT 98
[2024-02-12 13:31] VITALS: BP 88/54; PULSE 87; RESP 18; TEMP 36.1; O2SAT 94
[2024-02-12 13:41] VITALS: BP 90/57; PULSE 70; RESP 15; O2SAT 92
[2024-02-12 13:51] VITALS: BP 111/73; PULSE 70; RESP 16; O2SAT 97
[2024-02-12 14:01] VITALS: BP 116/71; PULSE 74; RESP 16; O2SAT 96
== END 2024-02-12 14:13 | disposition home or self-care (01) ==
PROVIDERS: Visit Provider Surgery
PROC: 0DJD8ZZ Inspection of Lower Intestinal Tract, Via Natural or Artificial Opening Endoscopic (ICD-10-PCS; CPT 45378; principal; 2024-02-12 13:30)
DX: Z85.048 Personal history of other malignant neoplasm of rectum, rectosigmoid junction, and anus (principal); Z15.09 Genetic susceptibility to other malignant neoplasm
CPT/HCPCS: 45378; J2704

== ENCOUNTER 2024-06-09 09:13 | Outpatient (CLI) | payer OTHER, SELFPAY ==
[2024-06-09 09:23] VITALS: BMI 31.3
--- NOTE | 2024-06-09 09:30 | PC.NURSE ---
0930-collected labs via venipuncture stick in right ac with butterfly needle;pt to oncology appt.
[2024-06-09 09:37] LABS: Basophils # 0.1 K/mm3 (0-0.2); Eosinophils # 0.3 K/mm3 (0.0-0.4); Eosinophils % 4.3 % (0.1-12.0); Hematocrit 46.5 % (42.0-52.0); Hemoglobin 15.5 g/dL (14.1-18.0); Lymphocytes # 2.1 K/mm3 (0.7-4.5); Lymphocytes % 35.3 % (10-50); Mean Corpuscular HGB Conc 33.3 g/dL (31.8-35.4); Mean Corpuscular Hemoglobin 29.8 pg (27.0-31.2); Mean Corpuscular Volume 89.3 fl (80-94); Mean Platelet Volume 10.6 fl (7.4-10.4); Monocytes # 0.7 K/mm3 (0.1-1.0); Monocytes % 11.9 % (1.7-9.3); Neutrophils # 2.8 K/mm3 (1.8-7.8); Platelet Count 225 K/mm3 (142-424); Red Blood Count 5.21 M/mm3 (4.60-6.20); Red Cell Distribution Width 12.1 % (11.5-17.5)
[2024-06-09 09:45] LABS: Albumin Level 4.2 g/dl (3.5-5.0); Chloride 105 mmol/L (98-107); Potassium 4.3 mmoL/L (3.5-5.1); Sodium 135 mmol/L (136-145)
[2024-06-09 09:48] LABS: Alanine Aminotransferase 29 U/L (12-78); Albumin/Globulin Ratio 1.5 (1.1-1.8); Alkaline Phosphatase 69 U/L (38-126); Anion Gap 10.3 mEq/L (5-15); Aspartate Amino Transferase 32 U/L (17-59); Bilirubin,Total 0.7 mg/dl (0.2-1.3); Blood Urea Nitrogen 19 mg/dl (9-20); Carbon Dioxide 24 mmol/L (22.0-30.0); Creatinine Clearance Estimated 85 mL/min (50-200); Estimated Glomerular Filt Rate 62 ml/min (>60); GFR (African American) 75 ML/MIN (>60); Globulin 2.8 g/dL (1.3-3.2)
[2024-06-09 09:49] LABS: Calcium 9.2 mg/dl (8.4-10.2); Glucose 110 mg/dl (74-100)
[2024-06-10 11:24] LABS: CEA <0.6 ng/mL (0.0-4.7)
== END 2024-06-09 09:35 | disposition home or self-care (01) ==
LOC: INF 09:21
PROVIDERS: PCP Family Medicine; Visit Provider Internal Medicine Medical Oncology
DX: C18.9 Malignant neoplasm of colon, unspecified (principal)
CPT/HCPCS: 36415; 80053; 82378; 85025

== ENCOUNTER 2024-11-24 19:15 | Inpatient (IN) | payer MEDICARE, SELFPAY ==
[2024-11-24] VITALS (10 sets, daily range): BP systolic 79–137; BP diastolic 35–72; PULSE 50–65; RESP 14–20; TEMP 36.6–37.1; O2SAT 96–99; BMI 30.5
--- NOTE | 2024-11-24 19:16 | ECG_ITS ---
APPROVED REPORT Exam: Resting ECG HR:62 bpm ECG Measurements Heart Rate 62 AXES UT 156 P 61 QRSd 84 QRS 40 QT 376 T 64 QTc 382 Conclusion SINUS RHYTHM MODERATE ST DEPRESSION [0.05+ mV ST DEPRESSION] Concerning inferior leads, discussed with cardiology. Taken to skilled labor Electronically signed by : JASBIR HERNANDEZ, 11/24/2024 20:49:18
--- OUTSIDE RECORDS SUMMARY | 2024-11-24 19:22 | XMS_ITS | Clinical Summary ---
Author Organization [facility] Address [address] [place] [address] Care Team Providers Care Pre Sales Network Engineer Name Role Phone Dane Barrett MD Unavailable [phone] Brayden Zarco MD Unavailable [phone] Donte Sheets MD Primary Care Provider [phone] Allergies No known active allergies Medications acetaminophen (Tylenol) 500 MG tablet Take 2 tablets (1,000 mg total) by mouth every 6 (six) hours. 100 tablet 01/07/2022 Active methocarbamol (Robaxin) 500 MG tablet Take 1 tablet (500 mg total) by mouth every 6 (six) hours for 10 days. 40 tablet 01/07/2022 Active oxyCODONE (Roxicodone) 5 MG immediate release tablet Take 1 tablet (5 mg total) by mouth every 4 (four) hours if needed for moderate pain or severe pain. 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 Bacitracin to the intact graft twice a day Assessment & Plan (06/11/2021 10:05 AM EST): Wound continues to heal well Continue dressing changes with Xeroform, coverred with Kerlix and FELICE band. Bacitracin to the intact graft twice a day. RTC PRN Assessment & Plan (05/06/2021 12:20 PM EST): Graft in good shape with some granulation tissue in the dependent area. Pt instructed to keep doing dressing changes with Xeroform, coverred with Kerlix and then an FELICE band. Bacitracin to the intact graft twice a day. Overall I expect this to continue healing slowly given the pts recent chemotherapy. The drainage is fibrinous exudate, and not infectious. Assessment & Plan (03/05/2021 11:26 AM EDT): Today's Plan: Wound is healing appropriately. Continue xeroform dressings changes with kerlix gauze. Cleared for chemotherapy treatment for colorectal cancer. Follow up in 3 months. Assessment & Plan (12/13/2020 12:42 PM EDT): Indications, alternatives and possible complications of skin graft including, but not limited to bleeding, infection, failure to take discussed in detail with pt. Wound looks ready. Will schedule. All questions answered. Nonhealing surgical wound 11/05/2020 Overview (11/09/2020): S/p irrigation and debridement Wound vac Wound vac supplies Follow up one week Pulmonary embolism 11/05/2020 Overview (11/09/2020): Complicates care Resume anticoagulation when able Eliquis 5 mg twice a day Colorectal cancer 11/05/2020 Cancer Staging:Clinical:Stage IIIB(cT3, cN1b, cM0) - Unsigned Overview (11/06/2020): Complicates care Dyslipidemia 07/29/2016 PVC (premature ventricular contraction) 07/30/19 17 Pain in joint involving other specified sites Overview (01/29/2021): Resolved Problems Problem Noted Date Diagnosed Date Resolved Date Trauma 10/26/2020 10/29/2020 Immunizations Immunization Administration Dates Next Due Hep A, Adult 09/03/2018 Hep B, adult 12/14/2018,07/20/2018,06/22/2018 Influenza, injectable, quadr ivalent, preservative free 02/27/2020,02/22/2019,02/23/2018,2016,03/03/2016 Moderna COVID-19 Vaccine (Re d Cap) 12+ years 09/05/2020,08/08/2020 Tdap 11/06/2015 Family History Medical History Relation Name Comments Heart attack Maternal Grandfather Family history of myocardial infarction Breast cancer Mother FH: breast can cer Diabetes Mother Family history of diabetes mellitus Anesthesia problems Neg Hx Malig Hyperthermia Neg Hx Relation Name Status Comments Maternal Grandfather Mother Social History Tobacco Use Types Packs/Day Years Used Date Smoking Tobacco: Former Cigarettes 1 10 1 99 - 2003 Smokeless Tobacco: Never Tobacco Cessation:Counseling Given: Not Answered Alcohol Use Standard Drinks/Week Comments Yes 2 (1 standard drink = 0.6 oz pur e alcohol) socially PHQ-2 Answer Date Recorded Patient Health Questionnaire-2 Score 0 12/24/2021 Sex and Gender Information Value Date Recorded Sex Assigned at Male 05/28/2021 9:37 AM EST Legal Sex Male 8:11 PM EDT Gender Identity Male 05/28/2021 9:37 AM EST Sexual Orientation Straight 05/28/2021 9: 37 AM EST Last Filed Vital Signs Vital Sign Reading Time Taken Comments Blood Pressure 121/74 01/07/2022 11:32 AM EDT Pulse 76 01/07/2022 11:32 AM EDT Temperature 36.5 C (97.7 F) 01/07/2022 11:32 AM EDT Respiratory Rate 16 01/07/2022 11:32 AM EDT Oxygen Saturation 98% 01/07/2022 11:32 AM EDT Inhaled Oxygen Concentration - - Weight 79.2 kg (174 lb 9.7 oz) 01/03/2022 11:55 AM EDT Height 170.2 cm (5' 7 ) 01/03/2022 11:55 AM EDT Body Mass Index 27.35 01/03/2022 11:55 AM EDT Plan of Treatment Health Maintenance Due Date Last Done Comments [facility]-/Child/Adol SDOH Screenings 1965 [facility]-Obesity Intervention 1971 [facility]- SDOH Screenings 1983 [facility]-Adult SDOH Screenings 1983 [facility]-Pneumococcal Vaccine: 50+ Years (1 of 2 - PCV) 01/18/1984 [facility]-Zoster Vaccines (1 of 2) 01/18/[address] Colonography 2010 FIT-DNA 2010 FIT 2010 FOBT 2010 [facility]-Colorectal Cancer Screening 09/17/2021 [facility]-Depression Screening 12/24/2022 12/24/2021, 03/26 [id number] Vaccine (4 - season) 2024 06/25/2021, 09/05/2020, 08/08/2020 [facility]-Influenza Vaccine (#1) 01/23/202502/26, 02/22/2019, 02/23/2018, Additional history exists [facility]-DTaP,Tdap,and Td Vaccines (2 - Td or Tdap) 11/05/2025 11/06/2015 Sigmoidoscopy 09/16/2026 09/16/2021, 05/20/2021 [facility]-Hepatitis A Vaccines Aged Out 09/03/2018 No longer eligible based on patient's age to complete this topic [facility]-Hepatitis B Vaccines Completed 019, 07/20/2018, 06/22/2018 [facility]-HIV Screening Completed 11/05/2020, 10/18/2020 [facility]-Hepatitis C Screening Completed 11/05/2020, HPV Vaccines Aged Out No longer eligi ble based on patient's age to complete this topic [facility]-HIB Vaccines Aged Out No longer e ligible based on patient's age to complete this topic [facility]-IPV Vaccines Aged Out No longer e ligible based on patient's age to complete this topic [facility]-Rotavirus Vaccines Aged Out No lo nger eligible based on patient's age to complete this topic Medical Devices Implanted Type Area Tiller Man Device Identifier Shelf Expiration Date Model / Serial / Lot Implant Implant Left: Chest Description:Power port left chest for chemo Procedures Procedure Name Priority Date/Time Associated Diagnosis Comments FLEXIBLE SIGMOIDOSCOPY Routine 11:34 AM EDT Rectosigmoid cancer (CMS/HCC) HEPATITIS C ANTIBODY - ED W/REFLEX TO HCV QUANT PCR STAT 11/05/2020 6:30 PM EDT HIV 1/2 ANTIBODY/ANTIGEN SCREEN WITH REFLEX TO HIV I/II DIFFERENTIATION STAT 11/05/2020 6:30 PM EDT from Last 3 Months or Most Recently Relevant to Health Maintenance Results * Flexible Sigmoidoscopy (09/16/2021 11:34 AM EDT) Anatomical Region Laterality Modality Endoscopy Narrative 09/16/2021 11:36 AM EDT Impression Overall Impression: For flexible sigmoidoscopy with ulcerated mucosa just above the 1st rectal valve. Appears to be radiation effect. Multiple biopsies obtained. Await pathology results. Recommendation Await pathology results Indication Rectosigmoid cancer (CMS/HCC) Medications midazolam (Versed) injection 2 mg fentaNYL (Sublimaze) injection 50 mcg (Totals for administrations occurring from 1126 to 1134 on 09/16/21) Staff Staff Role Reginald Escudero RN Endo Nurse Fabian Houston Endo Nurse Butch Hernandez MD Fellow Dane Barrett MD Proceduralist Unknown Endo Nurse 1 Endo Nurse Preprocedure A history and physical has been performed, and patient medication allergies have been reviewed. The patient's tolerance of previous anesthesia has been reviewed. The risks and benefits of the procedure and the sedation options and risks were discussed with the patient. All questions were answered and informed consent obtained. Details of the Procedure The patient underwent moderate sedation, which was administered by the procedural nurse. The patient's blood pressure, heart rate, level of consciousness, oxygen and respirations were monitored throughout the procedure. A digital rectal exam was performed. A perianal exam was performed. The scope was introduced through the anus and advanced to the sigmoid colon. Retroflexion was performed in the rectum. The quality of bowel preparation was evaluated using the [place] Bowel Preparation Scale with scores of: left colon = 2. Bowel prep was adequate. The patient experienced no blood loss. The procedure was not difficult. The patient tolerated the procedure well. There were no apparent complications. Conscious sedation administered by myself, ARTHUR Barrett MD; monitored and without complication. Reginald Ecsudero RN was independent observer. See nursing notes for details. Attestation I personally performed the entire procedure Specimens ID Type Source Tests Collected by Time A : rectal bx Tissue Rectum SURGICAL PATHOLOGY EXAM Dane Barrett MD 09/16/2021 1134 Findings Moderate, localized ulcerated mucosa in the rectum with no bleeding; performed cold forceps biopsy Dane Barrett MD GI PROCEDURE ORDERABLES Final Result * HIV 1 & 2 Antibody/Antigen Screen (11/05/2020 6:30 PM EDT) Pathologist [facility] HIV 1 & 2 Antibody/Anti gen Screen Nonreactive Nonreactive 11/05/2020 8:02 PM EDT [facility] Blood Venous blood specimen / Unknown Venipuncture / Unknown 11/05/2020 6:30 PM EDT 11/05/2020 8:02 PM EDT Marcello Mckeon MD LAB BLOOD ORDERABLES Final Re sult Performing Organization Address [facility] Co de Phone Number [facility] [address] [place] [address] * [place] Hepatitis C Antibody (11/05/2020 6:30 PM EDT) Pathologist [facility] Hepatitis C Antibody Negative Negative 11/05/2020 8:02 PM EDT [facility]ALTHCARE [facility] Blood Venous blood specimen / Unknown Venipuncture / Unknown 11/05/2020 6:30 PM EDT 11/05/2020 8:02 PM EDT Marcello Mckeon MD LAB BLOOD ORDERABLES Final Re sult Performing Organization Address [facility] Co de Phone Number [facility] [address] [place] [address] from Last 3 Months or Most Recently Relevant to Health Maintenance Insurance [employer] Advance Directives * Full Code (Latest Code Status on File) Date Activated Date Inactivated Comments 01/03/2022 3:44 PM 01/07/2022 7:45 PM Question Answer Comments Patient has decision-making capacity? Yes * Full Code Date Activated Date Inactivated Comments 10/03/2021 4:05 PM 10/08/2021 4:09 PM Question Answer Comments Patient has decision-making capacity? Yes * Full Code Date Activated Date Inactivated Comments 10/26/2020 4:13 PM 10/29/2020 6:33 PM Care Teams Pre Sales Network Engineer Relationship Specialty Start Date End Date Donte Sheets MD [address] [place] [address] PCP - General 08/23/21 Dane Barrett MD [address] [facility] [address] [place] [address] Surgeon Colon and Rectal Surgery 04/16/21 Brayden Zarco MD [address] [facility] [address] [place] [address] Consulting Physician Radiation Oncology 05/30/21
--- OUTSIDE RECORDS SUMMARY | 2024-11-24 19:22 | XMS_ITS ---
Author Organization [facility] Address [address] [place] [address] Care Team Providers Care Associate Professor Of Geography Name Role Phone Dane Barrett MD Unavailable [phone] Brayden Zarco MD Unavailable [phone] Donte Sheets MD Primary Care Provider [phone] Active Problems Problem Noted Date Diagnosed Date [...] joint involving other specified sites Overview (01/29/2021): Current Treatment and Therapy Plans No current plan information found. Past Treatment and Therapy Plans No past plan information found. Past Radiation Episodes * VMAT: RectumOverview* First Treatment Date Last Treatment Date Treatment Site Technique Goal Episode Provider 06/12/2021 07/16/2021 Rectum VMAT Curative * Linked Problems Cancer of colon with rectum Treatment Courses* Course C1 06/12/2021 - 07/16/2021 Treatment Period Fraction Dose Fractions Total Dose Plans Planned Pelvis SIB 06/12/2021 - 07/16/2021 200 cGy 25 / 25 5 ,000 cGy Reference Points Delivered Pelvis with SIB 06/12/2021 - 07/16/2021 5,000 cGy Lifetime Dose Tracking * Chemical Lifetime Dose Automatic Entry Manual Entr y Fluoro Time 2.7 minutes 2.7 minutes 0 minutes Air Kerma 67.1 mGy 67.1 mGy 0 mGy Resolved Problems Problem Noted Date Diagnosed Date Resolved Date Trauma 10/26/2020 10/29/2020
--- OUTSIDE RECORDS SUMMARY | 2024-11-24 19:22 | XMS_ITS | Clinical Summary ---
Author Organization [facility] Address [address] [place] [id number] Phone [email or web address] Team Providers Care Water Pumper Name Role Phone Unavailable Primary Care Provider Unavailabl e Allergies No known active allergies Medications No known medications Active Problems Problem Noted Date Diagnosed Date Return to work evaluation 08/29/2020 Routine general medical exam ination at a health care facility 01/01/2011 Overview (10/21/2017): Laboratory exam ordered as p art of routine general medical examination 12/23/2010 Overview (10/21/2017): Pain in joint involving other specified sites Overview (10/21/2017): Other examination of ears and hearing 12/20/2007 Overview (10/21/2017): Immunizations Immunization Administration Dates Next Due Covid-19 (Moderna Cotton, 12yrs+) (CVX-207) 2020,08/08/2020 Hepatitis B (ENGERIX-B:GSK)(RECOMBIVAX-HB:MERCK) (CVX-43) 12/14/2018,07/20/2018,06/22/2018 Tdap (ADACEL BOOSTRIX) (CVX-115) 11/06/2015 Social History Tobacco Use Types Packs/Day Years Used Date Smoking Tobacco: Former Smokeless Tobacco: Never Intimate Partner Violence Answer Date R ecorded Insults You Not on file 09/04/2020 Threatens You Not on file 09/04/2020 Screams at You Not on file 09/04/2020 Physically Hurt Not on file 09/04/2020 Intimate Partner Violence Score Not on file 09/04/2020 Depression Answer Date Recorded PHQ Total Score Not on file 09/05/2021 Stress Answer Date Recorded Stress in your Life Not on file 03/28/2024 Dealing with Stress 3 03/28/2024 Sex and Gender Information Value Date Recorded Sex Assigned at Not on file Legal Sex Male 7:16 AM CDT Gender Identity Not on file Sexual Orientation Not on file Last Filed Vital Signs Vital Sign Reading Time Taken Comments Blood Pressure 140/82 08/29/2020 7:59 PM EDT Pulse 81 08/29/2020 7:59 PM EDT Temperature 36.3 C (97.4 F) 08/29/2020 7:59 PM EDT Respiratory Rate 18 08/29/2020 7:59 PM EDT Oxygen Saturation 99% 08/29/2020 7:59 PM EDT Inhaled Oxygen Concentration - - Weight 89 kg (196 lb 4.8 oz) 07/07/2018 9:02 AM EST Height 170.2 cm (5' 7 ) 07/07/2018 9:02 AM EST Body Mass Index 30.74 07/07/2018 9:02 AM EST Plan of Treatment Health Maintenance Due Date Last Done Comments Dental Cleaning/Exam 1965 Colorectal Cancer Screening 1995 Zoster Immunization (1 of 2) 2015 Covid-19 Immunization (3 - season) 2024 09/05/2020, 08/08/2020 Influenza Immunization (Season Ended) 2025 Tetanus Diphtheria and Pertussis Immunization (2 - Td or Tdap) 11/05/2025 11/06/2015 Hepatitis B Immunization Completed 019, 07/20/2018, 06/22/2018 HIB Immunization Aged Out No longer e ligible based on patient's age to complete this topic HPV Immunization Aged Out No longer e ligible based on patient's age to complete this topic Hepatitis A Immunization Aged Out No longer eligible based on patient's age to complete this topic Pneumococcal: Ped (0 to 5 Yrs) and At-Risk Member (6 to 64 Yrs) Aged Out No longer eligible b ased on patient's age to complete this topic Polio Immunization Aged Out No longer eligible based on patient's age to complete this topic Insurance [id number] [place] [address]
--- OUTSIDE RECORDS SUMMARY | 2024-11-24 19:23 | XMS_ITS | Data Portability ---
Author Organization [facility] SUSHIL Jeter ADMIN Address [address] [place] [id number] Care Team Providers Care Law Firm Consultant Name Role Phone NOE RICH Primary Care Provider Assessment No assessment recorded. Plan of Treatment Reminders Order Date Submit Date Provider Last Modified By Organization Details Last Modified Time Details Appointments Establish ed Visit 15 min 2024 01:30P M Noe Rich MD Not available Not available Not available Lab lipid panel, serum 2024 025 [email or web address] [facility], [address], [facility] [address], [address], 09/08/2024 14:12:42 HbA1c (hemoglob in A1c), blood 2024 025 [email or web address] [facility], [address] [facility] [address], [place], [address], 09/08/2024 15:45:53 lipid panel, serum 2024 025 [email or web address] [facility], [address], [address], [place], [address], 09/07/2024 06:45:35 HbA1c (hemoglob in A1c), blood 2023 024 [email or web address] [facility], [address] [facility] [address], [place], [address], 03/09/2024 22:05:56 lipid panel, serum 2023 024 [email or web address] [facility], [address], [address], [place], [address], 03/16/2024 08:08:30 PSA, total, serum or plasma 2023 024 [email or web address], [address], [address], [place], [address], 11/17/2023 13:04:58 lipid panel, serum 2023 024 [email or web address] [id number] [facility], [address], [address], [place], [address], 11/17/2023 13:04:58 CMP, serum or plasma 2023 024 [email or web address] [id number] [facility], [address], [address], [place], [address], 11/17/2023 13:04:58 CBC w/ auto diff 2023 024 [email or web address] [id number] [facility], [address], [address], [place], [address], 11/17/2023 13:04:58 TSH + free T4, serum 2023 024 [email or web address] [id number] [facility], [address], [address], [place], [address], 11/17/2023 13:04:58 HbA1c (hemoglob in A1c), blood 2023 024 [email or web address], [address], [address], [place], [address], 11/17/2023 13:04:58 Referral None recorded. Procedures None recorded. Surgeries None recorded. Imaging None recorded. Medication Orders atorvasta tin 20 mg tablet 2024 025 [facility], [address], [place], [address], 09/08/2024 14:12:15 Patient TargetsNo targets recorded. Patient InstructionsNo instructions recorded. Reason for Referral None Reported. Results Created Date Observation Date Name Description Value Unit Range Abnormal Flag Note LastModifiedBy Organization Detail LastModifiedTime 11/16/1911/17/2023 TSH+F REE T4 TSH 1.480 uIU/m L 0.450- 4.500 Not Available [facility] ([facility]) [address] [place], [address], 11/17/2023 07:38:12 11/16/19 24 11/17/2023 TSH+F REE T4 T4,free(dire ct) 1.18 NG/dL 0.82-1 .77 Not Available [facility] ([facility]) [address] [place], [address], 11/17/2023 07:38:12 11/16/19 24 11/17/2023 CBC WITH DIFFE RENTI AL/PL ATELE T WBC 6.3 x10e3 /uL 3.4-10 .8 Not Available [facility] ([facility]) [address] [place], [address], 11/17/2023 07:38:13 11/16/1911/17/2023 CBC WITH DIFFE RENTI AL/PL ATELE T RBC 5.37 x10e6 /uL 4.14-5 .80 Not Available [facility] ([facility]) [address] [place], [address], 11/17/2023 07:38:13 11/16/1911/17/2023 CBC WITH DIFFE RENTI AL/PL ATELE T hemoglobin 16.2 g/dL 13.0-1 7.7 Not Available [facility] ([facility]) [address] [place], [address], 11/17/2023 07:38:13 11/16/19 24 11/17/2023 CBC WITH DIFFE RENTI AL/PL ATELE T hematocrit 48.4 % 37.5-5 1.0 Not Available [facility] ([facility]) [address] [facility], [place], [address], 11/17/2023 07:38:13 11/16/19 24 11/17/2023 CBC WITH DIFFE RENTI AL/PL ATELE T MCV 90 fL 79-97 Not Available [facility] ([facility]) [address] [facility], [place], [address], 11/17/2023 07:38:13 11/16/1911/17/2023 CBC WITH DIFFE RENTI AL/PL ATELE T MCH 30.2 pg 26.6-3 3.0 Not Available [facility] ([facility]) [address] [facility], [place], [address], 11/17/2023 07:38:13 11/16/1911/17/2023 CBC WITH DIFFE RENTI AL/PL ATELE T MCHC 33.5 g/dL 31.5-3 5.7 Not Available [facility] ([facility]) [address] [facility], [place], [address], 11/17/2023 07:38:13 11/16/1911/17/2023 CBC WITH DIFFE RENTI AL/PL ATELE T RDW 13.5 % 11.6-1 5.4 Not Available [facility] ([facility]) [address] [facility], [place], [address], 11/17/2023 07:38:13 11/16/1911/17/2023 CBC WITH DIFFE RENTI AL/PL ATELE T platelets 280 x10e3 /uL 150-45 0 Not Available [facility] ([facility]) [address] [facility], [place], [address], 11/17/2023 07:38:13 11/16/19 24 11/17/2023 CBC WITH DIFFE RENTI AL/PL ATELE T neutrophils 61 % not estab. Not Available [facility] ([facility]) [address] [facility], [place], [address], 11/17/2023 07:38:13 11/16/19 24 11/17/2023 CBC WITH DIFFE RENTI AL/PL ATELE T lymphs 26 % not estab. Not Available [facility] ([facility]) [address] [facility], [place], [address], 11/17/2023 07:38:13 11/16/19 24 11/17/2023 CBC WITH DIFFE RENTI AL/PL ATELE T monocytes 10 % not estab. Not Available [facility] ([facility]) [address] [facility], [place], [address], 11/17/2023 07:38:13 11/16/19 24 11/17/2023 CBC WITH DIFFE RENTI AL/PL ATELE T eos 2 % not estab. Not Available [facility] ([facility]) [address] [facility], [place], [address], 11/17/2023 07:38:13 11/16/19 24 11/17/2023 CBC WITH DIFFE RENTI AL/PL ATELE T basos 1 % not estab. Not Available [facility] ([facility]) [address] [place], [address], 11/17/2023 07:38:13 11/16/1911/17/2023 CBC WITH DIFFE RENTI AL/PL ATELE T immature cells ANGIO TECHNOLOGIST Not Available [facility] ([facility]) [address] [place], [address], 11/17/2023 07:38:13 11/16/19 24 11/17/2023 CBC WITH DIFFE RENTI AL/PL ATELE T neutrophils (absolute) 3.8 x10e3 /uL 1.4-7. 0 Not Available [facility] ([facility]) [address] [facility], [place], [address], 11/17/2023 07:38:13 11/16/19 24 11/17/2023 CBC WITH DIFFE RENTI AL/PL ATELE T lymphs (absolute) 1.6 x10e3 /uL 0.7-3. 1 Not Available [facility] ([facility]) [address] [facility], [place], [address], 11/17/2023 07:38:13 11/16/19 24 11/17/2023 CBC WITH DIFFE RENTI AL/PL ATELE T monocytes(ab solute) 0.6 x10e3 /uL 0.1-0. 9 Not Available [facility] ([facility]) [address] [facility], [place], [address], 11/17/2023 07:38:13 11/16/19 24 11/17/2023 CBC WITH DIFFE RENTI AL/PL ATELE T eos (absolute) 0.1 x10e3 /uL 0.0-0. 4 Not Available [facility] ([facility]) [address] [place], [address], 11/17/2023 07:38:13 11/16/19 24 11/17/2023 CBC WITH DIFFE RENTI AL/PL ATELE T baso (absolute) 0.1 x10e3 /uL 0.0-0. 2 Not Available [facility] ([facility]) [address] [place], [address], 11/17/2023 07:38:13 11/16/19 24 11/17/2023 CBC WITH DIFFE RENTI AL/PL ATELE T immature granulocytes 0 % not estab. Not Available [facility] ([facility]) [address] [facility], [place], [address], 11/17/2023 07:38:13 11/16/19 24 11/17/2023 CBC WITH DIFFE RENTI AL/PL ATELE T immature grans (abs) 0.0 x10e3 /uL 0.0-0. 1 Not Available [facility] ([facility]) [address] [facility], [place], [address], 11/17/2023 07:38:13 11/16/19 24 11/17/2023 CBC WITH DIFFE RENTI AL/PL ATELE T NRBC ANGIO TECHNOLOGIST Not Available [facility] ([facility]) [address] [facility], [place], [address], 11/17/2023 07:38:13 11/16/19 24 11/17/2023 CBC WITH DIFFE RENTI AL/PL ATELE T hematology comments: ANGIO TECHNOLOGIST Not Available [facility] ([facility]) [address] [facility], [place], [address], 11/17/2023 07:38:13 11/16/19 24 11/17/2023 COMP. METAB OLIC PANEL (14) glucose 112 mg/dL 70-99 above high normal Not Available [facility] ([facility]) [address] [facility], [place], [address], 11/17/2023 07:38:13 11/16/19 24 11/17/2023 COMP. METAB OLIC PANEL (14) BUN 19 mg/dL 6-24 Not Available [facility] ([facility]) [address] [place], [address], 11/17/2023 07:38:13 11/16/19 24 11/17/2023 COMP. METAB OLIC PANEL (14) creatinine 1.31 mg/dL 0.76-1 .27 above high normal Not Available [facility] ([facility]) [address] [place], [address], 11/17/2023 07:38:13 11/16/19 24 11/17/2023 COMP. METAB OLIC PANEL (14) eGFR 63 mL/mi n/1.7 3 >59 Not Available [facility] ([facility]) [address] [facility] [place], [address], 11/17/2023 07:38:13 11/16/19 24 11/17/2023 COMP. METAB OLIC PANEL (14) BUN/creatini ne ratio 15 9-20 Not Available [facility] ([facility]) [address] [facility], [place], [address], 11/17/2023 07:38:13 11/16/19 24 11/17/2023 COMP. METAB OLIC PANEL (14) sodium 139 mmol/ L 134-14 4 Not Available [facility] ([facility]) [address] [place], [address], 11/17/2023 07:38:13 11/16/19 24 11/17/2023 COMP. METAB OLIC PANEL (14) potassium 4.4 mmol/ L 3.5-5. 2 Not Available [facility] ([facility]) [address] [facility], [place], [address], 11/17/2023 07:38:13 11/16/19 24 11/17/2023 COMP. METAB OLIC PANEL (14) chloride 104 mmol/ L 96-106 Not Available [facility] ([facility]) [address] [place], [address], 11/17/2023 07:38:13 11/16/19 24 11/17/2023 COMP. METAB OLIC PANEL (14) carbon dioxide, total 19 mmol/ L 20-29 below low normal Not Available [facility] ([facility]) [address] [place], [address], 11/17/2023 07:38:13 11/16/19 24 11/17/2023 COMP. METAB OLIC PANEL (14) calcium 9.5 mg/dL 8.7-10 .2 Not Available [facility] ([facility]) [address] [place], [address], 11/17/2023 07:38:13 11/16/19 24 11/17/2023 COMP. METAB OLIC PANEL (14) protein, total 7.1 g/dL 6.0-8. 5 Not Available [facility] ([facility]) [address] [facility], [place], [address], 11/17/2023 07:38:13 11/16/19 24 11/17/2023 COMP. METAB OLIC PANEL (14) albumin 4.4 g/dL 3.8-4. 9 Not Available [facility] ([facility]) [address] [facility], [place], [address], 11/17/2023 07:38:13 11/16/19 24 11/17/2023 COMP. METAB OLIC PANEL (14) globulin, total 2.7 g/dL 1.5-4. 5 Not Available [facility] ([facility]) [address] [place], [address], 11/17/2023 07:38:13 11/16/19 24 11/17/2023 COMP. METAB OLIC PANEL (14) bilirubin, total 0.5 mg/dL 0.0-1. 2 Not Available [facility] ([facility]) [address] [place], [address], 11/17/2023 07:38:13 11/16/19 24 11/17/2023 COMP. METAB OLIC PANEL (14) alkaline phosphatase 87 IU/L 44-121 Not Available [facility] ([facility]) [address] [facility], [place], [address], 11/17/2023 07:38:13 11/16/19 24 11/17/2023 COMP. METAB OLIC PANEL (14) AST (SGOT) 19 IU/L 0-40 Not Available [facility] ([facility]) [address] [place], [address], 11/17/2023 07:38:13 11/16/19 24 11/17/2023 COMP. METAB OLIC PANEL (14) ALT (SGPT) 24 IU/L 0-44 Not Available [facility] ([facility]) [address] [place], [address], 11/17/2023 07:38:13 11/16/19 24 11/17/2023 LIPID PANEL cholesterol, total 234 mg/dL 100-19 9 above high normal Not Available [facility] ([facility]) [address] [place], [address], 11/17/2023 07:38:14 11/16/19 24 11/17/2023 LIPID PANEL triglyceride s 110 mg/dL 0-149 Not Available [facility] ([facility]) [address] [place], [address], 11/17/2023 07:38:14 11/16/19 24 11/17/2023 LIPID PANEL HDL cholesterol 51 mg/dL >39 Not Available [facility] ([facility]) [address] [place], [address], 11/17/2023 07:38:14 11/16/19 24 11/17/2023 LIPID PANEL VLDL cholesterol kristian 20 mg/dL 5-40 Not Available [facility] ([facility]) [address] [place], [address], 11/17/2023 07:38:14 11/16/19 24 11/17/2023 LIPID PANEL LDL chol calc ([facility]) 163 mg/dL 0-99 above high normal Not Available [facility] ([facility]) [address] [place], [address], 11/17/2023 07:38:14 11/16/19 24 11/17/2023 LIPID PANEL LDL calc comment: ANGIO TECHNOLOGIST Not Available [facility] ([facility]) [address] [place], [address], 11/17/2023 07:38:14 11/16/19 24 11/17/2023 HEMOG LOBIN A1C hemoglobin A1C 6.0 % 4.8-5. 6 above high normal Predi abete s: 5.7 - 6.4 Diabe sania: >6.4 Glyce megan contr ol for adult s with diabe sania: <7.0 Not Available [facility] ([facility]) [address] [facility], [place], [address], 11/17/2023 07:38:14 11/16/19 24 11/17/2023 PROST ATE-S PECIF IC AG prostate specific Ag 0.4 NG/mL 0.0-4. 0 Trey ECLIA metho dolog y. Accor ding to the Ameri can [employer] g[employer] iatio n, Serum PSA shoul d decre ase and remai n at undet ectab le level s after radic al prost atect garo. The AUA defin es bioch emica l recur rence as an initi al PSA value 0.2 ng/mL or great er follo wed by a subse quent confi rmato ry PSA value 0.2 ng/mL or great er. Value s obtai mckay with diffe rent assay metho ds or kits canno t be used inter seferino alcala . Resul ts canno t be inter prete d as absol thierry evide nce of the prese nce or absen ce of laury harper se. Not Available [facility] ([facility]) [address] [facility], [place], [address], 11/17/2023 07:38:15 03/09/20 24 03/09/2024 HbA1c (hemo globi n A1c), blood HbA1c 5.7 Not Available [facility] [address], [place], [address], 03/09/2024 14:01:49 09/07/19 25 09/07/2024 LIPID PANEL cholesterol, total 216 mg/dL 100-19 9 above high normal Not Available [facility] ([facility]) [address] [facility], [place], [address], 09/07/2024 06:45:35 09/07/19 25 09/07/2024 LIPID PANEL triglyceride s 145 mg/dL 0-149 normal Not Available [facility] ([facility]) [address] [facility], [place], [address], 09/07/2024 06:45:35 09/07/19 25 09/07/2024 LIPID PANEL HDL cholesterol 46 mg/dL >39 normal Not Available [facility] ([facility]) [address] [facility], [place], [address], 09/07/2024 06:45:35 09/07/19 25 09/07/2024 LIPID PANEL VLDL cholesterol kristian 26 mg/dL 5-40 Not Available [facility] ([facility]) [address] [facility], [place], [address], 09/07/2024 06:45:35 09/07/19 25 09/07/2024 LIPID PANEL LDL chol calc ([facility]) 144 mg/dL 0-99 above high normal Not Available [facility] ([facility]) [address] [facility], [place], [address], 09/07/2024 06:45:35 09/07/19 25 09/07/2024 LIPID PANEL LDL calc comment: ANGIO TECHNOLOGIST Not Available [facility] ([facility]) [address] [facility], [place], [address], 09/07/2024 06:45:35 09/09/19 25 09/08/2024 HbA1c (hemo globi n A1c), blood HbA1c 5.7 Not Available [facility] [address], [place], [address], 09/08/2024 13:40:39 Result Notes None recorded. Problems Name Problem SNOMED Code Status Onset Date Resolution Date Notes Provider Name and Address Organization Details Recorded Time History of malignant neoplasm of colon and/or rectum Active 024 CHARLES Suarez - [facility] - [place] & [place] 14:56:04 Problem Notes None recorded. Procedures Surgical History Date Name Laterality Status Provider Name and Address Organization Details Recorded Time 02/12/20 24 Colonoscopy completed Anum Rothamer [place] - [facility] - [place] [facility] [place] 08/12/2024 15:30:30 09/23/19 23 Colonoscopy completed Anum [place]amer [place] - [facility] [place] [facility] [place] 08/12/2024 15:30:06 08/14/19 22 Flexible Sigmoidoscopy completed Anum [place] - [facility] - [place] [facility] [place] 10/27/2023 15:03:24 01/17/20 21 graft of skin to skin completed Anum [place]amer [place] - [facility] [place] [facility] [place] 10/27/2023 15:18:29 11/09/19 21 debridement of wound of skin completed Anum [place] - [facility] [place] [facility] [place] 10/27/2023 15:05:56 08/14/19 21 Colonoscopy completed Anum [place] - [facility] [place] [facility] [place] 08/12/2024 15:29:44 05/25/18 99 Cholecystectomy completed Anum [place] - [facility] [place] [facility] [place] 08/12/2024 15:28:24 05/25/18 96 Abdominal Surgery completed Marcela Barreto [place] - [facility] - [place] & [place] 12/07/2023 14:55:59 multi-agent systemic chemotherapy completed Anum [place] - [facility] [place] [facility] [place] 10/27/2023 15:03:40 combined chemotherapy and radiation therapy completed Anum [place]amer [place] - [facility] [place] [facility] [place] 10/27/2023 15:04:01 Total knee arthroplasty completed Anum [place] - [facility] - [place] [facility] [place] 10/27/2023 15:06:07 accessing of implantable venous access port completed Anum [place]amer [place] - [facility] [place] [facility] [place] 10/27/2023 15:07:31 removal of implantable venous access port completed Anum [place]amer [place] - [facility] [place] [facility] [place] 10/27/2023 15:07:39 Ileostomy/jejunost garo completed Anum Escobar [place] - [facility] & [place] 11/23/2023 08:14:28 Imaging Results None recorded. Procedure Notes None recorded. 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 Serial Number Lot Number Status Provider Name and Address Organization Details Recorded Time Port A Cath Placement FDA Y Anum Escobar [facility], [place] - [facility] & [place] 10/27/2023 15:24:40 Allergies No known drug allergies Medications Name Sig Start Date Stop Date Status Note LastModified by Organization Details LastModified Time atorvastatin 20 mg tablet TAKE 1 TABLET BY MOUTH ONCE DAILY IN THE MORNING FOR CHOLESTEROL active Not Available Not Available Not Available Vitals Date Recorded Body height Body mass index (BMI) Body weight Body temperature Oxygen saturation Oxygen saturation in Arterial blood by Pulse oximetry Heart rate Systolic And Diastolic Provider Name and Address Organization Details Last Updated DateTime 5 170.18 cm 30.7 kg/m2 93423.7 8 g 97.7 [degF] 96 % 96 % 72 /min 138/82 mm[Hg] Mya Andnio [facility] & [place] 5 13:31:06 Date Recorded Body height Body mass index (BMI) Body weight Body temperature Oxygen saturation Oxygen saturation in Arterial blood by Pulse oximetry Heart rate Systolic And Diastolic Provider Name and Address Organization Details Last Updated DateTime 4 170.18 cm 30.3 kg/m2 57977.1 3 g 98.1 [degF] 97 % 97 % 71 /min 135/76 mm[Hg] Marcela Barreto [facility] & [place] 4 15:07:55 Date Recorded Body height Body mass index (BMI) Body weight Body temperature Oxygen saturation Oxygen saturation in Arterial blood by Pulse oximetry Heart rate Systolic And Diastolic Provider Name and Address Organization Details Last Updated DateTime 4 170.18 cm 30.5 kg/m2 00418.5 1 g 97.8 [degF] 99 % 99 % 54 /min 112/74 mm[Hg] Gina Becerra [place] - [place] [facility] & [place] 4 13:15:29 Social History Question Answer Notes LastModified by Organizat ion Details LastModified Time Tobacco Smoking Status Former Smoker Marcela Barreto null, [place] - [facility] - [place] & [place] 11/03/2023 14:57:26 Do You Have An Advance Directive? No [email or web address] Information not available 12/07/2023 Are You Blind Or Do You Have Difficulty Seeing? No [email or web address] Information not available 12/07/2023 What Is Your Level Of Caffeine Consumption? Moderate [email or web address] Information not available 11/03/2023 When Did You Quit Smoking? 6-10yearssinc elastcigarett e [email or web address] Information not available 11/03/2023 What Was The Date Of Your Most Recent Tobacco Screening? 12/04/2023 [email or web address] Information not available 12/07/2023 What Is Your Current Pack Years? 20-29packyear s Information not available 11/03/2023 Are You Passively Exposed To Smoke? No [email or web address] Information not available 12/07/2023 How Much Tobacco Do You Smoke? 1 PPD [email or web address] Information not available 12/07/2023 How Many Years Have You Smoked Tobacco? 15 [email or web address] Information not available 12/07/2023 Sex: Unknown Functional Status Question Answer Note LastModified by Organizat ion Details LastModified Time Do you use any illicit or recreational drugs? No [email or web address] Information not available 11/03/2023 Do you or have you ever used any other forms of tobacco or nicotine? No [email or web address] Information not available 11/03/2023 What is your level of alcohol consumption? Moderate [email or web address] Information not available 11/03/2023 Do you or have you ever used smokeless tobacco? Never used smokeless tobacco [email or web address] Information not available 12/07/2023 What is your exercise level? Moderate [email or web address] Information not available 12/07/2023 Mental Status Question Answer Note LastModified by Organization D etails LastModified Time Do you feel stressed (tense, restless, nervous, or anxious, or unable to sleep at night)? [id number] [email or web address] Information not available 12/07/2023 Family History Relationship Description Onset Age of this Age Resolved Age Notes LastModified by Organization Details LastModified Time Maternal Grandfather Myocardial infarction [email or web address] Not available 10/26 13:34:10 Mother Malignant tumor of breast [email or web address] Not available 08/23 13:19:27 Mother Diabetes mellitus [email or web address] Not available 08/23 13:19:28 Mother Malignant tumor of pancreas [email or web address] Not available 08/23 13:19:28 Mother Hypercholest erolemia pt. added direct ly (12/03) [email or web address] Not available 12/04/2023 23:19:46 Mother Rheumatoid arthritis pt. added direct ly (12/03) [email or web address] Not available 12/04/2023 23:20:06 Mother Hearing loss pt. added direct ly (12/03) [email or web address] Not available 12/04/2023 23:21:04 Unspecified Relation Family history of hereditary nonpolyposis colon cancer Harris syndro me [email or web address] Not available 09/08/2024 13:19:28 Medical History Condition Response Heart Problems Y Obesity Y Pulmonary Embolism Y Cancer Y Reflux/GERD Y High Cholesterol Y Immunizations Vaccine Type Date Status Note Provider Nam e and Address Organization Details Recorded Time SARS-COV-2 (COVID-19) vaccine, UNSPECIFIED 9 completed Anum Rothamer null, [place] - [facility] - [place] & [place] 10/27/2023 15:10:23 Hep B, unspecified formulation 9 completed Anum Rothamer [place] [facility] [place] [facility] [place] 10/27/2023 15:15:58 Hep B, unspecified formulation 9 completed Anum Rothamer [place], [place] [facility] [place] [facility] [place] 10/27/2023 15:16:03 Hep B, unspecified formulation 9 completed Anum Rothamer [place] [facility] [place] 10/27/2023 15:16:10 Tdap 6 completed Anum Rothamer [place], [place] - [facility] [place] [facility] [place] 10/27/2023 15:16:58 zoster recombinant 3 completed Marcela Barreto null, [place] - [facility] [place] [facility] [place] 11/03/2023 15:42:56 zoster recombinant 3 completed Marcela Barreto null, [facility] & [place] 11/03/2023 15:42:56 COVID-19, mRNA, LNP-S, PF, 100 mcg/0.5mL dose or 50 mcg/0.25mL dose 2 completed Marcela Barreto null, [place] - [facility] & [place] 11/03/2023 15:42:56 COVID-19, mRNA, LNP-S, PF, 100 mcg/0.5mL dose or 50 mcg/0.25mL dose 1 completed Marcela Barreto null, [place] - [facility] & [place] 11/03/2023 15:42:56 COVID-19, mRNA, LNP-S, PF, 100 mcg/0.5mL dose or 50 mcg/0.25mL dose 1 completed Marcela Barreto null, [facility] & [place] 11/03/2023 15:42:57 Hep A, adult 9 completed Marcela Barreto null, [facility] & [place] 11/03/2023 15:42:57 Influenza, split virus, quadrivalent, PF 3 completed Marcela Barreto null, [facility] & [place] 11/03/2023 15:42:57 Influenza, split virus, quadrivalent, PF 7 completed Marcela Barreto null, [facility] & [place] 11/03/2023 15:42:57 Influenza, split virus, quadrivalent, PF 9 completed Marcela Barreto null, [facility] & [place] 11/03/2023 15:42:57 Influenza, split virus, quadrivalent, PF 8 completed Marcela Barreto null, [facility] & [place] 11/03/2023 15:42:57 Influenza, split virus, quadrivalent, PF 0 completed Marcela Barreto null, [facility] & [place] 11/03/2023 15:42:57 Influenza, split virus, quadrivalent, PF 6 completed Marcela Barreto null, [place] - [facility] & [place] 11/03/2023 15:42:57 Influenza, split virus, quadrivalent, PF 2 completed Marcela Barreto brian, [facility] - [place] & [place] 11/03/2023 15:42:57 Influenza, MDCK, trivalent, PF 4 completed Noe Rich MD [address] [facility], [place], [address], [facility] - [place] & [place] 03/10/2024 06:02:12 Past Encounters Encounter ID Performer Location Encounter Start Date Encounter Closed Date Diagnosis/Indication Diagnosis SNOMED-CT Code Diagnosis ICD10 Code Diagnosis Note [id number] Noe Rich MD [facility] [address] [place] [address] 11/03/2023 14:38:07 11/03/2023 15:36:04 Elevated blood-pressure reading without diagnosis of hypertension 444906603 R03.0 initial BP was 161/88 and repeat was not much different. I am asking him to purchase a blood pressure cuff and take his blood pressure at different times during the day and return to clinic in 4 weeks to review readings [id number] Noe Rich MD [facility] [address] [facility] [place] [address] 11/16/2023 14:40:12 11/16/2023 14:53:32 Diabetes mellitus screening 892368886 Z13.1 Hyperlipid emia screening 026153034 Z13.220 Screening for malignant neoplasm of prostate 709556533 Z12.5 Thyroid di sorder screening 549533391 Z13.29 Elevated blood-pressure reading without diagnosis of hypertension 329724411 R03.0 initial BP was 161/88 and repeat was not much different. I am asking him to purchase a blood pressure cuff and take his blood pressure at different times during the day and return to clinic in 4 weeks to review readings [id number] Noe Rich MD [facility] [address] [facility] [place] [address] 12/07/2023 14:37:56 12/07/2023 15:44:19 Prediabetes 817285454 R73.03 discussed need for dietary change. He is recommende d to review suggestion s online for a diabetic type diet, decrease his overall carbohydra te intake and consider a modest 13 lb weight loss. we will follow up in 3 months Elevated blood-pressure reading without diagnosis of hypertension 452585256 R03.0 this apparently represents a bit of white coat hypertensi on as all of his home blood pressure readings are normal Hyperlipidemia 33820812 E78.5 LDL was moderately elevated at 163. I would like to see if his attention to diet and modest weight loss results in any improvemen t before initiating a statin. [id number] Noe Rich MD [facility] [address] [facility] [address] [place] [address] 03/09/2024 13:07:30 03/09/2024 14:25:40 Prediabetes 865236708 R73.03 the patient did not lose any weight he is improved his control of his blood sugar as noted by an improved A1c of 5.7%. Continue to monitor diet, may changes where he can and try to lose A few lb. Elevated blood-pressure reading without diagnosis of hypertension 573938957 R03.0 Blood pressure is well controlled today and he has on no medication . Hyperlipidemia 24080488 E78.5 Last lipid profile at the beginning of the summer revealed his LDL to be moderately elevated at 163. He has been eating better but is not fasting today .RTC in 6 months with FLP Administra tion of influenza vaccine [id number] Z23 [id number] Noe Rich MD [facility] [address] [place] [address] 09/08/2024 13:19:15 09/08/2024 14:08:52 Prediabetes 153657025 R73.03 A1c is 5.7%. Doing well. Continue to check A1c every 6-12 months Pure hypercholesterolemia 393954890 E78.00 lipids are elevated with total cholestero l of 216 HDL 46 and LDL of 144.10 year ASCVD risk is elevated at 10.3%. Start atorvastat in. F/U in 6 months Pain in ri ght lower limb 093507537 M79.604 apparently when he is parked at [facility] and having to push a cart full of grain out to his vehicle, the extra weight in the uphill climb causes his right leg to ache. 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 Visits there about once a week. If this happens the pain often persist for the entire day. He is requesting a handicap parking placard so he can reduce the distance he has to travel to his vehicle and hopefully avoid the pain in his leg. I have told him if he promises to only use it in such circumstan robyn I will sign it. He is to pick [address] and bring it by. [id number] Noe Rich MD [facility] [address] [place] [address] 09/06/2024 13:34:25 09/06/2024 14:40:08 [facility] [id number] E78.5 Health Concerns Section Related Observation LastModified by Organization Detai ls LastModified Time None Recorded Concern Status LastModified by Organization Details LastModified Time None Recorded Advance Directives Directive N: Payers Insurance Date Sequence Insurance Name Policy Number Policy Barton Covered Member ID Barton Member ID Guarantor Name 09/06/2024 1 [employer] (MEDICARE REPLACEMENT/A DVANTAGE - PPO) Brayden Knox Kurt [id number] Brayden Hicks 09/06/2024 1 [employer] (MEDICARE REPLACEMENT/A DVANTAGE - PPO) Brayden Knox Kurt [id number] Brayden Hicks Notes Date Note Type Note Provider Name and Address Organization Details Recorded Time 12/07/2023 text/html patient presents for follow-up on hypertension. At his initial visit a month ago his blood pressure was elevated in the office. Since then he has purchased a cuff and has been checking his blood pressures at home. I have reviewed those with him today and they are all within normal limits. Additionally had blood work done at his last visit which we have reviewed together today. His creatinine was slightly elevated at 1.31, his LDL was moderately elevated at 163, in his A1c was 6.0 Noe Rich MD [address], [place], [address], [facility] & [place] 12/08/2023 06:51:37 03/09/2024 text/html Pt presents for 3 month f/u. Has tried to eat more salads. Would like flu shot. At last visit his A1c was 6.0 % placing him in the Prediabetes category. BP was also elevated. On no meds. today his A1c is down to 5.7% BP is 112/74 Noe Rich MD [address], [place], [address], [facility] - [facility] 03/10/2024 06:09:59 09/08/2024 text/html Pt presents for 6 month F/U. Just had lipid profile redrawn. Noe Rich MD [address], [place], [address], [facility] 09/08/2024 18:19:39
--- NOTE | 2024-11-24 19:24 | XR_ITS ---
PROCEDURE INFORMATION: Exam: XR Chest Exam date and time: 11/24/2024 7:30 PM Age: 59 years old Clinical indication: Shortness of breath and other: Chest pain TECHNIQUE: Imaging protocol: Radiologic exam of the chest. Views: 1 view. COMPARISON: CT CHEST W CON 12/03/2023 8:56 AM FINDINGS: Lungs: Unremarkable. No consolidation. Pleural spaces: Unremarkable. No pleural effusion. No pneumothorax. Heart/Mediastinum: Unremarkable. No cardiomegaly. Bones/joints: Unremarkable. IMPRESSION: No acute findings.
[2024-11-24] MEDS: NITROGLYCERIN 0.4MG SL TABLET 0.4 MG SL (19:29)
[2024-11-24 19:30] LABS: Hematocrit 47.1 % (42.0-52.0); Hemoglobin 15.3 g/dL (14.1-18.0); Immature Granulocytes % 0.4 %; Mean Corpuscular HGB Conc 32.5 g/dL (31.8-35.4); Mean Corpuscular Hemoglobin 29.4 pg (27.0-31.2); Mean Corpuscular Volume 90.6 fl (80-94); Nucleated Red Blood Cells % 0 %; Platelet Count 214 K/mm3 (142-424); Red Blood Count 5.20 M/mm3 (4.60-6.20); Red Cell Distribution Width-SD 41.3 fL; White Blood Count 10.6 K/mm3 (4.8-10.8)
--- NOTE | 2024-11-24 19:30 | ED_ITS ---
Discharge Plan Disposition Patient Disposition: Admitted Condition: Fair Clinical Impressions Clinical Impression: Unstable angina Discharge ED Provider: Carisa Miranda General Chief Complaint: Chest Pain Stated Complaint: chest pain Time Seen by Provider: 11/24/24 19:20 Mode of Arrival: Ambulatory Source of Information: Patient Description of Symptoms (Recalled from ER Triage Doc. by RN): Pt presents to ED for chest pressure that started at approx 2200 last night. (11/23/24) Pt states it felt like an elephant on his chest. Pt states that pressure has continued since last night. Pt states no cardiac hx. Pt rates pain 3/10 at this time and spouse is bedside. Pt is A&O*4. History of Present Illness HPI narrative: This patient is a 59-year-old female with a history of prior colorectal cancer status post resection and chemo/radiation 4 years ago and hyperlipidemia presenting to the emergency department for evaluation with concern for chest pressure. Patient notes that it started around 2200 last night and felt like a pressure/significant indigestion. He notes he was very sweaty and felt short of breath at that time. He states that it kept him from sleeping until around 7:00 this morning because the pain was so significant. He notes this pain waxing and waning but has been pretty constant today. Nothing seems to bring it on, nothing makes it better or worse. He denies ever experienced anything like this in the past. He also denies any known cardiac history. Related Data Home Medications ?Medication ?Instructions ?Recorded ?Confirmed No Known Home Medications 12/12/2205/25 Allergies Allergy/AdvReac Type Severity Reaction Status Date / Time No Known Allergies Allergy Verified 06/09/24 09:44 [facility] Disclaimer: The information contained in this section may have been updated after the patient was seen, as this information can be updated by other users. Medical History Cholecystectomy planned History of COVID-19 Colon cancer Cardiomyopathy Surgical History History of surgery History of colonoscopy History of surgery History of colon resection History of colon surgery History of arthroplasty of left knee Family History Mother Breast cancer Pancreatic cancer Social History Smoking Status: Former smoker tobacco type: cigarettes years smoked: 20 how long ago did patient quit smokin alcohol intake: current alcohol intake frequency: a few times a week substance use type: denies use current occupational status: retired Travel in the last 8 weeks?: None household members: spouse housing: house current occupation: [employer] current occupational exposures/hazards: No caffeine: Yes Have you lived/traveled outside US in past 30 days?: No Contact w/someone who lives/traveled outside US past 30 days?: No Exposure to someone with infectious disease in past 14 days?: No Do you have a fever (greater than 100.4 F or 38 C)?: No Have you tested positive for COVID-19?: No Exposed to someone with COVID-19 in past 14 days?: No Do you have a sore throat?: No Do you have a cough?: No Do you have any weakness?: No Do you have any diarrhea?: No Are you experiencing any unusual bleeding?: No Do you have any muscle aches/pain?: No Do you have any abdominal pain?: No Are you experiencing loss of taste or smell?: No Other Medical History Have you received the Flu Vaccine for this season: Yes Have you received the Pneumonia Vaccine: Yes ROS Obtained: Yes All systems reviewed & no additional complaints except as documented Physical Exam General General appearance: alert and in no apparent distress Head Head exam: atraumatic and normocephalic Eye Eye exam: Present normal appearance, PERRL and EOMI ENT ENT exam: Present normal exam, normal oropharynx, mucous membranes moist and normal external ear exam Neck Neck exam: Present normal inspection, full ROM and trachea midline; Absent tenderness Chest Chest inspection: Present normal inspection and symmetric chest wall rise; Absent tenderness Respiratory Respiratory exam: Present normal lung sounds bilaterally; Absent respiratory distress, wheezes, stridor or accessory muscle use Cardiovascular Cardiovascular exam: Present regular rate and normal rhythm Abdominal Exam Abdominal exam: Present soft; Absent distention, tenderness or guarding Extremities Exam Extremities exam: Present normal inspection, full ROM and normal capillary refill; Absent tenderness or edema Back Exam Back exam: Present normal inspection and full ROM; Absent tenderness Neurological Exam Neurological exam: Present alert, oriented X3, CN II-XII intact and normal gait; Absent motor sensory deficit Psychiatric Psychiatric exam: Present normal affect and normal mood Skin Skin exam: Present warm and dry HEART Score HEART Score HEART Score assessment performed?: Yes History (anamnesis): Highly suspicious ECG: Non-specific disturbance Age: 45-65 years Risk factors: 1-2 risk factors Troponin: > 3x normal limit HEART Score: 7 Critical Care Critical Care Time Critical Care Time: Yes Attestation: On 11/24/24, the high probability of a clinically significant, sudden or life threatening deterioration of the following system(s) required my full and direct attention, intervention and personal management. The time I documented below is in addition to time spent performing reported procedures but includes the following listed in this critical care notation. Total Time Total Critical Care Time: 35 Medical Decision Making Russell Inquiry Pt receiving controlled substance: No Vital Signs Vital Signs: 11/24/24 19:19 11/24/24 19:32 11/24/24 19:40 Temperature 98.4 F Temperature Source Oral Pulse Rate 64 Pulse Rate [Left] 65 Respiratory Rate 16 15 Blood Pressure 135/69 79/38 L Blood Pressure [Right Arm] 137/72 Blood Pressure Mean 46 Blood Pressure Mean [Right Arm] 93 Blood Pressure Source Blood Pressure Position 02 Sat by Pulse Oximetry 96 98 Oxygen Delivery Method Room Air 11/24/24 19:40 11/24/24 19:42 11/24/24 19:51 Temperature Temperature Source Pulse Rate 65 Pulse Rate [Left] Respiratory Rate 14 Blood Pressure 85/35 L 92/56 L Blood Pressure [Right Arm] Blood Pressure Mean 51 Blood Pressure Mean [Right Arm] Blood Pressure Source Blood Pressure Position 02 Sat by Pulse Oximetry 99 Oxygen Delivery Method 11/24/24 20:19 Temperature 98.7 F Temperature Source Oral Pulse Rate 55 L Pulse Rate [Left] Respiratory Rate 18 Blood Pressure 116/68 Blood Pressure [Right Arm] Blood Pressure Mean Blood Pressure Mean [Right Arm] Blood Pressure Source Automatic Cuff Blood Pressure Position Sitting 02 Sat by Pulse Oximetry Oxygen Delivery Method Room Air Lab Data Labs: Lab Results 11/24/24 19:20: WBC 10.6, RBC 5.20, Hgb 15.3, Hct 47.1, MCV 90.6, MCH 29.4, MCHC 32.5, RDW 12.6, Plt Count 214, MPV 11.0 H, Neut % (Auto) 75.1, Lymph % (Auto) 13.8, [place] % (Auto) 8.9, Eos % (Auto) 1.5, Baso % (Auto) 0.3, Neut # (Auto) 8.0 H, Lymph # (Auto) 1.5, [place] # (Auto) 0.9, Eos # (Auto) 0.2, Baso # (Auto) 0.0, D -Dimer 0.53 H, Sodium 136, Potassium 3.9, Chloride 100, Carbon Dioxide 28, Anion Gap 11.9, BUN 13, Creatinine 1.20, Estimated Creat Clear 83, Estimated GFR 62, Est GFR ( Amer) 75, Glucose 108 H, Calcium 9.8, Total Bilirubin 1.3, AST 143 H, ALT 37, Alkaline Phosphatase 71, Troponin I 11.30 H, Total Protein 8.1, Albumin 4.8, Globulin 3.3 H, Albumin/Globulin Ratio 1.5, Lipase 93 11/24/24 19:20 11/24/24 19:20 Response Orders (Tests/Meds): ED MEDICATIONS Generic Name Dose Route Start Last Admin Trade Name Freq PRN Reason Stop Dose Admin Diazepam 5 mg 11/24/24 20:06 Diazepam 5mg Tablet PO 11/25/24 08:06 ONCE PRN Anxiety Diphenhydramine HCl 50 mg 11/24/24 20:06 11/24/24 20:35 Diphenhydramine 50mg/Ml Vial IV 11/24/24 20:07 50 mg ONCE ONE Administration Fentanyl Citrate 50 mcg 11/24/24 20:06 11/24/24 20:36 Fentanyl 100mcg/2ml Vial IV 11/25/24 08:06 100 mcg Q3MINP PRN Administration Sedation Fentanyl Citrate 25 mcg 11/24/24 20:06 Fentanyl 100mcg/2ml Vial IV 11/25/24 08:06 Q3MINP PRN Sedation Flumazenil 0.2 mg 11/24/24 20:06 Flumazenil 0.1mg/Ml 5ml Vial IV 11/25/24 08:06 NEEDED PRN Sedation Heparin Sodium (Porcine) 5,000 unit 11/24/24 20:06 11/24/24 20:35 Heparin 1,000 Units/Ml 10ml Vial ([facility] [facility]) IV 11/25/24 00:06 10,000 unit NEEDED PRN Administration [facility] [employer] Heparin Sodium/Sodium Chloride 3,000 unit 11/24/24 20:06 11/24/24 20:35 Heparin 1,000 Units/500ml Ns ([employer]) IV 11/24/24 20:07 3,000 unit ONCE ONE Administration Hydralazine HCl 20 mg 11/24/24 20:06 Hydralazine 20mg/Ml Vial IV 11/25/24 00:06 ONCE PRN sbp>160 Lactated Ringer's 1,000 mls @ 999 mls/hr 11/24/24 19:46 11/24/24 19:57 Lactated Ringer's 1000 Ml Bag IV 11/24/24 20:46 999 mls/hr .Q1H1M ONE Administration Adenosine 180 mg/ Sodium 90 mls @ 477.635 mls/hr 11/24/24 20:06 Chloride IV 11/25/24 00:06 ONCE PRN fractional flow reserve 180 MCG/KG/MIN Adenosine 90 mg/ Sodium 90 mls @ 955.271 mls/hr 11/24/24 20:06 Chloride IV 11/25/24 00:06 ONCE PRN fractional flow reserve 180 MCG/KG/MIN Sodium Chloride 1,000 mls @ 25 mls/hr 11/24/24 20:15 11/24/24 20:35 Sod Chloride 0.9% 500ml Bag IV 11/25/24 20:06 25 mls/hr .Q25H LEONOR Administration Labetalol HCl 20 mg 11/24/24 20:06 Labetalol 20mg/4ml Syringe IV 11/25/24 00:06 ONCE PRN sbp>160 Lidocaine HCl 10 ml 11/24/24 20:06 11/24/24 20:35 Lidocaine 1% 10ml Mdv IJ 11/24/24 20:07 10 ml ONCE ONE Administration Lidocaine HCl 10 ml 11/24/24 20:06 Lidocaine 1% 5ml Pf Vial IJ 11/24/24 20:07 ONCE ONE Lorazepam 1 mg 11/24/24 20:06 Lorazepam 2mg/Ml Vial IV 11/25/24 08:06 ONCE PRN Anxiety Midazolam HCl 1 mg 11/24/24 20:06 Midazolam 2mg/2ml Vial IV 11/25/24 08:06 Q3MINP PRN Sedation Midazolam HCl 1 mg 11/24/24 20:06 11/24/24 20:36 Midazolam Hcl 1mg/Ml 5ml Vial IV 11/25/24 08:06 5 mg Q3MINP PRN Administration Sedation Morphine Sulfate 4 mg 11/24/24 20:06 Morphine 4mg/Ml Syringe IV 11/24/24 20:07 ONCE ONE Naloxone HCl 0.4 mg 11/24/24 20:06 Naloxone 0.4mg/Ml Vial IV 11/25/24 08:06 Q5MINP PRN Decreased Respirations Nitroglycerin 800 mcg 11/24/24 20:06 11/24/24 20:35 Nitroglycerin 800mcg/8ml Syr ([employer]) IA 11/25/24 00:06 800 mcg NEEDED PRN Administration [employer] Ondansetron HCl 4 mg 11/24/24 20:06 Ondansetron 4mg/2ml Vial IV 11/25/24 08:06 NEEDED PRN Nausea Promethazine HCl 25 mg 11/24/24 20:06 Promethazine Hcl 25mg/Ml 1ml Vial IV 11/25/24 08:06 NEEDED PRN Nausea And Vomiting Protamine Sulfate 50 mg 11/24/24 20:06 Protamine Sulfate 50mg/5ml Vial ([employer]) IV 11/25/24 00:06 ONCE PRN act>200 Sodium Chloride 10 ml 11/24/24 20:06 Sodium Chloride 0.9% 10ml Vial IV 12/24/24 20:05 NEEDED PRN to Dilute Lorazepam inj Sodium Chloride 25 ml 11/24/24 20:06 Sodium Chloride 0.9% 25ml Bag IV 11/24/24 20:07 ONCE ONE Verapamil HCl 2.5 mg 11/24/24 20:06 11/24/24 20:35 Verapamil 2.5mg/Ml 2ml Vial IV 11/24/24 20:07 2.5 mg ONCE ONE Administration Discontinued Medications Generic Name Dose Route Start Last Admin Trade Name Freq PRN Reason Stop Dose Admin Aspirin 324 mg 11/24/24 19:24 11/24/24 19:52 Aspirin 81mg Chewable Tablet PO 11/24/24 19:25 Not Given ONCE ONE Heparin Sodium (Porcine) 5,000 unit 11/24/24 19:45 11/24/24 19:49 Heparin Sodium 5,000 Unit/Ml Vial IV 11/24/24 19:46 5,000 unit ONCE ONE Administration Nitroglycerin 0.4 mg 11/24/24 19:26 11/24/24 19:29 Nitroglycerin 0.4mg Sl Tablet SL 11/24/24 19:27 0.4 mg ONCE ONE Administration ORDERS Category Date Time Status Consult to Cardiology [CONS] Routine Cons 11/24/24 19:45 Active CXR --portable [XR chest portable] Stat Exams 11/24/24 19:24 Taken Basic Metabolic Panel Stat Lab 11/24/24 20:06 Ordered Complete Blood Count Auto Diff Stat Lab 11/24/24 19:20 Completed Complete Blood Count Auto Diff Stat Lab 11/24/24 20:06 Ordered Comprehensive Metabolic Panel Stat Lab 11/24/24 19:20 Completed D-Dimer Stat Lab 11/24/24 19:20 Completed HIV Combo Stat Lab 11/24/24 19:20 Received Hepatitis C Ab Qual. W/ RFX Stat Lab 11/24/24 19:20 Received Lipase Stat Lab 11/24/24 19:20 Completed PT INR [Prothrombin Time INR] Stat Lab 11/24/24 19:20 Received PTT [Activated Partial Thrombo Time] Stat Lab 11/24/24 19:20 Received Trop I [Troponin I] Stat Lab 11/24/24 19:20 Completed Troponin I Q3H Lab 11/24/24 22:30 Ordered Troponin I Q3H Lab 11/25/24 01:30 Ordered ECG Data Tracing #1: Attestation: I reviewed this ECG and interpreted as documented below: ECG Narrative: Normal sinus rhythm with a ventricular to [address] depressions in the lead aVL and aVR, ST elevation in lead III and possibly lead aVF. Not a true STEMI but is concerning. I spoke with Dr. Olivarez at 1920 after obtaining the EKG and he agrees no STEMI, but it is definitely abnormal and is concerning. He recommended trying nitroglycerin and reassessing ECG initial impression date: 11/24/24 ECG initial impression time: 19:20 Tracing #2: Attestation: I reviewed this ECG and interpreted as documented below: ECG Narrative: Sinus bradycardia with a ventricular rate of [address] changes without acute STEMI ECG initial impression date: 11/24/24 ECG initial impression time: 19:45 MDM Narrative Medical Decision Narrative: In summary, this patient is a 59-year-old male presenting to the Emergency Department for evaluation of chest pressure that started last night. Differential diagnoses considered include but are not limited to ACS, dysrhythmia, GERD, unstable angina, PE. Ruling out the most morbid conditions drove assessment. It should be noted patient's history includes prior history of colorectal cancer as well as hyperlipidemia which reportedly are at goal therapy. This complicates all aspects of care by increasing patient's risk for morbidity. I reviewed patient's past medical records and noted prior evaluations in the past by oncology for colorectal cancer, now in remission. I also noted prior history of provoked PE. Patient is not currently on anticoagulation. On exam, the patient is lying in bed in no acute distress with normal vitals on cardiac telemetry. Heart rate is in the 60s, O2 saturation 97% on room air, blood pressure 130s over 60s. Cardiopulmonary exam is reassuring. EKG obtained is concerning with ST elevations and depressions, but does not meet true STEMI criteria. Given that it was abnormal, I shared with Dr. Olivarez with allergy who recommended trying nitroglycerin and letting him know in 5 minutes how the patient is doing. Will also repeat EKG given the initial 1 is concerning. I initially had ordered aspirin, but the patient took 2 full strength aspirin prior to arrival. Workup included CBC, CMP, lipase, PT, PTT, D-dimer, troponin, chest x-ray in addition to the EKG. I independently interpreted chest x-ray prior to the radiologist read and noted no large focal consolidation concerning for pneumonia, no pneumothorax. Please see their read for final interpretation. After administration of nitroglycerin, patient's blood pressure tanked to 70s over 30s. He also got very pale, diaphoretic, and lightheaded. His heart rate remained in the 50s to 60s. His chest pain did go away with nitroglycerin, however. CBC had resulted at this point and was reassuring with no significant leukocytosis or anemia. Chemistries demonstrate significantly weighted troponin at 11.3. Chemistry is otherwise reassuring. Repeat EKG shows persistent subtle changes without acute STEMI. Given the symptoms with nitroglycerin administration, EKG changes, and concerns for unstable angina, Dr. Olivarez plans to take the patient to the [facility] emergently after further discussion. Patient was transported to [facility] in stable condition. He was given heparin bolus prior to transport. I did update family and patient to plan of care. I also called and notified the hospitalist.
--- NOTE | 2024-11-24 19:43 | ECG_ITS ---
APPROVED REPORT Exam: Resting ECG HR:53 bpm ECG Measurements Heart Rate 53 AXES QRSd 81 QRS 38 QT 402 T 49 QTc 385 Conclusion SUPRAVENTRICULAR BRADYCARDIA ABNORMAL RHYTHM ECG Electronically signed by : VICTOR MANUEL OREILLY, 11/29/2024 08:10:21
[2024-11-24 19:47] LABS: Alanine Aminotransferase 37 U/L (12-78); Albumin Level 4.8 g/dl (3.5-5.0); Albumin/Globulin Ratio 1.5 (1.1-1.8); Alkaline Phosphatase 71 U/L (38-126); Anion Gap 11.9 mEq/L (5-15); Aspartate Amino Transferase 143 U/L (17-59); Bilirubin,Total 1.3 mg/dl (0.2-1.3); Blood Urea Nitrogen 13 mg/dl (9-20); Calcium 9.8 mg/dl (8.4-10.2); Carbon Dioxide 28 mmol/L (22.0-30.0); Chloride 100 mmol/L (98-107); Creatinine Clearance Estimated 83 mL/min (50-200); Creatinine,Serum 1.20 mg/dl (0.66-1.25); Estimated Glomerular Filt Rate 62 ml/min (>60); GFR (African American) 75 ML/MIN (>60); Globulin 3.3 g/dL (1.3-3.2); Glucose 108 mg/dl (74-100); Lipase 93 U/L (23-300); Potassium 3.9 mmoL/L (3.5-5.1); Sodium 136 mmol/L (136-145); Total Protein,Serum 8.1 g/dl (6.3-8.2)
[2024-11-24] MEDS: HEPARIN SODIUM 5,000 UNIT/ML VIAL 5000 UNIT IV (19:49)
--- NOTE | 2024-11-24 19:52 | PC.NURSE ---
patient took aspirin prior to arrival
[2024-11-24 19:56] LABS: D-Dimer 0.53 ug/mL (0.0-0.5)
[2024-11-24] MEDS: LACTATED RINGERS 1000ML 1,000 ML 999 ML IV (19:57)
--- NOTE | 2024-11-24 20:04 | IR_ITS ---
APPROVED REPORT Patient Location: Emergent PROCEDURES Coronary angiography Intravascular ultrasound of the circumflex Intravascular ultrasound of the LAD Balloon angioplasty and stenting of the circumflex Direct stenting of the LAD. INDICATION Non-STEMI SCAI INDICATION Non-STEMI Informed consent was obtained prior to the procedure. COMPLICATIONS none Estimated Blood Loss: less than 10ml TECHNIQUE One percent lidocaine used to anesthetize the right anterior aspect of the wrist. The right radial artery was accessed via the Seldinger technique. A 6 Welsh sheath was placed in the right radial artery. 2.5 mg of Verapamil, 800 mcg of nitroglycerin, 1mg Lidocaine and 5000 U Heparin were given through the arterial sheath. The JL3 catheter was also used to perform left heart catheterization, left ventriculogram and selective coronary angiogram. At the end of the procedure the sheath was removed good hemostasis was achieved using Traclet band, patient was transferred to the postop holding area in stable condition. ANGIOGRAPHIC RESULTS The left main artery Left main was a large vessel which divided circumflex and LAD. There is no severe disease in left main. The left anterior descending artery gave rise to moderate-sized first diagonal and a large second diagonal. In the proximal LAD just distal to the first septal there was a 70% stenosis which was interrogated by intravascular ultrasound. Just distal to the large second diagonal there is a 40 to 50% stenosis The circumflex artery Was a dominant vessel. Supplied 2 large obtuse marginals and the left-sided PDA. The left-sided PDA was occluded at the beginning of the case and was open as described below. The right coronary artery Nondominant vessel without significant disease The left ventricular end-diastolic pressure Not obtained After doing films decision was made to try and intervene on the distal circumflex. This corresponded with his ST changes. Using a run-through wire we attempted to cross the lesion but this was unsuccessful. With balloon support from a 2 oh noncompliant balloon we were able to cross the lesion. The 2.0 noncompliant balloon was then inflated at 12 valentin. Intravascular ultrasound was then performed which showed that the distal reference vessel is approximately 2.75 mm in diameter with the proximal vessel being slightly larger at about 3.0. Therefore 275 x 15 stent was taken and deployed at 14 valentin. Attention was then turned to the LAD. The wire was directed down the LAD and intravascular ultrasound performed. It showed that the minimum diameter was 1.6 x19 mm with an area of 3.6 mm???. The proximal reference diameter was 3.8 mm in the distal reference diameter was approximately 3.5 mm. This corresponded to a 65% area of stenosis and a 80% diameter stenosis. Therefore the decision was made to intervene on the LAD. This was directly stented with a three 5 x 18 stent. This was then postdilated with a 3.75 noncompliant balloon at 16 valentin. Repeat angiography showed excellent result procedure was terminated. Heparin was used for anticoagulation Stenosis in the circumflex 100% Post stenosis in the circumflex was 0%. Preintervention stenosis in the LAD was 70% Po stenosis was 0% IMPRESSION Two-vessel disease treated with stents as above. Electronically signed by : Mehdi Olivarez, 11/24/2024 22:13:51
[2024-11-24 20:07] LABS: Troponin I 11.30 ng/ml (0.00-0.034)
--- NOTE | 2024-11-24 20:18 | PC.NURSE ---
Spoke with Katie RN in pit laborer. Asim TREVINO, tank house supervisor. and eeg technologist transporting patient by stretcher to pit laborer.
[2024-11-24] MEDS: NITROGLYCERIN 800MCG/8ML SYR (CATH LAB) 800 MCG IA (20:35)
[2024-11-24] MEDS: 0.9 % SODIUM CHLORIDE 500 ML 25 ML IV (20:35)
[2024-11-24] MEDS: HEPARIN 1,000 UNITS/500ML NS (CATH LAB) 3000 UNIT IV (20:35)
[2024-11-24] MEDS: HEPARIN 1,000 UNITS/ML 10ML VIAL (CATH LAB) 5000 UNIT IV (20:35)
[2024-11-24] MEDS: LIDOCAINE 1% 10ML MDV 10 ML IJ (20:35)
[2024-11-24] MEDS: VERAPAMIL 2.5MG/ML 2ML VIAL 2.5 MG IV (20:35)
[2024-11-24] MEDS: MIDAZOLAM HCL 1MG/ML 5ML VIAL 1 MG IV (20:36)
[2024-11-24] MEDS: FENTANYL 100MCG/2ML VIAL 50 MCG IV (20:36)
[2024-11-24 20:53] LABS: Activated Partial Thrombo Time 23.6 seconds (22.8-30.6); INR 1.00 (0.9-1.1); Prothrombin Time 11.1 seconds (10.1-12.5)
[2024-11-24 21:21] LABS: Hepatitis C Ab Qual. W/ RFX NEGATIVE (Negative)
[2024-11-24] MEDS: IOPAMIDOL-370 (76%);100ML BOTTLE 250 ML IV (22:12)
[2024-11-24 22:13] LABS: CATHL Activated Clotting Time > 400 SEC (74-125)
--- NOTE | 2024-11-24 22:29 | PC.NURSE ---
PT ARRIVED TO FLOOR FROM [facility]SO[facility] MACHINE AT THIS TIME
[2024-11-24] MEDS: ONDANSETRON 4MG/2ML VIAL 4 MG IV (23:01)
[2024-11-24 23:43] LABS: Hematocrit 42.6 % (42.0-52.0); Hemoglobin 14.0 g/dL (14.1-18.0); Immature Granulocytes % 0.4 %; Mean Corpuscular HGB Conc 32.9 g/dL (31.8-35.4); Mean Corpuscular Hemoglobin 30.4 pg (27.0-31.2); Mean Corpuscular Volume 92.4 fl (80-94); Nucleated Red Blood Cells % 0 %; Platelet Count 147 K/mm3 (142-424); Red Blood Count 4.61 M/mm3 (4.60-6.20); Red Cell Distribution Width-SD 42.6 fL; White Blood Count 9.8 K/mm3 (4.8-10.8)
[2024-11-24 23:48] LABS: Chloride 102 mmol/L (98-107); Sodium 136 mmol/L (136-145)
[2024-11-24 23:49] LABS: Potassium 4.0 mmoL/L (3.5-5.1)
[2024-11-24 23:51] LABS: Blood Urea Nitrogen 12 mg/dl (9-20); Creatinine Clearance Estimated 100 mL/min (50-200); Creatinine,Serum 1.00 mg/dl (0.66-1.25); Estimated Glomerular Filt Rate 76 ml/min (>60); GFR (African American) 93 ML/MIN (>60)
[2024-11-24 23:52] LABS: Anion Gap 17.0 mEq/L (5-15); Calcium 8.9 mg/dl (8.4-10.2); Carbon Dioxide 21 mmol/L (22.0-30.0); Glucose 111 mg/dl (74-100)
[2024-11-25] VITALS: PULSE 55
[2024-11-25 04:00] VITALS: PULSE 60; BMI 30.6
--- NOTE | 2024-11-25 04:16 | PC.NURSE ---
Pt is post cath, interventions initiated. V/s, ox4, at bedside. Pt denies chest pain. Pt's right radial entry monitored for drainage. site is pink, warm, pulses +2, pt denies any numbness, tingling, or loss of sensation. Plan of care ongoing.
--- NOTE | 2024-11-25 04:35 | P.HP_ITS ---
History of Present Illness *Admission Date: 11/25/24 *Reason for visit:: Chest pain *History of present illness: Patient is a 59-year-old male with past medical history of colon cancer, PE who presents to the hospital due to concern for chest pain, patient was found to have ST segment abnormalities on EKG associated with chest pressure which prompted to activate cardiology consultation, patient was taken to [facility] and had 2 stents placed per cardiology. Patient at time of my evaluation denies chest pain shortness of breath nausea vomiting diarrhea constipation dysuria fevers and chills. Patient mentions he tolerated procedure well. [facility] Disclaimer: The information contained in this section may have been updated after the patient was seen, as this information can be updated by other users. Medical History Cholecystectomy planned History of COVID-19 Colon cancer Cardiomyopathy Surgical History History of surgery History of colonoscopy History of surgery History of colon resection History of colon surgery History of arthroplasty of left knee Family History Mother Breast cancer Pancreatic cancer Social History Smoking Status: Former smoker tobacco type: cigarettes years smoked: 20 how long ago did patient quit smokin alcohol intake: current alcohol intake frequency: a few times a week substance use type: denies use current occupational status: retired Travel in the last 8 weeks?: None household members: spouse housing: house current occupation: [employer] current occupational exposures/hazards: No caffeine: Yes Have you lived/traveled outside US in past 30 days?: No Contact w/someone who lives/traveled outside US past 30 days?: No Exposure to someone with infectious disease in past 14 days?: No Do you have a fever (greater than 100.4 F or 38 C)?: No Have you tested positive for COVID-19?: No Exposed to someone with COVID-19 in past 14 days?: No Do you have a sore throat?: No Do you have a cough?: No Do you have any weakness?: No Do you have any diarrhea?: No Are you experiencing any unusual bleeding?: No Do you have any muscle aches/pain?: No Do you have any abdominal pain?: No Are you experiencing loss of taste or smell?: No Other Medical History Have you received the Flu Vaccine for this season: No Have you received the Pneumonia Vaccine: No Review of Systems Review of Systems Review of systems:: pertinent systems reviewed and negative unless documented below Meds Home Medications and Allergies Home Medications ?Medication ?Instructions ?Recorded ?Confirmed ?Type No Known Home Medications 12/12/22 07/09/16 History New Prescriptions to Start Prescriptions: Allergies Allergy/AdvReac Type Severity Reaction Status Date / Time No Known Allergies Allergy Verified 06/09/24 09:44 Exam Data for Last 24 hours Vital signs and Labs for Last 24 Hours: Temp Pulse Resp BP Pulse Ox O2 Del Method 97.9 F 62 16 116/62 98 Room Air 11/24/24 22:10 11/24/24 22:15 11/24/24 22:10 11/24/24 22:15 11/24/24 22:10 11/25/24 03:00 Laboratory Results - last 24 hr 11/24/24 19:20: WBC 10.6, RBC 5.20, Hgb 15.3, Hct 47.1, MCV 90.6, MCH 29.4, MCHC 32.5, RDW 12.6, Plt Count 214, MPV 11.0 H, Neut % (Auto) 75.1, Lymph % (Auto) 13.8, [place] % (Auto) 8.9, Eos % (Auto) 1.5, Baso % (Auto) 0.3, Neut # (Auto) 8.0 H, Lymph # (Auto) 1.5, [place] # (Auto) 0.9, Eos # (Auto) 0.2, Baso # (Auto) 0.0, PT 11.1, INR 1.00, APTT 23.6, D-Dimer 0.53 H, Sodium 136, Potassium 3.9, Chloride 100, Carbon Dioxide 28, Anion Gap 11.9, BUN 13, Creatinine 1.20, Estimated Creat Clear 83, Estimated GFR 62, Est GFR ( Amer) 75, Glucose 108 H, Calcium 9.8, Total Bilirubin 1.3, AST 143 H, ALT 37, Alkaline Phosphatase 71, Troponin I 11.30 H, Total Protein 8.1, Albumin 4.8, Globulin 3.3 H, Albumin/Globulin Ratio 1.5, Lipase 93, HCV Ab YEHUDA w/Rflx PCR Qn Negative, HIV Ag/Ab Combo Qual Negative 11/24/24 20:44: Activated Clotting Time > 400 H* 11/24/24 23:35: WBC 9.8, RBC 4.61, Hgb 14.0 L, Hct 42.6, MCV 92.4, MCH 30.4, MCHC 32.9, RDW 12.6, Plt Count 147 D, MPV 11.7 H, Neut % (Auto) 81.8 H, Lymph % (Auto) 9.0 L, [place] % (Auto) 7.5, Eos % (Auto) 1.0, Baso % (Auto) 0.3, Neut # (Auto) 8.0 H, Lymph # (Auto) 0.9, [place] # (Auto) 0.7, Eos # (Auto) 0.1, Baso # (Auto) 0.0, Sodium 136, Potassium 4.0, Chloride 102, Carbon Dioxide 21 L, Anion Gap 17.0 H, BUN 12, Creatinine 1.00, Estimated Creat Clear 100, Estimated GFR 76, Est GFR ( Amer) 93 D, Glucose 111 H, Calcium 8.9 I & O for Last 24 hours: Intake & Output 11/22/24 11/23/24 11/24/24 11/25/24 23:59 23:59 23:59 23:59 Intake Total 120 / 120 Balance 120 / 120 Weight 88.451 kg Constitutional Constitutional: no acute distress *Routine HEENT Exam Head: Present normocephalic Eye: Present EOMI and PERRL ENT: Present mucous membranes moist *Routine Neck Exam Neck: Present supple; Absent lymphadenopathy *Routine Respiratory Exam Respiratory: Present CTA bilaterally *Routine Cardiovascular Exam Cardiovascular: Present RRR *Routine Abdominal Exam Abdominal: Present soft and normoactive bowel sounds; Absent tenderness *Routine Rectal Exam Rectal:: deferred *Routine Genitalia Exam Genitalia:: deferred *Routine Extremities Exam Extremities: Absent cyanosis, clubbing or edema *Routine Skin Exam Skin: Present warm; Absent rash *Routine Neurological Exam Neurological: Present alert and oriented X3 Assessment and Plan *Assessment and plan (1) CAD (coronary artery disease): Status: Acute Category: Medical Code(s): I25.10 - Atherosclerotic heart disease of [place] coronary artery without angina pectoris (2) Acute coronary syndrome: Status: Acute Category: Medical Code(s): I24.9 - Acute ischemic heart disease, unspecified Plan Patient is a 59-year-old male with past medical history of colon cancer, PE who presents to the hospital due to concern for chest pain, patient was found to have ST segment abnormalities on EKG associated with chest pressure which prompted to activate cardiology consultation, patient was taken to [facility] and had 2 stents placed per cardiology. Patient at time of my evaluation denies chest pain shortness of breath nausea vomiting diarrhea constipation dysuria fevers and chills. Patient mentions he tolerated procedure well. Assessment and plan Chest pain, elevated troponin, abnormal EKG likely acute coronary syndrome Status post cardiac cath, status post 2 stents Patient is a started on aspirin, Plavix, atorvastatin Monitor on cardiac telemetry Order echocardiogram Consult cardiology Chronic medical conditions History of colon cancer History of pulmonary emboli Patient is not on any chronic medications at home DVT prophylaxis-subcutaneous heparin
[2024-11-25 07:26] LABS: Hematocrit 40.3 % (42.0-52.0); Hemoglobin 13.3 g/dL (14.1-18.0); Immature Granulocytes % 0.3 %; Mean Corpuscular HGB Conc 33.0 g/dL (31.8-35.4); Mean Corpuscular Hemoglobin 30.0 pg (27.0-31.2); Mean Corpuscular Volume 91.0 fl (80-94); Nucleated Red Blood Cells % 0 %; Platelet Count 167 K/mm3 (142-424); Red Blood Count 4.43 M/mm3 (4.60-6.20); Red Cell Distribution Width-SD 41.7 fL; White Blood Count 7.7 K/mm3 (4.8-10.8)
[2024-11-25 07:36] LABS: Alanine Aminotransferase 34 U/L (12-78); Albumin Level 3.9 g/dl (3.5-5.0); Albumin/Globulin Ratio 1.6 (1.1-1.8); Alkaline Phosphatase 60 U/L (38-126); Anion Gap 10.0 mEq/L (5-15); Aspartate Amino Transferase 158 U/L (17-59); Bilirubin,Total 1.2 mg/dl (0.2-1.3); Blood Urea Nitrogen 13 mg/dl (9-20); Calcium 8.7 mg/dl (8.4-10.2); Carbon Dioxide 26 mmol/L (22.0-30.0); Chloride 101 mmol/L (98-107); Creatinine Clearance Estimated 100 mL/min (50-200); Creatinine,Serum 1.00 mg/dl (0.66-1.25); Estimated Glomerular Filt Rate 76 ml/min (>60); GFR (African American) 93 ML/MIN (>60); Globulin 2.4 g/dL (1.3-3.2); Glucose 109 mg/dl (74-100); Potassium 4.0 mmoL/L (3.5-5.1); Sodium 133 mmol/L (136-145); Total Protein,Serum 6.3 g/dl (6.3-8.2)
[2024-11-25 08:00] VITALS: BP 120/63; PULSE 60; PULSE 77; RESP 16; TEMP 36.6; O2SAT 95
[2024-11-25] MEDS: DOCUSATE SODIUM 100 MG CAPSULE PO (08:23)
[2024-11-25] MEDS: HEPARIN SODIUM 5,000 UNIT/ML VIAL 5000 UNIT SUBCUT (08:23)
[2024-11-25] MEDS: ASPIRIN EC 81MG TABLET 81 MG PO (08:24)
[2024-11-25] MEDS: CLOPIDOGREL 75MG TAB 75 MG PO (08:24)
--- NOTE | 2024-11-25 09:44 | HMH.PHAINT1 ---
Pharmacy Intervention Comments: MEDICATION RECONCILIATION COMPLETED ON PATIENT USING EXTERNAL FILL HISTORY FROM PHARMACY. -YANETH RODRÍGUEZ, RHYSD
--- NOTE | 2024-11-25 11:29 | P.DS_ITS ---
<Statement entered by Ross Abreu MD - 11/25/24 14:28> Rounded on patient after nurse practitioner. Personally examined and interviewed patient. Agree with exam findings and care plan as documented. Had interactive discussion with manager wireless about patient's heart function. He noted that it appeared essentially normal during heart cath. Recommended outpatient echo. Had no reservations about patient discharging today on GDMT. Patient is chest pain-free and on room air. General Admission date:: 11/24/24 Discharge date: 11/25/24 HPI HPI HPI: Patient is a 59-year-old male with past medical history of colon cancer, PE who presents to the hospital due to concern for chest pain, patient was found to have ST segment abnormalities on EKG associated with chest pressure which prompted to activate cardiology consultation, patient was taken to [facility] and had 2 stents placed per cardiology. Patient at time of my evaluation denies chest pain shortness of breath nausea vomiting diarrhea constipation dysuria fevers and chills. Patient mentions he tolerated procedure well. Hospital Course Hospital Course Hospital Course: Mr. Hicks is a 59-year-old male who presented to the emergency department with chest pain. He has a primary medical history of colorectal cancer, hyperlipidemia. He was found to have an elevated troponin and ST elevations and depressions. While he did not make STEMI criteria given the abnormal troponin and EKG decision was made to take him to the [facility]. He did receive stenting to the LAD x 2. Patient was admitted for overnight monitoring. Assessment this morning is benign patient has no complaints of chest pain, shortness of breath, abdominal pain. He states he rested well overnight. Currently the patient only takes atorvastatin 20 mg. Will start him on FELICE, ARB, DAPT, and statin. Close follow-up with outpatient cardiology. #Status post left heart cath #CAD #Coronary artery syndrome #NSTEMI ?Patient doing well this morning. Denies chest pain, shortness of breath. Patient will be started on GDMT at discharge. Lisinopril 5 mg daily, Coreg 3.125 mg twice daily, atorvastatin 40 mg daily, Plavix 75 mg daily, aspirin 81 mg daily. ?Lab work this morning unremarkable. Kidney function within normal limits, BUN 13, creatinine 1.00. ?Patient will need outpatient echocardiogram. Consulted with Dr. Olivarez, he states heart function is acceptable at this time and patient can be discharged. Total time spent on discharge 32 minutes in counseling, documentation, chart review, and direct care with patient. Exam Data for Last 24 hours Vital signs and Labs for Last 24 Hours: Temp Pulse Resp BP Pulse Ox O2 Del Method 98 F 77 16 120/63 95 Room Air 11/25/24 08:00 11/25/24 08:00 11/25/24 08:00 11/25/24 08:00 11/25/24 08:00 11/25/24 10:20 Laboratory Results - last 24 hr 11/24/24 19:20: WBC 10.6, RBC 5.20, Hgb 15.3, Hct 47.1, MCV 90.6, MCH 29.4, MCHC 32.5, RDW 12.6, Plt Count 214, MPV 11.0 H, Neut % (Auto) 75.1, Lymph % (Auto) 13.8, [place] % (Auto) 8.9, Eos % (Auto) 1.5, Baso % (Auto) 0.3, Neut # (Auto) 8.0 H, Lymph # (Auto) 1.5, [place] # (Auto) 0.9, Eos # (Auto) 0.2, Baso # (Auto) 0.0, PT 11.1, INR 1.00, APTT 23.6, D-Dimer 0.53 H, Sodium 136, Potassium 3.9, Chloride 100, Carbon Dioxide 28, Anion Gap 11.9, BUN 13, Creatinine 1.20, Estimated Creat Clear 83, Estimated GFR 62, Est GFR ( Amer) 75, Glucose 108 H, Calcium 9.8, Total Bilirubin 1.3, AST 143 H, ALT 37, Alkaline Phosphatase 71, Troponin I 11.30 H, Total Protein 8.1, Albumin 4.8, Globulin 3.3 H, Albumin/Globulin Ratio 1.5, Lipase 93, HCV Ab YEHUDA w/Rflx PCR Qn Negative, HIV Ag/Ab Combo Qual Negative 11/24/24 20:44: Activated Clotting Time > 400 H* 11/24/24 23:35: WBC 9.8, RBC 4.61, Hgb 14.0 L, Hct 42.6, MCV 92.4, MCH 30.4, MCHC 32.9, RDW 12.6, Plt Count 147 D, MPV 11.7 H, Neut % (Auto) 81.8 H, Lymph % (Auto) 9.0 L, [place] % (Auto) 7.5, Eos % (Auto) 1.0, Baso % (Auto) 0.3, Neut # (Auto) 8.0 H, Lymph # (Auto) 0.9, [place] # (Auto) 0.7, Eos # (Auto) 0.1, Baso # (Auto) 0.0, Sodium 136, Potassium 4.0, Chloride 102, Carbon Dioxide 21 L, Anion Gap 17.0 H, BUN 12, Creatinine 1.00, Estimated Creat Clear 100, Estimated GFR 76, Est GFR ( Amer) 93 D, Glucose 111 H, Calcium 8.9 11/25/24 06:29: WBC 7.7, RBC 4.43 L, Hgb 13.3 L, Hct 40.3 L, MCV 91.0, MCH 30.0, MCHC 33.0, RDW 12.6, Plt Count 167, MPV 11.2 H, Neut % (Auto) 66.8, Lymph % (Auto) 20.0, [place] % (Auto) 11.3 H, Eos % (Auto) 1.3, Baso % (Auto) 0.3, Neut # (Auto) 5.1, Lymph # (Auto) 1.5, [place] # (Auto) 0.9, Eos # (Auto) 0.1, Baso # (Auto) 0.0, Sodium 133 L, Potassium 4.0, Chloride 101, Carbon Dioxide 26, Anion Gap 10.0, BUN 13, Creatinine 1.00, Estimated Creat Clear 100, Estimated GFR 76, Est GFR ( Amer) 93, Glucose 109 H, Calcium 8.7, Total Bilirubin 1.2, AST 158 H, ALT 34, Alkaline Phosphatase 60, Total Protein 6.3, Albumin 3.9 D, Globulin 2.4, Albumin/Globulin Ratio 1.6 I & O for Last 24 hours: Intake & Output 11/22/24 11/23/24 11/24/24 11/25/24 23:59 23:59 23:59 23:59 Intake Total 390 / 390 Output Total 500 / 500 Balance -110 / -110 Weight 88.451 kg 88.451 kg Constitutional Constitutional: no acute distress and cooperative *Routine HEENT Exam Head: Present normocephalic Eye: Present EOMI and PERRL ENT: Present mucous membranes moist *Routine Neck Exam Neck: Present supple and full ROM; Absent JVD *Routine Respiratory Exam Respiratory: Present CTA bilaterally, able to speak in complete sentences and symmetric chest movement; Absent wheezes *Routine Cardiovascular Exam Cardiovascular: Present RRR; Absent murmur *Routine Abdominal Exam Abdominal: Present soft and normoactive bowel sounds; Absent tenderness or distended *Routine Rectal Exam Patient deferred: visual exam *Routine Exam Patient deferred: penile exam *Routine Extremities Exam Extremities: Present full ROM and normal capillary refill; Absent edema *Routine Skin Exam Skin: Present intact and dry *Routine Neurological Exam Neurological: Present alert, oriented X3 and normal speech Results Data Completed and Pending Labs on day of discharge: Labs from last 24 hours 11/25/24 11/24/24 11/24/24 06:29 23:35 20:44 WBC 7.7 9.8 RBC 4.43 L 4.61 Hgb 13.3 L 14.0 L Hct 40.3 L 42.6 MCV 91.0 92.4 MCH 30.0 30.4 MCHC 33.0 32.9 RDW 12.6 12.6 Plt Count 167 147 D MPV 11.2 H 11.7 H Neut % (Auto) 66.8 81.8 H Lymph % (Auto) 20.0 9.0 L [place] % (Auto) 11.3 H 7.5 Eos % (Auto) 1.3 1.0 Baso % (Auto) 0.3 0.3 Neut # (Auto) 5.1 8.0 H Lymph # (Auto) 1.5 0.9 [place] # (Auto) 0.9 0.7 Eos # (Auto) 0.1 0.1 Baso # (Auto) 0.0 0.0 PT INR APTT Activated Clotting Time > 400 H* D-Dimer Sodium 133 L 136 Potassium 4.0 4.0 Chloride 101 102 Carbon Dioxide 26 21 L Anion Gap 10.0 17.0 H BUN 13 12 Creatinine 1.00 1.00 Estimated Creat Clear 100 100 Estimated GFR 76 76 Est GFR ( Amer) 93 93 D Glucose 109 H 111 H Calcium 8.7 8.9 Total Bilirubin 1.2 AST 158 H ALT 34 Alkaline Phosphatase 60 Troponin I Total Protein 6.3 Albumin 3.9 D Globulin 2.4 Albumin/Globulin Ratio 1.6 Lipase HCV Ab YEHUDA w/Rflx PCR Qn HIV Ag/Ab Combo Qual 11/24/24 19:20 WBC 10.6 RBC 5.20 Hgb 15.3 Hct 47.1 MCV 90.6 MCH 29.4 MCHC 32.5 RDW 12.6 Plt Count 214 MPV 11.0 H Neut % (Auto) 75.1 Lymph % (Auto) 13.8 [place] % (Auto) 8.9 Eos % (Auto) 1.5 Baso % (Auto) 0.3 Neut # (Auto) 8.0 H Lymph # (Auto) 1.5 [place] # (Auto) 0.9 Eos # (Auto) 0.2 Baso # (Auto) 0.0 PT 11.1 INR 1.00 APTT 23.6 Activated Clotting Time D-Dimer 0.53 H Sodium 136 Potassium 3.9 Chloride 100 Carbon Dioxide 28 Anion Gap 11.9 BUN 13 Creatinine 1.20 Estimated Creat Clear 83 Estimated GFR 62 Est GFR ( Amer) 75 Glucose 108 H Calcium 9.8 Total Bilirubin 1.3 AST 143 H ALT 37 Alkaline Phosphatase 71 Troponin I 11.30 H Total Protein 8.1 Albumin 4.8 Globulin 3.3 H Albumin/Globulin Ratio 1.5 Lipase 93 HCV Ab YEHUDA w/Rflx PCR Qn Negative HIV Ag/Ab Combo Qual Negative DS: Diagnosis Discharge Diagnosis (1) CAD (coronary artery disease): Status: Acute Code(s): I25.10 - Atherosclerotic heart disease of [place] coronary artery without angina pectoris (2) Acute coronary syndrome: Status: Acute Code(s): I24.9 - Acute ischemic heart disease, unspecified (3) NSTEMI (non-ST elevated myocardial infarction): Status: Acute Code(s): I21.4 - Non-ST elevation (NSTEMI) myocardial infarction (4) Status post left heart catheterization: Status: Acute Code(s): Z98.890 - Other specified postprocedural states Meds Home Medications and Allergies Home Medications ?Medication ?Instructions ?Recorded ?Confirmed ?Type aspirin 81 mg tablet,delayed 81 mg PO DAILY 30 days #3 0 tabs 11/25/24 Rx release atorvastatin 40 mg tablet 40 mg PO HS 30 days #30 tabs 11/25/24 Rx carvedilol 3.125 mg tablet 3.125 mg PO BID 30 days #60 tabs 11/25/24 Rx clopidogrel 75 mg tablet 75 mg PO DAILY 30 days #30 t abs 11/25/24 Rx lisinopril 5 mg tablet 5 mg PO DAILY 30 days #30 ta bs 11/25/24 Rx New Prescriptions to Start Prescriptions: aspirin Zhang,Jessika atorvastatin Zhang,Jessika carvedilol Zhang,Jessika clopidogrel Zhang,Jessika lisinopril Zhang,Jessika Allergies Allergy/AdvReac Type Severity Reaction Status Date / Time No Known Allergies Allergy Verified 06/09/24 09:44 Discharge Plan Disposition Patient Disposition: Home, Self-Care Condition: Fair Follow up Plan Follow up with: Boston Colunga MD [Staff Physician, Cardiology] - Enter time for follow up Provider,MD Leia [Primary Care Provider, Medical] - See instructions Prescriptions/Medication Reconciliation: New atorvastatin 40 mg Tablet 40 mg PO HS 30 Days Qty: 30 0RF clopidogrel 75 mg Tablet 75 mg PO DAILY 30 Days Qty: 30 0RF aspirin 81 mg Tablet,Delayed Release (Dr/Ec) 81 mg PO DAILY 30 Days Qty: 30 0RF carvedilol 3.125 mg Tablet 3.125 mg PO BID 30 Days Qty: 60 0RF lisinopril 5 mg Tablet 5 mg PO DAILY 30 Days Qty: 30 0RF Discontinued atorvastatin 20 mg tablet 20 mg PO DAILY Patient Comments: TAKE 1 TABLET BY MOUTH ONCE DAILY IN THE MORNING FOR CHOLESTEROL Other Ambulatory Orders: CA echo doppler complete (Routine) Timeframe: 1 Week Facility: [facility] - Location: Respiratory Therapy Ordered By: Jessika Holcomb Problem Reconciliation Problems Reviewed?: Yes Patient Discharge Instructions ACTIVITY: No heavy lifting DIET: cardiac Patient Instructions: Cardiac Catheterization, DI for Cardiac Catheterization, DI for Chronic Pain -- Adult, Stop Light Infection Print Language: Estonian Providers Primary Care Provider: Provider,Referral Admit Provider: Ross Abreu Attending Provider: Ross Abreu
[2024-11-25 12:00] VITALS: PULSE 60
[2024-11-25] MEDS: LISINOPRIL 5MG TABLET 5 MG PO (12:28)
--- NOTE | 2024-11-28 11:36 | SW/DCPLANNER ---
Spoke with patient on the phone. Patient stated that he is doing much better. Patient stated that he was able to get his new medicine picked up. Patient stated that he was able to call cardiology and left a message to schedule his follow up but has not called his pcp. Patient stated that he has no concerns or questions at this time.\ Shirley Londono
--- OUTSIDE RECORDS SUMMARY | 2024-11-28 14:52 | XMS_ITS | Data Portability ---
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 Plan of Treatment Reminders Order Date Submit Date Provider Last Modified By Organization Details Last Modified Time Details Appointments Establish ed Visit 15 min 2024 01:30P M Noe Rich MD Not available Not available Not available Lab lipid panel, serum 2024 025 [email or web address] [facility], [address], [facility] [address], [address], 09/08/2024 14:12:42 HbA1c (hemoglob in A1c), blood 2024 025 [email or web address] [facility], [address] [facility] [address], [place], [address], 09/08/2024 15:45:53 lipid panel, serum 2024 025 [email or web address] [facility], [address], [address], [place], [address], 09/07/2024 06:45:35 HbA1c (hemoglob in A1c), blood 2023 024 [email or web address] [facility], [address] [facility] [address], [place], [address], 03/09/2024 22:05:56 lipid panel, serum 2023 024 [facility], [address], [address], [place], [address], 03/16/2024 08:08:30 PSA, total, serum or plasma 2023 024 [email or web address], [address], [address], [place], [address], 11/17/2023 13:04:58 lipid panel, serum 2023 024 [place] [address] [facility], [address], [address], [place], [address], 11/17/2023 13:04:58 CMP, serum or plasma 2023 024 [place] [address] [facility], [address], [address], [place], [address], 11/17/2023 13:04:58 CBC w/ auto diff 2023 024 [place] [address] [facility], [address], [address], [place], [address], 11/17/2023 13:04:58 TSH + free T4, serum 2023 024 [place] [address] [facility], [address], [address], [place], [address], 11/17/2023 13:04:58 HbA1c (hemoglob in A1c), blood [address] [facility], [address], [address], [place], [address], 11/17/2023 13:04:58 Referral None recorded. Procedures None recorded. Surgeries None recorded. Imaging None recorded. Medication Orders atorvasta tin 20 mg tablet 2024 025 [facility] 591, [address], [place], [address], 09/08/2024 14:12:15 Patient TargetsNo targets recorded. Patient InstructionsNo instructions recorded. Reason for Referral None Reported. Results Created Date Observation Date Name Description Value Unit Range Abnormal Flag Note LastModifiedBy Organization Detail LastModifiedTime 11/16/1911/17/2023 TSH+F REE T4 TSH 1.480 uIU/m L 0.450- 4.500 Not Available [facility] ([facility]) [address] [place], [address], 11/17/2023 07:38:12 11/16/19 24 11/17/2023 TSH+F REE T4 T4,free(dire ct) 1.18 NG/dL 0.82-1 .77 Not Available [facility] ([facility]) [address] [place], [address], 11/17/2023 07:38:12 11/16/19 24 11/17/2023 CBC WITH DIFFE RENTI AL/PL ATELE T WBC 6.3 x10e3 /uL 3.4-10 .8 Not Available [facility] ([facility]) [address] [place], [address], 11/17/2023 07:38:13 11/16/1911/17/2023 CBC WITH DIFFE RENTI AL/PL ATELE T RBC 5.37 x10e6 /uL 4.14-5 .80 Not Available [facility] ([facility]) [address] [place], [address], 11/17/2023 07:38:13 11/16/1911/17/2023 CBC WITH DIFFE RENTI AL/PL ATELE T hemoglobin 16.2 g/dL 13.0-1 7.7 Not Available [facility] ([facility]) [address] [place], [address], 11/17/2023 07:38:13 11/16/19 24 11/17/2023 CBC WITH DIFFE RENTI AL/PL ATELE T hematocrit 48.4 % 37.5-5 1.0 Not Available [facility] ([facility]) [address] [facility], [place], [address], 11/17/2023 07:38:13 11/16/19 24 11/17/2023 CBC WITH DIFFE RENTI AL/PL ATELE T MCV 90 fL 79-97 Not Available [facility] ([facility]) [address] [facility], [place], [address], 11/17/2023 07:38:13 11/16/1911/17/2023 CBC WITH DIFFE RENTI AL/PL ATELE T MCH 30.2 pg 26.6-3 3.0 Not Available [facility] ([facility]) [address] [facility], [place], [address], 11/17/2023 07:38:13 11/16/1911/17/2023 CBC WITH DIFFE RENTI AL/PL ATELE T MCHC 33.5 g/dL 31.5-3 5.7 Not Available [facility] ([facility]) [address] [facility], [place], [address], 11/17/2023 07:38:13 11/16/1911/17/2023 CBC WITH DIFFE RENTI AL/PL ATELE T RDW 13.5 % 11.6-1 5.4 Not Available [facility] ([facility]) [address] [facility], [place], [address], 11/17/2023 07:38:13 11/16/1911/17/2023 CBC WITH DIFFE RENTI AL/PL ATELE T platelets 280 x10e3 /uL 150-45 0 Not Available [facility] ([facility]) [address] [facility], [place], [address], 11/17/2023 07:38:13 11/16/19 24 11/17/2023 CBC WITH DIFFE RENTI AL/PL ATELE T neutrophils 61 % not estab. Not Available [facility] ([facility]) [address] [facility], [place], [address], 11/17/2023 07:38:13 11/16/19 24 11/17/2023 CBC WITH DIFFE RENTI AL/PL ATELE T lymphs 26 % not estab. Not Available [facility] ([facility]) [address] [facility], [place], [address], 11/17/2023 07:38:13 11/16/19 24 11/17/2023 CBC WITH DIFFE RENTI AL/PL ATELE T monocytes 10 % not estab. Not Available [facility] ([facility]) [address] [facility], [place], [address], 11/17/2023 07:38:13 11/16/19 24 11/17/2023 CBC WITH DIFFE RENTI AL/PL ATELE T eos 2 % not estab. Not Available [facility] ([facility]) [address] [facility], [place], [address], 11/17/2023 07:38:13 11/16/19 24 11/17/2023 CBC WITH DIFFE RENTI AL/PL ATELE T basos 1 % not estab. Not Available [facility] (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) [address] [place], [address], 11/17/2023 07:38:13 11/16/19 24 11/17/2023 CBC WITH DIFFE RENTI AL/PL ATELE T neutrophils (absolute) 3.8 x10e3 /uL 1.4-7. 0 Not Available [facility] ([facility]) [address] [facility], [place], [address], 11/17/2023 07:38:13 11/16/19 24 11/17/2023 CBC WITH DIFFE RENTI AL/PL ATELE T lymphs (absolute) 1.6 x10e3 /uL 0.7-3. 1 Not Available [facility] ([facility]) [address] [facility], [place], [address], 11/17/2023 07:38:13 11/16/19 24 11/17/2023 CBC WITH DIFFE RENTI AL/PL ATELE T monocytes(ab solute) 0.6 x10e3 /uL 0.1-0. 9 Not Available [facility] ([facility]) [address] [facility], [place], [address], 11/17/2023 07:38:13 11/16/19 24 11/17/2023 CBC WITH DIFFE RENTI AL/PL ATELE T eos (absolute) 0.1 x10e3 /uL 0.0-0. 4 Not Available [facility] ([facility]) [address] [place], [address], 11/17/2023 07:38:13 11/16/19 24 11/17/2023 CBC WITH DIFFE RENTI AL/PL ATELE T baso (absolute) 0.1 x10e3 /uL 0.0-0. 2 Not Available [facility] ([facility]) [address] [place], [address], 11/17/2023 07:38:13 11/16/19 24 11/17/2023 CBC WITH DIFFE RENTI AL/PL ATELE T immature granulocytes 0 % not estab. Not Available [facility] ([facility]) [address] [facility], [place], [address], 11/17/2023 07:38:13 11/16/19 24 11/17/2023 CBC WITH DIFFE RENTI AL/PL ATELE T immature grans (abs) 0.0 x10e3 /uL 0.0-0. 1 Not Available [facility] (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) [address] [facility], [place], [address], 11/17/2023 07:38:13 11/16/19 24 11/17/2023 COMP. METAB OLIC PANEL (14) glucose 112 mg/dL 70-99 above high normal Not Available [facility] ([facility]) [address] [facility], [place], [address], 11/17/2023 07:38:13 11/16/19 24 11/17/2023 COMP. METAB OLIC PANEL (14) BUN 19 mg/dL 6-24 Not Available [facility] ([facility]) [address] [place], [address], 11/17/2023 07:38:13 11/16/19 24 11/17/2023 COMP. METAB OLIC PANEL (14) creatinine 1.31 mg/dL 0.76-1 .27 above high normal Not Available [facility] ([facility]) [address] [place], [address], 11/17/2023 07:38:13 11/16/19 24 11/17/2023 COMP. METAB OLIC PANEL (14) eGFR 63 mL/mi n/1.7 3 >59 Not Available [facility] ([facility]) [address] [place], [address], 11/17/2023 07:38:13 11/16/19 24 11/17/2023 COMP. METAB OLIC PANEL (14) BUN/creatini ne ratio 15 9-20 Not Available [facility] ([facility]) [address] [facility], [place], [address], 11/17/2023 07:38:13 11/16/19 24 11/17/2023 COMP. METAB OLIC PANEL (14) sodium 139 mmol/ L 134-14 4 Not Available [facility] ([facility]) [address] [place], [address], 11/17/2023 07:38:13 11/16/19 24 11/17/2023 COMP. METAB OLIC PANEL (14) potassium 4.4 mmol/ L 3.5-5. 2 Not Available [facility] ([facility]) [address] [facility], [place], [address], 11/17/2023 07:38:13 11/16/19 24 11/17/2023 COMP. METAB OLIC PANEL (14) chloride 104 mmol/ L 96-106 Not Available [facility] ([facility]) [address] [place], [address], 11/17/2023 07:38:13 11/16/19 24 11/17/2023 COMP. METAB OLIC PANEL (14) carbon dioxide, total 19 mmol/ L 20-29 below low normal Not Available [facility] ([facility]) [address] [place], [address], 11/17/2023 07:38:13 11/16/19 24 11/17/2023 COMP. METAB OLIC PANEL (14) calcium 9.5 mg/dL 8.7-10 .2 Not Available [facility] ([facility]) [address] [place], [address], 11/17/2023 07:38:13 11/16/19 24 11/17/2023 COMP. METAB OLIC PANEL (14) protein, total 7.1 g/dL 6.0-8. 5 Not Available [facility] ([facility]) [address] [facility], [place], [address], 11/17/2023 07:38:13 11/16/19 24 11/17/2023 COMP. METAB OLIC PANEL (14) albumin 4.4 g/dL 3.8-4. 9 Not Available [facility] ([facility]) [address] [facility], [place], [address], 11/17/2023 07:38:13 11/16/19 24 11/17/2023 COMP. METAB OLIC PANEL (14) globulin, total 2.7 g/dL 1.5-4. 5 Not Available [facility] ([facility]) [address] [place], [address], 11/17/2023 07:38:13 11/16/19 24 11/17/2023 COMP. METAB OLIC PANEL (14) bilirubin, total 0.5 mg/dL 0.0-1. 2 Not Available [facility] ([facility]) [address] [place], [address], 11/17/2023 07:38:13 11/16/19 24 11/17/2023 COMP. METAB OLIC PANEL (14) alkaline phosphatase 87 IU/L 44-121 Not Available [facility] ([facility]) [address] [facility], [place], [address], 11/17/2023 07:38:13 11/16/19 24 11/17/2023 COMP. METAB OLIC PANEL (14) AST (SGOT) 19 IU/L 0-40 Not Available [facility] ([facility]) [address] [place], [address], 11/17/2023 07:38:13 11/16/19 24 11/17/2023 COMP. METAB OLIC PANEL (14) ALT (SGPT) 24 IU/L 0-44 Not Available [facility] ([facility]) [address] [place], [address], 11/17/2023 07:38:13 11/16/19 24 11/17/2023 LIPID PANEL cholesterol, total 234 mg/dL 100-19 9 above high normal Not Available [facility] ([facility]) [address] [place], [address], 11/17/2023 07:38:14 11/16/19 24 11/17/2023 LIPID PANEL triglyceride s 110 mg/dL 0-149 Not Available [facility] ([facility]) [address] [place], [address], 11/17/2023 07:38:14 11/16/19 24 11/17/2023 LIPID PANEL HDL cholesterol 51 mg/dL >39 Not Available [facility] ([facility]) [address] [place], [address], 11/17/2023 07:38:14 11/16/19 24 11/17/2023 LIPID PANEL VLDL cholesterol kristian 20 mg/dL 5-40 Not Available [facility] ([facility]) [address] [place], [address], 11/17/2023 07:38:14 11/16/19 24 11/17/2023 LIPID PANEL LDL chol calc ([facility]) 163 mg/dL 0-99 above high normal Not Available [facility] (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) [address] [place], [address], 11/17/2023 07:38:14 11/16/19 24 11/17/2023 HEMOG LOBIN A1C hemoglobin A1C 6.0 % 4.8-5. 6 above high normal Predi abete s: 5.7 - 6.4 Diabe sania: >6.4 Glyce megan contr ol for adult s with diabe sania: <7.0 Not Available [facility] ([facility]) [address] [facility], [place], [address], 11/17/2023 07:38:14 11/16/19 24 11/17/2023 PROST ATE-S [...] of laury harper se. Not Available [facility] ([facility]) [address] [facility], [place], [address], 11/17/2023 07:38:15 03/09/20 24 03/09/2024 HbA1c (hemo globi n A1c), blood HbA1c 5.7 Not Available [facility] [address], [place], [address], 03/09/2024 14:01:49 09/07/19 25 09/07/2024 LIPID PANEL cholesterol, total 216 mg/dL 100-19 9 above high normal Not Available [facility] ([facility]) [address] [facility], [place], [address], 09/07/2024 06:45:35 09/07/19 25 09/07/2024 LIPID PANEL triglyceride s 145 mg/dL 0-149 normal Not Available [facility] ([facility]) [address] [facility], [place], [address], 09/07/2024 06:45:35 09/07/19 25 09/07/2024 LIPID PANEL HDL cholesterol 46 mg/dL >39 normal Not Available [facility] ([facility]) [address] [facility], [place], [address], 09/07/2024 06:45:35 09/07/19 25 09/07/2024 LIPID PANEL VLDL cholesterol kristian 26 mg/dL 5-40 Not Available [facility] ([facility]) [address] [facility], [place], [address], 09/07/2024 06:45:35 09/07/19 25 09/07/2024 LIPID PANEL LDL chol calc ([facility]) 144 mg/dL 0-99 above high normal Not Available [facility] (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) [address] [facility], [place], [address], 09/07/2024 06:45:35 09/09/19 25 09/08/2024 HbA1c (hemo globi n A1c), blood HbA1c 5.7 Not Available [facility] [address], [place], [address], 09/08/2024 13:40:39 Result Notes None recorded. Problems Name Problem SNOMED Code Status Onset Date Resolution Date Notes Provider Name and Address Organization Details Recorded Time History of malignant neoplasm of colon and/or rectum Active 024 CHARLES Suarez - [facility] - [place] [facility] [place] 14:56:04 Problem Notes None recorded. Procedures Surgical History Date Name Laterality Status Provider Name and Address Organization Details Recorded Time 02/12/20 24 Colonoscopy completed Anum Rothamer [place] - [facility] - [place] 08/12/2024 15:30:30 09/23/19 23 Colonoscopy completed Anum Rothamer [place] - [facility] [place] 08/12/2024 15:30:06 08/14/19 22 Flexible Sigmoidoscopy completed Anum Rothamer [place] - [facility] [place] 10/27/2023 15:03:24 01/17/20 21 graft of skin to skin completed Anum Rothamer [place] - [facility] [place] 10/27/2023 15:18:29 11/09/19 21 debridement of wound of skin completed Anum [place]amer [place] - [facility] [place] 10/27/2023 15:05:56 08/14/19 21 Colonoscopy completed Anum Rothamer [place] - [facility] [place] 08/12/2024 15:29:44 05/25/18 99 Cholecystectomy completed Anum [place]amer [place] - [facility] [place] 08/12/2024 15:28:24 05/25/18 96 Abdominal Surgery completed Marcela Barreto [place] - [facility] - [place] 12/07/2023 14:55:59 multi-agent systemic chemotherapy completed Anum [place]amer [place] - [facility] - [place] 10/27/2023 15:03:40 combined chemotherapy and radiation therapy completed Anum [place]amer [place] - [facility] [place] 10/27/2023 15:04:01 Total knee arthroplasty completed Anum [place]amer [place] - [facility] [place] 10/27/2023 15:06:07 accessing of implantable venous access port completed Anum Rothamer [place] - [facility] [place] 10/27/2023 15:07:31 removal of implantable venous access port completed Anum Rothamer [place] - [facility] [place] [facility] [place] 10/27/2023 15:07:39 Ileostomy/jejunost garo completed Anum Escobar [place] - [facility] & [place] 11/23/2023 08:14:28 Imaging Results None recorded. Procedure Notes None recorded. 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 Serial Number Lot Number Status Provider Name and Address Organization Details Recorded Time Port A Cath Placement FDA Y Anum Escobar [facility], [place] - [facility] & [place] 10/27/2023 15:24:40 Allergies No known drug allergies [...] Updated DateTime 5 170.18 cm 30.7 kg/m2 06255.7 8 g 97.7 [degF] 96 % 96 % 72 /min 138/82 mm[Hg] Mya Andino [facility] & [place] 5 13:31:06 Date Recorded Body height Body mass index (BMI) Body weight Body temperature Oxygen saturation Oxygen saturation in Arterial blood by Pulse oximetry Heart rate Systolic And Diastolic Provider Name and Address Organization Details Last Updated DateTime 4 170.18 cm 30.3 kg/m2 65855.1 3 g 98.1 [degF] 97 % 97 % 71 /min 135/76 mm[Hg] Marcela Barreto [facility] & [place] 4 15:07:55 Date Recorded Body height Body mass index (BMI) Body weight Body temperature Oxygen saturation Oxygen saturation in Arterial blood by Pulse oximetry Heart rate Systolic And Diastolic Provider Name and Address Organization Details Last Updated DateTime 4 170.18 cm 30.5 kg/m2 64303.5 1 g 97.8 [degF] 99 % 99 % 54 /min 112/74 mm[Hg] Gina Becerra [place] - [place] [facility] & [place] 4 13:15:29 Social History Question Answer Notes LastModified by Organizat ion Details LastModified Time Tobacco Smoking Status Former Smoker Marcela Barreto null, [place] - [facility] - [place] 11/03/2023 14:57:26 Do You Have An Advance Directive? No [email or web address] Information not available 12/07/2023 Are You Blind Or Do You Have Difficulty Seeing? No [email or web address] Information not available 12/07/2023 What Is Your Level Of Caffeine Consumption? Moderate [email or web address] Information not available 11/03/2023 When Did You Quit Smoking? 6-10yearssinc elastcigarett e [email or web address] Information not available 11/03/2023 What Was The Date Of Your Most Recent Tobacco Screening? 12/04/2023 [email or web address] Information not available 12/07/2023 What Is Your Current Pack Years? 20-29packyear s [email or web address] Information not available 11/03/2023 Are You Passively Exposed To Smoke? No [email or web address] Information not available 12/07/2023 How Much Tobacco Do You Smoke? 1 [email or web address] [email or web address] Information not available 12/07/2023 How Many Years Have You Smoked Tobacco? 15 [email or web address] Information not available 12/07/2023 Sex: Unknown Functional Status Question Answer Note LastModified by Organizat ion Details LastModified Time Do you use any illicit or recreational drugs? No Information not available 11/03/2023 Do you or have you ever used any other forms of tobacco or nicotine? No [email or web address] Information not available 11/03/2023 What is your level of alcohol consumption? Moderate [email or web address] Information not available 11/03/2023 Do you or have you ever used smokeless tobacco? Never used smokeless tobacco [email or web address] Information not available 12/07/2023 What is your exercise level? Moderate [email or web address] Information not available 12/07/2023 Mental Status Question Answer Note LastModified by Organization D etails LastModified Time Do you feel stressed (tense, restless, nervous, or anxious, or unable to sleep at night)? [id number] [email or web address] Information not available 12/07/2023 Family History Relationship Description Onset Age of this Age Resolved Age Notes LastModified by Organization Details LastModified Time Maternal Grandfather Myocardial infarction Not available 10/26 13:34:10 Mother Malignant tumor of breast [email or web address] Not available 08/23 13:19:27 Mother Diabetes mellitus [email or web address] Not available 08/23 13:19:28 Mother Malignant tumor of pancreas [email or web address] Not available 08/23 13:19:28 Mother Hypercholest erolemia pt. added direct ly (12/03) [email or web address] Not available 12/04/2023 23:19:46 Mother Rheumatoid arthritis pt. added direct ly (12/03) [email or web address] Not available 12/04/2023 23:20:06 Mother Hearing loss pt. added direct ly (12/03) [email or web address] Not available 12/04/2023 23:21:04 Unspecified Relation Family history of hereditary nonpolyposis colon cancer Harris syndro me [email or web address] Not available 09/08/2024 13:19:28 Medical History Condition Response Obesity Y Cancer Y Heart Problems Y Pulmonary Embolism Y High Cholesterol Y Reflux/GERD Y Immunizations Vaccine Type Date Status Note Provider Nam e and Address Organization Details Recorded Time SARS-COV-2 (COVID-19) vaccine, UNSPECIFIED 9 completed Anum Rothamer null, [place] - [facility] [place] 10/27/2023 15:10:23 Hep B, unspecified formulation 9 completed Anum Rothamer [place], [place] - [facility] [place] 10/27/2023 15:15:58 Hep B, unspecified formulation 9 completed Anum Rothamer null, [place] - [facility] [place] 10/27/2023 15:16:03 Hep B, unspecified formulation 9 completed Anum Rothamer [place] - [facility] [place] 10/27/2023 15:16:10 Tdap 6 completed Anum Rothamer [place], [place] - [facility] [place] 10/27/2023 15:16:58 zoster recombinant 3 completed Marcela Barreto null, [place] - [facility] [place] 11/03/2023 15:42:56 zoster recombinant 3 completed [facility] [place] 11/03/2023 15:42:56 COVID-19, mRNA, LNP-S, PF, 100 mcg/0.5mL dose or 50 mcg/0.25mL dose 2 completed Marcela Barreto null, [place] - [facility] & [place] 11/03/2023 15:42:56 COVID-19, mRNA, LNP-S, PF, 100 mcg/0.5mL dose or 50 mcg/0.25mL dose 1 completed Marcela Barreto null, [place] - [facility] & [place] 11/03/2023 15:42:56 COVID-19, mRNA, LNP-S, PF, 100 mcg/0.5mL dose or 50 mcg/0.25mL dose 1 completed [facility] null, [facility] [place] 11/03/2023 15:42:57 Hep A, adult 9 completed Marcel[facility]reto null, [facility] [place] 11/03/2023 15:42:57 Influenza, split virus, quadrivalent, PF 3 completed Marcel[facility] null, [facility] [place] 11/03/2023 15:42:57 Influenza, split virus, quadrivalent, PF 7 completed Marcela Barreto null, [facility] & [place] 11/03/2023 15:42:57 Influenza, split virus, quadrivalent, PF 9 completed Marcel[facility]to null, [facility] [place] 11/03/2023 15:42:57 Influenza, split virus, quadrivalent, PF 8 completed Marcel[facility]reto null, [facility] [place] 11/03/2023 15:42:57 Influenza, split virus, quadrivalent, PF 0 completed Marcel[facility]to null, [facility] [place] 11/03/2023 15:42:57 Influenza, split virus, quadrivalent, PF 6 completed Marcela Barreto null, CHARLES - [facility] [place] 11/03/2023 15:42:57 Influenza, split virus, quadrivalent, PF 2 completed Marcela Barreto brian, CHARLES [place] [place] [facility] [place] 11/03/2023 15:42:57 Influenza, MDCK, trivalent, PF 4 completed Noe Rich MD [address] [facility], [place], [address], [facility] [place] [facility] [place] 03/10/2024 06:02:12 Past Encounters Encounter ID Performer Location Encounter Start Date Encounter Closed Date Diagnosis/Indication Diagnosis SNOMED-CT Code Diagnosis ICD10 Code Diagnosis Note [id number] Noe Rich MD [facility] [address] [place] [address] 11/03/2023 14:38:07 11/03/2023 15:36:04 Elevated blood-pressure reading without diagnosis of hypertension 204962445 R03.0 initial BP was 161/88 and repeat was not much different. I am asking him to purchase a blood pressure cuff and take his blood pressure at different times during the day and return to clinic in 4 weeks to review readings [id number] Noe Rich MD [facility] [address] [facility] [place] [address] 11/16/2023 14:40:12 11/16/2023 14:53:32 Diabetes mellitus screening 083980619 Z13.1 Hyperlipid emia screening 469546457 Z13.220 Screening for malignant neoplasm of prostate 730159898 Z12.5 Thyroid di sorder screening 637399255 Z13.29 Elevated blood-pressure reading without diagnosis of hypertension 120207641 R03.0 initial BP was 161/88 and repeat was not much different. I am asking him to purchase a blood pressure cuff and take his blood pressure at different times during the day and return to clinic in 4 weeks to review readings [id number] Noe Rich MD [facility] [address] [facility] [place] [address] 12/07/2023 14:37:56 12/07/2023 15:44:19 Prediabetes 839348159 R73.03 discussed need for dietary change. He is recommende d to review suggestion s online for a diabetic type diet, decrease his overall carbohydra te intake and consider a modest 13 lb weight loss. we will follow up in 3 months Elevated blood-pressure reading without diagnosis of hypertension 710839588 R03.0 this apparently represents a bit of white coat hypertensi on as all of his home blood pressure readings are normal Hyperlipidemia 43051339 E78.5 LDL was moderately elevated at 163. I would like to see if his attention to diet and modest weight loss results in any improvemen t before initiating a statin. [id number] Noe Rich MD [facility] [address] [facility] [address] [place] [address] 03/09/2024 13:07:30 03/09/2024 14:25:40 Prediabetes 446367814 R73.03 the patient did not lose any weight he is improved his control of his blood sugar as noted by an improved A1c of 5.7%. Continue to monitor diet, may changes where he can and try to lose A few lb. Elevated blood-pressure reading without diagnosis of hypertension 807378587 R03.0 Blood pressure is well controlled today and he has on no medication . Hyperlipidemia 86112346 E78.5 Last lipid profile at the beginning of the summer revealed his LDL to be moderately elevated at 163. He has been eating better but is not fasting today .RTC in 6 months with FLP Administra tion of influenza vaccine 96864257 Z23 [id number] Noe Rich MD [facility] [address] [place] [address] 09/08/2024 13:19:15 09/08/2024 14:08:52 Prediabetes 837149710 R73.03 A1c is 5.7%. Doing well. Continue to check A1c every 6-12 months Pure hypercholesterolemia 104437089 E78.00 lipids are elevated with total cholestero l of 216 HDL 46 and LDL of 144.10 year ASCVD risk is elevated at 10.3%. Start atorvastat in. F/U in 6 months Pain in ri ght lower limb 325403793 M79.604 apparently when he is parked at [facility] and having to push a cart full [...] the court house and bring it by. [id number] Noe Rich MD [facility] [address] [place] [address] 09/06/2024 13:34:25 09/06/2024 14:40:08 [facility] [id number] E78.5 Health Concerns Section Related Observation LastModified [...] REPLACEMENT/A DVANTAGE - PPO) Brayden Knox Kurt [id number] Brayden Hicks Notes Date Note Type Note [...] A1c was 6.0 Noe Rich MD [address], [place], [address], [facility] [place] 12/08/2023 06:51:37 03/09/2024 text/html Pt presents for 3 month f/u. Has tried to eat more salads. Would like flu shot. At last visit his A1c was 6.0 % placing him in the Prediabetes category. BP was also elevated. On no meds. today his A1c is down to 5.7% BP is 112/74 Noe Rich MD [address], [place], [address], [facility] 03/10/2024 06:09:59 09/08/2024 text/html Pt presents for 6 month F/U. Just had lipid profile redrawn. Noe Rich MD [address], [place], [address], [facility] 09/08/2024 18:19:39
--- OUTSIDE RECORDS SUMMARY | 2024-11-28 14:52 | XMS_ITS | Clinical Summary ---
Author Organization [facility] Address [address] [place] [address] Care Team Providers Care Hygiene Teacher Name Role Phone Dane Barrett MD Unavailable [phone] Brayden Zarco MD Unavailable [phone] Donte Sheets MD Primary Care Provider [phone] Allergies No known active allergies Medications acetaminophen [...] Screening 09/17/2021 [facility]-Depression Screening 12/24/2022 12/24/2021, 03/26 [id number] Vaccine (4 - season) 2024 06/25/2021, 09/05/2020, [...] this topic Medical Devices Implanted Type Area Counselor Manager Device Identifier Shelf Expiration Date Model / [...] of bowel preparation was evaluated using the [place] Bowel Preparation Scale with scores of: left colon = 2. Bowel prep was adequate. The patient experienced no blood loss. The procedure was not difficult. The patient tolerated the procedure well. There were no apparent complications. Conscious sedation administered by myself, ARTHUR Barrett MD; monitored and without complication. Reginald Escudero RN was independent observer. See nursing notes [...] Antibody/Antigen Screen (11/05/2020 6:30 PM EDT) Pathologist [facility] HIV 1 & 2 Antibody/Anti gen Screen Nonreactive Nonreactive 11/05/2020 8:02 PM EDT [facility] Blood Venous blood specimen / Unknown Venipuncture / Unknown 11/05/2020 6:30 PM EDT 11/05/2020 8:02 PM EDT Marcello Mckeon MD LAB BLOOD ORDERABLES Final Re sult Performing Organization Address [facility] Co de Phone Number [facility] [address] [place] [address] * [place] Hepatitis C Antibody (11/05/2020 6:30 PM EDT) Pathologist [facility] Hepatitis C Antibody Negative Negative 11/05/2020 8:02 PM EDT [facility] Blood Venous blood specimen / Unknown Venipuncture / Unknown 11/05/2020 6:30 PM EDT 11/05/2020 8:02 PM EDT Marcello Mckeon MD LAB BLOOD ORDERABLES Final Re sult Performing Organization Address [facility] Co de Phone Number [facility]ARE [facility] [address] [place] [address] from Last 3 Months or Most Recently [...] 4:13 PM 10/29/2020 6:33 PM Care Teams Hygiene Teacher Relationship Specialty Start Date End Date Donte Sheets MD [address] [place] [address] PCP - General 08/23/21 Dane Barrett MD [address] [facility] [address] [place] [address] Surgeon Colon and Rectal Surgery 04/16/21 Brayden Zarco MD [address] [facility] [address] [place] [address] Consulting Physician Radiation Oncology 05/30/21
--- OUTSIDE RECORDS SUMMARY | 2024-11-28 14:52 | XMS_ITS | Clinical Summary ---
Author Organization [facility] Address [address] [place] [address] Phone [email or web address] Care Team Providers Care Chair Car Driver Name Role Phone Unavailable Primary Care Provider [...] Immunization Administration Dates Next Due Covid-19 (Moderna Comal, 12yrs+) (CVX-207) 2020,08/08/2020 Hepatitis B (ENGERIX-B:GSK)(RECOMBIVAX-HB:MERCK) (CVX-43) [...] - season) 2024 09/05/2020, 08/08/2020 Influenza Immunization (#1) 2025 Tetanus Diphtheria and Pertussis Immunization (2 [...] to complete this topic Insurance [id number] [place] [address]
--- OUTSIDE RECORDS SUMMARY | 2024-11-28 14:52 | XMS_ITS ---
Author Organization [facility] Address [address] [place] [address] Care Team Providers Care Inside Contractor Sales Name Role Phone aDne Barrett MD Unavailable [phone] Brayden Zarco MD Unavailable [phone] Donte Sheets MD Primary Care Provider [phone] Active Problems Problem Noted Date Diagnosed Date [...]
== END 2024-11-25 13:26 | disposition home or self-care (01) | DRG 321 ==
LOC: ER 19:30 → SDC 19:49 → 2ND 22:01
PROVIDERS: Internal Medicine; Internal Medicine Cardiovascular Disease; Admitting Provider Internal Medicine Adolescent Medicine; Emergency Provider Emergency Medicine; Visit Provider Internal Medicine Adolescent Medicine
PROC: 4A023N7 Measurement of Cardiac Sampling and Pressure, Left Heart, Percutaneous Approach (ICD-10-PCS; CPT 93452; principal; 2024-11-24 20:00)
DX: I25.10 Atherosclerotic heart disease of native coronary artery without angina pectoris (principal); I21.4 Non-ST elevation (NSTEMI) myocardial infarction; I24.9 Acute ischemic heart disease, unspecified; Z98.890 Other specified postprocedural states; Z85.038 Personal history of other malignant neoplasm of large intestine; Z86.711 Personal history of pulmonary embolism
CPT/HCPCS: 36415; 71045; 80048; 80053; 83690; 84484; 85025; 85347; 85378; 85610; 85730; 86803; 87389; 93005; 99152; 99153; C1725; C1760; C1769; C1874; C1887; C1894; G0378; J1200; J1644; J2003; J2250; J2405; J3010; J7040; J7120; Q9967

== ENCOUNTER 2024-12-07 12:35 | Outpatient (CLI) | payer MEDICARE, SELFPAY ==
--- OUTSIDE RECORDS SUMMARY | 2024-12-07 12:41 | XMS_ITS | Clinical Summary ---
Author Organization [facility] Address [address] [place] [address] Care Team Providers Care Slipman Name Role Phone Dane Barrett MD Unavailable [phone] Brayden Zarco MD Unavailable Donte Sheets MD Primary Care Provider Allergies No known active allergies Medications acetaminophen [...] 01/03/2022 11:55 AM EDT Plan of Treatment Upcoming Encounters Date Type Department Care Team (Late st Contact Info) Description 04/24/2025 1:45 PM EST Office Visit [facility] [address] [place] [address] Shefali Rothman MD [address] [place] [address] Health Maintenance Due Date Last Done Comments [facility]-/Child/Adol SDOH Screenings 1965 UKY-Obesity Intervention 1971 UKY- SDOH Screenings 1983 [facility]-Adult SDOH Screenings 1983 [facility]-Pneumococcal Vaccine: 50+ Years (1 of 2 - PCV) 01/18/[address] Colonography 2010 FIT-DNA 2010 FIT 2010 FOBT 2010 [facility]-Colorectal Cancer Screening 09/17/2021 [facility]-Depression Screening 12/24/2022 12/24/2021, 03/26 [id number] Vaccine ( season) 2024 06/25/2021, 09/05/2020, 08/08/2020 [facility]-Influenza Vaccine (#1) 01/23/202503/09, 01/31/2023, 05/11/2022, Additional history exists [facility]-DTaP,Tdap,and Td Vaccines (2 - Td or Tdap) 11/05/2025 11/06/2015 Sigmoidoscopy 09/16/2026 09/16/2021, 05/20/2021 [facility]-Hepatitis A Vaccines Aged Out 09/03/2018 No longer eligible based on patient's age to complete this topic [facility]-Hepatitis B Vaccines Completed 019, 07/20/2018, 06/22/2018 [facility]-HIV Screening Completed 11/05/2020, 10/18/2020 [facility]-Hepatitis C Screening Completed 11/05/2020, [facility]-Zoster Vaccines Completed 04/26/2023, 3 HPV Vaccines Aged Out No longer eligi [...] this topic Medical Devices Implanted Type Area Obstetrics Gyn Device Identifier Shelf Expiration Date Model / [...] 1134 on 09/16/21) Staff Staff Role Reginald Escudero, BELINDA Endo Nurse Fabian Houston Endo Nurse Butch [...] of bowel preparation was evaluated using the [place] Bowel Preparation Scale with scores of: left [...] Screen Nonreactive Nonreactive 11/05/2020 8:02 PM EDT [facility] Blood Venous blood specimen / Unknown Venipuncture / Unknown 11/05/2020 6:30 PM EDT 11/05/2020 8:02 PM EDT Marcello Mckeon MD LAB BLOOD ORDERABLES Final Re sult [facility] [address] [place] [address] * [place] Hepatitis C Antibody (11/05/2020 6:30 PM EDT) Pathologist [facility] Hepatitis C Antibody Negative Negative 11/05/2020 8:02 PM EDT [facility] Blood Venous blood specimen / Unknown Venipuncture / Unknown 11/05/2020 6:30 PM EDT 11/05/2020 8:02 PM EDT us Marcello Mckeon MD LAB BLOOD ORDERABLES Final Re sult [facility] [address] [place] [address] from Last 3 Months or Most Recently Relevant to Health Maintenance Insurance ANTHEM Advance Directives * Full Code (Latest Code [...] 4:13 PM 10/29/2020 6:33 PM Care Teams Slipman Relationship Specialty Start Date End Date Donte Sheets MD [address] [place] [address] PCP - General 08/23/21 Dane Barrett MD [address] [facility] [address] [place] [address] Surgeon Colon and Rectal Surgery 04/16/21 Brayden Zarco MD [address] [address] Consulting Physician Radiation Oncology 05/30/21
--- OUTSIDE RECORDS SUMMARY | 2024-12-07 12:41 | XMS_ITS | Clinical Summary ---
Author Organization [facility] Address [address] [place] [address] Phone [email or web address] Care Team Providers Care Volleyball Commentator Name Role Phone Unavailable Primary Care Provider [...] Immunization Administration Dates Next Due Covid-19 (Moderna Aurora, 12yrs+) (CVX-207) 2020,08/08/2020 Hepatitis B (ENGERIX-B:GSK)(RECOMBIVAX-HB:MERCK) (CVX-43) [...] to complete this topic Insurance [id number] [place] [address]
--- OUTSIDE RECORDS SUMMARY | 2024-12-07 12:41 | XMS_ITS ---
Author Organization [facility] Address [address] [place] [address] Care Team Providers Care Energy Technician Name Role Phone Dane Barrett MD Unavailable [phone] Brayden Zarco MD Unavailable [phone] Donte Sheets MD Primary Care Provider [phone] Active Problems Problem Noted Date Diagnosed Date [...]
--- NOTE | 2024-12-07 13:00 | CT_ITS ---
FINAL REPORT TECHNIQUE: CT examination of the abdomen and pelvis was performed after the administration of oral and intravenous contrast. Multiplanar reconstructions were subsequently performed. This study was performed with techniques to keep radiation doses as low as reasonably achievable (ALARA). Individualized dose reduction techniques using automated exposure control or adjustment of mA and/or kV according to the patient's size were employed. CLINICAL HISTORY: colon cancer/rectal cancer COMPARISON: 12/03/2023 FINDINGS: CT ABDOMEN AND PELVIS WITH CONTRAST COMPARISON: 12/03/2023. FINDINGS: ABDOMEN: The solid organs are unremarkable. The gallbladder has been surgically resected. No evidence of bowel obstruction, adenopathy, or ascites is noted. 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 The appendix is unremarkable in appearance. The presacral soft tissue density noted on prior exams is stable. No pelvic adenopathy is identified. IMPRESSION: Stable exam of the abdomen and pelvis without evidence of tumor recurrence or metastases. This study was performed using automated techniques to achieve radiation exposure as low as reasonably achievable Reviewed, Interpreted and Dictated by Opal Spencer MD Transcribed by Evelyn Gupta Authenticated and [facility]
--- NOTE | 2024-12-07 13:00 | CT_ITS ---
FINAL REPORT TECHNIQUE: Axial CT with contrast with 3-D MIP reconstruction This study was performed with techniques to keep radiation doses as low as reasonably achievable, (ALARA). Individualized dose reduction techniques using automated exposure control or adjustment of mA and/or kV according to the patient's size were employed. CLINICAL HISTORY: colon cancer/rectal cancer COMPARISON: 12/03/2023 FINDINGS: CT CHEST WITH CONTRAST: Pulmonary vessels enhance in normal fashion without evidence of embolism. Thoracic aorta shows no dissection or aneurysm. The lungs are clear. No intrathoracic adenopathy is identified. No pleural effusion is present. The heart size is normal. There are bilateral axillary nodes present, which are normal in size, decreased in size since the prior exam of 2023. IMPRESSION: 1. No evidence of metastatic disease. Reviewed, Interpreted and Dictated by Opal Spencer MD Transcribed by Evelyn Gupta Authenticated and [facility]
[2024-12-07 13:05] LABS: Hematocrit 43.9 % (42.0-52.0); Hemoglobin 15.0 g/dL (14.1-18.0); Immature Granulocytes % 0.3 %; Mean Corpuscular HGB Conc 34.2 g/dL (31.8-35.4); Mean Corpuscular Hemoglobin 30.9 pg (27.0-31.2); Mean Corpuscular Volume 90.5 fl (80-94); Nucleated Red Blood Cells % 0 %; Platelet Count 263 K/mm3 (142-424); Red Blood Count 4.85 M/mm3 (4.60-6.20); Red Cell Distribution Width-SD 40.2 fL; White Blood Count 6.2 K/mm3 (4.8-10.8)
[2024-12-07] MEDS: SODIUM CHLORIDE 0.9% 10ML SYR (RAD ONLY) 10 ML IV (13:10)
[2024-12-07 13:11] LABS: Alanine Aminotransferase 21 U/L (12-78); Albumin Level 4.5 g/dl (3.5-5.0); Albumin/Globulin Ratio 1.5 (1.1-1.8); Alkaline Phosphatase 68 U/L (38-126); Anion Gap 16.4 mEq/L (5-15); Aspartate Amino Transferase 25 U/L (17-59); Bilirubin,Total 0.9 mg/dl (0.2-1.3); Blood Urea Nitrogen 16 mg/dl (9-20); Calcium 9.6 mg/dl (8.4-10.2); Carbon Dioxide 25 mmol/L (22.0-30.0); Chloride 102 mmol/L (98-107); Creatinine,Serum 1.20 mg/dl (0.66-1.25); Estimated Glomerular Filt Rate 62 ml/min (>60); GFR (African American) 75 ML/MIN (>60); Globulin 3.0 g/dL (1.3-3.2); Glucose 118 mg/dl (74-100); Potassium 4.4 mmoL/L (3.5-5.1); Sodium 139 mmol/L (136-145); Total Protein,Serum 7.5 g/dl (6.3-8.2)
[2024-12-07] MEDS: IOPAMIDOL-370 (76%);100ML BOTTLE 75 ML IV (13:11)
[2024-12-07 13:13] LABS: Alanine Aminotransferase 21 U/L (12-78); Albumin Level 4.4 g/dl (3.5-5.0); Alkaline Phosphatase 69 U/L (38-126); Aspartate Amino Transferase 23 U/L (17-59); Bilirubin,Direct 0.2 mg/dl (0.0-0.4); Bilirubin,Indirect 0.8 mg/dL (0.0-0.9); Bilirubin,Total 1.0 mg/dl (0.2-1.3); Bilirubin,Unconjugated 0.8 mg/dL (0.0-1.1); Cholesterol 117 mg/dl (140-200); HDL Cholesterol 37 mg/dl (40-60); Total Protein,Serum 7.0 g/dl (6.3-8.2); Triglycerides 146 mg/dl (30-150)
[2024-12-08 05:15] LABS: CEA 0.7 ng/mL (0.0-4.7)
== END 2024-12-07 12:50 | disposition home or self-care (01) ==
LOC: RAD 12:39 → INF 12:39
PROVIDERS: Nurse Practitioner Family; PCP Family Medicine; Visit Provider Internal Medicine Medical Oncology
DX: C18.9 Malignant neoplasm of colon, unspecified (principal)
CPT/HCPCS: 36415; 71260; 74177; 80053; 80061; 80076; 82378; 85025; Q9967

== ENCOUNTER 2024-12-14 14:09 | Outpatient (CLI) | payer MEDICARE, SELFPAY ==
--- OUTSIDE RECORDS SUMMARY | 2024-12-14 14:11 | XMS_ITS | Data Portability ---
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 Plan of Treatment Reminders Order Date Submit Date Provider Last Modified By Organization Details Last Modified Time Details Appointments Establish ed Visit 15 min 2024 01:30P M Noe Rich MD Not available Not available Not available Lab lipid panel, serum 2024 025 [email or web address] [facility], [address], [address], [address], 09/08/2024 14:12:42 HbA1c (hemoglob in A1c), blood 2024 025 [email or web address] [facility], [address], [place], [address], 09/08/2024 15:45:53 lipid panel, serum 2024 025 [email or web address] [facility], [address], [address], [place], [address], 09/07/2024 06:45:35 HbA1c (hemoglob in A1c), blood 2023 024 [email or web address] [facility], [address], [place], [address], 03/09/2024 22:05:56 lipid panel, serum 2023 024 [email or web address] [facility], [address], [address], [place], [address], 03/16/2024 08:08:30 PSA, total, serum or plasma 2023 024 [email or web address], [address], [address], [place], [address], 11/17/2023 13:04:58 lipid panel, serum 2023 024 [place] [address] [facility], [address], [address], [place], [address], 11/17/2023 13:04:58 CMP, serum or plasma 2023 024 [place] [address] [facility], [address], [address], [place], [address], 11/17/2023 13:04:58 CBC w/ auto diff 2023 024 [place] [address] [facility], [address], [address], [place], [address], 11/17/2023 13:04:58 TSH + free T4, serum 2023 024 [place] [address] [facility], [address], [address], [place], [address], 11/17/2023 13:04:58 HbA1c (hemoglob in A1c), blood 2023 024 [email or web address], [address], [address], [place], [address], 11/17/2023 13:04:58 Referral None recorded. Procedures None recorded. Surgeries None recorded. Imaging None recorded. Medication Orders atorvasta tin 20 mg tablet 2024 025 [facility], [address], [place], [address], 09/08/2024 14:12:15 Patient TargetsNo targets recorded. Patient InstructionsNo instructions recorded. Reason for Referral None Reported. Results Created Date Observation Date Name Description Value Unit Range Abnormal Flag Note LastModifiedBy Organization Detail LastModifiedTime 11/16/1911/17/2023 TSH+F REE T4 TSH 1.480 uIU/m L 0.450- 4.500 Not Available [facility] ([facility]) [address] [place], [address], 11/17/2023 07:38:12 11/16/19 24 11/17/2023 TSH+F REE T4 T4,free(dire ct) 1.18 NG/dL 0.82-1 .77 Not Available [facility] ([facility]) [address] [place], [address], 11/17/2023 07:38:12 11/16/19 24 11/17/2023 CBC WITH DIFFE RENTI AL/PL ATELE T WBC 6.3 x10e3 /uL 3.4-10 .8 Not Available [facility] ([facility]) [address] [place], [address], 11/17/2023 07:38:13 11/16/1911/17/2023 CBC WITH DIFFE RENTI AL/PL ATELE T RBC 5.37 x10e6 /uL 4.14-5 .80 Not Available [facility] ([facility]) [address] [place], [address], 11/17/2023 07:38:13 11/16/1911/17/2023 CBC WITH DIFFE RENTI AL/PL ATELE T hemoglobin 16.2 g/dL 13.0-1 7.7 Not Available [facility] ([facility]) [address] [place], [address], 11/17/2023 07:38:13 11/16/19 24 11/17/2023 CBC WITH DIFFE RENTI AL/PL ATELE T hematocrit 48.4 % 37.5-5 1.0 Not Available [facility] ([facility]) [address] [facility], [place], [address], 11/17/2023 07:38:13 11/16/19 24 11/17/2023 CBC WITH DIFFE RENTI AL/PL ATELE T MCV 90 fL 79-97 Not Available [facility] ([facility]) [address] [facility], [place], [address], 11/17/2023 07:38:13 11/16/1911/17/2023 CBC WITH DIFFE RENTI AL/PL ATELE T MCH 30.2 pg 26.6-3 3.0 Not Available [facility] ([facility]) [address] [facility], [place], [address], 11/17/2023 07:38:13 11/16/1911/17/2023 CBC WITH DIFFE RENTI AL/PL ATELE T MCHC 33.5 g/dL 31.5-3 5.7 Not Available [facility] ([facility]) [address] [facility], [place], [address], 11/17/2023 07:38:13 11/16/1911/17/2023 CBC WITH DIFFE RENTI AL/PL ATELE T RDW 13.5 % 11.6-1 5.4 Not Available [facility] ([facility]) [address] [facility], [place], [address], 11/17/2023 07:38:13 11/16/1911/17/2023 CBC WITH DIFFE RENTI AL/PL ATELE T platelets 280 x10e3 /uL 150-45 0 Not Available [facility] ([facility]) [address] [facility], [place], [address], 11/17/2023 07:38:13 11/16/19 24 11/17/2023 CBC WITH DIFFE RENTI AL/PL ATELE T neutrophils 61 % not estab. Not Available [facility] ([facility]) [address] [facility], [place], [address], 11/17/2023 07:38:13 11/16/19 24 11/17/2023 CBC WITH DIFFE RENTI AL/PL ATELE T lymphs 26 % not estab. Not Available [facility] ([facility]) [address] [facility], [place], [address], 11/17/2023 07:38:13 11/16/19 24 11/17/2023 CBC WITH DIFFE RENTI AL/PL ATELE T monocytes 10 % not estab. Not Available [facility] ([facility]) [address] [facility], [place], [address], 11/17/2023 07:38:13 11/16/19 24 11/17/2023 CBC WITH DIFFE RENTI AL/PL ATELE T eos 2 % not estab. Not Available [facility] ([facility]) [address] [facility], [place], [address], 11/17/2023 07:38:13 11/16/19 24 11/17/2023 CBC WITH DIFFE RENTI AL/PL ATELE T basos 1 % not estab. Not Available [facility] ([facility]) [address] [place], [address], 11/17/2023 07:38:13 11/16/1911/17/2023 CBC WITH DIFFE RENTI AL/PL ATELE T immature cells COMMUNICATIONS OFFICER Not Available [facility] ([facility]) [address] [place], [address], 11/17/2023 07:38:13 11/16/19 24 11/17/2023 CBC WITH DIFFE RENTI AL/PL ATELE T neutrophils (absolute) 3.8 x10e3 /uL 1.4-7. 0 Not Available [facility] ([facility]) [address] [facility], [place], [address], 11/17/2023 07:38:13 11/16/19 24 11/17/2023 CBC WITH DIFFE RENTI AL/PL ATELE T lymphs (absolute) 1.6 x10e3 /uL 0.7-3. 1 Not Available [facility] ([facility]) [address] [facility], [place], [address], 11/17/2023 07:38:13 11/16/19 24 11/17/2023 CBC WITH DIFFE RENTI AL/PL ATELE T monocytes(ab solute) 0.6 x10e3 /uL 0.1-0. 9 Not Available [facility] ([facility]) [address] [facility], [place], [address], 11/17/2023 07:38:13 11/16/19 24 11/17/2023 CBC WITH DIFFE RENTI AL/PL ATELE T eos (absolute) 0.1 x10e3 /uL 0.0-0. 4 Not Available [facility] ([facility]) [address] [place], [address], 11/17/2023 07:38:13 11/16/19 24 11/17/2023 CBC WITH DIFFE RENTI AL/PL ATELE T baso (absolute) 0.1 x10e3 /uL 0.0-0. 2 Not Available [facility] ([facility]) [address] [place], [address], 11/17/2023 07:38:13 11/16/19 24 11/17/2023 CBC WITH DIFFE RENTI AL/PL ATELE T immature granulocytes 0 % not estab. Not Available [facility] ([facility]) [address] [facility], [place], [address], 11/17/2023 07:38:13 11/16/19 24 11/17/2023 CBC WITH DIFFE RENTI AL/PL ATELE T immature grans (abs) 0.0 x10e3 /uL 0.0-0. 1 Not Available [facility] ([facility]) [address] [facility], [place], [address], 11/17/2023 07:38:13 11/16/19 24 11/17/2023 CBC WITH DIFFE RENTI AL/PL ATELE T NRBC COMMUNICATIONS OFFICER Not Available [facility] ([facility]) [address] [facility], [place], [address], 11/17/2023 07:38:13 11/16/19 24 11/17/2023 CBC WITH DIFFE RENTI AL/PL ATELE T hematology comments: COMMUNICATIONS OFFICER Not Available [facility] ([facility]) [address] [facility], [place], [address], 11/17/2023 07:38:13 11/16/19 24 11/17/2023 COMP. METAB OLIC PANEL (14) glucose 112 mg/dL 70-99 above high normal Not Available [facility] ([facility]) [address] [facility], [place], [address], 11/17/2023 07:38:13 11/16/19 24 11/17/2023 COMP. METAB OLIC PANEL (14) BUN 19 mg/dL 6-24 Not Available [facility] ([facility]) [address] [place], [address], 11/17/2023 07:38:13 11/16/19 24 11/17/2023 COMP. METAB OLIC PANEL (14) creatinine 1.31 mg/dL 0.76-1 .27 above high normal Not Available [facility] ([facility]) [address] [place], [address], 11/17/2023 07:38:13 11/16/19 24 11/17/2023 COMP. METAB OLIC PANEL (14) eGFR 63 mL/mi n/1.7 3 >59 Not Available [facility] ([facility]) [address] [facility], [address], 11/17/2023 07:38:13 11/16/19 24 11/17/2023 COMP. METAB OLIC PANEL (14) BUN/creatini ne ratio 15 9-20 Not Available [facility] ([facility]) [address] [facility], [place], [address], 11/17/2023 07:38:13 11/16/19 24 11/17/2023 COMP. METAB OLIC PANEL (14) sodium 139 mmol/ L 134-14 4 Not Available [facility] ([facility]) [address] [facility] [place], [address], 11/17/2023 07:38:13 11/16/19 24 11/17/2023 COMP. METAB OLIC PANEL (14) potassium 4.4 mmol/ L 3.5-5. 2 Not Available [facility] ([facility]) [address] [facility], [place], [address], 11/17/2023 07:38:13 11/16/19 24 11/17/2023 COMP. METAB OLIC PANEL (14) chloride 104 mmol/ L 96-106 Not Available [facility] ([facility]) [address] [facility] [place], [address], 11/17/2023 07:38:13 11/16/19 24 11/17/2023 COMP. METAB OLIC PANEL (14) carbon dioxide, total 19 mmol/ L 20-29 below low normal Not Available [facility] ([facility]) [address] [facility] [place], [address], 11/17/2023 07:38:13 11/16/19 24 11/17/2023 COMP. METAB OLIC PANEL (14) calcium 9.5 mg/dL 8.7-10 .2 Not Available [facility] ([facility]) [address] [facility] [place], [address], 11/17/2023 07:38:13 11/16/19 24 11/17/2023 COMP. METAB OLIC PANEL (14) protein, total 7.1 g/dL 6.0-8. 5 Not Available [facility] ([facility]) [address] [facility], [place], [address], 11/17/2023 07:38:13 11/16/19 24 11/17/2023 COMP. METAB OLIC PANEL (14) albumin 4.4 g/dL 3.8-4. 9 Not Available [facility] ([facility]) [address] [facility], [place], [address], 11/17/2023 07:38:13 11/16/19 24 11/17/2023 COMP. METAB OLIC PANEL (14) globulin, total 2.7 g/dL 1.5-4. 5 Not Available [facility] ([facility]) [address] [facility] [place], [address], 11/17/2023 07:38:13 11/16/19 24 11/17/2023 COMP. METAB OLIC PANEL (14) bilirubin, total 0.5 mg/dL 0.0-1. 2 Not Available [facility] ([facility]) [address] [facility] [place], [address], 11/17/2023 07:38:13 11/16/19 24 11/17/2023 COMP. METAB OLIC PANEL (14) alkaline phosphatase 87 IU/L 44-121 Not Available [facility] ([facility]) [address] [facility], [place], [address], 11/17/2023 07:38:13 11/16/19 24 11/17/2023 COMP. METAB OLIC PANEL (14) AST (SGOT) 19 IU/L 0-40 Not Available [facility] ([facility]) [address] [facility] [place], [address], 11/17/2023 07:38:13 11/16/19 24 11/17/2023 COMP. METAB OLIC PANEL (14) ALT (SGPT) 24 IU/L 0-44 Not Available [facility] ([facility]) [address] [facility] [place], [address], 11/17/2023 07:38:13 11/16/19 24 11/17/2023 LIPID PANEL cholesterol, total 234 mg/dL 100-19 9 above high normal Not Available [facility] ([facility]) [address] [place], [address], 11/17/2023 07:38:14 11/16/19 24 11/17/2023 LIPID PANEL triglyceride s 110 mg/dL 0-149 Not Available [facility] ([facility]) [address] [place], [address], 11/17/2023 07:38:14 11/16/19 24 11/17/2023 LIPID PANEL HDL cholesterol 51 mg/dL >39 Not Available [facility] ([facility]) [address] [place], [address], 11/17/2023 07:38:14 11/16/19 24 11/17/2023 LIPID PANEL VLDL cholesterol kristian 20 mg/dL 5-40 Not Available [facility] ([facility]) [address] [place], [address], 11/17/2023 07:38:14 11/16/19 24 11/17/2023 LIPID PANEL LDL chol calc ([facility]) 163 mg/dL 0-99 above high normal Not Available [facility] ([facility]) [address] [place], [address], 11/17/2023 07:38:14 11/16/19 24 11/17/2023 LIPID PANEL LDL calc comment: COMMUNICATIONS OFFICER Not Available [facility] ([facility]) [address] [place], [address], 11/17/2023 07:38:14 11/16/19 24 11/17/2023 HEMOG LOBIN A1C hemoglobin A1C 6.0 % 4.8-5. 6 above high normal Predi abete s: 5.7 - 6.4 Diabe sania: >6.4 Glyce megan contr ol for adult s with diabe sania: <7.0 Not Available [facility] ([facility]) [address] [facility], [place], [address], 11/17/2023 07:38:14 11/16/19 24 11/17/2023 PROST ATE-S [...] t be inter prete d as absol kobuk evide nce of the prese nce or absen ce of laury harper se. Not Available [facility] ([facility]) [address] [facility], [place], [address], 11/17/2023 07:38:15 03/09/20 24 03/09/2024 HbA1c (hemo globi n A1c), blood HbA1c 5.7 Not Available [facility] [address], [place], [address], 03/09/2024 14:01:49 09/07/19 25 09/07/2024 LIPID PANEL cholesterol, total 216 mg/dL 100-19 9 above high normal Not Available [facility] ([facility]) [address] [facility], [place], [address], 09/07/2024 06:45:35 09/07/19 25 09/07/2024 LIPID PANEL triglyceride s 145 mg/dL 0-149 normal Not Available [facility] ([facility]) [address] [facility], [place], [address], 09/07/2024 06:45:35 09/07/19 25 09/07/2024 LIPID PANEL HDL cholesterol 46 mg/dL >39 normal Not Available [facility] ([facility]) [address] [facility], [place], [address], 09/07/2024 06:45:35 09/07/19 25 09/07/2024 LIPID PANEL VLDL cholesterol kristian 26 mg/dL 5-40 Not Available [facility] ([facility]) [address] [facility], [place], [address], 09/07/2024 06:45:35 09/07/19 25 09/07/2024 LIPID PANEL LDL chol calc ([facility]) 144 mg/dL 0-99 above high normal Not Available [facility] ([facility]) [address] [facility], [place], [address], 09/07/2024 06:45:35 09/07/19 25 09/07/2024 LIPID PANEL LDL calc comment: COMMUNICATIONS OFFICER Not Available [facility] ([facility]) [address] [facility], [place], [address], 09/07/2024 06:45:35 09/09/19 25 09/08/2024 HbA1c (hemo globi n A1c), blood HbA1c 5.7 Not Available [facility] [address], [place], [address], 09/08/2024 13:40:39 12/09/19 25 12/07/2024 imagi ng/di agnos tic resul t No observ ation record ed. [facility] [address], [place], [address], 12/08/2024 08:44:57 12/09/19 25 12/07/2024 joy llanes/patrick tenorio tic resul t No observ ation record ed. [facility] [address], [place], [address], 12/08/2024 09:35:14 Result Notes None recorded. Problems Name Problem SNOMED Code Status Onset Date Resolution Date Notes Provider Name and Address Organization Details Recorded Time History of malignant neoplasm of colon and/or rectum Active 024 Marcela torres, [place] - [facility] - [place] & [place] 14:56:04 Problem Notes None recorded. Procedures Surgical History Date Name Laterality Status Provider Name and Address Organization Details Recorded Time 02/12/20 24 Colonoscopy completed Anum Rothamer [place] - [facility] - [place] & [place] 08/12/2024 15:30:30 09/23/19 23 Colonoscopy completed Anum Rothamer [place] [facility] [place] 08/12/2024 15:30:06 08/14/19 22 Flexible Sigmoidoscopy completed Anum Rothamer [place] - [facility] [place] & [place] 10/27/2023 15:03:24 01/17/20 21 graft of skin to skin completed Anum [place]amer [place] - [facility] [place] & [place] 10/27/2023 15:18:29 11/09/19 21 debridement of wound of skin completed Anum [place] [facility] [place] 10/27/2023 15:05:56 08/14/19 21 Colonoscopy completed Anum Rothamer [place] [facility] & [place] 08/12/2024 15:29:44 05/25/18 99 Cholecystectomy completed Anum Rothamer [place] - [facility] [place] & [place] 08/12/2024 15:28:24 05/25/18 96 Abdominal Surgery completed Marcela SOTO - [facility] - [place] & [place] 12/07/2023 14:55:59 multi-agent systemic chemotherapy completed Anum Rothamer [place] - [facility] - [place] & [place] 10/27/2023 15:03:40 combined chemotherapy and radiation therapy completed Anum SOTO - [facility] & [place] 10/27/2023 15:04:01 Total knee arthroplasty completed Anum SOTO - [facility] & [place] 10/27/2023 15:06:07 accessing of implantable venous access port completed Anum SOTO - [facility] & [place] 10/27/2023 15:07:31 removal of implantable venous access port completed Anum SOTO - [facility] & [place] 10/27/2023 15:07:39 Ileostomy/jejunost garo completed Anum SOTO - [facility] & [place] 11/23/2023 08:14:28 Imaging Results None recorded. Procedure Notes None recorded. 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 Serial Number Lot Number Status Provider Name and Address Organization Details Recorded Time Port A Cath Placement FDA Y Anum torres, [place] - [facility] & [place] 10/27/2023 15:24:40 Allergies No known drug allergies [...] Updated DateTime 5 170.18 cm 30.7 kg/m2 08835.7 8 g 97.7 [degF] 96 % 96 % 72 /min 138/82 mm[Hg] Mya Larina [place] - [facility] & [place] 5 13:31:06 Date Recorded Body height Body mass index (BMI) Body weight Body temperature Oxygen saturation Oxygen saturation in Arterial blood by Pulse oximetry Heart rate Systolic And Diastolic Provider Name and Address Organization Details Last Updated DateTime 4 170.18 cm 30.3 kg/m2 98096.1 3 g 98.1 [degF] 97 % 97 % 71 /min 135/76 mm[Hg] Marcela SOTO [facility] & [place] 4 15:07:55 Date Recorded Body height Body mass index (BMI) Body weight Body temperature Oxygen saturation Oxygen saturation in Arterial blood by Pulse oximetry Heart rate Systolic And Diastolic Provider Name and Address Organization Details Last Updated DateTime 4 170.18 cm 30.5 kg/m2 67112.5 1 g 97.8 [degF] 99 % 99 % 54 /min 112/74 mm[Hg] Gina Becerra [facility] & [place] 4 13:15:29 Social History Question Answer Notes LastModified by [employer] Details LastModified Time Tobacco Smoking Status Former Smoker Marcela Barreto [facility] & [place] 11/03/2023 14:57:26 Do You Have An Advance Directive? No [email or web address] Information not available 12/07/2023 Are You Blind Or Do You Have Difficulty Seeing? No [email or web address] Information not available 12/07/2023 What Is Your Level Of Caffeine Consumption? Moderate [email or web address] Information not available 11/03/2023 When Did You Quit Smoking? 6-10yearssinc elastcigarett e [email or web address] Information not available 11/03/2023 What Was The Date Of Your Most Recent Tobacco Screening? 12/04/2023 [email or web address] Information not available 12/07/2023 What Is Your Current Pack Years? 20-29packyear s [email or web address] Information not available 11/03/2023 Are You Passively Exposed To Smoke? No [email or web address] Information not available 12/07/2023 How Much Tobacco Do You Smoke? 1 PPD [email or web address] Information not available 12/07/2023 How Many Years Have You Smoked Tobacco? 15 [email or web address] Information not available 12/07/2023 Sex: Unknown Functional Status Question Answer Note LastModified by [employer] ion Details LastModified Time Do you use any illicit or recreational drugs? No [email or web address] Information not available 11/03/2023 Do you or have you ever used any other forms of tobacco or nicotine? No [email or web address] Information not available 11/03/2023 What is your level of alcohol consumption? Moderate Information not available 11/03/2023 Do you or have you ever used smokeless tobacco? Never used smokeless tobacco [email or web address] Information not available 12/07/2023 What is your exercise level? Moderate [email or web address] Information not available 12/07/2023 Mental Status Question Answer Note LastModified by Organization D etails LastModified Time Do you feel stressed (tense, restless, nervous, or anxious, or unable to sleep at night)? [id number] [email or web address] Information not available 12/07/2023 Family History Relationship Description Onset Age of this Age Resolved Age Notes LastModified by Organization Details LastModified Time Maternal Grandfather Myocardial infarction [email or web address] Not available 10/26 13:34:10 Mother Malignant tumor of breast [email or web address] Not available 08/23 13:19:27 Mother Diabetes mellitus [email or web address] Not available 08/23 13:19:28 Mother Malignant tumor of pancreas [email or web address] Not available 08/23 13:19:28 Mother Hypercholest erolemia pt. added direct ly (12/03) [email or web address] Not available 12/04/2023 23:19:46 Mother Rheumatoid arthritis pt. added direct ly (12/03) [email or web address] Not available 12/04/2023 23:20:06 Mother Hearing loss pt. added direct ly (12/03) [email or web address] Not available 12/04/2023 23:21:04 Unspecified Relation Family history of hereditary nonpolyposis colon cancer [email or web address] Not available 09/08/2024 13:19:28 Medical History Condition Response Obesity Y Cancer Y High Cholesterol Y Heart Problems Y Reflux/GERD Y Pulmonary Embolism Y Immunizations Vaccine Type Date Status Note Provider Nam e and Address Organization Details Recorded Time SARS-COV-2 (COVID-19) vaccine, UNSPECIFIED 9 completed Anum [place]amer [place] [facility] [place] & [place] 10/27/2023 15:10:23 Hep B, unspecified formulation 9 completed Anum [place] [facility] [place] 10/27/2023 15:15:58 Hep B, unspecified formulation 9 completed Anum [place] [facility] [place] 10/27/2023 15:16:03 Hep B, unspecified formulation 9 completed Anum [place] [facility] [place] 10/27/2023 15:16:10 Tdap 6 completed Anum [place] [facility] [place] 10/27/2023 15:16:58 zoster recombinant 3 completed Marcela Barreto [place] [facility] [place] 11/03/2023 15:42:56 zoster recombinant 3 completed Marcela Barreto [place] [facility] [place] 11/03/2023 15:42:56 COVID-19, mRNA, LNP-S, PF, 100 mcg/0.5mL dose or 50 mcg/0.25mL dose 2 completed Marcela Barreto [place] [facility] [place] & [place] 11/03/2023 15:42:56 COVID-19, mRNA, LNP-S, PF, 100 mcg/0.5mL dose or 50 mcg/0.25mL dose 1 completed Marcela Barreto [place] [facility] [place] 11/03/2023 15:42:56 COVID-19, mRNA, LNP-S, PF, 100 mcg/0.5mL dose or 50 mcg/0.25mL dose 1 completed Marcela Barreto [place] [facility] [place] 11/03/2023 15:42:57 Hep A, adult 9 completed Marcela Barreto [place] [facility] [place] 11/03/2023 15:42:57 Influenza, split virus, quadrivalent, PF 3 completed Marcela Barre[place] [facility] [place] 11/03/2023 15:42:57 Influenza, split virus, quadrivalent, PF 7 completed Marcela Barre[place] [facility] [place] 11/03/2023 15:42:57 Influenza, split virus, quadrivalent, PF 9 completed Marcela Barreto [place] [facility] & [place] 11/03/2023 15:42:57 Influenza, split virus, quadrivalent, PF 8 completed Marcela Barreto [place] [facility] [place] 11/03/2023 15:42:57 Influenza, split virus, quadrivalent, PF 0 completed Marcela Barerto null, [place] - [facility] - [place] & [place] 11/03/2023 15:42:57 Influenza, split virus, quadrivalent, PF 6 completed Marcela Barreto null, [place] - [facility] & [place] 11/03/2023 15:42:57 Influenza, split virus, quadrivalent, PF 2 completed Marcela Barreto null, [place] - [facility] & [place] 11/03/2023 15:42:57 Influenza, MDCK, trivalent, PF 4 completed Noe Rich MD [address] [facility], [place], [address], [facility] - [facility] & [place] 03/10/2024 06:02:12 Past Encounters Encounter ID Performer Location Encounter Start Date Encounter Closed Date Diagnosis/Indication Diagnosis SNOMED-CT Code Diagnosis ICD10 Code Diagnosis Note [id number] Noe Rich MD [facility] [address] [facility] [place] [address] 11/03/2023 14:38:07 11/03/2023 15:36:04 Elevated blood-pressure reading without diagnosis of hypertension 061979202 R03.0 initial BP was 161/88 and repeat was not much different. I am asking him to purchase a blood pressure cuff and take his blood pressure at different times during the day and return to clinic in 4 weeks to review readings [id number] Noe Rich MD [facility] [address] [place] [address] 11/16/2023 14:40:12 11/16/2023 14:53:32 Diabetes mellitus screening 161103126 Z13.1 Hyperlipid emia screening 371797839 Z13.220 Screening for malignant neoplasm of prostate 234781644 Z12.5 Thyroid di sorder screening 313747911 Z13.29 Elevated blood-pressure reading without diagnosis of hypertension 053056289 R03.0 initial BP was 161/88 and repeat was not much different. I am asking him to purchase a blood pressure cuff and take his blood pressure at different times during the day and return to clinic in 4 weeks to review readings [id number] Noe Rich MD [facility] [address] [facility] [address] [place] [address] 12/07/2023 14:37:56 12/07/2023 15:44:19 Prediabetes 685318006 R73.03 discussed need for dietary change. He is recommende d to review suggestion s online for a diabetic type diet, decrease his overall carbohydra te intake and consider a modest 13 lb weight loss. we will follow up in 3 months Elevated blood-pressure reading without diagnosis of hypertension 631476744 R03.0 this apparently represents a bit of white coat hypertensi on as all of his home blood pressure readings are normal Hyperlipidemia 81008131 E78.5 LDL was moderately elevated at 163. I would like to see if his attention to diet and modest weight loss results in any improvemen t before initiating a statin. [id number] Noe Rich MD [address] [place] [address] 03/09/2024 13:07:30 03/09/2024 14:25:40 Prediabetes 661200455 R73.03 the patient did not lose any weight he is improved his control of his blood sugar as noted by an improved A1c of 5.7%. Continue to monitor diet, may changes where he can and try to lose A few lb. Elevated blood-pressure reading without diagnosis of hypertension 435558947 R03.0 Blood pressure is well controlled today and he has on no medication . Hyperlipidemia 60027666 E78.5 Last lipid profile at the beginning of the summer revealed his LDL to be moderately elevated at 163. He has been eating better but is not fasting today .RTC in 6 months with [facility] Administra tion of influenza vaccine [id number] Z [id number] Noe Rich MD [facility] - [address] [place] [address] 09/08/2024 13:19:15 09/08/2024 14:08:52 Prediabetes 285398066 R73.03 A1c is 5.7%. Doing well. Continue to check A1c every 6-12 months Pure hypercholesterolemia 194846496 E78.00 lipids are elevated with total cholestero l of 216 HDL 46 and LDL of 144.10 year ASCVD risk is elevated at 10.3%. Start atorvastat in. F/U in 6 months Pain in ri t lower limb [id number] M79.604 apparently when he is parked at [facility] and having to push a cart full [...] the court house and bring it by. [id number] Noe Rich MD [facility] [address] [facility] [address] [place] [address] 09/06/2024 13:34:25 09/06/2024 14:40:08 Hyperlipidemia 65391519 E78.5 Health Concerns Section Related Observation LastModified [...] REPLACEMENT/A DVANTAGE - PPO) Brayden Knox Kurt [id number] Brayden Hicks Notes Date Note Type Note [...] A1c was 6.0 Noe Rich MD [address], [place], [address], [facility] & [place] 12/08/2023 06:51:37 03/09/2024 text/html Pt presents for 3 month f/u. Has tried to eat more salads. Would like flu shot. At last visit his A1c was 6.0 % placing him in the Prediabetes category. BP was also elevated. On no meds. today his A1c is down to 5.7% BP is 112/74 Noe Rich MD [address], [place], [address], [facility] [place] 03/10/2024 06:09:59 09/08/2024 text/html Pt presents for 6 month F/U. Just had lipid profile redrawn. MD [address], [place], [address], [facility] [place] 09/08/2024 18:19:39
--- OUTSIDE RECORDS SUMMARY | 2024-12-14 14:11 | XMS_ITS ---
Author Organization [facility] Address [address] [place] [address] Care Team Providers Care Telephone Diaphragm Assembler Name Role Phone Dane Barrett MD Unavailable [phone] Brayden Zarco MD Unavailable Donte Sheets MD Primary Care Provider [phone] Active Problems Problem Noted Date Diagnosed Date [...]
--- OUTSIDE RECORDS SUMMARY | 2024-12-14 14:11 | XMS_ITS | Clinical Summary ---
Author Organization [facility] Address [address] [place] [address] Care Team Providers Care Life Insurance Sales Name Role Phone Noe Rich MD Primary Care Provider Allergies No known active allergies Medications No known medications Active Problems Problem Noted Date Diagnosed Date PVC (premature ventricular contraction) 07/30/19 17 Dyslipidemia 07/29/2016 Family History Medical History Relation Name Comments Coronary artery disease Neg Hx Social History Tobacco Use Types Packs/Day Years Used Date Smoking Tobacco: Former Tobacco Cessation:Counseling Given: No Alcohol Use Standard Drinks/Week Comments Yes 0 (1 standard drink = 0.6 oz pur e alcohol) 2 beers on the weekend Abuse Screen Answer Date Recorded Unsafe at Home or Work/School Not on file Feels Threatened by Someone? Not on file 03/2023 Does Anyone Keep You from Co ntacting Others or Doint Things Outside the Home? Not on file 03/04/2023 Physical Sign of Abuse Present Not on file 1 Housing Stability Answer Date Recorded Current Living Arrangements Not on file 02/22 Potentially Unsafe Housing Conditions Not on liliana e 03/04/2023 Family and Community Support Answer Andre e Recorded Help with Day-to-Day Activities Not on file 03/04/2023 Lonely or Isolated Not on file 03/04/2023 Employment Answer Date Recorded Do you want help finding or keeping work or a chad b? Not on file 03/04/2023 Disabilities Answer Date Recorded Concentrating, Remembering, or Making Decisions Difficulty Not on file 03/04/2023 Doing Errands Independently Difficulty Not on fi le 03/04/2023 Education Answer Date Recorded Help with school or training? Not on file Preferred Language Not on file 03/04/2023 Sex and Gender Information Value Date Recorded Sex Assigned at Not on file Legal Sex Male 11:55 AM EST Gender Identity Not on file Sexual Orientation Not on file Last Filed Vital Signs Vital Sign Reading Time Taken Comments Blood Pressure 112/88 08/27/2016 3:06 PM EDT Pulse 80 07/29/2016 10:56 AM EST Temperature - - Respiratory Rate - - Oxygen Saturation - - Inhaled Oxygen Concentration - - Weight 88.9 kg (196 lb) 08/27/2016 3:06 PM EDT Height 170.2 cm (5' 7 ) 08/27/2016 3:06 PM EDT Body Mass Index 30.7 08/27/2016 3:06 PM EDT Plan of Treatment Health Maintenance Due Date Last Done Comments TDAP/TD VACCINES (1 - Tdap) 01/18/1984 COLOGUARD 2010 COLON CANCER SCREENING 5 YEAR SIGMOIDOSCOPY 2010 COLONOSCOPY 2010 COL[address]AL CANCER SCREENING 2010 CT COLONOGRAPHY 2010 FECAL OCCULT BLOOD TEST 2010 FIT Testing (1 year) 2010 Pneumococcal Vaccine 50+ (1 of 1 - PCV) 2015 ZOSTER VACCINE (1 of 2) 2015 ANNUAL PHYSICAL 08/20/2016 HEPATITIS C SCREENING 08/20/2016 COVID-19 Vaccine (1 - 2023- season) 2024 INFLUENZA VACCINE 02/22/2025 Insurance [facility] PPO Care Teams Life Insurance Sales Relationship Specialty Start Date End Date Noe Rich MD PCP - General Family Medicine 07/29/16
--- OUTSIDE RECORDS SUMMARY | 2024-12-14 14:11 | XMS_ITS | Encounter Summary ---
Author Organization [facility] Address [address] [place] [address] Care Team Providers Care Industrial Safety And Health Manager Name Role Phone Noe Rich MD Primary Care Provider Encounter Details Date Type Department Care Team (Late st Contact Info) Description 12/06/2021 Telephone [facility] [address] [place] [address] Donte Sheets MD [address] [place], [place] [address] Social History Tobacco Use Types Packs/Day Years Used Date Smoking Tobacco: Former Alcohol Use Standard Drinks/Week Comments Yes 0 (1 standard drink = 0.6 oz pur e alcohol) 2 beers on the weekend Sex and Gender Information Value Date Recorded Sex Assigned at Not on file Legal Sex Male 11:55 AM EST Gender Identity Not on file Sexual Orientation Not on file documented as of this encounter Plan of Treatment Not on file documented as of this encounter Visit Diagnoses Not on filedocumented in this encounter Care Teams Industrial Safety And Health Manager Relationship Specialty Start Date End Date Noe Rich MD PCP - General Family Medicine 07/29/16 documented as of this encounter
--- OUTSIDE RECORDS SUMMARY | 2024-12-14 14:11 | XMS_ITS | Clinical Summary ---
Author Organization [facility] Address [address] [place] [address] Phone [email or web address] Care Team Providers Care Viscosity Worker Name Role Phone Unavailable Primary Care Provider [...] Immunization Administration Dates Next Due Covid-19 (Moderna [place], 12yrs+) (CVX-207) 2020,08/08/2020 Hepatitis B (ENGERIX-B:GSK)(RECOMBIVAX-HB:MERCK) (CVX-43) [...] to complete this topic Insurance [id number] [place] [address]
--- OUTSIDE RECORDS SUMMARY | 2024-12-14 14:11 | XMS_ITS | Clinical Summary ---
Author Organization [facility] Address [address] [place] [address] Care Team Providers Care Oyster Unloader Name Role Phone Dane Barrett MD Unavailable [phone] Brayden Zarco MD Unavailable [phone] Donte Sheets MD Primary Care Provider [phone] Allergies No known active allergies Medications acetaminophen [...] Description 04/24/2025 1:45 PM EST Office Visit [facility] [address] [place] [address] Shefali Rothman MD [address] [place] [address] Health Maintenance Due Date Last Done Comments [facility]-/Child/Adol SDOH Screenings 1965 [facility]-Obesity Intervention 1971 [facility]- SDOH Screenings 1983 [facility]-Adult SDOH Screenings 1983 [facility]-Pneumococcal Vaccine: 50+ Years (1 of 2 - PCV) 01/18/[address] Colonography 2010 FIT-DNA 2010 FIT 2010 FOBT 2010 [facility]-Colorectal Cancer Screening 09/17/2021 [facility]-Depression Screening 12/24/2022 12/24/2021, 03/26 [id number] Vaccine ( season) 2024 06/25/2021, 09/05/2020, 08/08/2020 [...] this topic Medical Devices Implanted Type Area Radiation Therapy Technologist Device Identifier Shelf Expiration Date Model / [...] of bowel preparation was evaluated using the [place] Bowel Preparation Scale with scores of: left [...] Antibody/Antigen Screen (11/05/2020 6:30 PM EDT) Pathologist [facility] HIV 1 & 2 Antibody/Anti gen Screen Nonreactive Nonreactive 11/05/2020 8:02 PM EDT [facility] Blood Venous blood specimen / Unknown Venipuncture / Unknown 11/05/2020 6:30 PM EDT 11/05/2020 8:02 PM EDT Marcello Mckeon MD LAB BLOOD ORDERABLES Final Re sult [facility] [address] [place] [address] * [place] Hepatitis C Antibody (11/05/2020 6:30 PM EDT) Pathologist [facility] Hepatitis C Antibody Negative Negative 11/05/2020 8:02 PM EDT [facility] Blood Venous blood specimen / Unknown Venipuncture / Unknown 11/05/2020 6:30 PM EDT 11/05/2020 8:02 PM EDT us Marcello Mckeon MD LAB BLOOD ORDERABLES Final Re sult [facility] [address] [place] [address] from Last 3 Months or Most Recently [...] 4:13 PM 10/29/2020 6:33 PM Care Teams Oyster Unloader Relationship Specialty Start Date End Date Donte Sheets MD [address] [place] [address] PCP - General 08/23/21 Dane Barrett MD [address] [facility] [address] [place] [address] Surgeon Colon and Rectal Surgery 04/16/21 Brayden Zarco MD [address] [address] Consulting Physician Radiation Oncology 05/30/21
--- NOTE | 2024-12-14 14:30 | CA_ITS ---
APPROVED REPORT EXAM: Comprehensive 2D, Doppler, and color-flow Echocardiogram Business Systems Technician: Tashia Wells, [facility], RVS Ht: 5 ft 7 in Wt: 196lbs BSA: 2.00 BP: 119/76 mmHg Indications: Rectal CA, CM, Ex-smoker 2D Dimensions IVSd 0.76 cm LVEF (Visual) 43.10 % PWd 0.77 cm LA Volume 45.80 mL LVDd 4.56 cm LA Volume Index 22.705008 mL/m2 (M/F) 16-34 LVDs 3.48 cm Left Atrium 3.37 cm M-Mode Dimensions LA Diam 4.02 cm (1.9-4.0) LVDd 4.77 cm (3.5-5.7) LVDs 3.59 cm (3.5-5.7) EF (Teich) 49.00% EPSs 0.50 cm FS 24.70% EDV (Teich) 106.00 mL TAPSE 1.69 (<1.7) ESV (Teich) 54.10 mL LV Diastology E Decel Time 293 (160-240 msec) E/A Ratio 1.04 MED A' 8.60 cm/s LAT A' 10.60 cm/s Aortic Valve AoV Peak Emigdio. 145.0 (50-130 cm/s) AO Peak GR. 8.40 mmHg AO Mean GR. 4.20 (<5 mmHg) AO VTI 28.8 (18-25 cm) Mitral Valve MV A Velocity 61.0 (40-130 cm/s) E/A Ratio 1.04 Pulmonary Valve FL End VMAX 174.0 cm/s Tricuspid Valve TR P. Velocity 261.00 cm/s RAP Estimate 10.00 mmHg RVSP 37.30 mmHg Left Ventricle The left ventricle is normal size. The left ventricular systolic function is normal. The left ventricular ejection fraction is within the normal range. There is normal left ventricular wall thickness. There is normal LV segmental wall motion. The left ventricular diastolic function is normal. LVEF is 55%. Right Ventricle The right ventricle is normal size. The right ventricular systolic function is normal. Atria The left atrium size is normal. The right atrium size is normal. There is no Doppler evidence of interatrial shunt. Aortic Valve Aortic valve opens well. There is no aortic valvular stenosis. No aortic regurgitation is present. Mitral Valve The mitral valve is normal in structure. Trace mitral regurgitation. Tricuspid Valve Tricuspid valve is grossly normal in structure and function. Trace tricuspid regurgitation. There is insufficient TR jet to estimate RVSP. Pulmonic Valve The pulmonary valve is normal in structure. Mild pulmonic regurgitation. Great Vessels The aortic root is normal in size. IVC is normal in size and collapses >50% with inspiration. Pericardium There is no pericardial effusion. Other Information Study Quality: Fair Conclusion Normal biventricular systolic function. Mild PI. Electronically signed by : Marisa March MD 12/18/2024 19:11:17
== END 2024-12-14 23:59 | disposition home or self-care (01) ==
LOC: RT 14:09
PROVIDERS: PCP Family Medicine; Visit Provider Nurse Practitioner Family
DX: I37.1 Nonrheumatic pulmonary valve insufficiency (principal); C20 Malignant neoplasm of rectum; I21.4 Non-ST elevation (NSTEMI) myocardial infarction; I42.9 Cardiomyopathy, unspecified; I10 Essential (primary) hypertension; E78.2 Mixed hyperlipidemia; Z87.891 Personal history of nicotine dependence
CPT/HCPCS: 93306

== ENCOUNTER 2025-01-11 13:52 | Outpatient (RCR) | payer MEDICARE, SELFPAY | END 2025-03-10 08:00 | disposition home or self-care (01) | LOC: CR 13:52 | PROVIDERS: Visit Provider Nurse Practitioner Family | DX: I25.10 Atherosclerotic heart disease of native coronary artery without angina pectoris (principal) | CPT/HCPCS: 93798 ==

== ENCOUNTER 2025-02-22 00:29 | Inpatient (IN) | payer MEDICARE, SELFPAY ==
[2025-02-22] VITALS (34 sets, daily range): BP systolic 90–154; BP diastolic 57–94; PULSE 55–93; RESP 16–20; TEMP 36.4–43; O2SAT 92–100; BMI 30.5; BMI 29.9
--- NOTE | 2025-02-22 00:32 | HMH.EDGENADL ---
Discharge Plan Disposition Patient Disposition: Admitted Clinical Impressions Clinical Impression: Appendicitis Discharge ED Provider: Wili Perez Adult HPI General Chief complaint: Abdominal Pain Stated complaint: hernia, lower adb pain, vomiting, cold sweats Time Seen by Provider: 02/22/25 00:32 History of Present Illness HPI narrative: 60-year-old male with history of coronary artery disease status post stents, colorectal cancer status post partial colectomy, incisional abdominal hernia, presents for abdominal pain. He reports that he has been having worsening pain, worse in his right lower quadrant. He reports that he normally has 5 bowel movements a day, he has not had a bowel movement today. He reports that his hernia site feels little bit more firm than normal. He did not take anything prior to arrival. Related Data Home Medications ?Medication ?Instructions ?Recorded ?Confirmed atorvastatin 40 mg tablet 40 mg PO DAILY 01/02/25 01/02/25 Previous Rx's ?Medication ?Instructions ?Recorded aspirin 81 mg tablet,delayed 81 mg PO DAILY 30 days #90 tabs 12/01/24 release carvedilol 3.125 mg tablet 3.125 mg PO BID #180 tabs 12/01/24 clopidogrel 75 mg tablet 75 mg PO DAILY #90 tabs 12/01/24 lisinopril 5 mg tablet 5 mg PO DAILY #90 tabs 12/01/24 Allergies Allergy/AdvReac Type Severity Reaction Status Date / Time No Known Allergies Allergy Verified 01/02/25 13:25 [facility] Disclaimer: The information contained in this section may have been updated after the patient was seen, as this information can be updated by other users. Medical History Mixed hyperlipidemia Coronary artery disease HLD (hyperlipidemia) HTN (hypertension) Unstable angina Hypokalemia Cellulitis Hyponatremia Hyperkalemia Acute kidney injury Effusion, right knee Cellulitis of right thigh Puncture wound of right thigh with complication Traumatic hematoma of right lower leg with infection Suspected soft tissue infection Rectal cancer Pulmonary emboli Chest trauma Abdominal trauma Cholecystectomy planned History of COVID-19 Colon cancer Cardiomyopathy Surgical History History of coronary artery stent placement History of surgery PORT History of colonoscopy History of surgery RIGHT LEG History of colon resection History of colon surgery History of arthroplasty of left knee Family History Mother Breast cancer Pancreatic cancer Social History Smoking Status: Never smoker years smoked: 20 how long ago did patient quit smokin alcohol intake: current alcohol intake frequency: a few times a week substance use type: denies use current occupational status: retired Travel in the last 8 weeks?: None household members: spouse housing: house current occupation: [employer] current occupational exposures/hazards: No caffeine: Yes Do you have any abdominal pain?: Yes Other Medical History Have you received the Flu Vaccine for this season: No Have you received the Pneumonia Vaccine: No ROS Obtained: Yes All systems reviewed & no additional complaints except as documented Physical Exam General General appearance: alert Comment: Uncomfortable appearing Head Head exam: atraumatic and normocephalic Eye Eye exam: Present normal appearance, PERRL and EOMI ENT ENT exam: Present normal oropharynx and normal external ear exam Neck Neck exam: Present normal inspection and full ROM Chest Chest inspection: Present normal inspection and symmetric chest wall rise; Absent tenderness Respiratory Respiratory exam: Present normal lung sounds bilaterally; Absent respiratory distress Cardiovascular Cardiovascular exam: Present regular rate and normal rhythm Abdominal Exam Abdominal exam: Present soft and tenderness (Generalized, but worse in the right lower quadrant.); Absent distention or guarding Comment: Patient has an incisional abdominal hernia in the right hemiabdomen, the area is soft and easily reducible. Extremities Exam Extremities exam: Present normal inspection; Absent edema or joint swelling Back Exam Back exam: Present normal inspection; Absent tenderness Neurological Exam Neurological exam: Present alert and oriented X3; Absent motor sensory deficit Psychiatric Psychiatric exam: Present normal affect and normal mood Skin Skin exam: Present warm, dry and normal color Lymphatic Lymphatic Findings: no adenopathy Medical Decision Making Medical Records Medical records reviewed: Yes I reviewed the patient's medical records. Screening: Per USPSTF and CDC recommendations, given the prevalence of disease in our region, it is our hospital?s policy to screen for HIV and viral Hepatitis for all patients aged 18 and over and those with ongoing risk factors. Russell Inquiry Pt receiving controlled substance: No Russell was queried for this patient: No Vital Signs: 02/22/25 00:30 02/22/25 00:46 02/22/25 00:59 Temperature 97.6 F Temperature Source Oral Pulse Rate 57 L 55 L Pulse Rate [Left Radial] 61 Respiratory Rate 20 Blood Pressure Blood Pressure [Right Arm] 147/94 H Blood Pressure Mean Blood Pressure Mean [Right Arm] 111 Blood Pressure Source [Right Arm] Automatic Cuff Blood Pressure Position [Right Arm] Supine 02 Sat by Pulse Oximetry 98 100 100 Oxygen Delivery Method Room Air 02/22/25 01:00 02/22/25 01:01 02/22/25 01:19 Temperature Temperature Source Pulse Rate 56 L 65 Pulse Rate [Left Radial] Respiratory Rate Blood Pressure 153/75 H Blood Pressure [Right Arm] Blood Pressure Mean 101 Blood Pressure Mean [Right Arm] Blood Pressure Source [Right Arm] Blood Pressure Position [Right Arm] 02 Sat by Pulse Oximetry 100 97 Oxygen Delivery Method 02/22/25 01:30 02/22/25 01:34 02/22/25 01:45 Temperature Temperature Source Pulse Rate 68 72 Pulse Rate [Left Radial] Respiratory Rate Blood Pressure 137/63 Blood Pressure [Right Arm] Blood Pressure Mean 87 Blood Pressure Mean [Right Arm] Blood Pressure Source [Right Arm] Blood Pressure Position [Right Arm] 02 Sat by Pulse Oximetry 95 98 Oxygen Delivery Method 02/22/25 02:23 02/22/25 02:24 02/22/25 02:24 Temperature Temperature Source Pulse Rate 56 L 73 Pulse Rate [Left Radial] Respiratory Rate Blood Pressure 154/78 H Blood Pressure [Right Arm] Blood Pressure Mean 88 Blood Pressure Mean [Right Arm] Blood Pressure Source [Right Arm] Blood Pressure Position [Right Arm] 02 Sat by Pulse Oximetry 97 98 Oxygen Delivery Method 02/22/25 02:30 02/22/25 02:30 Temperature Temperature Source Pulse Rate 70 Pulse Rate [Left Radial] Respiratory Rate Blood Pressure 150/79 H Blood Pressure [Right Arm] Blood Pressure Mean 91 Blood Pressure Mean [Right Arm] Blood Pressure Source [Right Arm] Blood Pressure Position [Right Arm] 02 Sat by Pulse Oximetry 97 Oxygen Delivery Method Lab Data Lab results reviewed: Yes I reviewed the patient's lab results. Lab Results 02/22/25 00:40: WBC 12.6 H, RBC 5.53, Hgb 17.1, Hct 49.1, MCV 88.8, MCH 30.9, MCHC 34.8, RDW 12.1, Plt Count 262, MPV 10.9 H, Neut % (Auto) 82.6 H, Lymph % (Auto) 9.5 L, [place] % (Auto) 5.1, Eos % (Auto) 2.1, Baso % (Auto) 0.4, Neut # (Auto) 10.4 H, Lymph # (Auto) 1.2, [place] # (Auto) 0.6, Eos # (Auto) 0.3, Baso # (Auto) 0.1, Sodium 139, Potassium 4.4, Chloride 102, Carbon Dioxide 25, Anion Gap 16.4 H, BUN 19, Creatinine 1.40 H, Estimated Creat Clear 70, Estimated GFR 52 L, Est GFR ( Amer) 63, Glucose 157 H, Calcium 10.4 H, Magnesium 2.0, Total Bilirubin 1.4 H, AST 35, ALT 34, Alkaline Phosphatase 106, Total Protein 8.3 H, Albumin 5.1 H, Globulin 3.2, Albumin/Globulin Ratio 1.6, Lipase 143 02/22/25 00:40 02/22/25 00:40 Orders (Tests/Meds): ED MEDICATIONS Generic Name Dose Route Start Last Admin Trade Name Freq PRN Reason Stop Dose Admin Heparin Sodium (Porcine) 5,000 unit 02/22/25 09:00 Heparin Sodium 5,000 Unit/Ml Vial SUBCUT 03/24/25 08:59 TID LEONOR Hydromorphone HCl 2 mg 02/22/25 02:02 Hydromorphone 2mg/Ml Syringe IV 03/24/25 02:01 Q4HP PRN Severe Pain (7-10) Sodium Chloride 1,000 mls @ 50 mls/hr 02/22/25 02:15 Sod Chlor 0.9% 1000ml Bag IV 03/24/25 02:14 .Q20H LEONOR Piperacillin Sod/Tazobactam 50 mls @ 100 mls/hr 02/22/25 02:15 Sod 3.375 gm/ Sodium Chloride IV 03/04/25 02:14 Q6H LEONOR Discontinued Medications Generic Name Dose Route Start Last Admin Trade Name Freq PRN Reason Stop Dose Admin Acetaminophen 1,000 mg 02/22/25 00:36 02/22/25 01:00 Acetaminophen 500mg Tab PO 02/22/25 00:37 1,000 mg ONCE ONE Administration Sodium Chloride 1,000 mls @ 999 mls/hr 02/22/25 00:45 02/22/25 02:26 Sod Chlor 0.9% 1000ml Bag IV 02/22/25 01:45 Infused .Q1H1M LEONOR Infusion Piperacillin Sod/Tazobactam 100 mls @ 200 mls/hr 02/22/25 01:43 02/22/25 02:28 Sod 4.5 gm/ Sodium Chloride IV 02/22/25 02:12 200 mls/hr ONCE ONE Administration Iopamidol 80 ml 02/22/25 01:22 02/22/25 01:23 Iopamidol-370 (76%);100ml Bottle IV 02/22/25 01:23 80 ml ONCE ONE Administration Ketorolac Tromethamine 30 mg 02/22/25 00:36 02/22/25 01:00 Ketorolac 30mg/Ml Vial IV 02/22/25 00:37 30 mg ONCE ONE Administration Morphine Sulfate 4 mg 02/22/25 00:36 02/22/25 01:00 Morphine 4mg/Ml Syringe IV 02/22/25 00:37 4 mg ONCE ONE Administration Ondansetron HCl 4 mg 02/22/25 00:36 02/22/25 01:00 Ondansetron 4mg/2ml Vial IV 02/22/25 00:37 4 mg ONCE ONE Administration Sodium Chloride 50 ml 02/22/25 01:22 02/22/25 01:23 0.9 % Sodium Chloride 50 Ml Vial IV 02/22/25 01:23 50 ml ONCE ONE Administration Sodium Chloride 10 ml 02/22/25 01:22 02/22/25 01:23 Sodium Chloride 0.9% 10ml Syr (Rad Only) IV 02/22/25 01:23 10 ml ONCE ONE Administration ORDERS Category Date Time Status CT angio abdomen pelvis Stat Cat Scan 02/22/25 00:36 Completed Consult to General Surgery [CONS] Routine Cons 02/22/25 02:04 Ordered CBC w/Auto Diff [Complete Blood Count Auto Diff] Stat Lab 02/22/25 00:40 Completed CMP [Comprehensive Metabolic Panel] Stat Lab 02/22/25 00:40 Completed Complete Blood Count Auto Diff AMLAB Lab 02/22/25 06:00 Ordered Comprehensive Metabolic Panel AMLAB Lab 02/22/25 06:00 Ordered Lipase Stat Lab 02/22/25 00:40 Completed Magnesium Stat Lab 02/22/25 00:40 Completed Blood Culture Stat Micro 02/22/25 02:15 Received Medical Decision Narrative: 60-year-old male with history of partial colectomy after colon cancer, coronary artery disease status post stents 2 months ago, abdominal wall hernia presents for worsening abdominal pain since yesterday with associated nausea and vomiting and decreased oral output.. History was obtained via interactive discussion with patient, family, chart review. On arrival, patient is [afebrile, hemodynamically stable, satting appropriately, alert, oriented x4, GCS 15], moving all extremities spontaneously. Full physical exam performed and significant for generalized abdominal tenderness, worse in the right lower quadrant. Abdominal hernia is easily reducible and soft. Abdomen is not tense or distended. Differential includes but is not limited to bowel obstruction, colitis, appendicitis, diverticulitis, mesenteric ischemia. Patient was given Tylenol Toradol morphine Zofran for symptomatic management and correction of underlying abnormalities. Workup initiated including CBC CMP lipase CT angio abdomen and pelvis.. On re-evaluation, patient [remains afebrile, HD stable.] Laboratory workup independently interpreted by me and significant for mild leukocytosis, mildly elevated creatinine to 1.4.. Imaging independently interpreted by me and significant for no evidence of bowel obstruction. Findings consistent with appendicitis. See radiology read for full review of final results. Given patient history, exam and workup, patient's presentation most likely represents acute appendicitis. Interactive discussion was had with the surgeon on-call. Patient was admitted to the hospitalist for further evaluation management with plan for urgent operative intervention. Patient was initiated on Zosyn.. Procedures Risk/Benefits of Procedure(s) Were Explained: Yes Critical Care Critical Care Time Critical Care Time: No
--- NOTE | 2025-02-22 00:36 | CT_ITS ---
PROCEDURE INFORMATION: Exam: CTA Abdomen and Pelvis With Contrast Exam date and time: 02/22/2025 1:16 AM Age: 60 years old Clinical indication: Abdominal pain; Acute; Rlq abd pain; Additional info: Severe abd pain, vomiting, HX partial colectomy TECHNIQUE: Imaging protocol: Computed tomographic angiography of the abdomen and pelvis with contrast. Exam focused on the arteries. 3D rendering (Not supervised by radiologist): MIP and/or 3D reconstructed images were created by the technologist. Radiation optimization: All CT scans at this facility use at least one of these dose optimization techniques: automated exposure control; mA and/or kV adjustment per patient size (includes targeted exams where dose is matched to clinical indication); or iterative reconstruction. Contrast material: ISOVUE; Contrast volume: 80 ml; Contrast route: INTRAVENOUS (IV); COMPARISON: CT ANGIO ABDOMEN PELVIS 10/06/2020 6:01 PM FINDINGS: Aorta: No aortic aneurysm. No aortic dissection. Celiac and mesenteric arteries: No occlusion or significant stenosis. Renal arteries: No occlusion or significant stenosis. Right iliac arteries: No occlusion or significant stenosis. Left iliac arteries: No occlusion or significant stenosis. Liver: No mass. Gallbladder and biliary ducts: Cholecystectomy. Pancreas: Unremarkable. No mass. No ductal dilation. Spleen: Unremarkable. No splenomegaly. Adrenal glands: Unremarkable. No mass. Kidneys and ureters: Unremarkable. No solid mass. No hydronephrosis. Stomach and bowel: 5 cm right rectus hernia containing a loop of nonobstructed small bowel. Intact bowel anastomosis in the right lower quadrant. Appendix: Enlarged and inflamed appendix. Intraperitoneal space: Unremarkable. No free air. No significant fluid collection. Lymph nodes: Unremarkable. No enlarged lymph nodes. Urinary bladder: Unremarkable. No mass. Reproductive: Unremarkable as visualized. Bones/joints: No acute fracture. Soft tissues: Unremarkable. IMPRESSION: 1. Enlarged and inflamed appendix. Suspicious for acute appendicitis. 2. 5 cm right rectus hernia containing a loop of nonobstructed small bowel.
--- OUTSIDE RECORDS SUMMARY | 2025-02-22 00:42 | XMS_ITS | Clinical Summary ---
Author Organization [facility] Address [address] [place] [id number] Phone [email or web address] Care Team Providers Care Siding Stapler Name Role Phone Unavailable Primary Care Provider [...] Immunization Administration Dates Next Due Covid-19 (Moderna Bonner, 12yrs+) (CVX-207) 2020,08/08/2020 Hepatitis B (ENGERIX-B:GSK)(RECOMBIVAX-HB:MERCK) (CVX-43) [...] Health Maintenance Due Date Last Done Comments CT Colonography 1965 Colonoscopy 1965 Colorectal Cancer Screening Combo 1965 DNA Cologuard 1965 Dental Cleaning/Exam 1965 FIT or FOBT Test 1965 Sigmoidoscopy 1965 Pneumococcal: 50+ Years (1 o f 1 - PCV) 2015 Zoster Immunization (1 of 2) 2015 Covid-19 Immunization (3 - season) 2025 09/05/2020, 08/08/2020 Influenza Immunization (#1) 2025 Tetanus [...]
--- OUTSIDE RECORDS SUMMARY | 2025-02-22 00:42 | XMS_ITS | Encounter Summary ---
Author Organization [facility] Address [address] [place] [address] Care Team Providers Care Cargoman Name Role Phone Noe Rich MD Primary Care Provider [phone] Encounter Details Date Type Department Care Team (Late st Contact Info) Description 12/06/2021 Telephone [facility] FAMILY MEDICINE [address] [place] [address] Donte Sheets MD [address], [place] [id number] Social History Tobacco Use Types Packs/Day Years [...] on filedocumented in this encounter Care Teams Cargoman Relationship Specialty Start Date End Date Noe Rich MD PCP - General Family Medicine 07/29/16 documented as of this encounter
--- OUTSIDE RECORDS SUMMARY | 2025-02-22 00:42 | XMS_ITS | Data Portability ---
Author Organization [facility] & SUSHIL Jeter ADMIN Address [address] [place] [id number] Care Team Providers Care Mangle Feeder Name Role Phone NOE RICH Primary Care Provider Assessment No assessment recorded. Plan of Treatment Reminders Order Date Submit Date Provider Last Modified By Organization Details Last Modified Time Details Appointments Establish ed Visit 15 min 2024 01:30P M Noe Rich MD Not available Not available Not available Establish ed Visit 15 min 2024 02:45P M Noe Rich MD Not available Not available Not available Lab lipid panel, serum 2024 025 [email or web address] [facility], [address], [facility] [address] [place] [address], [address], 09/08/2024 14:12:42 HbA1c (hemoglob in A1c), blood 2024 025 [email or web address] [facility] - [address], [address], [place], [address], 09/08/2024 15:45:53 lipid panel, serum 2024 025 [email or web address] [facility], [address], [address], [place], [address], 09/07/2024 06:45:35 HbA1c (hemoglob in A1c), blood 2023 024 [email or web address] [facility] - [address], [address], [place], [address], 03/09/2024 22:05:56 lipid panel, serum 2023 024 [email or web address] [facility], [address], [address], [place], [address], 03/16/2024 08:08:30 Referral None recorded. Procedures None recorded. Surgeries None recorded. Imaging None recorded. Medication Orders atorvasta tin 20 mg tablet 2024 025 [facility], [address], [place], [address], 12/26/2024 11:33:18 Patient TargetsNo targets recorded. Patient InstructionsNo instructions recorded. Reason for Referral None Reported. Results Created Date Observation Date Name Description Value Unit Range Abnormal Flag Note LastModifiedBy Organization Detail LastModifiedTime 11/16/1911/17/2023 TSH+F REE T4 TSH 1.480 uIU/m L 0.450- 4.500 Not Available [facility] ([facility]) [address] [place], [address], 11/17/2023 07:38:12 11/16/19 24 11/17/2023 TSH+F REE T4 T4,free(dire ct) 1.18 NG/dL 0.82-1 .77 Not Available [facility] ([facility]) [address] [facility], [place], [address], 11/17/2023 07:38:12 11/16/19 24 11/17/2023 CBC WITH DIFFE RENTI AL/PL ATELE T WBC 6.3 x10e3 /uL 3.4-10 .8 Not Available [facility] ([facility]) [address] [facility], [place], [address], 11/17/2023 07:38:13 11/16/19 24 11/17/2023 CBC WITH DIFFE RENTI AL/PL ATELE T RBC 5.37 x10e6 /uL 4.14-5 .80 Not Available [facility] ([facility]) [address] [facility], [place], [address], 11/17/2023 07:38:13 11/16/1911/17/2023 CBC WITH DIFFE RENTI AL/PL ATELE T hemoglobin 16.2 g/dL 13.0-1 7.7 Not Available [facility] ([facility]) [address] [facility], [place], [address], 11/17/2023 07:38:13 11/16/1911/17/2023 CBC WITH DIFFE RENTI AL/PL ATELE T hematocrit 48.4 % 37.5-5 1.0 Not Available [facility] ([facility]) [address] [facility], [place], [address], 11/17/2023 07:38:13 11/16/1911/17/2023 CBC WITH DIFFE RENTI AL/PL ATELE T MCV 90 fL 79-97 Not Available [facility] ([facility]) [address] [place], [address], 11/17/2023 07:38:13 11/16/1911/17/2023 CBC WITH DIFFE RENTI AL/PL ATELE T MCH 30.2 pg 26.6-3 3.0 Not Available [facility] ([facility]) [address] [place], [address], 11/17/2023 07:38:13 11/16/1911/17/2023 CBC WITH DIFFE RENTI AL/PL ATELE T MCHC 33.5 g/dL 31.5-3 5.7 Not Available [facility] ([facility]) [address] [place], [address], 11/17/2023 07:38:13 11/16/19 24 11/17/2023 CBC WITH DIFFE RENTI AL/PL ATELE T RDW 13.5 % 11.6-1 5.4 Not Available [facility] ([facility]) [address] [facility], [place], [address], 11/17/2023 07:38:13 11/16/19 24 11/17/2023 CBC WITH DIFFE RENTI AL/PL ATELE T platelets 280 x10e3 /uL 150-45 0 Not Available [facility] ([facility]) [address] [facility], [place], [address], 11/17/2023 07:38:13 11/16/19 24 11/17/2023 CBC WITH DIFFE RENTI AL/PL ATELE T neutrophils 61 % not estab. Not Available [facility] ([facility]) [address] [facility], [place], [address], 11/17/2023 07:38:13 11/16/19 24 11/17/2023 CBC WITH DIFFE RENTI AL/PL ATELE T lymphs 26 % not estab. Not Available [facility] ([facility]) [address] [facility], [place], [address], 11/17/2023 07:38:13 11/16/19 24 11/17/2023 CBC WITH DIFFE RENTI AL/PL ATELE T monocytes 10 % not estab. Not Available [facility] ([facility]) [address] [facility], [place], [address], 11/17/2023 07:38:13 11/16/19 24 11/17/2023 CBC WITH DIFFE RENTI AL/PL ATELE T eos 2 % not estab. Not Available [facility] ([facility]) [address] [facility], [place], [address], 11/17/2023 07:38:13 11/16/19 24 11/17/2023 CBC WITH DIFFE RENTI AL/PL ATELE T basos 1 % not estab. 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 0 Not Available [facility] ([facility]) [address] [place], [address], 11/17/2023 07:38:13 11/16/19 24 11/17/2023 CBC WITH DIFFE RENTI AL/PL ATELE T lymphs (absolute) 1.6 x10e3 /uL 0.7-3. 1 Not Available [facility] ([facility]) [address] [place], [address], 11/17/2023 07:38:13 11/16/19 24 11/17/2023 CBC WITH DIFFE RENTI AL/PL ATELE T monocytes(ab solute) 0.6 x10e3 /uL 0.1-0. 9 Not Available [facility] ([facility]) [address] [place], [address], 11/17/2023 07:38:13 11/16/19 24 11/17/2023 CBC WITH DIFFE RENTI AL/PL ATELE T eos (absolute) 0.1 x10e3 /uL 0.0-0. 4 Not Available [facility] ([facility]) [address] [place], [address], 11/17/2023 07:38:13 11/16/19 24 11/17/2023 CBC WITH DIFFE RENTI AL/PL ATELE T baso (absolute) 0.1 x10e3 /uL 0.0-0. 2 Not Available [facility] ([facility]) [address] [place], [address], 11/17/2023 07:38:13 11/16/19 24 11/17/2023 CBC WITH DIFFE RENTI AL/PL ATELE T immature granulocytes 0 % not estab. Not Available [facility] ([facility]) [address] [facility], [place], [address], 11/17/2023 07:38:13 11/16/19 24 11/17/2023 CBC WITH DIFFE RENTI AL/PL ATELE T immature grans (abs) 0.0 x10e3 /uL 0.0-0. 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 METAB OLIC PANEL (14) glucose 112 mg/dL 70-99 above high normal Not Available [facility] ([facility]) [address] [facility], [place], [address], 11/17/2023 07:38:13 11/16/19 24 11/17/2023 COMP. METAB OLIC PANEL (14) BUN 19 mg/dL 6-24 Not Available [facility] ([facility]) [address] [place], [address], 11/17/2023 07:38:13 11/16/19 24 11/17/2023 COMP. METAB OLIC PANEL (14) creatinine 1.31 mg/dL 0.76-1 .27 above high normal Not Available [facility] ([facility]) [address] [place], [address], 11/17/2023 07:38:13 11/16/19 24 11/17/2023 COMP. METAB OLIC PANEL (14) eGFR 63 mL/mi n/1.7 3 >59 Not Available [facility] ([facility]) [address] [place], [address], 11/17/2023 07:38:13 11/16/19 24 11/17/2023 COMP. METAB OLIC PANEL (14) BUN/creatini ne ratio 15 9-20 Not Available [facility] ([facility]) [address] [place], [address], 11/17/2023 07:38:13 11/16/19 24 11/17/2023 COMP. METAB OLIC PANEL (14) sodium 139 mmol/ L 134-14 4 Not Available [facility] ([facility]) [address] [place], [address], 11/17/2023 07:38:13 11/16/19 24 11/17/2023 COMP. METAB OLIC PANEL (14) potassium 4.4 mmol/ L 3.5-5. 2 Not Available [facility] ([facility]) [address] [place], [address], 11/17/2023 07:38:13 11/16/19 24 11/17/2023 COMP. METAB OLIC PANEL (14) chloride 104 mmol/ L 96-106 Not Available [facility] ([facility]) [address] [place], [address], 11/17/2023 07:38:13 11/16/19 24 11/17/2023 COMP. METAB OLIC PANEL (14) carbon dioxide, total 19 mmol/ L 20-29 below low normal Not Available [facility] ([facility]) [address] [facility], [place], [address], 11/17/2023 07:38:13 11/16/19 24 11/17/2023 COMP. METAB OLIC PANEL (14) calcium 9.5 mg/dL 8.7-10 .2 Not Available [facility] ([facility]) [address] [facility], [place], [address], 11/17/2023 07:38:13 11/16/19 24 11/17/2023 COMP. METAB OLIC PANEL (14) protein, total 7.1 g/dL 6.0-8. 5 Not Available [facility] ([facility]) [address] [facility], [place], [address], 11/17/2023 07:38:13 11/16/19 24 11/17/2023 COMP. METAB OLIC PANEL (14) albumin 4.4 g/dL 3.8-4. 9 Not Available [facility] ([facility]) [address] [facility], [place], [address], 11/17/2023 07:38:13 11/16/19 24 11/17/2023 COMP. METAB OLIC PANEL (14) globulin, total 2.7 g/dL 1.5-4. 5 Not Available [facility] ([facility]) [address] [facility], [place], [address], 11/17/2023 07:38:13 11/16/19 24 11/17/2023 COMP. METAB OLIC PANEL (14) bilirubin, total 0.5 mg/dL 0.0-1. 2 Not Available [facility] ([facility]) [address] [place], [address], 11/17/2023 07:38:13 11/16/19 24 11/17/2023 COMP. METAB OLIC PANEL (14) alkaline phosphatase 87 IU/L 44-121 Not Available [facility] ([facility]) [address] [place], [address], 11/17/2023 07:38:13 11/16/19 24 11/17/2023 COMP. METAB OLIC PANEL (14) AST (SGOT) 19 IU/L 0-40 Not Available [facility] ([facility]) [address] [place], [address], 11/17/2023 07:38:13 11/16/19 24 11/17/2023 COMP. METAB OLIC PANEL (14) ALT (SGPT) 24 IU/L 0-44 Not Available [facility] ([facility]) [address] [place], [address], 11/17/2023 07:38:13 11/16/19 24 11/17/2023 LIPID PANEL cholesterol, total 234 mg/dL 100-19 9 above high normal Not Available [facility] ([facility]) [address] [place], [address], 11/17/2023 07:38:14 11/16/19 24 11/17/2023 LIPID PANEL triglyceride s 110 mg/dL 0-149 Not Available [facility] ([facility]) [address] [place], [address], 11/17/2023 07:38:14 11/16/19 24 11/17/2023 LIPID PANEL HDL cholesterol 51 mg/dL >39 Not Available [facility] ([facility]) [address] [place], [address], 11/17/2023 07:38:14 11/16/19 24 11/17/2023 LIPID PANEL VLDL cholesterol kristian 20 mg/dL 5-40 Not Available [facility] ([facility]) [address] [place], [address], 11/17/2023 07:38:14 11/16/19 24 11/17/2023 LIPID PANEL LDL chol calc (nih) 163 mg/dL 0-99 above high normal Not Available [facility] ([facility]) [address] [facility], [place], [address], 11/17/2023 07:38:14 11/16/19 24 11/17/2023 LIPID PANEL LDL calc 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 6 above high normal Predi abete s: 5.7 - 6.4 Diabe sania: >6.4 Glyce megan contr ol for adult s with diabe sania: <7.0 Not Available [facility] ([facility]) [address] [facility], [place], [address], 11/17/2023 07:38:14 11/16/1911/17/2023 PROST ATE-S PECIF IC AG prostate specific [...] or kits canno t be used inter gentile eably . Resul ts canno t be inter prete d as absol thierry evide nce of the prese nce or absen ce of laury harper se. Not Available [facility] ([facility]) [address] [facility], [place], [address], 11/17/2023 07:38:15 03/09/20 03/09/2024 HbA1c (hemo globi n A1c), blood HbA1c 5.7 Not Available [facility] [address], [place], [address], 03/09/2024 14:01:49 09/07/19 25 09/07/2024 LIPID PANEL cholesterol, total 216 mg/dL 100-19 9 above high normal Not Available [facility] ([facility]) [address] [place], [address], 09/07/2024 06:45:35 09/07/19 25 09/07/2024 LIPID PANEL triglyceride s 145 mg/dL 0-149 normal Not Available [facility] ([facility]) [address] [place], [address], 09/07/2024 06:45:35 09/07/19 25 09/07/2024 LIPID PANEL HDL cholesterol 46 mg/dL >39 normal Not Available [facility] ([facility]) [address] [place], [address], 09/07/2024 06:45:35 09/07/19 25 09/07/2024 LIPID PANEL VLDL cholesterol kristian 26 mg/dL 5-40 Not Available [facility] ([facility]) [address] [place], [address], 09/07/2024 06:45:35 09/07/19 25 09/07/2024 LIPID PANEL LDL chol calc ([facility]) 144 mg/dL 0-99 above high normal Not Available [facility] ([facility]) [address] [place], [address], 09/07/2024 06:45:35 09/07/19 25 09/07/2024 LIPID PANEL 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 [address], [place], [address], 12/19/2024 10:27:00 12/09/19 25 12/07/2024 CT, abdom en + pelvi s, w/o contr ast No observ ation record ed. [address], [place], [address], 12/19/2024 10:27:40 12/19/19 25 12/14/2024 elect dayanara braygr am No observ ation record ed. [address], [place], [address], 12/19/2024 10:27:14 Result Notes None recorded. Problems Name Problem SNOMED Code Status Onset Date Resolution Date Notes Provider Name and Address Organization Details Recorded Time History of malignant neoplasm of colon and/or rectum Active 2023 Marcela torres, [facility] & [place] 4 14:56:04 Arteriosclerot ic vascular disease [id number] Active 2024 Noe Rich MD [address], [place], [address] , [facility] & [place] 5 11:41:01 Problem Notes None recorded. Procedures Surgical History Date Name Laterality Status Provider Name and Address Organization Details Recorded Time 12/12/19 catheterization of left heart completed Anum Escobar [place] - [place] [facility] & [place] 12/19/2024 12:00:27 02/12/20 24 Colonoscopy completed Anum Rothamer [place] - [facility] - [place] & [place] 08/12/2024 15:30:30 09/23/19 23 Colonoscopy completed Anum Rothamer [place] - [facility] - [place] & [place] 08/12/2024 15:30:06 01/04/20 22 closure of enterostomy completed Anum Rothamer [place] - [facility] - [place] & [place] 12/19/2024 11:58:32 10/04/19 22 Ileostomy/jejunost garo completed Anum Rothamer [place] - [facility] - [place] & [place] 12/19/2024 11:56:51 08/14/19 22 Flexible Sigmoidoscopy completed Anum Rothamer [place] - [facility] - [place] & [place] 10/27/2023 15:03:24 01/17/20 21 graft of skin to skin completed Anum Rothamer [place] - [facility] - [place] & [place] 10/27/2023 15:18:29 11/09/19 21 debridement of wound of skin completed Anum Rothamer [place] - [facility] - [place] & [place] 10/27/2023 15:05:56 08/14/19 21 Colonoscopy completed Anum Rothamer [place] - [facility] - [place] & [place] 08/12/2024 15:29:44 05/25/18 99 Cholecystectomy completed Anum Rothamer [place] - [facility] - [place] & [place] 08/12/2024 15:28:24 05/25/18 96 Abdominal Surgery completed Marcela Barreto [place] - [facility] - [place] & [place] 12/07/2023 14:55:59 multi-agent systemic chemotherapy completed Anum Rothamer [place] - [facility] - [place] & [place] 10/27/2023 15:03:40 combined chemotherapy and radiation therapy completed Anum Rothamer [place] - [facility] - [place] & [place] 10/27/2023 15:04:01 Total knee arthroplasty completed Anum Rothamer [place] - [facility] - [place] & [place] 10/27/2023 15:06:07 accessing of implantable venous access port completed Anum Rothamer [place] - [facility] - [place] & [place] 10/27/2023 15:07:31 removal of implantable venous access port completed Anum Escobar [place] - [facility] & [place] 10/27/2023 15:07:39 Imaging Results None recorded. Procedure Notes None recorded. 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 active Not Available Not Available No t Available atorvastati n 20 mg tablet TAKE 1 TABLET BY MOUTH ONCE DAILY IN THE MORNING FOR CHOLESTER OL 12/26 completed Not Available Not Available Not Available clopidogrel 75 mg tablet Take 1 tablet every day by oral route. active Not Available Not Available No t Available carvedilol 3.125 mg tablet Take 1 tablet twice a day by oral route. active Not Available Not Available No t Available aspirin 81 mg chewable tablet Chew 1 tablet every day by oral route. active Not Available Not Available No t Available lisinopril 5 mg tablet Take 1 tablet every day by oral route. 12/26 completed Not Available Not Available Not Available Vitals Date Recorded Body height Body mass index (BMI) Body weight Body temperature Oxygen saturation Oxygen saturation in Arterial blood by Pulse oximetry Heart rate Systolic And Diastolic Provider Name and Address Organization Details Last Updated DateTime 5 170.18 cm 30.7 kg/m2 49106.7 8 g 97.7 [degF] 96 % 96 % 72 /min 138/82 mm[Hg] Mya Andino [place] - [facility] & [place] 5 13:31:06 Date Recorded Body height Body mass index (BMI) Body weight Body temperature Oxygen saturation Oxygen saturation in Arterial blood by Pulse oximetry Heart rate Systolic And Diastolic Provider Name and Address Organization Details Last Updated DateTime 4 170.18 cm 30.3 kg/m2 42754.1 3 g 98.1 [degF] 97 % 97 % 71 /min 135/76 mm[Hg] Marcela Barreto [place] - [facility] & [place] 4 15:07:55 Date Recorded Body height Body mass index (BMI) Body weight Body temperature Oxygen saturation Oxygen saturation in Arterial blood by Pulse oximetry Heart rate Systolic And Diastolic Provider Name and Address Organization Details Last Updated DateTime 5 170.18 cm 30.5 kg/m2 76399.1 8 g 97.5 [degF] 99 % 99 % 76 /min 134/82 mm[Hg] Mya Andino [facility] & [place] 5 11:18:14 Date Recorded Body height Body mass index (BMI) Body weight Body temperature Oxygen saturation Oxygen saturation in Arterial blood by Pulse oximetry Heart rate Systolic And Diastolic Provider Name and Address Organization Details Last Updated DateTime 4 170.18 cm 30.5 kg/m2 17800.5 1 g 97.8 [degF] 99 % 99 % 54 /min 112/74 mm[Hg] Gina Becerra [facility] & [place] 4 13:15:29 Social History Question Answer Notes LastModified by Organizat ion Details LastModified Time Tobacco Smoking Status Former Smoker Marcela Barreto [facility] & [place] 11/03/2023 14:57:26 Do You Have An Advance Directive? No [email or web address] Information not available 12/07/2023 Are You Blind Or Do You Have Difficulty Seeing? No [email or web address] Information not available 12/07/2023 What Is Your Level Of Caffeine Consumption? Moderate [email or web address] Information not available 11/03/2023 When Did You Quit Smoking? 6-10yearssinc elastcigarett e [email or web address] Information not available 11/03/2023 What Was The Date Of Your Most Recent Tobacco Screening? 12/23/2024 [email or web address] Information not available 02/08/2025 What Is Your Current Pack Years? 20-29packyear s [email or web address] Information not available 11/03/2023 Are You Passively Exposed To Smoke? No [email or web address] Information not available 12/07/2023 How Much Tobacco Do You Smoke? 1 PPD Information not available 12/07/2023 How Many Years Have You Smoked Tobacco? 15 [email or web address] Information not available 12/07/2023 Sex: Male Functional Status Question Answer Note LastModified by Organizat ion Details LastModified Time Do you use any illicit or recreational drugs? No [email or web address] Information not available 11/03/2023 Do you or have you ever used any other forms of tobacco or nicotine? No [email or web address] Information not available 11/03/2023 What is your level of alcohol consumption? Moderate [email or web address] Information not available 11/03/2023 Do you or have you ever used smokeless tobacco? Never used smokeless tobacco [email or web address] Information not available 12/07/2023 What is your exercise level? Moderate [email or web address] Information not available 12/07/2023 Mental Status Question Answer Note LastModified by Organization D etails LastModified Time Do you feel stressed (tense, restless, nervous, or anxious, or unable to sleep at night)? [id number] [email or web address] Information not available 12/07/2023 Family History Relationship Description Onset Age of this Age Resolved Age Notes LastModified by Organization Details LastModified Time Maternal Grandfather Myocardial infarction Not available 10/26 13:34:10 Mother Malignant neoplasm of breast [email or web address] Not available 12/26 10:51:42 Mother Diabetes mellitus [email or web address] Not available 12/26 10:51:42 Mother Malignant neoplasm of pancreas [email or web address] Not available 12/26 10:51:42 Mother Hypercholest erolemia pt. added direct ly (12/03) [email or web address] Not available 12/04/2023 23:19:46 Mother Rheumatoid arthritis pt. added direct ly (12/03) [email or web address] Not available 12/04/2023 23:20:06 Mother Hearing loss pt. added direct ly (12/03) [email or web address] Not available 12/04/2023 23:21:04 Unspecified Relation Family history of hereditary nonpolyposis colon cancer Harris syndro me [email or web address] Not available 12/26/2024 10:51:42 Medical History Condition Response Heart Problems Y Coronary Artery Disease Y Obesity Y Reflux/GERD Y High Cholesterol Y Heart Attack (AL) Y Pulmonary Embolism Y Cancer Y Hypertension Y Immunizations Vaccine Type Date Status Note Provider Nam e and Address Organization Details Recorded Time SARS-COV-2 (COVID-19) vaccine, UNSPECIFIED 9 completed Anum Rothamer null, [place] - [facility] - [facility] & [place] 10/27/2023 15:10:23 Hep B, unspecified formulation 9 completed Anum Rothamer [place] [facility] - & [place] 10/27/2023 15:15:58 Hep B, unspecified formulation 9 completed Anum Rothamer null, [place] - [facility] - [facility] & [place] 10/27/2023 15:16:03 Hep B, unspecified formulation 9 completed Anum Rothamer null, [place] [facility] - [facility] & [place] 10/27/2023 15:16:10 Tdap 6 completed Anum Rothamer [place] [facility] - & [place] 10/27/2023 15:16:58 zoster recombinant 3 completed Marcela Barreto null, [place] - [facility] - [facility] & [place] 11/03/2023 15:42:56 zoster recombinant 3 completed Marcela Barreto null, [place] - [facility] - [facility] & [place] 11/03/2023 15:42:56 COVID-19, mRNA, LNP-S, PF, 100 mcg/0.5mL dose or 50 mcg/0.25mL dose 2 completed Marcela Pageson null, [place] - [facility] - [facility] & [place] 11/03/2023 15:42:56 COVID-19, mRNA, LNP-S, PF, 100 mcg/0.5mL dose or 50 mcg/0.25mL dose 1 completed Marcela Barreto null, [place] - [facility] - [facility] & [place] 11/03/2023 15:42:56 COVID-19, mRNA, LNP-S, PF, 100 mcg/0.5mL dose or 50 mcg/0.25mL dose 1 completed Marcela Pageson null, [place] - [facility] - [facility] & [place] 11/03/2023 15:42:57 Hep A, adult 9 completed Marcela Barreto [place], [place] - [facility] & [place] 11/03/2023 15:42:57 Influenza, split virus, quadrivalent, PF 3 completed Marcela Barreto null, [place] - [facility] - [place] & [place] 11/03/2023 15:42:57 Influenza, split virus, quadrivalent, PF 7 completed Marcela Barreto [place], [place] [facility] [place] & [place] 11/03/2023 15:42:57 Influenza, split virus, quadrivalent, PF 9 completed Marcela Barreto [place], [place] [facility] [place] & [place] 11/03/2023 15:42:57 Influenza, split virus, quadrivalent, PF 8 completed Marcela Barreto [place], [place] [facility] [place] & [place] 11/03/2023 15:42:57 Influenza, split virus, quadrivalent, PF 0 completed Marcela Barreto [place], [place] - [facility] & [place] 11/03/2023 15:42:57 Influenza, split virus, quadrivalent, PF 6 completed Marcela Barreto [place], [place] [facility] & [place] 11/03/2023 15:42:57 Influenza, split virus, quadrivalent, PF 2 completed Marcela Barreto [place] [facility] & [place] 11/03/2023 15:42:57 Influenza, MDCK, trivalent, PF 4 completed Noe Rich MD [address] [facility], [place], [address], [place] - [facility] & [place] 03/10/2024 06:02:12 Past Encounters Encounter ID Performer Location Encounter Start Date Encounter Closed Date Diagnosis/Indication Diagnosis SNOMED-CT Code Diagnosis ICD10 Code Diagnosis IMO Codes Diagnosis Note [id number] Noe Rich MD [facility] - [address] [place] [address] 11/03/2023 14:38:07 11/03/2023 15:36:04 Elevated blood-pressure reading without diagnosis of hypertension 840976201 R03.0 initial BP was 161/88 and repeat was not much different. I am asking him to purchase a blood pressure cuff and take his blood pressure at different times during the day and return to clinic in 4 weeks to review readings [id number] Noe Rich MD [facility] [address] [facility] [place] [address] 11/16/2023 14:40:12 11/16/2023 14:53:32 Diabetes mellitus screening 653592860 Z13.1 Hyperlipid emia screening 890450395 Z13.220 Screening for malignant neoplasm of prostate 684123287 Z12.5 Thyroid di sorder screening 792316354 Z13.29 Elevated blood-pressure reading without diagnosis of hypertension 551287664 R03.0 initial BP was 161/88 and repeat was not much different. I am asking him to purchase a blood pressure cuff and take his blood pressure at different times during the day and return to clinic in 4 weeks to review readings [id number] Noe Rich MD [facility] [address] [facility] [place] [address] 12/07/2023 14:37:56 12/07/2023 15:44:19 Prediabetes 609787263 R73.03 discussed need for dietary change. He is recommende d to review suggestion s online for a diabetic type diet, decrease his overall carbohydra te intake and consider a modest 13 lb weight loss. we will follow up in 3 months Elevated blood-pressure reading without diagnosis of hypertension 376007531 R03.0 this apparently represents a bit of white coat hypertensi on as all of his home blood pressure readings are normal Hyperlipidemia 97941494 E78.5 LDL was moderately elevated at 163. I would like to see if his attention to diet and modest weight loss results in any improvemen t before initiating a statin. [id number] Noe Rich MD [facility] [address] [facility] [place] [address] 03/09/2024 13:07:30 03/09/2024 14:25:40 Prediabetes 368482289 R73.03 the patient did not lose any weight he is improved his control of his blood sugar as noted by an improved A1c of 5.7%. Continue to monitor diet, may changes where he can and try to lose A few lb. Elevated blood-pressure reading without diagnosis of hypertension 567949422 R03.0 Blood pressure is well controlled today and he has on no medication . Hyperlipidemia 21965873 E78.5 Last lipid profile at the beginning of the summer revealed his LDL to be moderately elevated at 163. He has been eating better but is not fasting today .RTC in 6 months with FLP Administra tion of influenza vaccine 78397952 Z23 [id number] Noe Rich MD [facility] [address] [facility] [place] [address] 09/08/2024 13:19:15 09/08/2024 14:08:52 Prediabetes 237085531 R73.03 130786 A1c is 5.7%. Doing well. Continue to check A1c every 6-12 months Pure hypercholesterolemia 846478357 E78.00 29026 lipids are elevated with total cholestero l of 216 HDL 46 and LDL of 144.10 year ASCVD risk is elevated at 10.3%. Start atorvastat in. F/U in 6 months Pain in ri t lower limb 815556767 M79.604 460686 apparently when he is parked at [facility]3] and having to push a cart full [...] the court house and bring it by. [id number] Noe Rich MD [facility] [address] [facility] [place] [address] 09/06/2024 13:34:25 09/06/2024 14:40:08 Hyperlipidemia 42759108 E78.5 [id number] Noe Rich MD [facility] - [address] [place] [address] 12/26/2024 10:51:31 12/26/2024 11:47:39 Arteriosclerotic vascular disease 12368350 I25.10 40811578 Now status post 2 stents currently on aspirin, atorvastat in, carvedilol and clopidogre l. Has follow up with Cardiology next week Prediabetes 672752629 R7 3.03 061939 Most recent A1c from August was 5.7%. He will return to clinic in 3 months for repeat A1c along with TSH and PSA. He would have had other labs during his recent hospitaliz ation Essential hypertension 75562107 I10 80799 BP was 134/82 off lisinopril and now on carvedilol 3.125 b.i.d. We will continue Health Concerns Section Related Observation LastModified by Organization Detai ls LastModified Time None Recorded Concern Status LastModified by Organization Details LastModified Time None Recorded Advance Directives Directive N: Payers Insurance Date Sequence Insurance Name Policy Number Policy Barton Covered Member ID Barton Member ID Guarantor Name 02/08/2025 1 [employer] (MEDICARE REPLACEMENT/A DVANTAGE - PPO) Brayden Abilio Kurt [id number] Brayden Hicks 09/06/2024 1 [employer] (MEDICARE REPLACEMENT/A DVANTAGE - PPO) Brayden Knox Kurt [id number] Brayden Hicks Notes Date Note Type Note [...] 6.0 Noe Rich MD [address], [place], [address], [facility] - [place] & [place] 12/08/2023 06:51:37 03/09/2024 text/html Pt presents for 3 month f/u. Has tried to eat more salads. Would like flu shot. At last visit his A1c was 6.0 % placing him in the Prediabetes category. BP was also elevated. On no meds. today his A1c is down to 5.7% BP is 112/74 Noe Rich MD [address], [place], [address], [facility] [place] 03/10/2024 06:09:59 09/08/2024 text/html Pt presents for 6 month F/U. Just had lipid profile redrawn. MD [address], [place], [address], [facility] & [place] 09/08/2024 18:19:39 12/26/2024 text/html 59-year-old white male presents for hospital follow up. Apparently was admitted to [facility] on November 24 with chest pain which started the day prior. Subsequently found to have had an AL with at least 2 occlusions which were stented. Patient was released on November 25 and had follow up at structures assembler's office the following week where he had an echocardiogram. Has had no chest pain since.Hw was placed on aspirin 81 mg daily, atorvastatin 40 mg daily, carvedilol 3.125 mg b.i.d. and clopidogrel 75 mg daily and was taken off the lisinopril. Has follow up next week as well with Cardiology to get results of echo so we will need to make sure we keep abreast of medications which are being Discontinued or added. Blood pressure today is good at 134/82 off the lisinopril. MD [address], [place], [address], [facility] - [facility] & [place] 12/26/2024 13:09:26
--- OUTSIDE RECORDS SUMMARY | 2025-02-22 00:42 | XMS_ITS | Clinical Summary ---
Author Organization [facility] Address [address] [place] [address] Care Team Providers Care Employment Law Specialist Name Role Phone Noe Rich MD Primary [...] ANNUAL PHYSICAL 08/20/2016 HEPATITIS C SCREENING 08/20/2016 INFLUENZA VACCINE 12/23/[address] [address] PPO Care Teams Employment Law Specialist Relationship Specialty Start Date End Date Noe Rich MD PCP - General Family Medicine 07/29/16
--- OUTSIDE RECORDS SUMMARY | 2025-02-22 00:42 | XMS_ITS | Clinical Summary ---
Author Organization [facility] Address [address] [place] [address] Care Team Providers Care Certified Personal Chef Name Role Phone Dane Barrett MD Unavailable [phone] Brayden Zarco MD Unavailable [phone] Donte Sheets MD Primary Care Provider [phone] Allergies No known active allergies Medications acetaminophen [...] Description 04/24/2025 1:45 PM EST Office Visit [facility] [address] [place] [address] Shefali Rothman MD [address] [place] [address] Health Maintenance Due Date Last Done Comments [facility]-/Child/Adol SDOH Screenings 1965 [facility]- SDOH Screenings 1983 [facility]-Adult SDOH Screenings 1983 [facility]-Pneumococcal Vaccine: 50+ Years (1 of 2 - PCV) 01/18/[address] Colonography 2010 FIT-DNA 2010 FIT 2010 FOBT 2010 [facility]-Colorectal Cancer Screening 09/17/2021 [facility]-Depression Screening 12/24/2022 12/24/2021, 03/26 [id number] Vaccine ( season) 2025 06/25/2021, 09/05/2020, 08/08/2020 [facility]-Influenza Vaccine (#1) 01/23/202503/09, 01/31/2023, 05/11/2022, Additional history exists [facility]-DTaP,Tdap,and Td Vaccines (2 - Td or Tdap) 11/05/2025 11/06/2015 Sigmoidoscopy 09/16/2026 09/16/2021, 05/20/2021 [facility]-RSV Vaccine: 60+ Years or (1 - 1-dose 75+ series) 01/18/2040 [facility]-Hepatitis A Vaccines Aged Out 09/03/2018 No longer eligible based on patient's age to complete this topic [facility]-HIV Screening Completed 11/05/2020, 10/18/2020 [facility]-Hepatitis C [...] this topic Medical Devices Implanted Type Area Jute Bag Sewer Device Identifier Shelf Expiration Date Model / [...] of bowel preparation was evaluated using the Mackey Bowel Preparation Scale with scores of: left [...] Antibody/Antigen Screen (11/05/2020 6:30 PM EDT) Pathologist [facility] HIV 1 & 2 Antibody/Anti gen Screen Nonreactive Nonreactive 11/05/2020 8:02 PM EDT [facility] Blood Venous blood specimen / Unknown Venipuncture / Unknown 11/05/2020 6:30 PM EDT 11/05/2020 8:02 PM EDT Marcello Mckeon MD LAB BLOOD ORDERABLES Final Re sult [facility] [address] [place] [address] * [place] Hepatitis C Antibody (11/05/2020 6:30 PM EDT) Pathologist [facility] Hepatitis C Antibody Negative Negative 11/05/2020 8:02 PM EDT [facility] Blood Venous blood specimen / Unknown Venipuncture / Unknown 11/05/2020 6:30 PM EDT 11/05/2020 8:02 PM EDT us Marcello Mckeon MD LAB BLOOD ORDERABLES Final Re sult [facility] [address] [place] [address] from Last 3 Months or Most Recently [...] 4:13 PM 10/29/2020 6:33 PM Care Teams Certified Personal Chef Relationship Specialty Start Date End Date Donte Sheets MD [address] [place] [address] PCP - General 08/23/21 Dane Barrett MD [address] [facility] [address] [place] [address] Surgeon Colon and Rectal Surgery 04/16/21 Brayden Zarco MD [address] [id number] Consulting Physician Radiation Oncology 05/30/21
--- OUTSIDE RECORDS SUMMARY | 2025-02-22 00:42 | XMS_ITS | Continuity of Care Document ---
Author Organization [facility] [place] Address [address] [place] [address] Care Team Providers Care Earth Science Teacher Name Role Phone NOE RICH Primary Care Provider [phone] Assessment No assessment recorded. Plan of Treatment Reminders Order Date Submit Date Provider Last Modified By Organization Details Last Modified Time Details Appointments Establish ed Visit 15 min 2024 01:30P M Noe Rich MD Not available Not available Not available Establish ed Visit 15 min 2024 02:45P M Noe Rich MD Not available Not available Not available Lab None recorded. Referral None recorded. Procedures None recorded. Surgeries None recorded. Imaging None recorded. Medication Orders None recorded. Patient TargetsNo targets recorded. Patient InstructionsNo instructions recorded. Reason for Referral None Reported. Results Created Date Observation Date Name Description Value Unit Range Abnormal Flag Note LastModifiedBy Organization Detail LastModifiedTime 12/09/1912/07/2024 CT, chest , w/o contr ast No observ ation record ed. [address] [facility] [address], [place], [address], 12/19/2024 10:27:00 12/09/19 25 12/07/2024 CT, abdom en + pelvi s, w/o contr ast No observ ation record ed. [address], [place], [address], 12/19/2024 10:27:40 12/19/19 25 12/14/2024 elect rocar diogr am No observ ation record ed. [email or web address] [facility] [address], [place], [place], [address], 12/19/2024 10:27:14 Result Notes None recorded. Problems Name Problem SNOMED Code Status Onset Date Resolution Date Notes Provider Name and Address Organization Details Recorded Time History of malignant neoplasm of colon and/or rectum Active 2023 Marcela torres, [place] - [facility] - [place] & [place] 4 14:56:04 Arteriosclerot ic vascular disease 47973159 Active 2024 Noe Rich MD [address] [facility], [place], [address] , [place] - [facility] - [place] & [place] 11:41:01 Problem Notes None recorded. Procedures Surgical History Date Name Laterality Status Provider Name and Address Organization Details Recorded Time 12/12/19 25 catheterization of left heart completed Anum Rothamer [place] - [facility] - [place] & [place] 12/19/2024 12:00:27 02/12/20 24 Colonoscopy completed Anum [place]amer [place] - [facility] - [place] & [place] 08/12/2024 15:30:30 09/23/19 23 Colonoscopy completed Anum [place]amer [place] - [facility] - [place] & [place] 08/12/2024 15:30:06 01/04/20 22 closure of enterostomy completed Anum [place]amer [place] - [facility] - [place] & [place] 12/19/2024 11:58:32 10/04/19 22 Ileostomy/jejunost garo completed Anum Rothamer [place] - [facility] - [place] & [place] 12/19/2024 11:56:51 08/14/19 22 Flexible Sigmoidoscopy completed Anum [place]amer [place] - [facility] - [place] & [place] 10/27/2023 15:03:24 01/17/20 21 graft of skin to skin completed Anum [place]amer [place] - [facility] - [place] & [place] 10/27/2023 15:18:29 11/09/19 21 debridement of wound of skin completed Anum [place]amer [place] - [facility] - [place] & [place] 10/27/2023 15:05:56 08/14/19 21 Colonoscopy completed Anum Knottamer [place] - [facility] - [place] & [place] 08/12/2024 15:29:44 05/25/18 99 Cholecystectomy completed Anum Knottamer [place] - [facility] - [place] & [place] 08/12/2024 15:28:24 05/25/18 96 Abdominal Surgery completed Marcela Barreto [place] - [facility] - [place] & [place] 12/07/2023 14:55:59 multi-agent systemic chemotherapy completed Anum Knottamer [place] - [facility] & [place] 10/27/2023 15:03:40 combined chemotherapy and radiation therapy completed Anum Nikosamer [place] - [facility] - [place] & [place] 10/27/2023 15:04:01 Total knee arthroplasty completed Anum [place]amer [place] - [facility] & [place] 10/27/2023 15:06:07 accessing of implantable venous access port completed Anum [place]amer [place] - [facility] & [place] 10/27/2023 15:07:31 removal of implantable venous access port completed Anum Rothamer [place] - [facility] - [place] & [place] 10/27/2023 15:07:39 Imaging Results None recorded. Procedure Notes None recorded. 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 Serial Number Lot Number Status Provider Name and Address Organization Details Recorded Time Port A Cath Placement FDA Y Anum Knottreyes [place], [place] - [facility] - [place] & [place] 10/27/2023 15:24:40 Allergies No known drug allergies [...] and Address Organization Details Last Updated DateTime 170.18 cm 30.5 kg/m2 92027.1 8 g 97.5 [degF] 99 % 99 % 76 /min 134/82 mm[Hg] Mya Andino [facility] & [place] 11:18:14 Social History Question Answer Notes LastModified by Organizat ion Details LastModified Time Tobacco Smoking Status Former Smoker Marcela Barreto [facility], [facility] & [place] 11/03/2023 14:57:26 Do You Have An Advance Directive? No [email or web address] Information not available 12/07/2023 Are You Blind Or Do You Have Difficulty Seeing? No [email or web address] Information not available 12/07/2023 What Is Your Level Of Caffeine Consumption? Moderate [email or web address] Information not available 11/03/2023 When Did You Quit Smoking? 6-10yearssinc elastcigarett e [email or web address] Information not available 11/03/2023 What Was The Date Of Your Most Recent Tobacco Screening? 12/23/2024 [email or web address] Information not available 02/08/2025 What Is Your Current Pack Years? 20-29packyear s [email or web address] Information not available 11/03/2023 Are You Passively Exposed To Smoke? No [email or web address] Information not available 12/07/2023 How Much Tobacco Do You Smoke? 1 PPD [email or web address] Information not available 12/07/2023 How Many Years Have You Smoked Tobacco? 15 [email or web address] Information not available 12/07/2023 Sex: Male Functional Status Question Answer Note LastModified by Organizat ion Details LastModified Time Do you use any illicit or recreational drugs? No [email or web address] Information not available 11/03/2023 Do you or have you ever used any other forms of tobacco or nicotine? No [email or web address] Information not available 11/03/2023 What is your level of alcohol consumption? Moderate [email or web address] Information not available 11/03/2023 Do you or have you ever used smokeless tobacco? Never used smokeless tobacco [email or web address] Information not available 12/07/2023 What is your exercise level? Moderate [email or web address] Information not available 12/07/2023 Mental Status Question Answer Note LastModified by Organization D etails LastModified Time Do you feel stressed (tense, restless, nervous, or anxious, or unable to sleep at night)? [id number] [email or web address] Information not available 12/07/2023 Family History Relationship [...] Y Coronary Artery Disease Y Obesity Y Cancer Y Reflux/GERD Y High Cholesterol Y Heart Attack ([place]) Y Pulmonary Embolism Y Hypertension Y Immunizations Vaccine Type Date Status Note Provider Nam e and Address Organization Details Recorded Time SARS-COV-2 (COVID-19) vaccine, UNSPECIFIED 9 completed Anum Escobar null, [place] - [facility] - [place] & [place] 10/27/2023 15:10:23 Hep B, unspecified formulation 9 completed Anum Escobar [place] [facility] - [place] & [place] 10/27/2023 15:15:58 Hep B, unspecified formulation 9 completed Anum Rothamer [place] [facility] [place] 10/27/2023 15:16:03 Hep B, unspecified formulation 9 completed Anum Rothamer [place] [facility] & [place] 10/27/2023 15:16:10 Tdap 6 completed Anum Rothamer [place] [facility] & [place] 10/27/2023 15:16:58 zoster recombinant 3 completed Marcela Barreto [place], [place] - [facility] - [place] & [place] 11/03/2023 15:42:56 zoster recombinant 3 completed Marcela [place]re[place] [facility] [place] & [place] 11/03/2023 15:42:56 COVID-19, mRNA, LNP-S, PF, 100 mcg/0.5mL dose or 50 mcg/0.25mL dose 2 completed Marcela Barre[place], [place] - [facility] - [place] & [place] 11/03/2023 15:42:56 COVID-19, mRNA, LNP-S, PF, 100 mcg/0.5mL dose or 50 mcg/0.25mL dose 1 completed Marcela Barre[place] [facility] - [place] & [place] 11/03/2023 15:42:56 COVID-19, mRNA, LNP-S, PF, 100 mcg/0.5mL dose or 50 mcg/0.25mL dose 1 completed Marcela Barre[place] [facility] - [place] & [place] 11/03/2023 15:42:57 Hep A, adult 9 completed Marcela [place]re[place] [facility] - [place] & [place] 11/03/2023 15:42:57 Influenza, split virus, quadrivalent, PF 3 completed Marcela Barre[place], [place] - [facility] - [place] & [place] 11/03/2023 15:42:57 Influenza, split virus, quadrivalent, PF 7 completed Marcela Barreto null, [place] - [facility] & [place] 11/03/2023 15:42:57 Influenza, split virus, quadrivalent, PF 9 completed Marcela Barreto [place], [place] - [facility] & [place] 11/03/2023 15:42:57 Influenza, split virus, quadrivalent, PF 8 completed Marcela Barreto null, [place] - [facility] & [place] 11/03/2023 15:42:57 Influenza, split virus, quadrivalent, PF 0 completed Marcela Barreto null, [place] - [facility] & [place] 11/03/2023 15:42:57 Influenza, split virus, quadrivalent, PF 6 completed Marcelabobby Barreto null, [place] - [facility] & [place] 11/03/2023 15:42:57 Influenza, split virus, quadrivalent, PF 2 completed Marcela Barreto null, [place] [facility] & [place] 11/03/2023 15:42:57 Influenza, MDCK, trivalent, PF 4 completed Noe Rich MD [address] [facility], [place], [address], [facility] & [place] 03/10/2024 06:02:12 Past Encounters Encounter ID Performer Location Encounter Start Date Encounter Closed Date Diagnosis/Indication Diagnosis SNOMED-CT Code Diagnosis ICD10 Code Diagnosis IMO Codes Diagnosis Note [id number] Noe Rich MD [facility] [place] [address] [place] [address] 12/26/2024 10:51:31 12/26/2024 11:47:39 Arteriosclerotic vascular disease 88361607 I25.10 80054578 Now status post 2 stents currently on aspirin, atorvastat in, carvedilol and clopidogre l. Has follow up with Cardiology next week Prediabetes 075139526 R7 3.03 [id number] Most recent A1c from August was 5.7%. He will return to clinic in 3 months for repeat A1c along with TSH and PSA. He would have had other labs during his recent hospitaliz ation Essential hypertension 10980813 I10 54917 BP was 134/82 off lisinopril and now on carvedilol 3.125 b.i.d. We will continue Health Concerns Section Related Observation LastModified by Organization Tawanna dubose LastModified Time None Recorded Concern Status LastModified by Organization Details LastModified Time None Recorded Payers Encounter Date Sequence Insurance Name Policy Number Policy Barton Covered Member ID Barton Member ID Guarantor Name 12/26/2024 1 [employer] (MEDICARE REPLACEMENT/A DVANTAGE - PPO) Brayden Hicks [id number] Brayden Hicks Notes Date Note Type Note Provider Name and Address Organization Details Recorded Time 12/26/2024 text/html 59-year-old white male presents for hospital follow up. Apparently was admitted to [facility] on November 24 with chest pain which started the day prior. Subsequently found to have had an KS with at least 2 occlusions which were stented. Patient was released on November 25 and had follow up at trauma registrar's office the following week where he had [...] is good at 134/82 off the lisinopril. Noe Rich MD [address], [place], [address], [facility] - [place] - [place] & [place] 12/26/2024 13:09:26
--- OUTSIDE RECORDS SUMMARY | 2025-02-22 00:42 | XMS_ITS ---
Author Organization [facility] Address [address] [place] [address] Care Team Providers Care Lay Ups Assembler Name Role Phone Dane Barrett MD Unavailable [phone] Brayden Zarco MD Unavailable [phone] Donte Sheets MD Primary Care Provider [phone] Active Problems Problem Noted Date Diagnosed Date [...]
[2025-02-22 00:47] LABS: Hematocrit 49.1 % (42.0-52.0); Hemoglobin 17.1 g/dL (14.1-18.0); Immature Granulocytes % 0.3 %; Mean Corpuscular HGB Conc 34.8 g/dL (31.8-35.4); Mean Corpuscular Hemoglobin 30.9 pg (27.0-31.2); Mean Corpuscular Volume 88.8 fl (80-94); Nucleated Red Blood Cells % 0 %; Platelet Count 262 K/mm3 (142-424); Red Blood Count 5.53 M/mm3 (4.60-6.20); Red Cell Distribution Width-SD 39.9 fL; White Blood Count 12.6 K/mm3 (4.8-10.8)
[2025-02-22] MEDS: ACETAMINOPHEN 500MG TAB 1000 MG PO (01:00)
[2025-02-22] MEDS: KETOROLAC 30MG/ML VIAL 30 MG IV (01:00)
[2025-02-22] MEDS: ONDANSETRON 4MG/2ML VIAL 4 MG IV (01:00)
[2025-02-22] MEDS: MORPHINE 4MG/ML SYRINGE 4 MG IV (01:00)
[2025-02-22] MEDS: 0.9 % SODIUM CHLORIDE 1000ML 1,000 ML 999 ML IV (01:01)
[2025-02-22 01:02] LABS: Alanine Aminotransferase 34 U/L (12-78); Albumin Level 5.1 g/dl (3.5-5.0); Albumin/Globulin Ratio 1.6 (1.1-1.8); Alkaline Phosphatase 106 U/L (38-126); Anion Gap 16.4 mEq/L (5-15); Aspartate Amino Transferase 35 U/L (17-59); Bilirubin,Total 1.4 mg/dl (0.2-1.3); Blood Urea Nitrogen 19 mg/dl (9-20); Calcium 10.4 mg/dl (8.4-10.2); Carbon Dioxide 25 mmol/L (22.0-30.0); Chloride 102 mmol/L (98-107); Creatinine Clearance Estimated 70 mL/min (50-200); Creatinine,Serum 1.40 mg/dl (0.66-1.25); Estimated Glomerular Filt Rate 52 ml/min (>60); GFR (African American) 63 ML/MIN (>60); Globulin 3.2 g/dL (1.3-3.2); Glucose 157 mg/dl (74-100); Lipase 143 U/L (23-300); Magnesium 2.0 mg/dl (1.6-2.3); Potassium 4.4 mmoL/L (3.5-5.1); Sodium 139 mmol/L (136-145); Total Protein,Serum 8.3 g/dl (6.3-8.2)
[2025-02-22] MEDS: SODIUM CHLORIDE 0.9% 10ML SYR (RAD ONLY) 10 ML IV (01:23)
[2025-02-22] MEDS: IOPAMIDOL-370 (76%);100ML BOTTLE 80 ML IV (01:23)
[2025-02-22] MEDS: 0.9 % SODIUM CHLORIDE 50 ML VIAL IV (01:23)
--- NOTE | 2025-02-22 02:19 | PC.NURSE ---
1st bag of zosyn delayed d/t obtaining blood cultures
[2025-02-22] MEDS: PIPERACILLIN/TAZO 4.5 GM in 0.9 % SODIUM CHLORIDE 100 ML IV (02:28)
--- NOTE | 2025-02-22 02:42 | PC.NURSE ---
Report given to [facility] nurse, Rufina at this time
--- NOTE | 2025-02-22 02:54 | PC.NURSE ---
Patient arrivded to floor via wheelchair from ED at 02:52.
[2025-02-22] MEDS: 0.9 % SODIUM CHLORIDE 1000ML 1,000 ML 50 ML IV (03:40)
--- NOTE | 2025-02-22 04:32 | EXP.HP ---
History of Present Illness *Admission Date: 02/22/25 *Reason for visit:: abdominal pain *History of present illness: Patient is a 60-year-old male with past medical history of hypertension hyperlipidemia CAD who presents to the hospital due to abdominal pain. He mentions he has been having worsening pain, and right lower quadrant, he denies associated fevers chills diarrhea constipation dysuria. He has associated vomiting-nonbloody. On further evaluation patient was found to have inflammation of appendix suggestive of appendicitis on CT abdomen. [facility] Disclaimer: The information contained in this section may have been updated after the patient was seen, as this information can be updated by other users. Medical History Mixed hyperlipidemia Coronary artery disease HLD (hyperlipidemia) HTN (hypertension) Unstable angina Hypokalemia Cellulitis Hyponatremia Hyperkalemia Acute kidney injury Effusion, right knee Cellulitis of right thigh Puncture wound of right thigh with complication Traumatic hematoma of right lower leg with infection Suspected soft tissue infection Rectal cancer Pulmonary emboli Chest trauma Abdominal trauma Cholecystectomy planned History of COVID-19 Colon cancer Cardiomyopathy Surgical History History of coronary artery stent placement History of surgery PORT History of colonoscopy History of surgery RIGHT LEG History of colon resection History of colon surgery History of arthroplasty of left knee Family History Mother Breast cancer Pancreatic cancer Social History (Updated 02/22/25 @ 03:51 by Rufina Colon RN) Smoking Status: Never smoker years smoked: 20 how long ago did patient quit smokin alcohol intake: never substance use type: denies use current occupational status: retired Travel in the last 8 weeks?: None household members: spouse housing: house current occupation: [employer] current occupational exposures/hazards: No caffeine: Yes Contact w/someone who lives/traveled outside US past 30 days?: No Exposure to someone with infectious disease in past 14 days?: No Have you tested positive for COVID-19?: No Exposed to someone with COVID-19 in past 14 days?: No Do you have a sore throat?: No Do you have a cough?: No Do you have any weakness?: No Are you experiencing any nausea/vomitting?: Yes Do you have any diarrhea?: No Are you experiencing any unusual bleeding?: No Do you have any muscle aches/pain?: No Do you have any abdominal pain?: Yes Are you experiencing loss of taste or smell?: No Other Medical History Have you received the Flu Vaccine for this season: No Have you received the Pneumonia Vaccine: No Review of Systems Review of Systems Review of systems:: pertinent systems reviewed and negative unless documented below Meds Home Medications and Allergies Home Medications ?Medication ?Instructions ?Recorded ?Confirmed ?Type aspirin 81 mg tablet,delayed 81 mg PO DAILY 30 days #90 tabs 12/01/24 02/22/25 Rx release carvedilol 3.125 mg tablet 3.125 mg PO BID #180 tabs 12/01/24 02/22/25 Rx clopidogrel 75 mg tablet 75 mg PO DAILY #90 tabs 12/01/24 02/22/25 Rx lisinopril 5 mg tablet 5 mg PO DAILY #90 tabs 12/01/24 02/22/25 Rx atorvastatin 40 mg tablet 40 mg PO DAILY 01/02/25 02/22/25 History New Prescriptions to Start Prescriptions: Allergies Allergy/AdvReac Type Severity Reaction Status Date / Time No Known Allergies Allergy Verified 01/02/25 13:25 Exam Data for Last 24 hours Vital signs and Labs for Last 24 Hours: Temp Pulse Resp BP Pulse Ox O2 Del Method 98 F 74 17 150/77 H 97 Room Air 02/22/25 03:04 02/22/25 03:04 02/22/25 03:04 02/22/25 03:04 02/22/25 03:04 02/22/25 03:04 Laboratory Results - last 24 hr 02/22/25 00:40: WBC 12.6 H, RBC 5.53, Hgb 17.1, Hct 49.1, MCV 88.8, MCH 30.9, MCHC 34.8, RDW 12.1, Plt Count 262, MPV 10.9 H, Neut % (Auto) 82.6 H, Lymph % (Auto) 9.5 L, [place] % (Auto) 5.1, Eos % (Auto) 2.1, Baso % (Auto) 0.4, Neut # (Auto) 10.4 H, Lymph # (Auto) 1.2, [place] # (Auto) 0.6, Eos # (Auto) 0.3, Baso # (Auto) 0.1, Sodium 139, Potassium 4.4, Chloride 102, Carbon Dioxide 25, Anion Gap 16.4 H, BUN 19, Creatinine 1.40 H, Estimated Creat Clear 70, Estimated GFR 52 L, Est GFR ( Amer) 63, Glucose 157 H, Calcium 10.4 H, Magnesium 2.0, Total Bilirubin 1.4 H, AST 35, ALT 34, Alkaline Phosphatase 106, Total Protein 8.3 H, Albumin 5.1 H, Globulin 3.2, Albumin/Globulin Ratio 1.6, Lipase 143 I & O for Last 24 hours: Intake & Output 02/19/25 02/20/25 02/21/25 02/22/25 23:59 23:59 23:59 23:59 Intake Total 1100 / 1100 Balance 1100 / 1100 Weight 86.636 kg Constitutional Constitutional: no acute distress *Routine HEENT Exam Head: Present normocephalic Eye: Present EOMI and PERRL ENT: Present mucous membranes moist *Routine Neck Exam Neck: Present supple; Absent lymphadenopathy *Routine Respiratory Exam Respiratory: Present CTA bilaterally *Routine Cardiovascular Exam Cardiovascular: Present RRR *Routine Abdominal Exam Abdominal: Present soft, normoactive bowel sounds and tenderness Comments: RLQ tenderness *Routine Rectal Exam Rectal:: deferred *Routine Genitalia Exam Genitalia:: deferred *Routine Extremities Exam Extremities: Absent cyanosis, clubbing or edema *Routine Skin Exam Skin: Present warm; Absent rash *Routine Neurological Exam Neurological: Present alert and oriented X3 Assessment and Plan *Assessment and plan (1) Appendicitis: Status: Acute Qualifiers: Acute appendicitis type: with localized peritonitis Appendicitis abscess presence: without abscess Appendicitis perforation presence: without perforation Appendicitis type: acute appendicitis Category: Medical Code(s): K37 - Unspecified appendicitis (2) HLD (hyperlipidemia): Status: Acute Qualifiers: Hyperlipidemia type: mixed hyperlipidemia Qualified Code(s): E78.2 - Mixed hyperlipidemia Category: Medical Code(s): E78.5 - Hyperlipidemia, unspecified (3) HTN (hypertension): Status: Acute Qualifiers: Hypertension type: primary hypertension Qualified Code(s): I10 - Essential (primary) hypertension Category: Medical Code(s): I10 - Essential (primary) hypertension (4) Coronary artery disease: Status: Acute Qualifiers: Associated angina: without angina Coronary Disease-Associated Artery/Lesion type: [place] artery [place] vs. transplanted heart: [place] heart Qualified Code(s): I25.10 - Atherosclerotic heart disease of [place] coronary artery without angina pectoris Category: Medical Code(s): I25.10 - Atherosclerotic heart disease of [place] coronary artery without angina pectoris Plan Patient is a 60-year-old male with past medical history of hypertension hyperlipidemia CAD who presents to the hospital due to abdominal pain. He mentions he has been having worsening pain, and right lower quadrant, he denies associated fevers chills diarrhea constipation dysuria. He has associated vomiting-nonbloody. On further evaluation patient was found to have inflammation of appendix suggestive of appendicitis on CT abdomen. Assessment and plan Right lower quadrant abdominal pain likely acute appendicitis Start IV Zosyn IV fluids N.p.o. for now Consult general surgery Pain control Chronic medical conditions CAD Hypertension Hyperlipidemia - Resume home medications when able to take p.o. DVT prophylaxis-subcutaneous heparin
[2025-02-22 06:02] LABS: Hematocrit 44.1 % (42.0-52.0); Immature Granulocytes % 0.2 %; Mean Corpuscular HGB Conc 32.9 g/dL (31.8-35.4); Mean Corpuscular Hemoglobin 30.1 pg (27.0-31.2); Mean Corpuscular Volume 91.5 fl (80-94); Nucleated Red Blood Cells % 0 %; Platelet Count 191 K/mm3 (142-424); Red Blood Count 4.82 M/mm3 (4.60-6.20); Red Cell Distribution Width-SD 41.6 fL; White Blood Count 10.7 K/mm3 (4.8-10.8)
[2025-02-22 06:13] LABS: Hemoglobin 14.6 g/dL (14.1-18.0)
--- NOTE | 2025-02-22 06:18 | PC.NURSE ---
Called at 0610 from [facility] stating surgery team is coming to get patient for surgery, states they will get consents done downstairs. Patient showered and ready in gown and agrees to go down for surgery.
--- NOTE | 2025-02-22 06:31 | P.CONS_ITS ---
History of Present Illness *Admission Date: 02/22/25 *Reason for visit:: Appendicitis *History of present illness: Is a 60-year-old gentleman seen in consultation after evaluation emergency department for increasing abdominal pain. He had radiographic evidence consistent with appendicitis and the surgical service was consulted. He is status post partial colectomy, colostomy, and subsequent colostomy takedown. A right lower quadrant hernia containing loops of small bowel was also noted per CT scan. The patient states that he underwent recent heart catheter status post myocardial infarction (November 24, 2024). Forwarded from admission H&P Patient is a 60-year-old male with past medical history of hypertension hyperlipidemia CAD who presents to the hospital due to abdominal pain. He mentions he has been having worsening pain, and right lower quadrant, he denies associated fevers chills diarrhea constipation dysuria. He has associated vomiting-nonbloody. On further evaluation patient was found to have inflammation of appendix suggestive of appendicitis on CT abdomen. [facility] Disclaimer: The information contained in this section may have been updated after the patient was seen, as this information can be updated by other users. Medical History (Updated 02/22/25 @ 06:35 by Henrique Moreno MD) History of rectal cancer Mixed hyperlipidemia Coronary artery disease HLD (hyperlipidemia) HTN (hypertension) Unstable angina Hypokalemia Cellulitis Hyponatremia Hyperkalemia Acute kidney injury Effusion, right knee Cellulitis of right thigh Puncture wound of right thigh with complication Traumatic hematoma of right lower leg with infection Suspected soft tissue infection Rectal cancer Pulmonary emboli Chest trauma Abdominal trauma Cholecystectomy planned History of COVID-19 Colon cancer Cardiomyopathy Surgical History History of coronary artery stent placement History of surgery History of colonoscopy History of surgery History of colon resection History of colon surgery History of arthroplasty of left knee Family History Mother Breast cancer Pancreatic cancer Social History (Updated 02/22/25 @ 03:51 by Rufina Colon RN) Smoking Status: Never smoker years smoked: 20 how long ago did patient quit smokin alcohol intake: never substance use type: denies use current occupational status: retired Travel in the last 8 weeks?: None household members: spouse housing: house current occupation: [employer] current occupational exposures/hazards: No caffeine: Yes Contact w/someone who lives/traveled outside [place] past 30 days?: No Exposure to someone with infectious disease in past 14 days?: No Have you tested positive for COVID-19?: No Exposed to someone with COVID-19 in past 14 days?: No Do you have a sore throat?: No Do you have a cough?: No Do you have any weakness?: No Are you experiencing any nausea/vomitting?: Yes Do you have any diarrhea?: No Are you experiencing any unusual bleeding?: No Do you have any muscle aches/pain?: No Do you have any abdominal pain?: Yes Are you experiencing loss of taste or smell?: No Meds Home Medications and Allergies Home Medications ?Medication ?Instructions ?Recorded ?Confirmed ?Type aspirin 81 mg tablet,delayed 81 mg PO DAILY 30 days #9 0 tabs 12/01/24 02/22/25 Rx release carvedilol 3.125 mg tablet 3.125 mg PO BID #180 tabs 0 12/01/24 02/22/25 Rx clopidogrel 75 mg tablet 75 mg PO DAILY #90 tabs 11/2202/22/25 Rx lisinopril 5 mg tablet 5 mg PO DAILY #90 tabs 12/0102/22/25 Rx atorvastatin 40 mg tablet 40 mg PO DAILY 01/02/2506/18 History New Prescriptions to Start Prescriptions: Allergies Allergy/AdvReac Type Severity Reaction Status Date / Time No Known Allergies Allergy Verified 01/02/25 13:25 Exam (Inpt) Vital signs and Labs for Last 24 Hours: Temp Pulse Resp BP Pulse Ox O2 Del Method 98.0 F 74 17 150/77 H 97 Room Air 02/22/25 04:00 02/22/25 04:00 02/22/25 04:00 02/22/25 04:00 02/22/25 04:00 02/22/25 05:00 Laboratory Results - last 24 hr 02/22/25 00:40: WBC 12.6 H, RBC 5.53, Hgb 17.1, Hct 49.1, MCV 88.8, MCH 30.9, MCHC 34.8, RDW 12.1, Plt Count 262, MPV 10.9 H, Neut % (Auto) 82.6 H, Lymph % (Auto) 9.5 L, [place] % (Auto) 5.1, Eos % (Auto) 2.1, Baso % (Auto) 0.4, Neut # (Auto) 10.4 H, Lymph # (Auto) 1.2, [place] # (Auto) 0.6, Eos # (Auto) 0.3, Baso # (Auto) 0.1, Sodium 139, Potassium 4.4, Chloride 102, Carbon Dioxide 25, Anion Gap 16.4 H, BUN 19, Creatinine 1.40 H, Estimated Creat Clear 70, Estimated GFR 52 L, Est GFR ( Amer) 63, Glucose 157 H, Calcium 10.4 H, Magnesium 2.0, T otal Bilirubin 1.4 H, AST 35, ALT 34, Alkaline Phosphatase 106, Total Protein 8.3 H, Albumin 5.1 H, Globulin 3.2, Albumin/Globulin Ratio 1.6, Lipase 143 02/22/25 05:18: WBC 10.7, RBC 4.82, Hgb 14.6 D, Hct 44.1, MCV 91.5, MCH 30.1, MCHC 32.9, RDW 12.4, Plt Count 191 D, MPV 11.2 H, Neut % (Auto) 85.5 H, Lymph % (Auto) 5.4 L, [place] % (Auto) 8.3, Eos % (Auto) 0.3, Baso % (Auto) 0.3, Neut # (Auto) 9.2 H, Lymph # (Auto) 0.6 L, [place] # (Auto) 0.9, Eos # (Auto) 0.0, Baso # (Auto) 0.0 I & O for Labs for Last 24 Hours: Intake & Output 02/19/25 02/20/25 02/21/25 02/22/25 11:59 11:59 11:59 11:59 Intake Total 1100 / 1100 Balance 1100 / 1100 Weight 190 lb 15.995 oz Constitutional: no acute distress Respiratory: Absent respiratory distress Cardiac: Absent Tachycardia GI: Present tenderness and hernia Results Labs 02/22/25 05:18 02/22/25 00:40 Labs: Laboratory Results - last 24 hr 02/22/25 00:40: WBC 12.6 H, RBC 5.53, Hgb 17.1, Hct 49.1, MCV 88.8, MCH 30.9, MCHC 34.8, RDW 12.1, Plt Count 262, MPV 10.9 H, Neut % (Auto) 82.6 H, Lymph % (Auto) 9.5 L, [place] % (Auto) 5.1, Eos % (Auto) 2.1, Baso % (Auto) 0.4, Neut # (Auto) 10.4 H, Lymph # (Auto) 1.2, [place] # (Auto) 0.6, Eos # (Auto) 0.3, Baso # (Auto) 0.1, Sodium 139, Potassium 4.4, Chloride 102, Carbon Dioxide 25, Anion Gap 16.4 H, BUN 19, Creatinine 1.40 H, Estimated Creat Clear 70, Estimated GFR 52 L, Est GFR ( Amer) 63, Glucose 157 H, Calcium 10.4 H, Magnesium 2.0, T otal Bilirubin 1.4 H, AST 35, ALT 34, Alkaline Phosphatase 106, Total Protein 8.3 H, Albumin 5.1 H, Globulin 3.2, Albumin/Globulin Ratio 1.6, Lipase 143 02/22/25 05:18: WBC 10.7, RBC 4.82, Hgb 14.6 D, Hct 44.1, MCV 91.5, MCH 30.1, MCHC 32.9, RDW 12.4, Plt Count 191 D, MPV 11.2 H, Neut % (Auto) 85.5 H, Lymph % (Auto) 5.4 L, [place] % (Auto) 8.3, Eos % (Auto) 0.3, Baso % (Auto) 0.3, Neut # (Auto) 9.2 H, Lymph # (Auto) 0.6 L, [place] # (Auto) 0.9, Eos # (Auto) 0.0, Baso # (Auto) 0.[address] scan - abdomen: report reviewed and image reviewed CT scan - pelvis: report reviewed and image reviewed Assessment and Plan *Assessment and plan (1) Appendicitis: Status: Acute Qualifiers: Acute appendicitis type: with localized peritonitis Appendicitis abscess presence: without abscess Appendicitis perforation presence: without perforation Appendicitis type: acute appendicitis Appendicitis gangrene presence: without gangrene Qualified Code(s): K35.30 - Acute appendicitis with localized peritonitis, without perforation or gangrene Category: Medical Code(s): K37 - Unspecified appendicitis Plan: Laparoscopic (possible open) appendectomy today. The patient understands the increased risk secondary to recent myocardial infarction. He understands increased risk of bleeding as he is on aspirin/Plavix. The patient also understands the increased operative risk secondary to prior intervention and known overlying herniation with contained small bowel. I have discussed the risks and benefits including, but not limited to: Bleeding Infection Damage to surrounding tissue Inherent risks of sedation The patient agrees to proceed.
[2025-02-22] MEDS: LIDOCAINE 1% 20ML MDV 20 ML (07:00)
[2025-02-22] MEDS: METRONIDAZ/SOD CHL 500 MG/100 ML PIGGYBACK 100 MG IV (07:30)
--- NOTE | 2025-02-22 08:08 | P.OP_ITS ---
Date of procedure: 02/22/25 Pre-op Diagnosis:: Appendicitis Post-op Diagnosis:: Suppurative appendicitis Procedure performed:: Diagnostic laparoscopy Open appendectomy Surgeon:: Henrique Moreno MD TELEPHOTO ENGINEER:: Ross Ortiz Anesthesia: GETA Estimated blood loss (mL): 15 Operative findings:: Profound adhesions throughout anterior abdominal wall status post prior surgical intervention (densely adhesed small bowel, omentum, and colon) Decision to proceed with open approach secondary to above findings Right lower quadrant hernia at prior ostomy takedown site with contained small bowel Enlarged appendix with severe inflammation and suppurative changes Operative note:: After informed consent was obtained the patient was taken to the operating room and placed in the supine position. General anesthesia was induced and his abdomen was prepped and draped in a sterile fashion. After infiltration with local anesthetic a Veress needle was placed in the left upper quadrant. A 5 mm optical trocar was then placed just caudal to the Veress needle site. Inspection revealed profound dense adhesions throughout the anterior abdominal wall (adhered small bowel, omentum, and colon). The decision to forego further laparoscopic intervention was made. An incision was made overlying the right lower quadrant palpable hernia. The deep subcutaneous tissue was dissected with electrocautery. The abdomen was then sharply entered with release of remaining pneumoperitoneum. Densely adhered small bowel was immediately encountered. Small bowel adhesions were carefully taken down along the medial aspect of the incision to allow for subsequent closure. Additional adhesiolysis was deemed unwarranted/unsafe. The appendix was palpable along the right lateral sidewall. Induration and enlargement noted. The appendix was carefully elevated with a Germfask as the mesoappendix was taken with harmonic julio. The base of the appendix was controlled with 2 separate Endoloops. The appendix was then transected at its base with harmonic julio. Mucosa was imbricated with Vicryl suture. The entire region was thoroughly irrigated. No sign of active bleeding or obvious injury was noted. Fascia was reapproximated to the degree possible (site of large complex herniation) with interrupted 0 Ethibond. Skin was then reapproximated with interrupted 4-0 nylon in a mattress fashion. Dressings were applied and the patient was transferred to recovery in stable condition after extubation. Condition: stable Disposition: PACU Specimens:: Appendix Complications:: No immediate
--- NOTE | 2025-02-22 08:30 | HMH.PHAINT1 ---
Pharmacy Intervention Comments: home medication list verified using list from cardiology office last visit
[2025-02-22 08:39] LABS: Alanine Aminotransferase 32 U/L (12-78); Albumin Level 3.8 g/dl (3.5-5.0); Albumin/Globulin Ratio 1.6 (1.1-1.8); Alkaline Phosphatase 71 U/L (38-126); Anion Gap 13.4 mEq/L (5-15); Aspartate Amino Transferase 39 U/L (17-59); Bilirubin,Total 1.3 mg/dl (0.2-1.3); Blood Urea Nitrogen 18 mg/dl (9-20); Calcium 8.7 mg/dl (8.4-10.2); Carbon Dioxide 28 mmol/L (22.0-30.0); Chloride 104 mmol/L (98-107); Creatinine Clearance Estimated 69 mL/min (50-200); Creatinine,Serum 1.40 mg/dl (0.66-1.25); Estimated Glomerular Filt Rate 52 ml/min (>60); GFR (African American) 63 ML/MIN (>60); Globulin 2.4 g/dL (1.3-3.2); Glucose 144 mg/dl (74-100); Potassium 5.4 mmoL/L (3.5-5.1); Sodium 140 mmol/L (136-145); Total Protein,Serum 6.2 g/dl (6.3-8.2)
--- NOTE | 2025-02-22 09:04 | EXP.ANES.CKL ---
[facility] Disclaimer: The information contained in this section may have been updated after the patient was seen, as this information can be updated by other users. Medical History (Updated 02/22/25 @ 06:35 by Henrique Moreno MD) History of rectal cancer Mixed hyperlipidemia Coronary artery disease HLD (hyperlipidemia) HTN (hypertension) Unstable angina Hypokalemia Cellulitis Hyponatremia Hyperkalemia Acute kidney injury Effusion, right knee Cellulitis of right thigh Puncture wound of right thigh with complication Traumatic hematoma of right lower leg with infection Suspected soft tissue infection Rectal cancer Pulmonary emboli Chest trauma Abdominal trauma Cholecystectomy planned History of COVID-19 Colon cancer Cardiomyopathy Surgical History History of coronary artery stent placement History of surgery History of colonoscopy History of surgery History of colon resection History of colon surgery History of arthroplasty of left knee Family History Mother Breast cancer Pancreatic cancer Social History (Updated 02/22/25 @ 03:51 by Rufina Colon RN) Smoking Status: Never smoker years smoked: 20 how long ago did patient quit smokin alcohol intake: never substance use type: denies use current occupational status: retired Travel in the last 8 weeks?: None household members: spouse housing: house current occupation: [email or web address] current occupational exposures/hazards: No caffeine: Yes Contact w/someone who lives/traveled outside [place] past 30 days?: No Exposure to someone with infectious disease in past 14 days?: No Have you tested positive for COVID-19?: No Exposed to someone with COVID-19 in past 14 days?: No Do you have a sore throat?: No Do you have a cough?: No Do you have any weakness?: No Are you experiencing any nausea/vomitting?: Yes Do you have any diarrhea?: No Are you experiencing any unusual bleeding?: No Do you have any muscle aches/pain?: No Do you have any abdominal pain?: Yes Are you experiencing loss of taste or smell?: No [facility] Anesthesia Checklist Patient Identification Patient Identification: Arm Band and Family Structural Data Admitted From: Inpatient Planned Operative Procedure/s: Appendectomy Consent for Planned Operative Procedure(s) Verified: Yes Verified Documents: Surgical Consent and History and Physical NPO Status Verified Time NPO: 00:00 Additional verifications Patient : No Anesthesia Reactions: No Hx Blood Transfusions: No Blood Transfusion Reaction: No Cephalosporin Allergy: No Previous Colonoscopy: Yes Airway Assessment Mallampati Score:: Class II Dentition: Good Dentition Neurological Assessment Level of Consciousness: Awake, Alert, Appropriate and Follows Commands Hx Seizures: No Numbness or tingling in extremities: No Anesthesia Plan Anesthesia Risk discussed: Yes ASA Class: III Anesthesia Type: General Preoperative Comments Pre-Operative Comments: [place] 6 weeks ago.
--- NOTE | 2025-02-22 09:06 | P.PNANES_ITS ---
[facility] Anesthesia Record Part I Anesthesia Record I Intake, IV Amount: 400 Hydration: Adequate Estimated blood loss (mL): 25 Urine output (mL): 0 Blood Products used (#): none Blood Pressure: 116/65 SaO2: 95 Pulse Rate: 83 Airway Patency: Patent Respiratory Rate: 18 Temperature: 97.7 F Patient is:: Drowsy and Stable Stable to PACU at:: 08:20
[2025-02-22] MEDS: PIPERACILLIN/TAZO 3.375 GM in 0.9 % SODIUM CHLORIDE 50 ML IV ×3 (09:28→20:18)
--- NOTE | 2025-02-22 09:45 | EXP.EVENT.NO ---
Mr. Hicks is a 60-year-old male who presented to the emergency department last night with abdominal pain, ultimately was admitted with acute appendicitis. Patient was taken today to the operating room and open laparotomy appendectomy was performed. Patient does have history of bowel resection and abdominal wall hernia. Patient tolerated the procedure well. Currently on clear liquids advancing as tolerated. Endorses mild to moderate pain with movement, denies nausea, vomiting. Continue to monitor for 24 hours postprocedure. Continuing IV antibiotics Zosyn every 6 hour. 3x incision with dressing clean dry and intact.
--- NOTE | 2025-02-22 10:58 | P.PNANES_ITS ---
[facility] Anesthesia Record Part II Anesthesia Record Part II Discharge Time: 08:50 Destination: Surgical Day Care (OP Surgery) PACU nurse assessment reviewed?: Yes Patient Condition:: Good Anesthesia Complications:: None Swallowing reflex intact?: Yes Airway Patency: Patent Cyanosis?: No Blood Pressure: 111/67 SaO2: 96 Respiratory Rate: 20 Pulse Rate: 75 Temperature: 98.2 F Mental Status: Alert & Oriented Pain level:: 0 Nausea and/or vomitting:: None Intake, IV Amount: 0 Hydration: Adequate
--- OUTSIDE RECORDS SUMMARY | 2025-02-22 11:14 | XMS_ITS | Clinical Summary ---
Author Organization [facility] Address [address] [place] [address] Care Team Providers Care High Energy Forming Equipment Operator Name Role Phone Dane Barrett MD Unavailable [phone] Brayden Zarco MD Unavailable [phone] Donte Sheets MD Primary Care Provider [phone] Allergies No known active allergies Medications acetaminophen [...] Description 04/24/2025 1:45 PM EST Office Visit [facility] [address] [place] [address] Shefali Rothman MD [address] [place] [address] Health Maintenance Due Date Last Done Comments [facility]-/Child/Adol SDOH Screenings 1965 [facility]- SDOH Screenings 1983 [facility]-Adult SDOH Screenings 1983 [facility]-Pneumococcal Vaccine: 50+ Years (1 of 2 - PCV) 01/18/[address] Colonography 2010 FIT-DNA 2010 FIT 2010 FOBT 2010 [facility]-Colorectal Cancer Screening 09/17/2021 [facility]-Depression Screening 12/24/2022 12/24/2021, 03/26 [id number] Vaccine ( season) 2025 06/25/2021, 09/05/2020, 08/08/2020 [...] this topic Medical Devices Implanted Type Area Spa Technician Device Identifier Shelf Expiration Date Model / [...] of bowel preparation was evaluated using the [place] Bowel Preparation Scale with scores of: left [...] Antibody/Antigen Screen (11/05/2020 6:30 PM EDT) Pathologist [facility] HIV 1 & 2 Antibody/Anti gen Screen Nonreactive Nonreactive 11/05/2020 8:02 PM EDT [facility] Blood Venous blood specimen / Unknown Venipuncture / Unknown 11/05/2020 6:30 PM EDT 11/05/2020 8:02 PM EDT Marcello Mckeon MD LAB BLOOD ORDERABLES Final Re sult [facility] [address] [place] [address] * [place] Hepatitis C Antibody (11/05/2020 6:30 PM EDT) Pathologist [facility] Hepatitis C Antibody Negative Negative 11/05/2020 8:02 PM EDT [facility] Blood Venous blood specimen / Unknown Venipuncture / Unknown 11/05/2020 6:30 PM EDT 11/05/2020 8:02 PM EDT us Marcello Mckeon MD LAB BLOOD ORDERABLES Final Re sult [facility] [address] [place] [address] from Last 3 Months or Most Recently [...] 4:13 PM 10/29/2020 6:33 PM Care Teams High Energy Forming Equipment Operator Relationship Specialty Start Date End Date Donte Sheets MD [address] [place] [address] PCP - General 08/23/21 Dnae Barrett MD [address] [facility] [address] [place] [address] Surgeon Colon and Rectal Surgery 04/16/21 Brayden Zarco MD [address] [phone] Consulting Physician Radiation Oncology 05/30/21
--- OUTSIDE RECORDS SUMMARY | 2025-02-22 11:14 | XMS_ITS ---
Author Organization [facility] Address [address] [place] [address] Care Team Providers Care [address] Man Name Role Phone Dane Barrett MD Unavailable [phone] Brayden Zarco MD Unavailable [phone] Donte Sheets MD Primary Care Provider [phone] Active Problems Problem Noted Date Diagnosed Date [...]
--- OUTSIDE RECORDS SUMMARY | 2025-02-22 11:14 | XMS_ITS | Clinical Summary ---
Author Organization [facility] Address [address] [place] [id number] Phone [email or web address] Care Team Providers Care Bond Writer Name Role Phone Unavailable Primary Care Provider [...] Immunization Administration Dates Next Due Covid-19 (Moderna [place], 12yrs+) (CVX-207) 2020,08/08/2020 Hepatitis B (ENGERIX-B:GSK)(RECOMBIVAX-HB:MERCK) (CVX-43) [...]
--- OUTSIDE RECORDS SUMMARY | 2025-02-22 11:14 | XMS_ITS | Clinical Summary ---
Author Organization [facility] Address [address] [place] [address] Care Team Providers Care Biological Inspector Name Role Phone Noe Rich MD Primary [...] C SCREENING 08/20/2016 INFLUENZA VACCINE 12/23/[address] [place] [address] PPO Care Teams Biological Inspector Relationship Specialty Start Date End Date Noe Rich MD PCP - General Family Medicine 07/29/16
--- OUTSIDE RECORDS SUMMARY | 2025-02-22 11:14 | XMS_ITS | Encounter Summary ---
Author Organization [facility] Address [address] [place] [address] Care Team Providers Care Glass Scullion Name Role Phone Noe Rich MD Primary Care Provider Encounter Details Date Type Department Care Team (Late st Contact Info) Description 12/06/2021 Telephone [facility] [address] [place] [address] Donte Sheets MD [address] [place], [place] [id number] Social History Tobacco Use Types Packs/Day Years [...] on filedocumented in this encounter Care Teams Glass Scullion Relationship Specialty Start Date End Date Noe Rich MD PCP - General Family Medicine 07/29/16 documented as of this encounter
[2025-02-22 13:34] LABS: Microscopic, Urine URINE MICROSCOPIC (MICROSCOPIC)
[2025-02-22] MEDS: HEPARIN SODIUM 5,000 UNIT/ML VIAL 5000 UNIT SUBCUT ×2 (13:44→20:18)
[2025-02-22 13:57] LABS: Bilirubin,Urine Negative (Negative); Color,Urine YELLOW (Yellow); Glucose,Urine (UA) Negative (Negative); Ketones,Urine TRACE (Negative); Leukocyte Esterase,Urine Negative (Negative); PH,Urine 8.0 (5.0-8.5); Protein,Urine TRACE (Negative); Specific Gravity, Urine 1.020 (1.005-1.030); Urobilinogen,Urine 1.0 EU/dl (0.2)
--- NOTE | 2025-02-22 14:24 | PC.NURSE ---
Aox 4, up ad melony, on RA, no c/o pain, dressings to abd x 3 c/d/i, 20g L ac SL, full liquids.
[2025-02-22 14:35] LABS: WBC,Urine Occasional #/hpf (0-3)
[2025-02-22 14:36] LABS: Squamous Epithelial Cell,Urine Occasional #/hpf (0-5)
[2025-02-23] MEDS: PIPERACILLIN/TAZO 3.375 GM in 0.9 % SODIUM CHLORIDE 50 ML IV ×2 (02:50→08:08)
[2025-02-23 04:00] VITALS: BP 96/50; PULSE 55; RESP 16; TEMP 36.6; O2SAT 96; BMI 30.4
--- NOTE | 2025-02-23 04:00 | PC.NURSE ---
Addendum entered by Megha Carranza RN 02/23/25 04:30: I Marco OBRIEN was made aware about the patient's hypotensive blood pressure finding this morning (for 04:00 vital sign assessment). Patient is asymptomatic. No new interventions at this time. Original Note: Patient is alert and oriented x4. He was observed to be awake throughout the majority of the night with occasional resting periods noted (eyes closed, respirations even/unlabored on room air, light snoring). Abdominal tenderness expressed with palpation, pain denied while at rest. Abdomen soft and rounded. Open appendectomy operative sites to the abdomen were assessed; dressings remain clean, dry, and intact. Previous, healed, midline abdominal scarring was noted as well. Patient has denied any nausea/vomiting, difficulties with elimination needs, difficulties with consuming food items, etc. this shift. He tolerates a clear liquid diet very well. Patient has not had a bowel movement thus far this shift but does report passing gas. Bowel sounds are active in all quadrants. Lung sounds clear, heart rhythm regular upon auscultation. He ambulates independently in his room/to the bathroom without difficulty; he ambulated twice around the hallway yesterday evening. Scheduled medications were administered per JUL. At this time, the patient remains resting in bed without any complaints. No new needs thus far. Call light within reach.
[2025-02-23 06:05] LABS: Hematocrit 37.3 % (42.0-52.0); Immature Granulocytes % 0.3 %; Mean Corpuscular HGB Conc 33.8 g/dL (31.8-35.4); Mean Corpuscular Hemoglobin 31.1 pg (27.0-31.2); Mean Corpuscular Volume 92.1 fl (80-94); Nucleated Red Blood Cells % 0 %; Platelet Count 159 K/mm3 (142-424); Red Blood Count 4.05 M/mm3 (4.60-6.20); Red Cell Distribution Width-SD 43.3 fL; White Blood Count 10.8 K/mm3 (4.8-10.8)
[2025-02-23 06:10] LABS: Hemoglobin 12.8 g/dL (14.1-18.0)
--- NOTE | 2025-02-23 06:42 | P.PN_ITS ---
Subjective Narrative: Currently sleeping. Per nursing staff he had a good night . Exam Data for Last 24 hours Vital signs and Labs for Last 24 Hours: Temp Pulse Resp BP Pulse Ox O2 Del Method 97.9 F 55 L 16 96/50 L 96 Room Air 02/23/25 04:00 02/23/25 04:00 02/23/25 04:00 02/23/25 04:00 02/23/25 04:00 02/23/25 06:35 Laboratory Results - last 24 hr 02/22/25 05:18: Sodium 140, Potassium 5.4 H D, Chloride 104, Carbon Dioxide 28, Anion Gap 13.4, BUN 18, Creatinine 1.40 H, Estimated Creat Clear 69, Estimated GFR 52 L, Est GFR ( Amer) 63, Glucose 144 H, Calcium 8.7, Total Bilirubin 1.3, AST 39, ALT 32, Alkaline Phosphatase 71, Total Protein 6.2 L D, Albumin 3.8 D, Globulin 2.4, Albumin/Globulin Ratio 1.6 02/22/25 06:50: Urine Color Yellow, Urine Appearance Clear, Urine pH 8.0, Ur Specific [place] 1.020, Urine Protein Trace, Urine Glucose (UA) Negative, Urine Ketones Trace, Urine Blood Negative, Urine Nitrate Negative, Urine Bilirubin Negative, Urine Urobilinogen 1.0, Ur Leukocyte Esterase Negative, Urine RBC None, Urine WBC Occasional, Ur Squamous Epith Cells Occasional, Urine Bacteria None 02/23/25 05:14: WBC 10.8, RBC 4.05 L, Hgb 12.8 L D, Hct 37.3 L, MCV 92.1, MCH 31.1, MCHC 33.8, RDW 12.8, Plt Count 159, MPV 11.2 H, Neut % (Auto) 81.0 H, Lymph % (Auto) 9.8 L, [place] % (Auto) 8.5, Eos % (Auto) 0.3, Baso % (Auto) 0.1, Neut # (Auto) 8.8 H, Lymph # (Auto) 1.1, [place] # (Auto) 0.9, Eos # (Auto) 0.0, Baso # (Auto) 0.0 I & O for Last 24 hours: Intake & Output 09/29/25 09/30/25 10/01/25 10/02/25 11:59 11:59 11:59 11:59 Intake Total 189.667 / 6900.994 1855 / 1980 Output Total 0 / 0 Balance 1891.667 / 1149.295 6152 / 1980 Weight 190 lb 15.995 oz 194 lb Microbiology Reports for the Last 24 Hours: Microbiology 02/22/25 02:15 Blood Blood Culture - Preliminary NO GROWTH AFTER 24 HOURS 02/22/25 02:15 Blood Blood Culture - Preliminary NO GROWTH AFTER 24 HOURS Constitutional Constitutional: no acute distress *Routine Respiratory Exam Respiratory: Absent respiratory distress *Routine Abdominal Exam Comments: Exam deferred (patient currently sleeping) Progress Note: A&P Assessment and plan (1) Appendicitis: Status: Acute Assessment and plan: Overall, doing well postoperative day 1 status post diagnostic laparoscopy/open appendectomy. Continue overall management as per primary service Advance diet Likely discharge home soon if he continues to improve
[2025-02-23 07:50] VITALS: BP 114/64; PULSE 79; RESP 18; TEMP 36.6; O2SAT 98
[2025-02-23] MEDS: HEPARIN SODIUM 5,000 UNIT/ML VIAL 5000 UNIT SUBCUT (08:09)
--- NOTE | 2025-02-23 08:14 | P.DS_ITS ---
<Statement entered by Ross Abreu MD - 02/23/25 10:45> Rounded on patient after nurse practitioner. Personally examined and interviewed patient. Agree with exam findings and care plan as documented. General Admission date:: 02/22/25 Discharge date: 02/23/25 HPI HPI HPI: Is a 60-year-old gentleman seen in consultation after evaluation emergency department for increasing abdominal pain. He had radiographic evidence consistent with appendicitis and the surgical service was consulted. He is status post partial colectomy, colostomy, and subsequent colostomy takedown. A right lower quadrant hernia containing loops of small bowel was also noted per CT scan. The patient states that he underwent recent heart catheter status post myocardial infarction (November 24, 2024). Hospital Course Hospital Course Hospital Course: Mr. Hicks is a 60-year-old male who presented to the emergency department with abdominal pain, ultimately was admitted with acute appendicitis. Patient was taken today to the operating room and open laparotomy appendectomy was performed. Patient does have history of bowel resection and abdominal wall hernia. Patient tolerated the procedure well. Patient advance to a regular diet without any issues. Endorses mild to moderate pain with movement, denies nausea, vomiting. Patient received IV antibiotics, Zosyn every 6 hours during admission. 3 times surgical site on abdomen clean dry and intact. #S/p appendectomy #Abdominal pain ? Patient is now 24 hours post appendectomy. Patient has remained hemodynamically stable during admission. Patient complains of mild to moderate pain with movement. Patient discharged home on [place] 5/325 every 4 hours as needed for moderate to severe pain. ? Lab work reassuring, no leukocytosis WBC 10.8. Hemoglobin stable 12.8. Patient tolerating p.o. diet without issues. ? Discussed postop restrictions with patient, no heavy lifting. Patient will follow-up with general surgery next week. #CAD #Hypertension ? Patient should continue home medication regimen at discharge: Aspirin 81 mg daily, Plavix 75 mg daily, carvedilol 3.125 mg twice daily, atorvastatin 40 mg daily, lisinopril 5 mg daily. Exam Data for Last 24 hours Vital signs and Labs for Last 24 Hours: Temp Pulse Resp BP Pulse Ox O2 Del Method 97.9 F 79 18 114/64 98 Room Air 02/23/25 07:50 02/23/25 07:50 02/23/25 07:50 02/23/25 07:50 02/23/25 07:50 02/23/25 07:50 Laboratory Results - last 24 hr 02/22/25 05:18: Sodium 140, Potassium 5.4 H D, Chloride 104, Carbon Dioxide 28, Anion Gap 13.4, BUN 18, Creatinine 1.40 H, Estimated Creat Clear 69, Estimated GFR 52 L, Est GFR ( Amer) 63, Glucose 144 H, Calcium 8.7, Total Bilirubin 1.3, AST 39, ALT 32, Alkaline Phosphatase 71, Total Protein 6.2 L D, Albumin 3.8 D, Globulin 2.4, Albumin/Globulin Ratio 1.6 02/22/25 06:50: Urine Color Yellow, Urine Appearance Clear, Urine pH 8.0, Ur Specific [place] 1.020, Urine Protein Trace, Urine Glucose (UA) Negative, Urine Ketones Trace, Urine Blood Negative, Urine Nitrate Negative, Urine Bilirubin Negative, Urine Urobilinogen 1.0, Ur Leukocyte Esterase Negative, Urine RBC None, Urine WBC Occasional, Ur Squamous Epith Cells Occasional, Urine Bacteria None 02/23/25 05:14: WBC 10.8, RBC 4.05 L, Hgb 12.8 L D, Hct 37.3 L, MCV 92.1, MCH 31.1, MCHC 33.8, RDW 12.8, Plt Count 159, MPV 11.2 H, Neut % (Auto) 81.0 H, Lymph % (Auto) 9.8 L, [place] % (Auto) 8.5, Eos % (Auto) 0.3, Baso % (Auto) 0.1, Neut # (Auto) 8.8 H, Lymph # (Auto) 1.1, [place] # (Auto) 0.9, Eos # (Auto) 0.0, Baso # (Auto) 0.0 I & O for Last 24 hours: Intake & Output 02/20/25 02/21/25 02/22/25 02/23/25 23:59 23:59 23:59 23:59 Intake Total 3701.667 / 3821.667 278.333 / 278.333 Output Total 0 / 0 Balance 3701.667 / 3821.667 278.333 / 278.333 Weight 86.636 kg 87.997 kg Microbiology Reports for the Last 24 Hours: Microbiology 02/22/25 02:15 Blood Blood Culture - Preliminary NO GROWTH AFTER 24 HOURS 02/22/25 02:15 Blood Blood Culture - Preliminary NO GROWTH AFTER 24 HOURS Constitutional Constitutional: no acute distress and cooperative *Routine HEENT Exam Head: Present normocephalic Eye: Present EOMI and PERRL ENT: Present mucous membranes moist *Routine Neck Exam Neck: Present supple and full ROM; Absent JVD *Routine Respiratory Exam Respiratory: Present CTA bilaterally, able to speak in complete sentences and symmetric chest movement; Absent wheezes *Routine Cardiovascular Exam Cardiovascular: Present RRR; Absent murmur *Routine Abdominal Exam Abdominal: Present soft, normoactive bowel sounds and surgical scars (Surgical dressing x 3 clean dry and intact); Absent tenderness or distended *Routine Rectal Exam Patient deferred: visual exam *Routine Exam Patient deferred: penile exam *Routine Extremities Exam Extremities: Present full ROM and normal capillary refill; Absent edema *Routine Skin Exam Skin: Present intact and dry *Routine Neurological Exam Neurological: Present alert, oriented X3 and normal speech Results Data Completed and Pending Labs on day of discharge: Labs from last 24 hours 02/23/25 02/22/25 02/22/25 05:14 06:50 05:18 WBC 10.8 RBC 4.05 L Hgb 12.8 L D Hct 37.3 L MCV 92.1 MCH 31.1 MCHC 33.8 RDW 12.8 Plt Count 159 MPV 11.2 H Neut % (Auto) 81.0 H Lymph % (Auto) 9.8 L [place] % (Auto) 8.5 Eos % (Auto) 0.3 Baso % (Auto) 0.1 Neut # (Auto) 8.8 H Lymph # (Auto) 1.1 [place] # (Auto) 0.9 Eos # (Auto) 0.0 Baso # (Auto) 0.0 Sodium 140 Potassium 5.4 H D Chloride 104 Carbon Dioxide 28 Anion Gap 13.4 BUN 18 Creatinine 1.40 H Estimated Creat Clear 69 Estimated GFR 52 L Est GFR ( Amer) 63 Glucose 144 H Calcium 8.7 Total Bilirubin 1.3 AST 39 ALT 32 Alkaline Phosphatase 71 Total Protein 6.2 L D Albumin 3.8 D Globulin 2.4 Albumin/Globulin Ratio 1.6 Urine Color Yellow Urine Appearance Clear Urine pH 8.0 Ur Specific [place] 1.020 Urine Protein Trace Urine Glucose (UA) Negative Urine Ketones Trace Urine Blood Negative Urine Nitrate Negative Urine Bilirubin Negative Urine Urobilinogen 1.0 Ur Leukocyte Esterase Negative Urine RBC None Urine WBC Occasional Ur Squamous Epith Cells Occasional Urine Bacteria None Preliminary micro results at discharge 02/22/25 02:15 Blood Culture - Preliminary Blood NO GROWTH AFTER 24 HOURS 02/22/25 02:15 Blood Culture - Preliminary Blood NO GROWTH AFTER 24 HOURS DS: Diagnosis Discharge Diagnosis (1) Appendicitis: Status: Acute Code(s): K37 - Unspecified appendicitis Qualifiers: Acute appendicitis type: with localized peritonitis Appendicitis abscess presence: without abscess Appendicitis gangrene presence: without gangrene Appendicitis perforation presence: without perforation Appendicitis type: acute appendicitis Qualified Code(s): K35.30 - Acute appendicitis with localized peritonitis, without perforation or gangrene (2) Coronary artery disease: Status: Acute Code(s): I25.10 - Atherosclerotic heart disease of [place] coronary artery without angina pectoris Qualifiers: Coronary Disease-Associated Artery/Lesion type: [place] artery [place] vs. transplanted heart: [place] heart Associated angina: without angina Qualified Code(s): I25.10 - Atherosclerotic heart disease of [place] coronary artery without angina pectoris (3) S/P appendectomy: Status: Acute Code(s): Z90.49 - Acquired absence of other specified parts of digestive tract Meds Home Medications and Allergies Home Medications ?Medication ?Instructions ?Recorded ?Confirmed ?Type aspirin 81 mg tablet,delayed 81 mg PO DAILY 30 days #9 0 tabs 12/01/24 02/22/25 Rx release carvedilol 3.125 mg tablet 3.125 mg PO BID #180 tabs 0 12/01/24 02/22/25 Rx clopidogrel 75 mg tablet 75 mg PO DAILY #90 tabs 11/2202/22/25 Rx lisinopril 5 mg tablet 5 mg PO DAILY #90 tabs 12/0102/22/25 Rx atorvastatin 40 mg tablet 40 mg PO DAILY 01/02/2506/18 History hydrocodone 5 mg-acetaminophen 325 1 tab PO Q4HP PRN M oderate Pain 02/23/25 Rx mg tablet (4-6) 3 days #15 tabs New Prescriptions to Start Prescriptions: hydrocodone-acetaminophen Jessika Holcomb Allergies Allergy/AdvReac Type Severity Reaction Status Date / Time No Known Allergies Allergy Verified 01/02/25 13:25 Discharge Plan Disposition Patient Disposition: Home, Self-Care Condition: Good Discharge Order Discharge Orders: Discharge Order (Routine); Ordered 02/23/25 Ordered By: Jessika Holcomb Follow up Plan Follow up with: Henrique Moreno MD [Staff Physician, General Surgery] - 03/01/25 10:45 am Prescriptions/Medication Reconciliation: New hydrocodone-acetaminophen 5-325 mg Tablet 1 tab PO Q4HP PRN (Reason: Moderate Pain (4-6)) 3 Days Qty: 15 0RF Continued aspirin 81 mg tablet,delayed release (DR/EC) 81 mg PO DAILY 30 Days Qty: 90 3RF clopidogrel 75 mg tablet 75 mg PO DAILY Qty: 90 3RF lisinopril 5 mg tablet 5 mg PO DAILY Qty: 90 3RF carvedilol 3.125 mg tablet 3.125 mg PO BID Qty: 180 3RF atorvastatin 40 mg tablet 40 mg PO DAILY Problem Reconciliation Problems Reviewed?: Yes Patient Discharge Instructions ACTIVITY: Ambulate as tolerated and No heavy lifting DIET: advance to your usual diet Additional Instructions: Remove dressings and shower 48 hours after surgery Patient Instructions: Appendicitis, DI for Surgical Site Infection Print Language: Japanese Providers Primary Care Provider: Provider,Referral Admit Provider: Ross Abreu Attending Provider: Ross Abreu
--- OUTSIDE RECORDS SUMMARY | 2025-02-23 10:04 | XMS_ITS | Clinical Summary ---
Author Organization [facility] Address [address] [place] [address] Phone [email or web address] Care Team Providers Care Information Systems Specialist Name Role Phone Unavailable Primary Care Provider [...] Immunization Administration Dates Next Due Covid-19 (Moderna [place], 12yrs+) (CVX-207) 2020,08/08/2020 Hepatitis B (ENGERIX-B:GSK)(RECOMBIVAX-HB:MERCK) (CVX-43) [...]
--- OUTSIDE RECORDS SUMMARY | 2025-02-23 10:04 | XMS_ITS ---
Author Organization [facility] Address [address] [place] [address] Care Team Providers Care Tool Mechanic Name Role Phone Dane Barrett MD Unavailable [phone] Brayden Zarco MD Unavailable [phone] Donte Sheets MD Primary Care Provider [phone] Active Problems Problem Noted Date Diagnosed Date [...]
--- OUTSIDE RECORDS SUMMARY | 2025-02-23 10:04 | XMS_ITS | Clinical Summary ---
Author Organization [facility] Address [address] [place] [address] Care Team Providers Care Wet Wheeler Name Role Phone Dane Barrett MD Unavailable [phone] Brayden Zarco MD Unavailable [phone] Donte Sheets MD Primary Care Provider [phone] Allergies No known active allergies Medications acetaminophen [...] Description 04/24/2025 1:45 PM EST Office Visit [facility] [address] [place] [address] Shefali Rothman MD [address] [place] [address] Health Maintenance Due Date Last Done Comments [facility]-/Child/Adol SDOH Screenings 1965 [facility]- SDOH Screenings 1983 [facility]-Adult SDOH Screenings 1983 [facility]-Pneumococcal Vaccine: 50+ Years (1 of 2 - PCV) 01/18/[address] Colonography 2010 FIT-DNA 2010 FIT 2010 FOBT 2010 [facility]-Colorectal Cancer Screening 09/17/2021 [facility]-Depression Screening 12/24/2022 12/24/2021, 03/26 [id number] Vaccine ( season) 2025 06/25/2021, 09/05/2020, 08/08/2020 [...] this topic Medical Devices Implanted Type Area Sales Representative Aircraft Device Identifier Shelf Expiration Date Model / [...] of bowel preparation was evaluated using the [place] Bowel Preparation Scale with scores of: left [...] Screen (11/05/2020 6:30 PM EDT) Pathologist [facility] HIV 1 & 2 Antibody/Anti gen Screen Nonreactive Nonreactive 11/05/2020 8:02 PM EDT [facility] Blood Venous blood specimen / Unknown Venipuncture / Unknown 11/05/2020 6:30 PM EDT 11/05/2020 8:02 PM EDT Marcello Mckeon MD LAB BLOOD ORDERABLES Final Re sult [facility] [address] [place] [address] * [place] Hepatitis C Antibody (11/05/2020 6:30 PM EDT) Pathologist [facility] Hepatitis C Antibody Negative Negative 11/05/2020 8:02 PM EDT [facility] Blood Venous blood specimen / Unknown Venipuncture / Unknown 11/05/2020 6:30 PM EDT 11/05/2020 8:02 PM EDT us Marcello Mckeon MD LAB BLOOD ORDERABLES Final Re sult [facility] [address] [place] [address] from Last 3 Months or Most Recently [...] 4:13 PM 10/29/2020 6:33 PM Care Teams Wet Wheeler Relationship Specialty Start Date End Date Donte Sheets MD [address] [place] [address] PCP - General 08/23/21 Dane Barrett MD [address] [facility] [address] [place] [address] Surgeon Colon and Rectal Surgery 04/16/21 Brayden Zarco MD [address] [phone] Consulting Physician Radiation Oncology 05/30/21
--- OUTSIDE RECORDS SUMMARY | 2025-02-23 10:04 | XMS_ITS | Clinical Summary ---
Author Organization [facility] Address [address] [place] [address] Care Team Providers Care Wealth Management Manager Name Role Phone Noe Rich MD [...] C SCREENING 08/20/2016 INFLUENZA VACCINE 12/23/[address] [place] [address] [place] [address] PPO Care Teams Wealth Management Manager Relationship Specialty Start Date End Date Noe Rich MD PCP - General Family Medicine 07/29/16
--- OUTSIDE RECORDS SUMMARY | 2025-02-23 10:04 | XMS_ITS | Encounter Summary ---
Author Organization [facility] Address [address] [place] [address] Care Team Providers Care Life Agent Name Role Phone Noe Rich MD Primary Care Provider [phone] Encounter Details Date Type Department Care Team (Late st Contact Info) Description 12/06/2021 Telephone [facility] [address] [place] [address] Donte Sheets MD [address] [place], [place] [id number] Social History Tobacco Use Types Packs/Day Years [...] on filedocumented in this encounter Care Teams Life Agent Relationship Specialty Start Date End Date Noe Rich MD PCP - General Family Medicine 07/29/16 documented as of this encounter
--- NOTE | 2025-02-24 10:29 | SW/DCPLANNER ---
Spoke with patient on the phone. Patient stated that he is doing good. Patient stated that he is aware of his upcoming appointments. Patient stated that clinic pharmacy was able to bring his medicine to him before he was discharged. Patient stated that he has no concerns or questions at this time. Shirley Londono
== END 2025-02-23 11:00 | disposition home or self-care (01) | DRG 399 ==
LOC: ER 00:41 → 2ND 02:39
PROVIDERS: Internal Medicine; Surgery; Admitting Provider Internal Medicine Adolescent Medicine; Emergency Provider Emergency Medicine; Visit Provider Internal Medicine Adolescent Medicine
PROC: 0DTJ0ZZ Resection of Appendix, Open Approach (ICD-10-PCS; CPT 44950; principal; 2025-02-22 07:00)
DX: K35.30 Acute appendicitis with localized peritonitis, without perforation or gangrene (principal); E78.2 Mixed hyperlipidemia; I10 Essential (primary) hypertension; I25.10 Atherosclerotic heart disease of native coronary artery without angina pectoris; K43.2 Incisional hernia without obstruction or gangrene; I25.2 Old myocardial infarction; Z85.038 Personal history of other malignant neoplasm of large intestine; Z90.49 Acquired absence of other specified parts of digestive tract; Z79.82 Long term (current) use of aspirin; Z79.02 Long term (current) use of antithrombotics/antiplatelets; Z79.899 Other long term (current) drug therapy; Z95.5 Presence of coronary angioplasty implant and graft
CPT/HCPCS: 36415; 51702; 74174; 80053; 81001; 83690; 83735; 85025; 87040; 99285; J0696; J1100; J1644; J1836; J1885; J2003; J2250; J2270; J2371; J2405; J2543; J2704; J3010; J7030; Q9967